=== PATIENT | male | born 1945 | race Caucasian/White ===

== ENCOUNTER 2018-11-29 18:50 | Observation (INO) | payer MEDICARE, MEDICAID ==
[2018-11-29 19:58] LABS: Bilirubin Negative (Negative); Blood, Urine Negative (Negative); Clarity Clear (Clear); Glucose, Urine (Dipstick) >=1000 mg/dL (Negative); Leukocyte Negative (Negative); Nitrite Negative (Negative); Protein, Urine (Dipstick) Negative (Neg-Trace); Urobilinogen 0.2 mg/dL (0.2-1.0)
[2018-11-29 20:02] LABS: #Eosinphils 0.3 thou/uL (0.0-0.7); #Lymphocytes 1.8 thou/uL (1.20-3.40); #Monocytes 0.9 thou/uL (0.11-0.59); #Neutrophils 6.1 thou/uL (1.40-6.50); %Basophils 0.3 % (0.0-1.0); %Eosinophils 2.9 % (0.0-10.0); %Lymphocytes 19.9 % (21.0-51.0); %Monocytes 9.6 % (0.0-10.0); %Neutrophils 67.2 % (42.0-75.0); Hemoglobin 11.3 g/dL (14.0-18.0); Mean Corpuscular HGB CONC 33.6 g/dL (32.0-36.0); Mean Corpuscular Hemoglobin 31.1 pg (27.0-31.0); Mean Corpuscular Volume 92.6 fL (78.0-98.0); Mean Platelet Volume 7.7 fL (7.4-10.4); Platelet Count 206 thou/uL (130-400); RBC Distribution Width 13.4 % (11.5-14.5); Red Blood Cell (RBC) Count 3.65 mill/uL (4.70-6.10)
--- NOTE | 2018-11-29 20:17 | RAD ---
Chest one view HISTORY: Altered mental status. COMPARISON: 06/12/2018. FINDINGS: Cardiac silhouette is magnified by projection. Pulmonary vasculature remains upper limits o f normal. Mediastinum is midline with aortic calcification and postoperative changes. No lobar consolidation or evidence of pneumothorax. IMPRESSION: Chronic-type findings are stable. No active cardiopulmonary abnormalities are demonstrate d.
--- NOTE | 2018-11-29 20:22 | CT ---
CT head noncontrast HISTORY: Altered mental status. COMPARISON: 04/04/2018. FINDINGS: There is no evidence of acute intracranial hemorrhage or infarct. Mild diffuse cortical atr ophy and chronic ischemic small vessel disease. There is no mass effect or shift of midline structures. Prominent calcification in the arterial structures of the brain base. Visualized paranasa l sinuses remain well-aerated. IMPRESSION: Atherosclerosis. Chronic-type findings are stable. No acute intracranial abnormalities are demonstrated.
[2018-11-29 20:27] LABS: ALT (SGPT) 15 U/L (8-55); AST (SGOT) 10 U/L (5-34); Albumin 4.4 g/dL (3.4-4.8); Alkaline Phosphatase 109 U/L (40-150); Anion Gap 17 mmol/L (10-20); BUN (Urea Nitrogen) 36 mg/dL (8.4-25.7); Bilirubin, Total 0.3 mg/dL (0.2-1.2); Calc. Creatinine Clearance 0 mL/min (70-130); Calcium 9.2 mg/dL (7.8-10.44); Carbon Dioxide 18 mmol/L (23-31); Chloride 102 mmol/L (98-107); Estimated GFR-MDRD 24; Globulin 2.2 g/dL (2.4-3.5); Glucose 466 mg/dL (83-110); Potassium 5.5 mmol/L (3.5-5.1); Protein, Total 6.6 g/dL (5.8-8.1); Sodium 131 mmol/L (136-145)
[2018-11-29 20:47] LABS: CKMB 6.5 ng/mL (0-6.6)
[2018-11-29] MEDS ORDERED: Aspirin Chewable 81 MG TAB ONE (21:07)
[2018-11-29 23:14] LABS: Troponin I 0.203 ng/mL (< 0.028)
[2018-11-30 00:09] VITALS: BMI 24.7
[2018-11-30 02:22] LABS: Troponin I 0.075 ng/mL (< 0.028)
[2018-11-30] MEDS ORDERED: Dextrose 50% Abboject 50 ML SYRINGE SLOW IVP PRN (03:05)
[2018-11-30] MEDS ORDERED: HumaLOG 300 UNITS/3 ML VIAL SC PRN (03:05)
[2018-11-30] MEDS ORDERED: Dextrose 5% in Water 1,000 ML IV PRN (03:05)
[2018-11-30 03:34] LABS: #Eosinphils 0.1 thou/uL (0.0-0.7); #Lymphocytes 1.9 thou/uL (1.20-3.40); #Monocytes 0.9 thou/uL (0.11-0.59); #Neutrophils 5.4 thou/uL (1.40-6.50); %Basophils 0.3 % (0.0-1.0); %Eosinophils 1.7 % (0.0-10.0); %Lymphocytes 22.8 % (21.0-51.0); %Monocytes 10.2 % (0.0-10.0); Hemoglobin 10.9 g/dL (14.0-18.0); Mean Corpuscular HGB CONC 33.6 g/dL (32.0-36.0); Mean Corpuscular Hemoglobin 31.4 pg (27.0-31.0); Mean Corpuscular Volume 93.3 fL (78.0-98.0); Mean Platelet Volume 7.6 fL (7.4-10.4); Platelet Count 187 thou/uL (130-400); RBC Distribution Width 13.5 % (11.5-14.5); Red Blood Cell (RBC) Count 3.49 mill/uL (4.70-6.10); White Blood Cell (WBC) Count 8.4 thou/uL (4.8-10.8)
[2018-11-30 03:57] LABS: ALT (SGPT) 15 U/L (8-55); AST (SGOT) 10 U/L (5-34); Albumin 3.7 g/dL (3.4-4.8); Alkaline Phosphatase 77 U/L (40-150); Anion Gap 12 mmol/L (10-20); BUN (Urea Nitrogen) 35 mg/dL (8.4-25.7); Bilirubin, Total 0.3 mg/dL (0.2-1.2); Calc. Creatinine Clearance 37 mL/min (70-130); Calcium 9.3 mg/dL (7.8-10.44); Carbon Dioxide 22 mmol/L (23-31); Chloride 108 mmol/L (98-107); Estimated GFR-MDRD 29; Globulin 2.2 g/dL (2.4-3.5); Glucose 314 mg/dL (83-110); Magnesium 1.7 mg/dL (1.6-2.6); Potassium 5.6 mmol/L (3.5-5.1); Protein, Total 5.9 g/dL (5.8-8.1); Sodium 136 mmol/L (136-145)
[2018-11-30] MEDS: HumaLOG 300 UNITS/3 ML VIAL SC PRN ×2 (06:16→17:11)
[2018-11-30] MEDS ORDERED: Nitroglycerin 0.4 MG TAB (25 Tab Bottle) SL PRN (09:06)
[2018-11-30] MEDS ORDERED: Isosorbide Dinitrate 20 MG TAB PO SCH (10:15)
[2018-11-30] MEDS ORDERED: Carvedilol 3.125 MG TAB PO SCH ×2 (10:15→21:00)
[2018-11-30] MEDS ORDERED: Citalopram 20 MG TAB PO SCH (10:15)
[2018-11-30] MEDS ORDERED: Aspirin 81 mg Enteric Coated Tablet PO SCH ×2 (10:15)
[2018-11-30] MEDS ORDERED: Polyethylene Glycol 3350 17 GM Packet PO PRN (10:33)
[2018-11-30] MEDS ORDERED: Ondansetron PF 4 MG/2 ML Vial IVP PRN (10:47)
[2018-11-30] MEDS ORDERED: Ondansetron ODT 4 MG TAB PO PRN (10:47)
--- NOTE | 2018-11-30 11:27 | ULT ---
EXAM: Bilateral lower extremity arterial ultrasound HISTORY: Discoloration of the bilateral lower legs COMPARISON: None TECHNIQUE: Multiplanar grayscale and color Doppler images were obtained and a bilateral lower extrem ity arterial ultrasound. Spectral analysis of the Doppler waveforms were performed. FINDINGS: No significant calcified plaque is seen in bilateral lower extremity. Right lower extremity: Common femoral artery: Triphasic Profundofemoral artery: Biphasic Superficial femoral artery: Triphasic Popliteal artery: Biphasic Anterior tibial artery: Biphasic Posterior tibial artery: Biphasic Dorsalis pedis artery: Biphasic No significant increase in velocity is seen from a more proximal to a distal segment to suggest an ar ea of focal atherosclerotic disease. Left lower extremity: Common femoral artery: Biphasic Profundofemoral artery: Biphasic Superficial femoral artery: Triphasic Popliteal artery: Biphasic Anterior tibial artery: Triphasic Posterior tibial artery: Monophasic Dorsalis pedis artery: Biphasic No significant increase in velocity is seen from a more proximal to a distal segment to suggest an ar ea of focal atherosclerotic disease. IMPRESSION: Minimal distal abnormal waveforms.
--- NOTE | 2018-11-30 14:00 | HP ---
PRIMARY CARE PHYSICIAN: Miguelito Cavanaugh MD CHIEF COMPLAINT: Generalized weakness and lower extremity pain. HISTORY OF PRESENT ILLNESS: Mr. Apple is a pleasant 73-year-old man with a past medical history of hypertension, hyperlipidemia, coronary artery disease, diabetes mellitus type 2, gastroesophageal reflux disease, and chronic kidney disease, stage 3, who had presented to [facility] late last night after he experienced worsening generalized weakness and pain down his lower extremities. He states that this is chronic for him and has been going on for the last several months. However, he states over the last 2 to 3 weeks, this is gradually worsening. He had denied any fever, chills, any headache, blurred vision, dizziness, any chest pain, palpitations, shortness of breath, abdominal pain, nausea, or vomiting. He had stated that when he had stood up, he had felt slight dizzy and that the room was spinning around him. However, this has since resolved since being in the emergency department. He underwent a CT of brain without contrast, which showed chronic type changes with no acute abnormalities demonstrated. He also underwent a portable chest x-ray, which was found to be stable and showed chronic type findings with no active cardiopulmonary abnormalities noted. Labs showed an elevated potassium of 5.6 and acute on chronic renal disease with a creatinine of 2.58 with his baseline creatinine of 2.2 and this has since improved to 2.25 with an estimated GFR of 29. Upon arriving, his glucose was elevated at 466. He was started on gentle IV hydration with normal saline and this has since improved to 258. Serial troponins were obtained and found to be indeterminate at 0.045, which had increased to 0.203, however, did improve back down to 0.075. The patient denied any chest pain, palpitations, or any other cardiac symptoms at this time. The patient was found to have chronic changes with his lower extremities including paresthesia, feeling of coldness and pain along with chronic skin changes and diffuse chronic discoloration. The patient had Dopplers ordered, which are currently pending at this time. Vascular Surgery will be consulted for further evaluation of his symptoms. REVIEW OF SYSTEMS: All other systems reviewed and found to be negative unless mentioned in the HPI. PAST MEDICAL HISTORY: Hypertension; hyperlipidemia; diabetes mellitus, type 2; coronary artery disease, status post CABG; and chronic kidney disease, stage 3. PAST SURGICAL HISTORY: CABG x4, right knee surgery, and aortic valve replacement. PSYCHIATRIC HISTORY: Includes depression, however, the patient denies any suicidal ideation. SOCIAL HISTORY: The patient denies any alcohol, tobacco, or illicit drug use. KNOWN ALLERGIES: Iodine, latex, and shellfish. CURRENT HOME MEDICATIONS: 1. Metformin 500 mg p.o. daily. 2. Protonix 40 mg p.o. daily. 3. MiraLAX 17 g p.o. daily. 4. Tramadol 50 mg p.o. q.i.d. p.r.n. pain. 5. Potassium chloride 20 mEq p.o. daily. 6. Aspirin 81 mg daily. 7. Carvedilol 3.125 mg p.o. b.i.d. 8. Citalopram 20 mg p.o. daily. 9. Insulin glargine 8 units subcu daily. 10. Isosorbide dinitrate 30 mg p.o. daily. 11. Lisinopril 20 mg p.o. at bedtime. 12. Nitroglycerin 0.4 mg sublingual every 5 minutes as needed for chest pain. 13. Lorazepam 1 mg p.o. daily p.r.n. anxiety. 14. Melatonin 3 mg p.o. at bedtime p.r.n. insomnia. 15. Vitamin B12 of 1000 mcg p.o. daily. PHYSICAL EXAMINATION: VITAL SIGNS: Blood pressure 189/88, pulse 79, respirations 12, temperature 98.1 degrees Fahrenheit, and O2 saturations 100% on room air. GENERAL: The patient is awake, alert, and oriented x3. He is currently lying comfortably in bed and in no acute distress. HEENT: Atraumatic, normocephalic. Pupils are round and reactive to light. Extraocular muscles intact. Moist mucous membranes noted. NECK: Soft, supple. Trachea midline. CARDIOVASCULAR: Positive S1 and S2. Regular rate and rhythm. No murmur auscultated. RESPIRATORY: Clear to auscultation bilaterally. No wheezes, rales, or rhonchi. ABDOMEN: Soft and nontender. Bowel sounds present. MUSCULOSKELETAL: Pedal pulses diminished on right lower extremity with chronic skin changes and decreased warm felt on the lower right extremity. NEUROLOGIC: Cranial nerves II through XII grossly intact. No focal deficits noted. Generalized weakness. Speech intact and normal. Gait not assessed. SKIN: Chronic skin changes noted in bilateral lower extremities. PSYCHIATRIC: Good mood and affect. LABORATORY DATA: WBC 8.4, RBC 3.49, hemoglobin 10.9, and platelet 187. Sodium 136, potassium 5.6, anion gap 12, BUN 35, creatinine 2.25, estimated GFR 29, glucose 258, and magnesium 1.7. Troponin indeterminate with the last one 0.075. Urinalysis shows greater than a 1000 glucose, otherwise unremarkable. DIAGNOSTIC IMAGING: CT brain without contrast showed chronic type findings are stable. No acute intracranial abnormalities are demonstrated. Portable chest x-ray showed chronic type findings are stable with no active cardiopulmonary abnormalities demonstrated. ASSESSMENT AND PLAN: 1. Generalized weakness. The patient was found to be hyperkalemic at 5.6. He was given a dose of oral Kayexalate, a BMP will be rechecked. PT and OT will be ordered during hospital course. Dopplers are also ordered for his chronic changes in his lower extremities along with the new findings of his decreased pulses and decreased warmth on the right side to rule out atherosclerotic disease. Vascular Surgery also consulted for further evaluation. 2. Hypertension. Continue the patient's home regimen at this time and add p.r.n. antihypertensives. Monitor blood pressure and other vital signs closely. 3. Hyperlipidemia. The patient is not on any statin at this time. Therefore, we will check a lipid panel in the morning and possibly start him on low-dose statin during hospital course. 4. Diabetes mellitus. The patient will be placed on insulin sliding scale at this time with frequent Accu-Cheks. He will also be restarted on his home Lantus 8 units daily. 5. History of coronary artery disease. Continue home regimen. 6. Deep venous thrombosis and gastrointestinal prophylaxis. 7. Code status, DNAR. 8. Surrogate decision maker is his son, Sarbjit. DISPOSITION: Pending further workup and clinical findings. Job ID: [id number]
[2018-11-30] MEDS: Insulin Glargine 8 UNITS in Pre-Filled Syringe 1 EACH SC SCH (14:41)
[2018-11-30] MEDS: Acetaminophen 325 MG TAB PO PRN ×2 (17:11→21:12)
[2018-11-30] MEDS ORDERED: Famotidine 20 MG TAB PO SCH (21:00)
[2018-11-30] MEDS ORDERED: Lisinopril 20 MG TAB PO SCH (21:00)
[2018-11-30] MEDS: Carvedilol 3.125 MG TAB PO SCH (21:12)
--- NOTE | 2018-12-01 01:54 | CON ---
DATE OF CONSULTATION: 11/30/2018 REQUESTING PHYSICIAN: Ana Medrano MD CHIEF COMPLAINT: Generalized weakness. HISTORY OF PRESENT ILLNESS: The patient is a 73-year-old man presented to the emergency room late last night. The caregiver having called EMS because the patient was weak, dizzy, and somewhat confused. Some examiners were able to elicit a history of pain in his legs, but in my interview a few minutes ago, he denied them. He says that both of his knees tend to buckle when he walks, but there is no pain associated with walking and there has not been any pain that he recalls affecting his legs. His legs are markedly discolored from the knee down on both sides, but that has been present for a long time. PAST MEDICAL HISTORY: Significant for coronary artery disease, having undergone previous coronary artery bypass grafting, diabetes, GE reflux disease, bilateral knee replacements. MEDICATIONS: Listed as, 1. Coreg 3.125 mg b.i.d. 2. Lisinopril 20 mg at bedtime. 3. Isordil 30 mg a day. 4. Lantus insulin 8 units in the early afternoon. 5. Metformin 500 mg a day. 6. Prednisone 10 mg a day. 7. Citalopram 20 mg a day. 8. Protonix 40 mg a day. 9. Baby aspirin a day. 10. Potassium chloride 20 mEq a day. ALLERGIES: HE REPORTS ALLERGIES TO SHELLFISH, IODINATED CONTRAST, AND LATEX. REVIEW OF SYSTEMS: Negative for any trauma. Negative for any leg pain. Negative for any ulceration on his legs. Negative for any swelling in his legs. PHYSICAL EXAMINATION: GENERAL: He is in no distress. VITAL SIGNS: His temperature is 97.5, T-max on the giron starting around midnight was 98.7, heart rates in the 80 to 90 range with blood pressure mostly in the 150 to 190 over 70 to 90 range. EXTREMITIES: He has easily palpable femoral and popliteal pulses bilaterally. I was able to palpate a dorsalis pedis pulse on the left and Doppler it on the right. I was not able to palpate either posterior tibial, but they were both dopplerable. He has extensive dark purplish discoloration of both lower legs with what almost appears to be some fresh bruising over the right knee, but the discoloration of his lower legs is severe venous stasis pigmentation changes with a little bit of thickening of the skin consistent with some chronic edema, but no acute edema. There is no ulceration or skin breakdown. LABORATORY DATA: White count last night was 9.0, hemoglobin 11.3, hematocrit 33.8, platelet count 206,000. His potassium is 5.6, bicarb 22, BUN 35, creatinine 2.25, glucose was 314. LFTs were normal. Albumin 3.7. Urinalysis showed glucosuria, but negative leukocyte esterase. His chest x-ray shows sternal wires and surgical clips. No infiltrates. His lower extremity arterial Doppler showed no step-up in velocities and reasonably normal flows for most of the system bilaterally. IMPRESSION AND RECOMMENDATIONS: This is venous stasis pigmentation changes, there is of no clinical consequence. Job ID: [id number]
[2018-12-01 05:27] LABS: #Eosinphils 0.2 thou/uL (0.0-0.7); #Lymphocytes 1.8 thou/uL (1.20-3.40); #Monocytes 0.8 thou/uL (0.11-0.59); #Neutrophils 5.1 thou/uL (1.40-6.50); %Basophils 0.3 % (0.0-1.0); %Eosinophils 2.8 % (0.0-10.0); %Lymphocytes 22.5 % (21.0-51.0); %Monocytes 10.5 % (0.0-10.0); Hemoglobin 11.5 g/dL (14.0-18.0); Mean Corpuscular HGB CONC 32.8 g/dL (32.0-36.0); Mean Corpuscular Hemoglobin 30.9 pg (27.0-31.0); Mean Corpuscular Volume 94.1 fL (78.0-98.0); Mean Platelet Volume 7.7 fL (7.4-10.4); Platelet Count 182 thou/uL (130-400); RBC Distribution Width 13.7 % (11.5-14.5); Red Blood Cell (RBC) Count 3.74 mill/uL (4.70-6.10); White Blood Cell (WBC) Count 7.9 thou/uL (4.8-10.8)
[2018-12-01 05:46] LABS: Anion Gap 14 mmol/L (10-20); BUN (Urea Nitrogen) 37 mg/dL (8.4-25.7); Calc. Creatinine Clearance 32 mL/min (70-130); Calcium 9.3 mg/dL (7.8-10.44); Carbon Dioxide 17 mmol/L (23-31); Chloride 110 mmol/L (98-107); Estimated GFR-MDRD 26; Glucose 157 mg/dL (83-110); Potassium 4.7 mmol/L (3.5-5.1); Sodium 136 mmol/L (136-145)
[2018-12-01] MEDS ORDERED: Enoxaparin Sodium 30 MG/0.3 ML SYRINGE SC SCH (09:00)
[2018-12-01] MEDS ORDERED: Citalopram 20 MG TAB PO SCH ×2 (09:00)
[2018-12-01] MEDS ORDERED: ISOSORBIDE DINITRATE 30 MG PO SCH (09:00)
[2018-12-01] MEDS ORDERED: Isosorbide Dinitrate 20 MG TAB PO SCH (09:00)
[2018-12-01] MEDS ORDERED: Aspirin 81 mg Enteric Coated Tablet PO SCH ×2 (09:00)
[2018-12-01] MEDS: Carvedilol 3.125 MG TAB PO SCH (09:24)
[2018-12-01] MEDS: Acetaminophen 325 MG TAB PO PRN ×2 (09:24→16:35)
[2018-12-01] MEDS: Insulin Glargine 8 UNITS in Pre-Filled Syringe 1 EACH SC SCH (12:22)
[2018-12-01] MEDS: HumaLOG 300 UNITS/3 ML VIAL SC PRN ×2 (12:23→16:40)
[2018-12-01] MEDS ORDERED: HYDROcodone/Acetaminophen 7.5/325 mg Tablet PO PRN ×2 (15:27)
[2018-12-01 18:18] VITALS: BP 100/59; TEMP 98.2
[2018-12-01] MEDS ORDERED: Famotidine 20 MG TAB PO SCH (21:00)
--- NOTE | 2018-12-01 22:07 | DIS ---
DATE OF ADMISSION: 11/29/2018 DATE OF DISCHARGE: 12/01/2018 DISCHARGE DIAGNOSES: 1. Generalized weakness, multifactorial. 2. Hyperkalemia, resolved. 3. Chronic kidney disease, stage 3 to 4. 4. Chronic venous insufficiency of the lower extremities. 5. Chronic anemia secondary to chronic kidney disease. 6. Diabetes mellitus type 2, insulin requiring. CONSULTATIONS: Reagan Lutz MD, with Vascular Surgery Service. PERTINENT LAB AND X-RAY FINDINGS: Potassium ranged between 4.7 to 5.6. Creatinine ranged between 2.25 to 2.58. Estimated GFR ranged between 24 to 29. Troponin I ranged between 0.045 to 0.203. CBC showed hemoglobin ranged between 10.[address] of the brain without contrast dated 11/29/2018, showed chronic changes without acute process. Portable chest x-ray dated 11/29/2018, showed chronic changes without acute cardiopulmonary process. Bilateral lower extremity arterial Doppler study dated 11/30/2018, showed minimal distal abnormal waveforms. HOSPITAL COURSE: The patient was initially admitted after presenting with generalized weakness with evidence of mild hyperkalemia in the context of chronic kidney disease stage 3 to 4. The patient received Kayexalate with overall resolution of the hyperkalemia. The patient also underwent evaluation with arterial Doppler studies of the lower extremities due to hyperpigmentary changes and concern for vascular insufficiency. Arterial Doppler studies did not reveal evidence of any significant arterial insufficiency and the patient was evaluated by the Vascular Surgery Service without any specific recommendations for intervention as changes were likely chronic in nature. The patient received general supportive management and remained clinically stable throughout the hospital course. I have examined the patient at the time of discharge and discussed followup instructions. The patient verbalized understanding and agreement ready for discharge on 12/01/2018. DISCHARGE MEDICATIONS: 1. Enteric-coated aspirin 81 mg p.o. daily. 2. Citalopram 20 mg p.o. daily. 3. Vitamin B12 of 1000 mcg p.o. daily. 4. Glargine insulin 8 units subcutaneously daily. 5. Isosorbide dinitrate 30 mg p.o. daily. 6. Lisinopril 20 mg p.o. at bedtime. 7. Lorazepam 1 mg p.o. daily. 8. Melatonin 3 mg p.o. at bedtime p.r.n. 9. Metformin 500 mg p.o. daily. 10. Potassium chloride 20 mEq p.o. daily. 11. Tramadol 50 mg p.o. q.i.d. p.r.n. 12. Coreg 3.125 mg p.o. b.i.d. 13. Protonix 40 mg p.o. daily. FOLLOWUP: The patient may follow up with his primary care provider, Dr. Miguelito Cavanaugh, within 7 days of discharge. The patient may follow up with Dr. Onur Pedro with Nephrology Service and to call his office for appointment time and date. CONDITION ON DISCHARGE: Stable. ACTIVITY: Ad-wiley. DIET: ADA. CODE STATUS: Do not attempt resuscitation. DISPOSITION: Home, 12/01/2018. Job ID: [id number]
--- NOTE | 2018-12-02 09:44 | EKG ---
Test Reason : Blood Pressure : / mmHG Vent. Rate : 081 BPM Atrial Rate : 081 BPM P-R Int : 154 ms QRS Dur : 142 ms QT Int : 378 ms P-R-T Axes : -14 -55 063 degrees QTc Int : 439 ms Normal sinus rhythm Left axis deviation Left bundle branch block Abnormal ECG [place] inversion aVL No change from 02/15/2017 Confirmed by ALONA CRUZ DO ([id number]), clinical editor ZAK MANUEL ([id number]) on 12/02/2018 9:44:40 AM Referred By: Confirmed By:ALONA CRUZ DO
== END 2018-12-01 19:00 | disposition home or self-care (01) ==
LOC: ERS 18:50 → 2SW 23:45 → 2NO 11-30 13:24
PROVIDERS: ADMIT Hospitalist; ATTEND Hospitalist
DX: E87.5 Hyperkalemia (principal); I12.9 Hypertensive chronic kidney disease with stage 1 through stage 4 chronic kidney disease, or unspecified chronic kidney disease; E11.22 Type 2 diabetes mellitus with diabetic chronic kidney disease; N18.4 Chronic kidney disease, stage 4 (severe); D63.1 Anemia in chronic kidney disease; I87.2 Venous insufficiency (chronic) (peripheral); E78.5 Hyperlipidemia, unspecified; I25.10 Atherosclerotic heart disease of native coronary artery without angina pectoris; F32.9 Major depressive disorder, single episode, unspecified; Z79.4 Long term (current) use of insulin; Z79.82 Long term (current) use of aspirin; Z79.899 Other long term (current) drug therapy; Z91.013 Allergy to seafood; Z91.040 Latex allergy status; Z91.041 Radiographic dye allergy status; Z95.1 Presence of aortocoronary bypass graft; Z95.4 Presence of other heart-valve replacement; Z66 Do not resuscitate
CPT/HCPCS: 70450; 71045; 80048; 80053 ×2; 81003; 82553; 82962 ×3; 83735; 84484 ×3; 85025 ×3; 93005; 93923; 96360; 96361; 96372; 97116; 97139; 97535; 99285; G0378 ×3; 36415; 36416; J1650; J1815

== ENCOUNTER 2019-01-11 09:43 | Observation (INO) | payer MEDICARE, MEDICAID ==
[2019-01-11 10:27] LABS: #Eosinphils 0.4 thou/uL (0.0-0.7); #Lymphocytes 0.9 thou/uL (1.20-3.40); #Monocytes 0.7 thou/uL (0.11-0.59); #Neutrophils 4.6 thou/uL (1.40-6.50); %Basophils 0.6 % (0.0-1.0); %Eosinophils 5.8 % (0.0-10.0); %Lymphocytes 14.1 % (21.0-51.0); %Monocytes 10.8 % (0.0-10.0); %Neutrophils 68.7 % (42.0-75.0); Hemoglobin 9.7 g/dL (14.0-18.0); Mean Corpuscular HGB CONC 32.8 g/dL (32.0-36.0); Mean Corpuscular Hemoglobin 31.1 pg (27.0-31.0); Mean Platelet Volume 6.6 fL (7.4-10.4); Platelet Count 258 thou/uL (130-400); RBC Distribution Width 12.1 % (11.5-14.5); White Blood Cell (WBC) Count 6.7 thou/uL (4.8-10.8)
[2019-01-11 10:51] LABS: ALT (SGPT) 9 U/L (8-55); AST (SGOT) 15 U/L (5-34); Albumin 3.6 g/dL (3.4-4.8); Alkaline Phosphatase 94 U/L (40-150); Anion Gap 17 mmol/L (10-20); BUN (Urea Nitrogen) 25 mg/dL (8.4-25.7); Bilirubin, Total 0.4 mg/dL (0.2-1.2); Calc. Creatinine Clearance 0 mL/min (70-130); Carbon Dioxide 20 mmol/L (23-31); Chloride 109 mmol/L (98-107); Estimated GFR-MDRD 21; Glucose 141 mg/dL (83-110); Potassium 4.8 mmol/L (3.5-5.1); Protein, Total 5.6 g/dL (5.8-8.1); Sodium 141 mmol/L (136-145)
--- NOTE | 2019-01-11 10:51 | RAD ---
SINGLE VIEW CHEST: DATE: 01/11/19 COMPARISON: 11/29/18. HISTORY: Generalized weakness and chest pain. FINDINGS: Single view of the chest shows a normal sized cardiomediastinal silhouette. The patient is status pos t CABG. There is no evidence of consolidation, mass, or pleural effusion. Degenerative changes are se en in the spine and shoulders. IMPRESSION: No evidence of acute cardiopulmonary disease. POS: [facility]
[2019-01-11 11:07] LABS: CKMB 2.4 ng/mL (0-6.6)
[2019-01-11 11:32] LABS: Bilirubin Negative (Negative); Blood, Urine Negative (Negative); Clarity Clear (Clear); Glucose, Urine (Dipstick) Normal (Negative); Leukocyte Negative Leu/uL (Negative); Nitrite Negative (Negative); Protein, Urine (Dipstick) Negative (Neg-Trace); Urobilinogen Normal mg/dL (Less than 2)
[2019-01-11 15:21] LABS: Troponin I 0.102 ng/mL (< 0.028)
[2019-01-11] MEDS ORDERED: Bisacodyl 5 MG TAB PO PRN (16:12)
[2019-01-11] MEDS ORDERED: Dextrose 50% Abboject 50 ML SYRINGE SLOW IVP PRN (16:12)
[2019-01-11] MEDS ORDERED: Dextrose 5% in Water 1,000 ML IV PRN (16:12)
[2019-01-11] MEDS ORDERED: HumaLOG 300 UNITS/3 ML VIAL SC PRN (16:12)
--- NOTE | 2019-01-11 16:34 | HP ---
PRIMARY CARE PROVIDER: Miguelito Cavanaugh MD. CHIEF COMPLAINT: Generalized weakness. HISTORY OF PRESENT ILLNESS: Mr. Apple is a pleasant 73-year-old gentleman, who was seen at [facility] on January 11, 2019. He was hospitalized at this facility from November 29 to of this year for generalized weakness, hyperkalemia, chronic kidney disease, and chronic anemia. The patient is able to provide some history. Collateral history was obtained from discussion with emergency room physician and review of medical records. I could not reach the patient's son over the telephone. The patient tells me he hurts all over. He has been feeling weak for several days. He reports fall about a month ago, but none since then. Today morning, he was unable to stand up or walk. He therefore called 911 and was brought to the emergency room. REVIEW OF SYSTEMS: All systems were reviewed and found to be negative except for the pertinent positives and negatives mentioned above. PAST MEDICAL HISTORY: Hypertension, dyslipidemia, diabetes mellitus type 2, coronary artery disease, and chronic kidney disease stage 3. PAST SURGICAL HISTORY: Coronary artery bypass graft x4, right knee surgery, and aortic valve replacement. PSYCHIATRIC HISTORY: Depression. SOCIAL HISTORY: The patient denies tobacco use, alcohol use, or recreational drug use. ALLERGIES: IODINE, LATEX, AND SHELLFISH. CURRENT MEDICATIONS: As dictated by Dr. Beckman in his discharge summary dated on December 01, 2018. CODE STATUS: I discussed his code status. He is DNAR. FAMILY HISTORY: No family history of premature coronary artery disease. PHYSICAL EXAMINATION: GENERAL: On examination, Mr. Apple is awake and alert, not in acute distress. VITAL SIGNS: Blood pressure is 127/66, pulse 68, respiratory rate 18, and oxygen saturation 100% on room air. Rectal temperature is 100 degrees Fahrenheit. EYES: No scleral icterus, no conjunctival pallor. ENT: Dry mucosal membranes. No oropharyngeal erythema or exudates. NECK: Supple, nontender, trachea is midline. RESPIRATORY: Accessory muscles of breathing are not active. Chest wall movements are symmetric bilaterally. Lungs are clear to auscultation without wheeze, rhonchi, or crepitations. CARDIOVASCULAR: S1 and S2 are heard, regular. Peripheral pulses palpable. No carotid bruit. No pericardial rub. ABDOMEN: Soft, nontender, bowel sounds heard, no hepatomegaly, no splenomegaly. NEUROLOGIC: Cranial nerves 2 through 12 intact, deep tendon reflexes 2+. MUSCULOSKELETAL: Power is 5/5 in all 4 extremities. SKIN: Stasis dermatitis of both lower extremities. LYMPHATIC: No cervical lymphadenopathy. PSYCHIATRIC: Normal mood, normal affect, the patient is oriented to person and place, not to time. LABORATORY DATA: Mr. Apple's labs and investigations were reviewed. I reviewed his chest x-ray, which does not show any pulmonary infiltrates. I also reviewed his electrocardiogram, which shows normal sinus rhythm, no ST changes to suggest an acute coronary syndrome. He has normal white count, normal platelet count, and normocytic anemia with hemoglobin 9.7, last known hemoglobin was 11.5 on December 01, 2018, but in August, his hemoglobin was in the 9 to 10 range. He has normal sodium, normal potassium, normal blood urea nitrogen, elevated creatinine of 2.92, last known creatinine 2.43 on December 01, 2018, normal calcium, unremarkable liver profile and indeterminate troponin I of 0.078. Urinalysis is negative. ASSESSMENT AND PLAN: Mr. Apple is a pleasant 73-year-old gentleman, who was seen at [facility] on January 11, 2019. His problem list includes: 1. Generalized weakness: Mr. Apple is presenting with significant generalized weakness. He has been screened by inpatient rehab. However, they do not have beds at this time. Mr. Apple will be admitted to the hospital on observation status. 2. Dehydration: Mr. Apple is slightly dehydrated. We will provide intravenous hydration and reassess. 3. Acute on chronic renal failure stage 4: We will provide gentle hydration, hold nephrotoxic medications including lisinopril and metformin, and reassess. 4. Diabetes mellitus type 2: We will start Accu-Cheks and insulin sliding scale. 5. Coronary artery disease: He has troponins in the indeterminate range, and they have been in the similar range in the past. There are no new electrocardiographic changes. We will trend troponins. 6. Hypertension: We will monitor vital signs and titrate antihypertensives as needed. Many thanks for allowing me to participate in your patient's care. Please feel free to contact me with any questions or concerns. LEVEL OF RISK: High. LEVEL OF COMPLEXITY: High. Job ID: [id number]
[2019-01-11 17:48] VITALS: BMI 22.8
[2019-01-11 18:06] LABS: Troponin I 0.104 ng/mL (< 0.028)
[2019-01-11] MEDS: Sodium Chloride 0.9% 1,000 ML IV SCH (18:21)
[2019-01-11] MEDS: Acetaminophen 325 MG TAB PO SCH (20:42)
[2019-01-11] MEDS: Carvedilol 3.125 MG TAB PO SCH (20:42)
[2019-01-11 22:04] LABS: Troponin I 0.105 ng/mL (< 0.028)
[2019-01-12 04:57] LABS: #Eosinphils 0.6 thou/uL (0.0-0.7); #Lymphocytes 1.1 thou/uL (1.20-3.40); #Monocytes 0.7 thou/uL (0.11-0.59); #Neutrophils 2.7 thou/uL (1.40-6.50); %Basophils 0.6 % (0.0-1.0); %Eosinophils 11.2 % (0.0-10.0); %Lymphocytes 22.4 % (21.0-51.0); %Monocytes 13.2 % (0.0-10.0); %Neutrophils 52.6 % (42.0-75.0); Hemoglobin 8.7 g/dL (14.0-18.0); Mean Corpuscular HGB CONC 33.2 g/dL (32.0-36.0); Mean Corpuscular Hemoglobin 31.6 pg (27.0-31.0); Mean Corpuscular Volume 95.2 fL (78.0-98.0); Mean Platelet Volume 6.8 fL (7.4-10.4); Platelet Count 260 thou/uL (130-400); RBC Distribution Width 12.1 % (11.5-14.5); Red Blood Cell (RBC) Count 2.75 mill/uL (4.70-6.10); White Blood Cell (WBC) Count 5.1 thou/uL (4.8-10.8)
[2019-01-12 05:18] LABS: Anion Gap 14 mmol/L (10-20); BUN (Urea Nitrogen) 26 mg/dL (8.4-25.7); Calc. Creatinine Clearance 28 mL/min (70-130); Calcium 9.5 mg/dL (7.8-10.44); Carbon Dioxide 19 mmol/L (23-31); Chloride 110 mmol/L (98-107); Estimated GFR-MDRD 23; Glucose 85 mg/dL (83-110); Potassium 4.6 mmol/L (3.5-5.1); Sodium 138 mmol/L (136-145)
[2019-01-12] MEDS: Carvedilol 3.125 MG TAB PO SCH (08:36)
[2019-01-12] MEDS: Acetaminophen 325 MG TAB PO SCH ×2 (08:37→11:44)
[2019-01-12] MEDS ORDERED: Cyanocobalamin (Vitamin B-12) 1,000 MCG TAB PO SCH (09:00)
[2019-01-12] MEDS ORDERED: Aspirin 81 mg Enteric Coated Tablet PO SCH (09:00)
[2019-01-12] MEDS ORDERED: Isosorbide Dinitrate 20 MG TAB PO SCH (09:00)
[2019-01-12] MEDS ORDERED: Citalopram 20 MG TAB PO SCH (09:00)
[2019-01-12] MEDS: Sodium Chloride 0.9% 1,000 ML IV SCH (11:45)
[2019-01-12] MEDS ORDERED: Insulin Glargine 4 UNITS in Pre-Filled Syringe 1 EACH SC SCH (13:00)
[2019-01-12] MEDS ORDERED: Insulin Glargine 8 UNITS in Pre-Filled Syringe 1 EACH SC SCH (13:00)
[2019-01-12] MEDS ORDERED: traMADol HCl 50 MG TAB PO PRN (13:39)
[2019-01-12 14:12] VITALS: BP 133/65; TEMP 97.8
[2019-01-12] MEDS ORDERED: hydrALAZINE 25 MG TAB PO SCH (15:00)
--- NOTE | 2019-01-12 19:29 | DIS ---
DATE OF ADMISSION: 01/11/2019 DATE OF DISCHARGE: 01/12/2019 PRIMARY CARE PROVIDER: Miguelito Cavanaugh MD DISCHARGE DIAGNOSES: 1. Generalized weakness. 2. Podnx-nv-trbotuv kidney disease, stage IV. 3. Hypoglycemia. CONDITION OF PATIENT ON THE DAY OF DISCHARGE: Stable. I assessed Mr. Apple on the day of discharge. He denies any chest pain or shortness of breath. Vital signs are stable. S1 and S2 are heard, regular. Lungs are clear to auscultation bilaterally. DISCHARGE MEDICATIONS: 1. Lisinopril and metformin were discontinued temporarily. 2. Lantus dose has been decreased to 4 units daily. 3. Hydralazine 25 mg 3 times a day has been started. Otherwise, the patient is being discharged to rehab on the remainder of his home medications, which include, 1. Acetaminophen 325 mg every 6 hours as needed. 2. Aspirin 81 mg daily. 3. Citalopram 20 mg daily. 4. Vitamin B12 1000 mcg daily. 5. Isosorbide dinitrate 30 mg daily. 6. Coreg 3.125 mg 2 times a day. 7. Protonix 40 mg daily. 8. Lorazepam 1 mg daily as needed. HOSPITAL COURSE: Mr. Apple is a pleasant 73-year-old gentleman, who was admitted to [facility] on January 11, 2019, for a generalized weakness and gfuey-on-dvqutgz stage IV renal failure. Please refer to my history and physical note dated January 11, 2019, for further details. A 2D echocardiogram showed left ventricular ejection fraction of 45% to 50%, mildly dilated left atrium, normal size left ventricle, mild aortic stenosis, mild mitral regurgitation, and mild tricuspid regurgitation. The patient was evaluated in the emergency room for inpatient rehab. He was admitted as observation patient overnight to the hospital because beds were not available. Rehab bed became available on January 12, and he is being discharged for inpatient rehab at [facility]. He had episodes of hypoglycemia during this admission, therefore, his Lantus insulin dose was decreased to 4 units from 8 units daily. He also had [id number] renal failure with a creatinine of 2.92 at the time of admission. It decreased to 2.76 by January 12. Lisinopril and metformin are on hold. He will need his Chem-7 checked in 3 days time. At which time, decision can be made regarding resuming metformin and lisinopril. His blood pressures were elevated during this hospitalization, and he has been started on hydralazine. LABORATORY DATA: On the day of discharge, sodium 138, potassium 4.6, blood urea nitrogen 26, creatinine 2.76, white count 5100, hemoglobin 8.7, and platelet count 260,000. Many thanks for allowing me to participate in your patient's care. Please feel free to contact me with any questions or concerns. DISCHARGE DESTINATION: [facility]. Job ID: [id number]
== END 2019-01-12 14:55 ==
LOC: ERS 09:43 → 2NO 17:21
PROVIDERS: ADMIT Internal Medicine; ATTEND Internal Medicine
DX: R53.1 Weakness (principal); I12.9 Hypertensive chronic kidney disease with stage 1 through stage 4 chronic kidney disease, or unspecified chronic kidney disease; E11.22 Type 2 diabetes mellitus with diabetic chronic kidney disease; N18.4 Chronic kidney disease, stage 4 (severe); N17.9 Acute kidney failure, unspecified; E11.649 Type 2 diabetes mellitus with hypoglycemia without coma; E86.0 Dehydration; I25.10 Atherosclerotic heart disease of native coronary artery without angina pectoris; F32.9 Major depressive disorder, single episode, unspecified; E78.5 Hyperlipidemia, unspecified; I25.2 Old myocardial infarction; K21.9 Gastro-esophageal reflux disease without esophagitis; Z95.1 Presence of aortocoronary bypass graft; Z66 Do not resuscitate; Z91.041 Radiographic dye allergy status; Z91.040 Latex allergy status; Z91.013 Allergy to seafood; Z79.82 Long term (current) use of aspirin; Z79.899 Other long term (current) drug therapy
CPT/HCPCS: 71045; 80048; 80053; 81003; 82553; 82962 ×2; 84484 ×2; 85025 ×2; 93005; 93306; 96360; 96361 ×2; 97116; 97139; 99285; G0378 ×3; 36415; 36416; J1815

== ENCOUNTER 2019-02-06 15:45 | Observation (INO) | payer MEDICARE, MEDICAID ==
[2019-02-06 16:21] LABS: #Eosinphils 0.5 thou/uL (0.0-0.7); #Lymphocytes 1.1 thou/uL (1.20-3.40); #Monocytes 0.6 thou/uL (0.11-0.59); #Neutrophils 2.9 thou/uL (1.40-6.50); %Basophils 0.1 % (0.0-1.0); %Eosinophils 9.5 % (0.0-10.0); %Lymphocytes 21.1 % (21.0-51.0); %Monocytes 11.3 % (0.0-10.0); Hemoglobin 10.1 g/dL (14.0-18.0); Mean Corpuscular HGB CONC 33.2 g/dL (32.0-36.0); Mean Corpuscular Hemoglobin 30.6 pg (27.0-31.0); Mean Corpuscular Volume 92.1 fL (78.0-98.0); Mean Platelet Volume 7.4 fL (7.4-10.4); Platelet Count 202 thou/uL (130-400); RBC Distribution Width 11.9 % (11.5-14.5); Red Blood Cell (RBC) Count 3.31 mill/uL (4.70-6.10); White Blood Cell (WBC) Count 5.1 thou/uL (4.8-10.8)
[2019-02-06 16:41] LABS: ALT (SGPT) 13 U/L (8-55); AST (SGOT) 15 U/L (5-34); Albumin 4.2 g/dL (3.4-4.8); Alkaline Phosphatase 85 U/L (40-150); Anion Gap 16 mmol/L (10-20); BUN (Urea Nitrogen) 25 mg/dL (8.4-25.7); Bilirubin, Total 0.4 mg/dL (0.2-1.2); CK (CPK) 137 U/L (30-200); Calc. Creatinine Clearance 0 mL/min (70-130); Carbon Dioxide 22 mmol/L (23-31); Chloride 105 mmol/L (98-107); Estimated GFR-MDRD 32; Globulin 1.9 g/dL (2.4-3.5); Glucose 79 mg/dL (83-110); Lipase 31 U/L (8-78); Potassium 4.6 mmol/L (3.5-5.1); Protein, Total 6.1 g/dL (5.8-8.1); Sodium 138 mmol/L (136-145)
--- NOTE | 2019-02-06 17:10 | RAD ---
PORTABLE CHEST ONE VIEW: Date: 02-06-19 Time: 4:05 p.m. History: Chest pain FINDINGS: Comparison is made with exam of 01-11-19. The heart size is normal. The aorta is tortuous. The lungs are well expanded without focal areas of c onsolidation or pneumothoraces or pleural effusions. IMPRESSION: No acute process. POS: [facility]
[2019-02-06] MEDS ORDERED: hydrALAZINE 20 MG/ML VIAL SLOW IVP PRN (20:23)
[2019-02-06 20:41] LABS: Troponin I Less than 0.010 ng/mL (< 0.028)
[2019-02-06 23:01] LABS: Troponin I 0.032 ng/mL (< 0.028)
[2019-02-07] MEDS ORDERED: Acetaminophen 325 MG TAB PO PRN (01:23)
[2019-02-07] MEDS ORDERED: Acetaminophen 650 MG Suppository PR PRN (01:23)
[2019-02-07] MEDS ORDERED: Lorazepam 1 MG TAB PO PRN (01:23)
[2019-02-07 01:47] LABS: #Eosinphils 0.6 thou/uL (0.0-0.7); #Lymphocytes 1.1 thou/uL (1.20-3.40); #Monocytes 0.7 thou/uL (0.11-0.59); %Basophils 0.3 % (0.0-1.0); %Eosinophils 10.3 % (0.0-10.0); %Lymphocytes 21.1 % (21.0-51.0); %Monocytes 12.7 % (0.0-10.0); %Neutrophils 55.6 % (42.0-75.0); Hemoglobin 9.9 g/dL (14.0-18.0); Mean Corpuscular HGB CONC 33.4 g/dL (32.0-36.0); Mean Corpuscular Hemoglobin 30.7 pg (27.0-31.0); Mean Corpuscular Volume 91.9 fL (78.0-98.0); Mean Platelet Volume 7.3 fL (7.4-10.4); Platelet Count 193 thou/uL (130-400); RBC Distribution Width 11.9 % (11.5-14.5); Red Blood Cell (RBC) Count 3.21 mill/uL (4.70-6.10); White Blood Cell (WBC) Count 5.4 thou/uL (4.8-10.8)
[2019-02-07 02:08] LABS: Anion Gap 13 mmol/L (10-20); BUN (Urea Nitrogen) 25 mg/dL (8.4-25.7); Calc. Creatinine Clearance 41 mL/min (70-130); Calcium 9.8 mg/dL (7.8-10.44); Carbon Dioxide 22 mmol/L (23-31); Chloride 108 mmol/L (98-107); Estimated GFR-MDRD 34; Glucose 111 mg/dL (83-110); Sodium 139 mmol/L (136-145)
[2019-02-07 02:25] LABS: CKMB 3.2 ng/mL (0-6.6)
[2019-02-07] MEDS: Sodium Chloride 0.9% 1,000 ML IV SCH ×3 (02:25→23:54)
[2019-02-07] MEDS: traMADol HCl 50 MG TAB PO PRN (02:29)
[2019-02-07] MEDS ORDERED: HumaLOG 300 UNITS/3 ML VIAL SC PRN ×2 (03:53)
[2019-02-07] MEDS ORDERED: Dextrose 50% Abboject 50 ML SYRINGE SLOW IVP PRN (03:53)
[2019-02-07] MEDS ORDERED: Dextrose 5% in Water 1,000 ML IV PRN (03:53)
--- NOTE | 2019-02-07 04:46 | HP ---
This is LINDA Murray dictating a report for Monica Maravilla MD. PRIMARY CARE PHYSICIAN: Dr. Cavanaugh. CHIEF COMPLAINT: Chest pain. HISTORY OF PRESENT ILLNESS: Mr. Apple is a 73-year-old gentleman, who presents with complaints of chest pain. He states he has had intermittent chest pain for the last couple of days. The pain today started at approximately 2:30 pm. The patient states it was in the center of his chest radiating down into his left arm and hand. The patient states the pain became severe, rating it a 10/10 in severity. He states it was initially a 7/10 in severity. He tried taking nitroglycerin at home and states he did not have any relief. He opted to seek medical attention. He was brought in by EMS and per the ED report, he received additional nitroglycerin spray, nitroglycerin paste, and morphine. The patient states on arrival, his pain had diminished. He reports having some mild shortness of breath at the time the pain started. Denies having any recent cough or hemoptysis. Denies having any headaches or dizziness. No recent fevers, chills, or sweats. No abdominal pain, nausea, or vomiting. The patient states he has discomfort in his back and in his neck, which is chronic and unchanged. Denies any hemoptysis. No lower leg swelling or edema. In the emergency department, he underwent an EKG which showed a normal sinus rhythm, heart rate of 64, complete left bundle-branch block with no ST changes or T-wave abnormalities compared to previous EKG done 01/12/2019. He underwent a chest x-ray that showed no evidence of intrathoracic acute changes. Laboratory studies were done which showed a normal white blood count. Renal function elevated with a creatinine of 2.05, however, he appears to be at baseline. LFTs unremarkable and initial troponin negative. Lipase 31. The patient did not receive any additional medications in the emergency department due to being pain free. PAST MEDICAL HISTORY: 1. Coronary artery disease. 2. Previous OR. 3. Type 2 diabetes mellitus. 4. GERD. 5. Hyperlipidemia. 6. Hypertension. 7. CKD. 8. Depression. PAST SURGICAL HISTORY: 1. CABG x4. 2. Right knee surgery. 3. Aortic valve replacement. SOCIAL HISTORY: The patient denies any tobacco use, alcohol consumption, or illicit drug use. He states he is retired. Due to chronic medical comorbidities, he is not as active as he wishes he could be. 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 ALLERGIES: 1. IODINE AND IODIDE CONTAINING PRODUCTS. 2. LATEX. 3. SHELLFISH CONTAINING PRODUCTS. CURRENT MEDICATIONS: 1. Carvedilol. 2. Lorazepam. 3. Prednisone. 4. Citalopram. 5. Lisinopril. 6. Metformin. 7. . 8. Isosorbide. 9. Pantoprazole. 10. Potassium chloride. 11. Aspirin. 12. Vitamin B12. 13. Lantus. PHYSICAL EXAMINATION: GENERAL: The patient appears thin, well developed, in no acute distress. VITAL SIGNS: Temperature 97.8, pulse 60, respirations 12, O2 saturation 100% on room air, blood pressure 122/59. HEENT: Normocephalic and atraumatic. Pupils are equal, round, reactive to light. Sclerae without icterus. Oropharynx is clear. NECK: Supple. LUNGS: Clear to auscultation bilaterally without any wheezes, rales, or rhonchi. CARDIAC: Regular rate and rhythm. ABDOMEN: Soft, nontender, nondistended. Normoactive bowel sounds present. EXTREMITIES: No lower leg swelling or edema. NEUROLOGIC: Alert and oriented x3. SKIN: Without rash or jaundice. LABORATORY DATA: White blood count 5.1, hemoglobin 10.1, hematocrit 30.4, platelets 202. Sodium 138, potassium 4.6, chloride 105, carbon dioxide 22, anion gap 16, BUN 25, creatinine 2.05, GFR 32, glucose 79, calcium 10. LFTs unremarkable. Lipase normal. Troponin negative. IMAGING DATA: As mentioned above in HPI. Recent echo done on 01/11/2019, showed an EF of 45% to 50% with mildly dilated left atrium, left ventricular size is normal and aortic valve leaflets not well visualized. Mild aortic stenosis present as well as mild tricuspid regurgitation and mild mitral regurgitation. IMPRESSION AND PLAN: Mr. Apple is a pleasant 73-year-old gentleman who has been referred for management of the followin. Acute coronary syndrome rule out. The patient is without any chest pain at present. He has responded well to treatment. States he has had persistent chest pain for the last couple of days and it became progressively worse today. His pain has fully settled by now, though he is unsure how long exactly lasted. At this present moment, he has no complaints. We will continue to trend troponins. Second troponin has come back indeterminate 0.032. We will repeat. The patient apparently has presented with multiple complaints of chest pain in the past. We will place consultations to Cardiology. We will also add on BNP to laboratory studies. Consultation placed to Cardiology. 2. Hypertension. We will resume home medications once verified. Monitor blood pressure. 3. Diabetes mellitus. We will resume home medications. Monitor glucose and initiate sliding scale. 4. Gastrointestinal prophylaxis. We will continue his home dose of Protonix. 5. Chronic kidney disease. Currently appears to be at baseline. We will continue to monitor renal function. We will initiate low dose IV hydration. 6. Code status. The patient states he wishes to be DNAR. Consultation has been placed to Palliative Care for advanced directives. His surrogate decision maker is his son, Sarbjit Apple. The patient's case was discussed with Dr. Maravilla, who agrees with plan of care as described above. Job ID: [id number]
[2019-02-07] MEDS: Aspirin 81 mg Enteric Coated Tablet PO SCH (08:12)
[2019-02-07] MEDS: Cyanocobalamin (Vitamin B-12) 1,000 MCG TAB PO SCH (08:13)
[2019-02-07] MEDS: Carvedilol 3.125 MG TAB PO SCH ×2 (08:13→19:41)
[2019-02-07] MEDS ORDERED: Famotidine/PF 20 mg/2ml Vial SLOW IVP SCH (09:00)
[2019-02-07 14:10] VITALS: BMI 22.3
[2019-02-07] MEDS ORDERED: Insulin Glargine 8 UNITS in Pre-Filled Syringe 1 EACH SC SCH (15:00)
[2019-02-07] MEDS ORDERED: Insulin Glargine 15 UNITS in Pre-Filled Syringe 1 EACH SC SCH (15:00)
[2019-02-07] MEDS ORDERED: Insulin Glargine 4 UNITS in Pre-Filled Syringe 1 EACH SC SCH (15:00)
--- NOTE | 2019-02-07 21:35 | CON ---
DATE OF CONSULTATION: HISTORY OF PRESENT ILLNESS: Mr. Bertrand Apple is a 73-year-old white male whom I initially saw in February 2017, but I have not seen him since. In 1994, he underwent cardiac catheterization at [facility] by Dr. Shen. He had an occluded circumflex artery with moderate LAD and right coronary disease. He was treated medically. He then underwent repeat catheterization in February [address] Shen. Mr. Apple had a 60% left main, 80% proximal LAD, 50% distal LAD, mild plaquing of the ramus, 60% proximal circumflex and total occlusion of circumflex after an arterial branch vessel filling retrograde from the left. Right coronary artery had a proximal 60% stenosis and 80% mid stenosis and 80% distal stenosis. There was mild anterolateral hypokinesis and mild mitral valve prolapse with ejection fraction of 49%. He then underwent CABG x4 according to the patient. Those records have been purged from the computer. Since that time, he apparently has undergone several stent placements by Dr. Shen at [facility]. Finally in November 2015, he was sent to [place] to have TAVR performed. In September 2016, he underwent right total knee replacement. He then developed MRSA cellulitis and was treated for that. 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 He underwent 6 weeks of IV antibiotics with vancomycin. He then presented here transferred from [place] in February 2017 with severe weakness. Due to renal insufficiency, furosemide and lisinopril were discontinued at that time. He now presents complaining of lower sternal-epigastric pain. Pain started yesterday at approximately 2:30 p.m. and the pain was quite severe at times. He states it lasted most of the night. Nitroglycerin did not seem to improve the discomfort. He had some shortness of breath as well as diaphoresis and nausea. He denies any symptoms at this time. PAST MEDICAL HISTORY: Methicillin-resistant Staph aureus, right total knee replacement and infection with removal of prosthesis, coronary artery disease, hypertension, history of aortic stenosis status post TAVR, chronic kidney disease, diabetes mellitus, hypercholesterolemia, and depression. PAST SURGICAL HISTORY: Appendectomy, CABG, right total knee replacement and removal of prosthesis. He had multiple left knee surgeries as well as multiple left shoulder surgeries and neck surgery. TAVR placed in November 2015. MEDICATIONS: 1. Aspirin 325 daily. 2. Carvedilol 3.125 b.i.d. 3. Lantus 8 units daily. 4. Lorazepam 1 mg p.o. daily p.r.n. 5. Tramadol p.r.n. ALLERGIES: LATEX. HE IS ALLERGIC TO SHELLFISH AND IV CONTRAST. APPARENTLY, WITH IV CONTRAST, HE HAD ANAPHYLACTIC REACTION IN THE PAST. SOCIAL HISTORY: He does not smoke or drink. FAMILY HISTORY: Negative for coronary artery disease. REVIEW OF SYSTEMS: A 12-point review of systems is unremarkable. PHYSICAL EXAMINATION: VITAL SIGNS: Blood pressure 149/69, pulse 69. HEENT: PERRL. NECK: Supple. CHEST: Clear. CARDIAC: S1 and S2 are normal without any S3 or S4. There is a 1/6 systolic ejection murmur along the left sternal border and in the aortic area. ABDOMEN: Normal bowel sounds without masses. He has had some epigastric tenderness that seems to reproduce some of his pain. EXTREMITIES: Reveal no clubbing, cyanosis, or edema. NEUROLOGICAL: Grossly intact. LABORATORY DATA: EKG revealed normal sinus rhythm with left axis deviation and left bundle-branch block. The left bundle-branch block is not a new finding. Hemoglobin 9.9, hematocrit 29.5, white count 5400, platelets 193,000. Sodium 138, potassium 4.6, chloride 105, carbon dioxide 22, BUN 25, creatinine 2.05. BNP 611.0. Troponin I 0.032. IMPRESSION: 1. Epigastric discomfort. 2. Chronically elevated troponin I, in fact he has had troponin I values 10 times greater than this in the past. 3. History of methicillin-resistant Staphylococcus aureus infection of knee replacement with ultimate removal. 4. Status post transcatheter aortic-valve replacement. 5. Hypertension. 6. Hypercholesterolemia. 7. Diabetes. 8. Chronic kidney disease. 9. Depression. 10. Iodine allergy. PLAN: Mr. Apple underwent echocardiography 4 weeks ago. Ejection fraction was 45% to 50% with mildly dilated left atrium, bioprosthetic aortic valve with mild aortic stenosis, mild mitral regurgitation, mild tricuspid regurgitation. His current troponin I is minimally out of the normal range and is probably due to his renal insufficiency. Without further evidence that he has myocardial ischemia, I would be very hesitant to take this patient to the molder labels with his creatinine hovering around 2 and the need to opacify 4 bypass grafts. With his epigastric discomfort, I feel it is probably more GI related. He will undergo Lexiscan Cardiolite testing to further evaluate for ischemia. Job ID: [id number] MTDD
[2019-02-08] MEDS: traMADol HCl 50 MG TAB PO PRN (04:03)
[2019-02-08 08:08] VITALS: BP 147/72; TEMP 97.9
--- NOTE | 2019-02-08 08:46 | ULT ---
ULTRASOUND ABDOMEN COMPLETE: INDICATIONS: Epigastric pain. TECHNIQUE: Johnston-scale ultrasound evaluation of the liver, gallbladder, spleen, pancreas, common bile duct, kidne ys, abdominal aorta, and inferior vena cava (IVC). FINDINGS: No focal hepatic lesion. There is vascular calcification of the imaged aorta. No acute gallbladder pathology. Lion sign is negative. Spleen is unremarkable. Pancreas is incompletely assessed by o bscuration due to bowel gas. The common duct measures 6 mm, within normal limits for the patient's a ge. Limited visualization of the left kidney precludes its assessment. Within the right kidney ther e is a 2.5 cm focus of decreased echogenicity, superiorly, with a lobular morphology and the potentia l for an internal septation. IMPRESSION: 1. No acute abnormalities are seen. 2. Complex appearing cyst of the superior pole right kidney. Recommend follow-up renal mass protoco l CT of abdomen for further characterization. POS: [facility]
[2019-02-08] MEDS: Cyanocobalamin (Vitamin B-12) 1,000 MCG TAB PO SCH (09:39)
[2019-02-08] MEDS: Carvedilol 3.125 MG TAB PO SCH (09:39)
[2019-02-08] MEDS: Aspirin 81 mg Enteric Coated Tablet PO SCH (09:39)
--- NOTE | 2019-02-09 05:01 | DIS ---
DATE OF ADMISSION: 02/06/2019 DATE OF DISCHARGE: 02/08/2019 DISCHARGE DIAGNOSES: 1. Chest pain, noncardiac. 2. Hypertension, stable. 3. Diabetes mellitus type 2, insulin requiring. 4. Chronic kidney disease stage 3. 5. Right renal cyst. CONSULTATIONS: Dr. Emeterio Benavidez with Cardiology Service. PERTINENT LABORATORY AND X-RAY FINDINGS: Creatinine ranged between 1.94 to 2.05. Estimated GFR ranged between 32 to 34. BNP 611. Troponin I ranged between 0.010 to 0.032. Lipase 31. CBC showed a hemoglobin of 10. Portable chest x-ray dated 02/06/2019, showed no acute cardiopulmonary process. Abdominal ultrasound dated 02/08/2019, showed a complex cyst of the superior pole of the right kidney. HOSPITAL COURSE: The patient was observed on the telemetry unit after initially presenting with chest pain and mild elevated troponin I. The patient was monitored with serial cardiac biomarkers with mild elevation, prompting Cardiology consultation. The patient was initially scheduled for cardiac stress testing, however, did not want to pursue any further testing and did not want to pursue any cardiac catheterization or angiogram. The patient clinically stabilized with supportive management and continuation of his outpatient medication regimen to include aspirin, beta blockers, and nitroglycerin. The patient underwent abdominal ultrasound showing questionable complex cyst of the right kidney with recommendations for outpatient CT evaluation on a nonurgent basis. The patient remained clinically stable throughout the hospital course, tolerating regular oral intake and voiding appropriately. I have examined the patient at the time of discharge and discussed followup instructions. The patient verbalized understanding and in agreement, ready for discharge on 02/08/2019. DISCHARGE MEDICATIONS: 1. Enteric-coated aspirin 325 mg p.o. daily. 2. Vitamin B12 1000 mcg p.o. daily. 3. Lantus 8 units subcutaneously daily. 4. Lorazepam 1 mg p.o. daily. 5. Coreg 3.125 mg p.o. b.i.d. 6. Tramadol 50 mg p.o. q.6 hours p.r.n. pain. FOLLOWUP: The patient may follow up with his primary care provider, Dr. Miguelito Cavanaugh within 7 days of discharge. CONDITION ON DISCHARGE: Fair. ACTIVITY: Ad-wiley. DIET: ADA. CODE STATUS: Do not attempt resuscitation. DISPOSITION: Home on 02/08/2019. Job ID: [id number]
--- NOTE | 2019-02-12 02:06 | EKG ---
Test Reason : Blood Pressure : / mmHG Vent. Rate : 064 BPM Atrial Rate : 064 BPM P-R Int : 162 ms QRS Dur : 148 ms QT Int : 424 ms P-R-T Axes : 000 -56 048 degrees QTc Int : 437 ms Normal sinus rhythm Left axis deviation Left bundle branch block Abnormal ECG No changes from 12-JAN-2019 Confirmed by ALONA CRUZ DO ([id number]), video editor AUSTIN GREENE ([id number]) on 02/12/2019 2:06:31 AM Referred By: Confirmed By:ALONA CRUZ DO
== END 2019-02-08 12:52 | disposition home or self-care (01) ==
LOC: ERS 15:45 → 2SW 17:43
PROVIDERS: ADMIT Family Medicine; ATTEND Family Medicine
DX: R07.89 Other chest pain (principal); I12.9 Hypertensive chronic kidney disease with stage 1 through stage 4 chronic kidney disease, or unspecified chronic kidney disease; E11.22 Type 2 diabetes mellitus with diabetic chronic kidney disease; N18.3 Chronic kidney disease, stage 3 (moderate); I25.10 Atherosclerotic heart disease of native coronary artery without angina pectoris; I25.82 Chronic total occlusion of coronary artery; Q61.01 Congenital single renal cyst; I25.2 Old myocardial infarction; K21.9 Gastro-esophageal reflux disease without esophagitis; E78.5 Hyperlipidemia, unspecified; F32.9 Major depressive disorder, single episode, unspecified; Z66 Do not resuscitate; Z86.14 Personal history of Methicillin resistant Staphylococcus aureus infection; Z79.4 Long term (current) use of insulin; Z79.82 Long term (current) use of aspirin; Z79.899 Other long term (current) drug therapy; Z91.013 Allergy to seafood; Z91.040 Latex allergy status; Z91.041 Radiographic dye allergy status; Z95.1 Presence of aortocoronary bypass graft; Z95.2 Presence of prosthetic heart valve
CPT/HCPCS: 71045; 76700; 80048; 80053; 82550; 82553; 82962 ×3; 83690; 83880; 84484 ×3; 85025 ×2; 93005; 96361 ×2; 96374; 96375; 97139 ×2; 99285; G0378 ×4; 36415; 36416; J0360; J1815

== ENCOUNTER 2019-04-09 11:08 | Inpatient (IN) | payer MEDICARE, MEDICAID ==
[2019-04-09] MEDS ORDERED: Piperacillin/Tazobactam 3.375 GM VIAL ONE (12:36)
[2019-04-09 12:55] LABS: Troponin I 0.045 ng/mL (< 0.028)
[2019-04-09] MEDS ORDERED: HumaLOG 300 UNITS/3 ML VIAL SC PRN (15:17)
[2019-04-09] MEDS ORDERED: Labetalol HCl 100 MG/20 ML VIAL SLOW IVP PRN (15:17)
[2019-04-09] MEDS ORDERED: Bisacodyl 5 MG TAB PO PRN (15:17)
[2019-04-09] MEDS ORDERED: hydrALAZINE 20 MG/ML VIAL SLOW IVP PRN (15:17)
[2019-04-09] MEDS ORDERED: Dextrose 50% Abboject 50 ML SYRINGE SLOW IVP PRN (15:17)
[2019-04-09] MEDS ORDERED: Dextrose 5% in Water 1,000 ML IV PRN (15:17)
[2019-04-09] MEDS ORDERED: Senokot S 8.6-50 MG TAB PO PRN (15:17)
[2019-04-09] MEDS ORDERED: Ondansetron PF 4 MG/2 ML Vial IVP PRN (15:17)
[2019-04-09] MEDS ORDERED: Vancomycin HCl 500 MG in Sodium Chloride 0.9% 100 ML IVPB SCH (15:30)
[2019-04-09] MEDS ORDERED: Vancomycin HCl 1.25 GM in Sodium Chloride 0.9% 250 ML 250 ML IVPB SCH (15:30)
[2019-04-09] MEDS ORDERED: Vancomycin HCl 750 MG in Sodium Chloride 0.9% 250 ML 250 ML IVPB SCH (15:30)
[2019-04-09] MEDS ORDERED: Vancomycin HCl 1 GM in Premix Bag 1 BAG IVPB SCH ×2 (15:30→21:00)
[2019-04-09 15:46] LABS: Troponin I 0.043 ng/mL (< 0.028)
--- NOTE | 2019-04-09 15:50 | HP ---
REASON FOR ADMISSION: Hallucination and altered mentation. HISTORY OF PRESENT ILLNESS: A 73-year-old male with history of coronary artery disease, CHF, type 2 diabetes, on no medications, GERD, hyperlipidemia, hypertension, CKD, came to the hospital with hallucination. The patient was having hallucinations at home as he was seeing snakes and also seeing people at his home. He thought there was a girl under his bed when EMS arrived to his home and remained confused. The patient does not have much recollection of these events. He is feeling better now. Denies any chest pain. He lives alone. Denies any nausea, vomiting, or diarrhea. No fever or chills. No skin rashes. No other changes in the medications reported. No sick contacts. PAST MEDICAL HISTORY: Positive for coronary artery disease type 2 diabetes, GERD, hyperlipidemia, hypertension, CKD, depression, and CHF. PAST SURGICAL HISTORY: CABG, bilateral knee replacement, and aortic valve replacement. CODE STATUS: DNAR, confirmed with the patient. ALLERGIES: TO IODINE, SHELLFISH, AND LATEX. SOCIAL HISTORY: Denies any smoking, alcohol, or illicit drugs. FAMILY HISTORY: No history of any heart disease or hypertension reported. REVIEW OF SYSTEMS: CONSTITUTIONAL: Negative for weight loss or gain, ability to conduct usual activities. SKIN: Negative for rash, itching. EYES: Negative for double vision, pain. ENT/MOUTH: Negative for nose bleeding, neck stiffness, pain, tenderness. CARDIOVASCULAR: Negative for palpitations, dyspnea on exertion, orthopnea. RESPIRATORY: Negative for shortness of breath, wheezing, cough, hemoptysis, fever or night sweats. GASTROINTESTINAL: Negative for poor appetite, abdominal pain, heartburn, nausea , vomiting, constipation, or diarrhea. GENITOURINARY: Negative for urgency, frequency, dysuria, nocturia. MUSCULOSKELETAL: Negative for pain, swelling. NEUROLOGIC/PSYCHIATRIC: Negative for anxiety, depression. ALLERGY/IMMUNOLOGIC: Negative for skin rash, bleeding tendency. PHYSICAL EXAMINATION: GENERAL: This is a well-built male, in no apparent distress. VITAL SIGNS: Temperature 98.2, pulse 73, respiratory rate 14, blood pressure 165/78. HEENT: Atraumatic, normocephalic. Oral mucosa is moist. NECK: Supple. CV: S1 and S2, regular rate and rhythm. RESPIRATORY: Clear. GI: Abdomen is soft. MUSCULOSKELETAL: 1+ edema. DERMATOLOGIC: Chronic skin lesions with redness and dry skin and poor circulation which is on bilateral lower extremities. NEUROLOGIC: Alert and oriented x2. No focal neuro deficits. No weakness. Sensation is normal. LABORATORY DATA: Hemoglobin is 9.6, platelets 199, WBC 5.0. Potassium 5.0, BUN is 34, creatinine is 2.6. Urinalysis unremarkable. Urine drug screen showed benzodiazepine. ASSESSMENT AND PLAN: 1. Altered mentation with hallucinations, etiology not clear, possible cellulitis for which we are starting on vancomycin and Zosyn. We will also give IV fluids given the elevation in creatinine, and need to look at his medications and also his social situation. We will have Case Management for assessing social situation and he is living alone. Urine drug screen positive for benzo and medlist need to be reviewed. 2. Mild anemia with normocytic anemia. We will check iron studies. 3. Acute kidney injury. We will start on IV fluids. We will check renal ultrasound. 4. Mild hyperkalemia. 5. Acidosis. 6. Cellulitis - with chronic skin changes - will start on Vanc and Zosyn as tolerated. will also check venous and arterial studies of bilateral lower extremities. 7. History of congestive heart failure. We will hold diuretics for now. 8. History of diabetes. We will hold metformin and put him on sliding scale insulin for now. 9. Hyperlipidemia. 10. Chronic kidney disease. 11. Code status is DNAR. 12. gastrointestinal/deep venous thrombosis prophylaxis. 13. Selected home medications. 14. P.r.n. medication set ordered. The patient will be admitted to Telemetry and observed. Start on IV fluids and antibiotics. Further decision will be made based on the clinical course. Job ID: [id number] [facility]ITAL[facility]athan
[2019-04-09] MEDS: Sodium Chloride 0.9% 1,000 ML IV SCH (16:38)
[2019-04-09] MEDS: Piperacillin/Tazobactam 2.25 GM in Sodium Chloride 0.9% 100 ML IVPB SCH ×2 (17:57→23:29)
[2019-04-09] MEDS ORDERED: Piperacillin/Tazobactam 2.25 GM in Sodium Chloride 0.9% 100 ML IVPB SCH (18:00)
[2019-04-09 18:52] LABS: Troponin I 0.036 ng/mL (< 0.028)
[2019-04-09] MEDS: Heparin 5,000 UNITS/ML VIAL SC SCH (20:22)
[2019-04-09] MEDS: Carvedilol 3.125 MG TAB PO SCH (20:22)
[2019-04-09] MEDS ORDERED: Vancomycin HCl 1 GM in Sodium Chloride 0.9% 250 ML 250 ML IVPB SCH (21:00)
[2019-04-09] MEDS: Nitroglycerin 0.4 MG TAB (25 Tab Bottle) ONE ×3 (21:05→21:32)
[2019-04-09 22:42] LABS: Troponin I 0.073 ng/mL (< 0.028)
[2019-04-09] MEDS ORDERED: Nitroglycerin 2% Ointment 1 INCH/1 GM Packet TOP SCH (23:15)
[2019-04-09] MEDS: Morphine 4 MG/ML VIAL SLOW IVP PRN (23:29)
[2019-04-10 01:56] LABS: Troponin I 0.022 ng/mL (< 0.028)
[2019-04-10 05:00] LABS: #Eosinphils 0.6 thou/uL (0.0-0.7); #Lymphocytes 1.2 thou/uL (1.20-3.40); #Monocytes 0.5 thou/uL (0.11-0.59); #Neutrophils 2.1 thou/uL (1.40-6.50); %Basophils 0.3 % (0.0-1.0); %Eosinophils 12.5 % (0.0-10.0); %Lymphocytes 26.9 % (21.0-51.0); %Monocytes 12.3 % (0.0-10.0); Hemoglobin 8.9 g/dL (14.0-18.0); Mean Corpuscular HGB CONC 32.3 g/dL (32.0-36.0); Mean Corpuscular Hemoglobin 28.8 pg (27.0-31.0); Mean Corpuscular Volume 89.2 fL (78.0-98.0); Mean Platelet Volume 7.4 fL (7.4-10.4); Platelet Count 214 thou/uL (130-400); RBC Distribution Width 12.6 % (11.5-14.5); Red Blood Cell (RBC) Count 3.08 mill/uL (4.70-6.10); White Blood Cell (WBC) Count 4.4 thou/uL (4.8-10.8)
[2019-04-10 05:09] LABS: Anion Gap 11 mmol/L (10-20); BUN (Urea Nitrogen) 29 mg/dL (8.4-25.7); Calc. Creatinine Clearance 31 mL/min (70-130); Calcium 9.1 mg/dL (7.8-10.44); Carbon Dioxide 25 mmol/L (23-31); Chloride 109 mmol/L (98-107); Estimated GFR-MDRD 28; Glucose 67 mg/dL (83-110); Iron 37 ug/dL (65-175); Iron Binding Capacity, Total 204 mcg/dL (261-462); Sodium 141 mmol/L (136-145)
[2019-04-10 05:12] LABS: Troponin I 0.041 ng/mL (< 0.028)
[2019-04-10] MEDS: Piperacillin/Tazobactam 2.25 GM in Sodium Chloride 0.9% 100 ML IVPB SCH ×3 (06:15→17:21)
--- NOTE | 2019-04-10 08:04 | ULT ---
Bilateral renal ultrasound CLINICAL INDICATION: Acute renal insufficiency. Possible obstruction. COMPARISON: Abdominal ultrasound 02/08/2019. FINDINGS: Right kidney: There is a lobulated anechoic cystic structure with a linear septation seen in the supe rior pole right kidney measuring 2.4 cm. This cystic structure demonstrated internal echogenic material on the prior exam. This is suggestive of a complicated right renal cystic lesion. This proba florentino represents a cyst with thin linear septation, but follow-up CT examination with IV contrast is recommended depending on patient's degree of renal insufficiency. No hydronephrosis or renal calculus is seen.The right kidney measures 10 cm x 4.8 cm. Left kidney: Superior pole left kidney is not well delineated and is mostly obscured due to shadowing from adjacent bowel gas. However, there is no evidence of hydronephrosis involving the left kidney. The remainder of the visualized left kidney demonstrates no evidence of a renal calculus or r enal mass.The left kidney measures 10 cm x 5.4 cm. Urinary bladder: Normal sonographic appearance with urinary bladder volume of 331.2 mL. IMPRESSION: 1. Complex cystic lesion superior pole right kidney. Depending on patient's renal insufficiency, foll ow-up CT exam with IV contrast versus follow-up ultrasound is recommended. 2. Limited visualization of the superior pole left kidney due to shadowing from bowel gas. However, t here is no hydronephrosis seen involving the left kidney, and no hydronephrosis is present on the right.
--- NOTE | 2019-04-10 08:14 | ULT ---
BILATERAL LOWER EXTREMITY VENOUS DOPPLER ULTRASOUND: Date: 04/10/19 HISTORY: Bilateral lower extremity edema. TECHNIQUE: Johnston scale ultrasound with color flow and spectral Doppler imaging of the deep venous systems of the lower extremities was performed bilaterally. FINDINGS: There is good flow, compression, and augmentation noted in the common femoral, femoral, deep femoral, popliteal, posterior tibial, and greater saphenous veins on either side. IMPRESSION: No evidence of deep venous thrombosis in either lower extremity. POS: [facility]
[2019-04-10] MEDS ORDERED: FLU VACC TS2019-20(65YR UP)/PF 180 MCG/0.5 ML SYRINGE IM ONE (09:00)
[2019-04-10] MEDS: Heparin 5,000 UNITS/ML VIAL SC SCH ×2 (10:09→20:43)
[2019-04-10] MEDS: Morphine 4 MG/ML VIAL SLOW IVP PRN ×2 (10:09→20:43)
[2019-04-10] MEDS: Isosorbide Dinitrate 20 MG TAB PO SCH (10:10)
[2019-04-10] MEDS: Carvedilol 3.125 MG TAB PO SCH ×2 (10:10→20:43)
[2019-04-10] MEDS: Sodium Chloride 0.9% 1,000 ML IV SCH ×2 (10:24→20:43)
--- NOTE | 2019-04-10 10:49 | ULT ---
BILATERAL LOWER EXTREMITY DOPPLER EXAM: Date: 04/10/19 HISTORY: Claudication. FINDINGS: VESSEL PSV (cm/sec) RIGHT: Common femoral artery 153 Profunda femoral artery 180 Proximal SFA 111 Mid SFA 103 Distal SFA 138 Popliteal 144 Anterior tibial 64 Posterior tibial 104 Dorsalis pedis 14 LEFT: Common femoral artery 129 Profunda femoral artery 74 Proximal SFA 122 Mid SFA 106 Distal SFA 136 Popliteal 136 Anterior tibial 156 Posterior tibial 15 Dorsalis pedis 78 IMPRESSION: 1. Moderately elevated velocities of the right common femoral artery suggesting proximal stenosis. A lso, findings suggesting some moderate stenosis of the profunda femoral artery and areas of mild to m oderate stenosis along the distal superficial femoral artery and popliteal artery with trifurcation d isease. 2. On the left side, somewhat elevated velocities along the left superficial femoral artery and popl iteal artery noted, suggesting mild to moderate narrowing. Also markedly elevated velocities of the a nterior tibial and reduced velocities within the posterior tibia. 3. CT angiography may be helpful in further assessment in this case. POS: [facility]
--- NOTE | 2019-04-10 14:59 | PQF ---
MELONIE MANDEL MALIK MD [id number] [facility]-261 [id number] CLINICAL DOCUMENTATION IMPROVEMENT CLARIFICATION FORM: ICD-10 Updated PLEASE DO AN ADDENDUM TO THE PROGRESS NOTE WITH ANY DOCUMENTATION UPDATES OR ADDITIONS AND CARRY THROUGH TO DC SUMMARY. THANK YOU. DATE: 04/10/19 ATTN: Dr. Huff, Please exercise your independent, professional judgment in responding to the clarification form. Clinical indicators are provided on the bottom of this form for your review Please check appropriate box(s): [ ] Encephalopathy: Type: [ ] Acute [ ] Subacute [ ] Chronic Etiology: [ ] Metabolic [ ] Drug induced: [ ] Unspecified [ ] in the setting of underlying dementia [ ] Other (please specify) [ ] Transient Alteration of Awareness [ ] Other diagnosis [ ] Unable to determine In addition, please specify: Present on Admission (POA): [ ] Yes [ ] No [ ] Unable to determine For continuity of documentation, please document condition throughout progress notes and discharge summary. Thank You. CLINICAL INDICATORS - SIGNS / SYMPTOMS / LABS / RESULTS AND LOCATION IN EMR 04/09 H&P(Vasudev): "Altered mental status with halluctions; alert and oriented x2 per exam note" "bun 34 and creat 2.6" per 04/09 H&P(Vasudev) --> 04/10 lab bun 29, creat 2.30, GFR 28 Urine drug screen positive for benzodiazepine 04/09 lab RISK FACTORS / RESULTS AND LOCATION IN EMR Infectious process-->" possible cellulitis" per 04/09 H&P(Vasudev) "Acute kidney injury, CKD" per 04/09 H&P(Vasudev) TREATMENTS / RESULTS AND LOCATION IN EMR Telemetry 04/09 orders IV antibiotics--> zosyn 2.24 gm Q6H and vancomycin 500 mg daily 04/09 to date per orders IV fluids--> NS at 70 04/09 to date per orders (This form is maintained as a part of the permanent medical record) 2014 [employer]. All Rights Reserved Maribeth Somers, RN, BSN, CCDS [email or web address] [phone] [facility]
--- NOTE | 2019-04-10 16:22 | EKG ---
Test Reason : STAT Blood Pressure : / mmHG Vent. Rate : 067 BPM Atrial Rate : 067 BPM P-R Int : 184 ms QRS Dur : 156 ms QT Int : 434 ms P-R-T Axes : 000 -52 060 degrees QTc Int : 458 ms Normal sinus rhythm Left axis deviation Left bundle branch block Abnormal ECG When compared with ECG of 06-FEB-2019 15:52, No significant change was found Confirmed by DR. Kishor BURGESS ([id number]) on 04/10/2019 4:22:46 PM Referred By: JASON Confirmed By:DR. Kishor BURGESS
[2019-04-10 20:55] LABS: Vancomycin, Random 13.9 ug/mL (See Comment)
--- NOTE | 2019-04-10 21:18 | PDOC.HOSPP ---
- Subjective Encounter Date: 04/10/19 Encounter Time: 15:30 Subjective: Patient seen and examined for Encephalopathy. Mentation improving. No CP/SOB. No new complaints. No overnight events - Objective Vital Signs & Weight: Vital Signs (12 hours) Temp Pulse Resp BP Pulse Ox 04/10/19 16:00 96.1 F L 73 17 118/60 95 04/10/19 12:14 65 18 115/58 L 100 Weight Admit Weight 173 lb 11.2 oz Weight 175 lb I&O: 04/09/19 04/10/19 04/11/19 06:59 06:59 06:59 Intake Total 2154 1143 Output Total 1460 300 Balance 694 843 Result Diagrams: 04/10/19 04:20 04/10/19 04:20 Additional Labs: Accuchecks 04/10/19 04/10/19 04/10/19 16:38 10:01 05:49 POC Glucose 103 92 73 Radiology Reviewed by me: Yes (CXR - neg) EKG Reviewed by me: Yes (Tele SR) Hospitalist ROS - Review of Systems Cardiovascular: denies: chest pain, palpitations, orthopnea, paroxysmal noc. dyspnea, edema, light headedness, other Gastrointestinal: denies: nausea, vomiting, abdominal pain, diarrhea, constipation, melena, hematochezia, other - Medication Medications: Active Medications Generic Name Dose Route Start Last Admin Trade Name Freq PRN Reason Stop Dose Admin Carvedilol 3.125 mg 04/09/19 21:00 04/10/19 20:43 Coreg PO 3.125 mg BID KARLI Administration Heparin Sodium (Porcine) 5,000 units 04/09/19 21:00 04/10/19 20:43 Heparin SC 5,000 units BID KARLI Administration Sodium Chloride 1,000 mls @ 70 mls/hr 04/09/19 15:17 04/10/19 10:24 Normal Saline 0.9% IV 1,000 mls .[id number] KARLI Administration Piperacillin Sod/Tazobactam 100 mls @ 200 mls/hr 04/09/19 18:00 04/10/19 17: 21 Sod 2.25 gm/ Sodium Chloride IVPB 100 mls Q6HR KARLI Administration Isosorbide Dinitrate 30 mg 04/10/19 09:00 04/10/19 10:10 Isordil PO 30 mg DAILY KARLI Administration Morphine Sulfate 4 mg 04/09/19 23:08 04/10/19 20:43 Morphine SLOW IVP 4 mg Q3H PRN Administration Chest Pain Pantoprazole Sodium 40 mg 04/10/19 09:00 04/10/19 10:10 Protonix PO 40 mg DAILY KARLI Administration Sodium Chloride 10 ml 04/10/19 09:00 04/10/19 10:16 Flush - Normal Saline IVF 10 ml Q12HR KARLI Administration - Exam General Appearance: NAD Neck: supple, no JVD Heart: RRR, no gallops, no rubs, normal peripheral pulses Respiratory: CTAB, no rales, no ronchi, normal chest expansion Gastrointestinal: soft, non-tender, non-distended, normal bowel sounds Extremities: 1+ LE edema Neurological: no new deficit Psychiatric: normal affect, A&O x 3 (intermittent confusion) Hosp A/P - Plan DVT proph w/heparin Toxic Metabolic Encephalopathy (POA) RLE Cellulitis EUGENE on CKD 3 HTN DM2 Type 2 NE R renal cyst - PCP to follow Other issues per previous notes PLAN: Cont IV Vancomycin and Zosyn Monitor Vancomycin level Cont IVF AM labs Mild sliding scale Avoid Nephrotoxic agents PT/OT HHC eval DNR on admission - no family at bedside to verify. DPOA - ?sons (Loyd and Sarbjit) - needs to be verified Consult Palliative care
[2019-04-11] MEDS: Piperacillin/Tazobactam 2.25 GM in Sodium Chloride 0.9% 100 ML IVPB SCH ×4 (00:57→18:08)
[2019-04-11 05:29] LABS: Anion Gap 14 mmol/L (10-20); BUN (Urea Nitrogen) 25 mg/dL (8.4-25.7); Calc. Creatinine Clearance 34 mL/min (70-130); Calcium 9.1 mg/dL (7.8-10.44); Carbon Dioxide 23 mmol/L (23-31); Chloride 109 mmol/L (98-107); Estimated GFR-MDRD 30; Glucose 66 mg/dL (83-110); Magnesium 1.6 mg/dL (1.6-2.6); Potassium 3.9 mmol/L (3.5-5.1); Sodium 142 mmol/L (136-145)
[2019-04-11] MEDS: Multivit, Therapeutic 1 TAB PO SCH (09:38)
[2019-04-11] MEDS: Carvedilol 3.125 MG TAB PO SCH ×2 (09:38→20:17)
[2019-04-11] MEDS: Isosorbide Dinitrate 20 MG TAB PO SCH (09:38)
[2019-04-11] MEDS: Thiamine 100 MG TAB PO SCH (09:38)
[2019-04-11] MEDS: Folic Acid 1 MG TAB PO SCH (09:38)
[2019-04-11] MEDS: Heparin 5,000 UNITS/ML VIAL SC SCH ×2 (09:38→20:19)
[2019-04-11] MEDS ORDERED: Acetaminophen 325 MG TAB PO PRN (10:30)
[2019-04-11] MEDS: Sodium Chloride 0.9% 1,000 ML IV SCH (11:27)
[2019-04-11] MEDS: traMADol HCl 50 MG TAB PO PRN (20:17)
--- NOTE | 2019-04-11 20:17 | PDOC.HOSPP ---
- Subjective Encounter Date: 04/11/19 Encounter Time: 12:30 Subjective: Patient seen and examined for AMS. Mentation improving. No CP/SOB or focal deficits. No new complaints. No overnight events - Objective Vital Signs & Weight: Vital Signs (12 hours) Temp Pulse Pulse Pulse Resp BP BP 04/11/19 15:52 98.1 F 71 16 04/11/19 14:02 69 73 154/68 H 145/66 H 04/11/19 11:25 98.1 F 68 16 04/11/19 09:35 97.9 F 68 16 BP Pulse Ox 04/11/19 15:52 158/72 H 100 04/11/19 14:02 04/11/19 11:25 133/61 100 04/11/19 09:35 164/69 H 100 Weight Admit Weight 173 lb 11.2 oz Weight 173 lb 9.6 oz I&O: 04/10/19 04/11/19 04/12/19 06:59 06:59 06:59 Intake Total 2154 2866 720 Output Total 1460 600 Balance 694 2266 720 Result Diagrams: 04/10/19 04:20 04/11/19 04:36 Additional Labs: Accuchecks 04/11/19 04/11/19 04/11/19 16:46 10:58 06:03 POC Glucose 112 H 84 77 EKG Reviewed by me: Yes (Tele SR) Hospitalist ROS - Review of Systems Respiratory: denies: cough, dry, shortness of breath, hemoptysis, SOB with excertion, pleuritic pain, sputum, wheezing, other Cardiovascular: denies: chest pain, palpitations, orthopnea, paroxysmal noc. dyspnea, edema, light headedness, other - Medication Medications: Active Medications Generic Name Dose Route Start Last Admin Trade Name Freq PRN Reason Stop Dose Admin Acetaminophen 650 mg 04/11/19 10:30 04/11/19 11:45 Tylenol PO 650 mg Q4H PRN Administration Headache/Fever or Mild Pain Carvedilol 3.125 mg 04/09/19 21:00 04/11/19 09:38 Coreg PO 3.125 mg BID KARLI Administration Folic Acid 1 mg 04/11/19 09:00 04/11/19 09:38 Folvite PO 1 mg DAILY KARLI Administration Heparin Sodium (Porcine) 5,000 units 04/09/19 21:00 04/11/19 09:38 Heparin SC 5,000 units BID KARLI Administration Sodium Chloride 1,000 mls @ 70 mls/hr 04/09/19 15:17 04/11/19 11:27 Normal Saline 0.9% IV 1,000 mls .[id number] KARLI Administration Piperacillin Sod/Tazobactam 100 mls @ 200 mls/hr 04/09/19 18:00 04/11/19 18: 08 Sod 2.25 gm/ Sodium Chloride IVPB 100 mls Q6HR KARLI Administration Isosorbide Dinitrate 30 mg 04/10/19 09:00 04/11/19 09:38 Isordil PO 30 mg DAILY KARLI Administration Multivitamins 1 tab 04/11/19 09:00 04/11/19 09:38 Theragran PO 1 tab DAILY KARLI Administration Pantoprazole Sodium 40 mg 04/10/19 09:00 04/11/19 09:38 Protonix PO 40 mg DAILY KARLI Administration Sodium Chloride 10 ml 04/10/19 09:00 04/11/19 09:39 Flush - Normal Saline IVF Not Given Q12HR KARLI Thiamine HCl 100 mg 04/11/19 09:00 04/11/19 09:38 Thiamine PO 100 mg DAILY KARLI Administration - Exam General Appearance: NAD Neck: supple, no JVD Heart: RRR, no gallops Respiratory: CTAB, no rales Gastrointestinal: soft, non-distended Extremities: 1+ LE edema Neurological: no new deficit Hosp A/P - Plan PT/OT, DVT proph w/heparin Toxic Metabolic Encephalopathy - improving RLE Cellulitis - suspected EUGENE on CKD 3 - improving HTN DM2 Type 2 GA R renal cyst - PCP to follow Other issues per previous notes PLAN: Cont IV Atbx Consult ID Cont IV NS Avoid Nephrotoxic agents HHC at dc AM labs
[2019-04-11] MEDS: Magnesium Chloride 64 MG TAB PO SCH (20:34)
[2019-04-11] MEDS ORDERED: Vancomycin HCl 1 GM in Premix Bag 1 BAG IVPB SCH (21:00)
[2019-04-12] MEDS: Piperacillin/Tazobactam 2.25 GM in Sodium Chloride 0.9% 100 ML IVPB SCH ×2 (00:23→05:25)
[2019-04-12] MEDS: traMADol HCl 50 MG TAB PO PRN (02:03)
[2019-04-12 04:36] LABS: #Eosinphils 0.7 thou/uL (0.0-0.7); #Lymphocytes 1.2 thou/uL (1.20-3.40); #Monocytes 0.6 thou/uL (0.11-0.59); #Neutrophils 2.3 thou/uL (1.40-6.50); %Basophils 0.2 % (0.0-1.0); %Eosinophils 14.6 % (0.0-10.0); %Lymphocytes 24.5 % (21.0-51.0); %Monocytes 11.8 % (0.0-10.0); %Neutrophils 48.9 % (42.0-75.0); Mean Corpuscular HGB CONC 33.1 g/dL (32.0-36.0); Mean Corpuscular Hemoglobin 29.2 pg (27.0-31.0); Mean Corpuscular Volume 88.2 fL (78.0-98.0); Mean Platelet Volume 7.1 fL (7.4-10.4); Platelet Count 216 thou/uL (130-400); RBC Distribution Width 12.5 % (11.5-14.5); Red Blood Cell (RBC) Count 3.09 mill/uL (4.70-6.10); White Blood Cell (WBC) Count 4.8 thou/uL (4.8-10.8)
[2019-04-12 04:57] LABS: Anion Gap 15 mmol/L (10-20); BUN (Urea Nitrogen) 21 mg/dL (8.4-25.7); Calc. Creatinine Clearance 36 mL/min (70-130); Calcium 9.2 mg/dL (7.8-10.44); Carbon Dioxide 19 mmol/L (23-31); Chloride 112 mmol/L (98-107); Estimated GFR-MDRD 33; Glucose 71 mg/dL (83-110); Potassium 3.6 mmol/L (3.5-5.1); Sodium 142 mmol/L (136-145)
[2019-04-12] MEDS: Sodium Chloride 0.9% 1,000 ML IV SCH (05:26)
--- NOTE | 2019-04-12 07:31 | CON ---
DATE OF CONSULTATION: 04/11/2019 REASON FOR CONSULTATION: Concern of possible infection in the setting of altered mental status. HISTORY OF PRESENT ILLNESS: A 73-year-old with history of coronary artery disease and type 2 diabetes, who lives by himself and has somewhat borderline conditions in his home, sometimes moves wire and electrical service due to problems with paying the bills. He also has CKD stage 3 to 4 and apparently, he was seeing snakes in the home and strange people including a girl under his bed. Somehow, it looks like he called the police and the police came and then, called EMS and transported him to the emergency room. Otherwise, he denied any headaches. He has chronic joint pains from osteoarthrosis with bilateral knee replacements. He denied any chest pain or dyspnea. No abdominal pain. He does have diarrhea, which has started after admission. He now states to me that he did see the snakes, although he did not acknowledge seeing people in his home or under his bed. He was started on broad-spectrum antimicrobial coverage. Currently, he is feeling well and seems to be oriented. He is not agitated. He establishes eye contact and answer the element questions. PAST MEDICAL HISTORY: Includes coronary artery disease, type 2 diabetes, GERD, hyperlipidemia, hypertension, CKD stage 3/4, and depression. PAST SURGICAL HISTORY: Bypass graft surgery, knee replacement, and aortic valve replacement. ALLERGIES: IODINE. 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 He quit smoking many years ago and does not drink anymore. FAMILY HISTORY: Noncontributory. He lives by himself in the area. PHYSICAL EXAMINATION: VITAL SIGNS: Since admission, he has been afebrile. He was afebrile in the emergency room. O2 saturation 100, pulse 68, and respiratory rate 16. SKIN: Shows dryness of the skin, lower extremities, some element of stasis dermatitis. Onychodystrophy is noted, which is [id number]. No lymphadenopathy. HEENT: Ocular movements conjugate. Oral cavity, no remarkable findings. NECK: Supple. No jugular venous distention. LUNGS: Symmetric clear breath sounds. HEART: S1 and S2 without murmurs. No S3 or S4. ABDOMEN: Soft, not distended or tender. No ascites. No bladder distention. No genital abnormalities. EXTREMITIES: Pulses are 1+ in the popliteals and faintly palpable in dorsalis pedis. Cap refill appears normal. He is able to move extremities on command. NEUROLOGIC: He is awake, oriented, and follows commands. He knew he was at [place] and the year as well and the month. LABORATORY DATA: The latest results with a white cell count 4.4, hemoglobin 8.9 , MCV 89, platelets 214, and 48% neutrophils. Sodium 142 and creatinine 2.14 and it does not look like he had a comprehensive metabolic profile evaluated. Previous profile showed decreased iron, decreased TIBC, and percent saturation was low at 18. Transaminases were normal. CK was normal. Albumin normal. Globulin normal. TSH was 2.09. PSA was normal. Amylase 84. Calcium is 9.1. Uric acid 9.6. Microbiology thus far negative blood culture. Urine culture was not done. Urinalysis was fairly unremarkable. IMAGING STUDY: We have an arterial ultrasound, which showed minimal changes. Renal ultrasound, which was not particularly remarkable. Venogram with no evidence of DVT. His last echo is from January this year and it showed EF 45% to 50% with mild aortic stenosis was present. He had a brain CT, which was normal. He has normal chest x-ray without any major findings of significance. ASSESSMENT: Coronary artery disease, chronic kidney disease stage 3/4, as well as type 2 diabetes, who was admitted with hallucinations. DISCUSSION: His history is not very clear, but he states that he did not see people in his place, but only snakes and they actually present there. The elements of his history are consistent with hallucinations. He does have a normocytic anemia, which has not yet been explained and he need a full workup including B12 and folic acid levels to make sure that he does not have cofactor deficiency and fecal occult blood as well. I am not sure he has ever had colonoscopy. The possibility of a primary BOXING PROMOTER in process including encephalitis is not completely ruled out, but appears to be less likely. The posterior fossa CVAs are notorious for being difficult to diagnose sometimes and may consider an MRI to complete the workup. Job ID: [id number] [facility]
[2019-04-12] MEDS: Folic Acid 1 MG TAB PO SCH (08:54)
[2019-04-12] MEDS: Carvedilol 3.125 MG TAB PO SCH (08:54)
[2019-04-12] MEDS: Thiamine 100 MG TAB PO SCH (08:54)
[2019-04-12] MEDS: Isosorbide Dinitrate 20 MG TAB PO SCH (08:54)
[2019-04-12] MEDS: Multivit, Therapeutic 1 TAB PO SCH (08:54)
[2019-04-12] MEDS: Magnesium Chloride 64 MG TAB PO SCH (08:54)
[2019-04-12] MEDS: Heparin 5,000 UNITS/ML VIAL SC SCH (08:54)
[2019-04-12] MEDS ORDERED: cloNIDine 0.1 MG TAB PO PRN (09:57)
[2019-04-12] MEDS ORDERED: Aspirin 81 mg Enteric Coated Tablet PO SCH (10:00)
[2019-04-12 13:27] VITALS: BMI 20.9
--- NOTE | 2019-04-12 13:58 | MRI ---
Exam: Brain MRI without contrast HISTORY: Hallucination. Altered mental status COMPARISON: None FINDINGS: Calvarial marrow signal intensity: Appropriate T1 signal Gradient echo sequence: No hemorrhage Brain parenchyma: No mass, mass effect or midline shift. Brain volume, age-appropriate. Cortical azul-white matter differentiation: Preserved Restricted diffusion: Central arterial flow voids are maintained. Absent restricted diffusion White matter signal intensities:Minimal T2, FLAIR white matter hyperintensities due to chronic small vessel ischemic changes Sinuses: Adequate aeration of the paranasal sinuses and mastoid air cells. IMPRESSION: Unremarkable noncontrast brain MRI
--- NOTE | 2019-04-12 15:12 | DIS ---
DATE OF ADMISSION: 04/09/2019 DATE OF DISCHARGE: 04/12/2019 DISPOSITION: Home with [facility]. FOLLOWUP: Follow up with Dr. Cavanaugh in 1 week. Basic metabolic profile after 1 week is recommended. Primary care physician advised to follow. CODE STATUS: Do not resuscitate. ALLERGIES: THE PATIENT IS ALLERGIC TO IODINE, SHELLFISH, AND LATEX. DISCHARGE MEDICATIONS: 1. Lantus 8 units daily. 2. Isosorbide dinitrate 30 mg daily. 3. Tylenol as needed. 4. Carvedilol 3.125 mg b.i.d. 5. Multivitamin one tablet daily. 6. Tramadol as needed. 7. Aspirin 81 mg daily. DIAGNOSTIC TESTS: 1. Bilateral renal ultrasound showed a complex cystic lesion in the superior pole of the right kidney. 2. Bilateral lower extremity Doppler showed moderately elevated velocities of the right common femoral artery suggesting proximal stenosis. Also findings suggesting some moderate stenosis of the profunda femoral artery and areas of [id number] stenosis along the distal superficial femoral artery and popliteal artery with trifurcation disease. On the left, there are some elevated velocities along the left superficial femoral artery and popliteal artery noted. CT angiogram may be helpful. BRIEF HOSPITAL COURSE: The patient is a 73-year-old male with diabetes mellitus type 2, hypertension, hyperlipidemia, and chronic kidney disease, presented to the hospital with altered mentation along with hallucination. According to the ER report from [place], the patient reported to the EMS that there was a girl in the bed hiding under the covers. He currently lives alone. He also reported seeing snakes in his house. Please refer to the history and physical by Dr. Huntley for further details. The patient was admitted to the hospital with diagnosis of encephalopathy of unclear etiology. He was found to have significant acute kidney injury with creatinine of 2.69 on admission that improved to 1.99 at discharge. His creatinine in February was around 1.9 range. Lisinopril and metformin were discontinued. His urine drug screen was positive for benzodiazepines. I did not see benzodiazepines on his home med list. His renal function gradually improved with IV fluids. His mentation has significantly improved. The patient has home health care, which will be resumed. He was initially started on IV vancomycin and Zosyn for possible bilateral lower extremity cellulitis. However, according to Infectious Disease, Dr. Leong, the patient does not have cellulitis. Antibiotics have been discontinued. He appears stable for discharge. FINAL DIAGNOSES: 1. Toxic metabolic encephalopathy, multifactorial. 2. Acute kidney injury on chronic kidney disease, stage 3. 3. Right lower extremity cellulitis, suspected on admission. Antibiotics discontinued per Infectious Disease recommendation. 4. Hypertension. 5. Diabetes mellitus, type 2. 6. Type 2 myocardial infarction. 7. Right renal cyst. Primary care physician advised to follow. 8. Suspected peripheral vascular disease. The patient would require further evaluation. 9. Anxiety. 10. Depression. The patient denies any suicidal ideation. 11. Coronary artery disease, status post coronary artery bypass grafting. Plan of care was discussed with the patient in detail. He stated understanding. He was extensively counseled on fall precautions. He will benefit from 24-hour supervision. [facility] facility was recommended, however, the patient declined. Job ID: [id number]
[2019-04-12 16:25] VITALS: BP 163/72; TEMP 97.8
[2019-04-13] MEDS ORDERED: Aspirin 81 mg Enteric Coated Tablet PO SCH (09:00)
--- NOTE | 2019-04-13 09:30 | PQF ---
MELONIE MANDEL MALIK MD [id number] CLINICAL DOCUMENTATION CLARIFICATION FORM: POST DISCHARGE Addendum to original discharge summary date: ____ Late entry note date: __ DATE:04/13/2019 ATTN:BAILEY HUFF MD Please exercise your independent, professional judgment in responding to the clarification form. Clinical indicators are provided on the bottom of this form for your review Please check appropriate box(s): [ x ] Toxic metabolic encephalopthy is due to Acute kidney injury [ ] Toxic metabolic encephalopthy is due to Benzodiazepines abuse [ ] Toxic metabolic encephalopthy NOS [ ] Other diagnosis [ ] Unable to determine For continuity of documentation, please document condition throughout progress notes and discharge summary. Thank You. CLINICAL INDICATORS - SIGNS / SYMPTOMS / LABS Altered mentation along with hallucination-Documented in Discharge summary report by Bailey Huff The patient was admitted to the hospital with diagnosis of encephalopthy of unclear etiology-Documented in Discharge summary report by Bailey Huff He was found to have significant acute kidney injury with creatinine of 2.69 on admission that improved to 1.99 at discharge-Documented in Discharge summary report by Bailey Huff His urine drug screen was positive for benzodiazepines, I did not see benzodiazepines on his home med list-Documented in Discharge summary report by Bailey Huff Acute kidney injury on chronic kidney disease stage 3- Documented in Discharge summary report by Bailey Huff RISK FACTORS Acute kidney injury on chronic kidney disease stage 3- Documented in Discharge summary report by Bailey Huff Type 2 mycardial infarction- Documented in Discharge summary report by Bailey Huff HTN,DM-Documented in Discharge summary report by Bailey Huff TREATMENTS: He was extensively counseled on fall precautions-Documented in Discharge summary report by Bailey Huff Brain MRI on 04/12 Cont IV NS- Documented in PN on 04/11 by Bailey Huff Financial Accounting Manager [employer] Win[employer] (This form is maintained as a part of the permanent medical record) 2014 [employer]. All Rights Reserved Reji [email or web address] [not provided] MTDD
--- NOTE | 2019-04-13 11:08 | PDOC.PALCO ---
Palliative Care Consult - Consult Details Requesting Physician: Dr Huff Reason for Consult: goals of care, assistance with communication prognosis/ disease Family Members Present: None - Pertinent HPI 73 year old male who was brought to the emergency room secondary to hallucinations in the home. Taco has previously been on hospice and has caregivers that assist in his home weekly secondary to his inability to leave his residence. Estranged relation with two sons. Lives alone with his dog "Dog" . Ambulated with a walker. - Pertinent PMH CAD, DM II, GERD, HDL, CKD, CHF - Social History Smoking Status: Former smoker Smoking: no tobacco exposure Alcohol Use: none Drug Use History: none Living Situation: independent - Medications MAR Reviewed: Yes - Allergies Allergies/Adverse Reactions: Allergies Allergy/AdvReac Type Severity Reaction Status Date / Time Iodinated Contrast Media Allergy Severe Anaphylaxis Verified 02/06/19 19:55 [Iodinated Contrast Media - Oral and] shellfish derived Allergy Severe Anaphylaxis Verified 02/06/19 19:55 latex Allergy Mild Verified 02/06/19 19:55 - Subjective Appears oreinted, however in conversation is adamant that there were snakes in his home and a girl under his bed. ROS: Difficulty with ambulation, otherwise negative - Objective Vital Signs: Vital Signs - Most Recent Temp Pulse Resp BP Pulse Ox 97.8 F 66 16 163/72 H 100 04/12/19 16:01 04/12/19 16:01 04/12/19 16:01 04/12/19 16:01 04/12/19 16:01 Palliative Performance Scale: 50 - Physical Exam Constitutional: confusion HEENT: moist MMs, sclera anicteric, EOMI Respiratory: no wheezing, clear to auscultation bilateral Cardiovascular: RRR Gastrointestinal: soft, non-tender, positive bowel sounds Musculoskeletal: edema present Deviation from normal: Unalbe to palpate lower ect pulses, stasis ulcers Neurological: moves all 4 limbs Deviation from normal: confused Skin: cap refill <2 seconds Deviation from normal: bilateral lower ext stasis ulcers - Problem List (1) Palliative care encounter Code(s): Z51.5 - ENCOUNTER FOR PALLIATIVE CARE Status: Acute (2) AMS (altered mental status) Code(s): R41.82 - ALTERED MENTAL STATUS, UNSPECIFIED Status: Acute (3) Physical deconditioning Code(s): R53.81 - OTHER MALAISE Status: Acute (4) Diabetes mellitus, type II, insulin dependent Code(s): E11.9 - TYPE 2 DIABETES MELLITUS WITHOUT COMPLICATIONS; Z79.4 - VEGETABLE LOADER (CURRENT) USE OF INSULIN Status: Chronic - Plan/Recommendations Plan:Patient goal is to return home, may consider home health.Theraputic listening, support. Palliative Care RN to continue to follow [60] minutes spent on this encounter with >50% of the time in counseling and coordination of care. Thank you for this very appropriate consult.
== END 2019-04-12 19:05 | disposition home health service (06) | DRG 682 ==
LOC: ERS 11:08 → 2NO 11:55
PROVIDERS: ADMIT Internal Medicine Nephrology; ATTEND Internal Medicine Nephrology
DX: N17.9 Acute kidney failure, unspecified (principal); G92 Toxic encephalopathy; I21.A1 Myocardial infarction type 2; E87.2 Acidosis; I13.0 Hypertensive heart and chronic kidney disease with heart failure and stage 1 through stage 4 chronic kidney disease, or unspecified chronic kidney disease; L03.116 Cellulitis of left lower limb; F32.9 Major depressive disorder, single episode, unspecified; I25.10 Atherosclerotic heart disease of native coronary artery without angina pectoris; E78.5 Hyperlipidemia, unspecified; K21.9 Gastro-esophageal reflux disease without esophagitis; D64.9 Anemia, unspecified; E87.5 Hyperkalemia; Z66 Do not resuscitate; N28.1 Cyst of kidney, acquired; E11.22 Type 2 diabetes mellitus with diabetic chronic kidney disease; N18.3 Chronic kidney disease, stage 3 (moderate); I50.9 Heart failure, unspecified
CPT/HCPCS: 36415; 36416; 70551; 76770; 80048; 80202; 82550; 82728; 83540; 83550; 83735; 84484; 85025; 87040; 93005; 93010; 93923; 93970; 96365; 96366; 96367; J0360; J1644; J2270; J2543; J3370; J3490; J7050

== ENCOUNTER 2019-07-28 16:47 | Observation (INO) | payer MEDICARE, MEDICAID ==
[2019-07-28] MEDS ORDERED: Acetaminophen 325 MG TAB PO PRN (19:37)
[2019-07-28] MEDS ORDERED: Acetaminophen 650 MG Suppository PR PRN (19:37)
[2019-07-28] MEDS ORDERED: Dextrose 50% Abboject 50 ML SYRINGE SLOW IVP PRN (19:58)
[2019-07-28] MEDS ORDERED: HumaLOG 300 UNITS/3 ML VIAL SC PRN ×2 (19:58)
[2019-07-28] MEDS ORDERED: Dextrose 5% in Water 1,000 ML IV PRN (19:58)
--- NOTE | 2019-07-28 21:33 | HP ---
TIME OF ASSESSMENT: 1899. CHIEF COMPLAINT: General weakness and unsteadiness. HISTORY OF PRESENT ILLNESS: Mr. Apple is a pleasant 73-year-old gentleman who presented to the emergency department on [place], brought by ambulance from [facility] due to reported confusion and weakness. The patient states that he was unsure why he was being told to come in, but does state that he has been generally weak for several days. He was just admitted to [facility] after being discharged from the hospital less than 1 week ago. He has required admission to [facility] in the past. He was last admitted here in April 2019. The patient reports feeling generally weak with difficulty walking due to the weakness. He also states at times he feels off balance and lightheaded, which make him stumble backward. Denies having any recent falls. Reports having difficulty raising his legs as he has been able to in the past due to the weakness. He does report reduced oral intake. Denies any nausea or vomiting. Reports a cough productive for yellow sputum, usually at night, and states that it has been going on for a few weeks. He has a known history of COPD. The patient denies any chest pain, palpitations, or shortness of breath. No abdominal pain. No nausea or vomiting. Denies any urinary symptoms or stool changes. He reports chronic redness in the lower extremities and states he has been treated for a staph infection of the right lower extremity in the past. From the last admission here in April 2019, it appears he was on IV antibiotics, which were discontinued after the patient was evaluated by Dr. Leong of Infectious Disease, who felt the patient did not have any cellulitis. He denies having any fevers, but does report chills. He states he has been feeling generally cold and unable to warm up, and this is chronic for him. EMERGENCY DEPARTMENT COURSE: In the emergency department at [place], the patient had laboratory studies done that showed he was hypoglycemic. He was given D50. He underwent a chest x-ray that was unremarkable. He also had CT imaging of the head, which showed no acute intracranial abnormality. He had laboratory studies done showing a sodium of 140, potassium 6.1, BUN 33, creatinine 2.2, hemoglobin 10.9. White blood count was normal. Troponin normal. UA negative. The patient was transferred here for admission for dehydration and generalized weakness. PAST MEDICAL HISTORY: 1. Arthritis. 2. CAD. 3. History of AL. 4. Type 2 diabetes mellitus, recently taken off insulin. 5. GERD. 6. Hyperlipidemia. 7. CKD, stage 3. 8. Right renal cyst. 9. PVD. 10. Anxiety. 11. Depression. PAST SURGICAL HISTORY: 1. CABG x4. 2. Right knee surgery. 3. Aortic valve replacement with tissue valve. SOCIAL HISTORY: The patient is a previous smoker. Also reports previously alcohol use, but quit more than 10 years ago. Denies any drug use. FAMILY HISTORY: Noncontributory. ALLERGIES: 1. IODINE. 2. SHELLFISH PRODUCTS. 3. LATEX. CURRENT MEDICATIONS: 1. Isosorbide dinitrate. 2. Coreg. 3. Aspirin. 4. Lantus. 5. Tramadol. 6. Nitroglycerin. 7. Multivitamin. PHYSICAL EXAMINATION: GENERAL: The patient appears well developed, well nourished, in no acute distress. He is resting comfortably in the stretcher. VITAL SIGNS: Temperature 97.7, pulse 64, blood pressure 158/74, respirations 17 , and O2 saturation 97% on room air. HEENT: Normocephalic and atraumatic. Pupils are equal, round, and reactive to light. Sclerae without icterus. Oropharynx is clear, but oral mucosa is dry. NECK: Supple. LUNGS: Clear bilaterally. No wheezes, rales, or rhonchi. CARDIAC: Regular rate and rhythm. ABDOMEN: Soft, nontender, nondistended. Normoactive bowel sounds present. No guarding or rigidity. No renal angle tenderness. EXTREMITIES: Slight erythema to the right lower extremity, which could be stasis dermatitis given history. Mildly warm to touch. No pitting edema. Peripheral pulses are equal bilaterally. NEUROLOGIC: Alert and oriented x3. Power 5/5 in all limbs. Able to straight leg raise to 15 degrees bilaterally. Facial movements normal. Speech normal. SKIN: Warm and dry. INVESTIGATIONS: As mentioned above in HPI. Of note, the patient had a urinalysis done with no evidence of UTI. It was unremarkable. IMPRESSION AND PLAN: Mr. Apple is a pleasant 73-year-old gentleman with generalized weakness and confusion, who is being admitted for management of the following. 1. Dehydration. The patient appears clinically dry and states his intake has reduced recently. We will continue to monitor renal function. We will give gentle hydration. We will obtain orthostatic blood pressures. We will place consultation to Nephrology given known chronic kidney disease. 2. Generalized weakness. The patient is currently on [facility]. We will consult PT/OT. 3. Hypoglycemia. The patient was given D50 prior to transfer. Glucose has improved. We will continue Accu-Cheks and monitor glucose closely. We will hold insulin for now. We will consult dietitian. 4. Coronary artery disease. Resume home medications once verified. 5. Gastrointestinal prophylaxis with famotidine. 6. Code status, full. Surrogate decision maker is his daughter, Estefanía Marr. Case was discussed with attending who agrees with plan of care as described above. Job ID: [id number] MTDD
[2019-07-28] MEDS: Sodium Chloride 0.45% 1,000 ML IV SCH (23:03)
[2019-07-29 00:13] VITALS: BMI 21.6
[2019-07-29 05:53] LABS: #Eosinphils 0.3 thou/uL (0.0-0.7); #Lymphocytes 0.9 thou/uL (1.20-3.40); #Monocytes 0.7 thou/uL (0.11-0.59); #Neutrophils 2.8 thou/uL (1.40-6.50); %Basophils 0.4 % (0.0-1.0); %Eosinophils 5.9 % (0.0-10.0); %Lymphocytes 19.3 % (21.0-51.0); %Neutrophils 60.5 % (42.0-75.0); Hemoglobin 10.2 g/dL (14.0-18.0); Mean Corpuscular HGB CONC 33.1 g/dL (32.0-36.0); Mean Corpuscular Volume 90.6 fL (78.0-98.0); Mean Platelet Volume 7.6 fL (7.4-10.4); Platelet Count 258 thou/uL (130-400); RBC Distribution Width 13.1 % (11.5-14.5); Red Blood Cell (RBC) Count 3.42 mill/uL (4.70-6.10); White Blood Cell (WBC) Count 4.6 thou/uL (4.8-10.8)
[2019-07-29 06:04] LABS: Anion Gap 13 mmol/L (10-20); BUN (Urea Nitrogen) 27 mg/dL (8.4-25.7); Calc. Creatinine Clearance 38 mL/min (70-130); Calcium 9.2 mg/dL (7.8-10.44); Carbon Dioxide 21 mmol/L (23-31); Chloride 111 mmol/L (98-107); Estimated GFR-MDRD 35; Glucose 101 mg/dL (83-110); Potassium 4.9 mmol/L (3.5-5.1); Sodium 140 mmol/L (136-145)
[2019-07-29] MEDS: Famotidine/PF 20 mg/2ml Vial SLOW IVP SCH (09:42)
--- NOTE | 2019-07-29 10:08 | CON ---
DATE OF CONSULTATION: SERVICE: Renal Medicine. HISTORY OF PRESENT ILLNESS: Mr. Apple is a 73-year-old white male, who was admitted for confusion. He was also noted to be in acute kidney injury with mild hyperkalemia. Empiric volume repletion was given with improvement of the renal function as well as the hyperkalemia. We are here to further evaluate this patient regarding his renal dysfunction. Please note that the patient was previously seen by the Renal Service back in 2017 and he also presented with the same signs and symptoms. REVIEW OF SYSTEMS: Positive for confusion. No chest pain. No shortness of breath. No leg edema. No nausea. No vomiting. Decreased p.o. intake. Decreased appetite. No headache. No diplopia. No fever or chills. No hematochezia. No melena. No hematemesis. No syncopal episode. MEDICATIONS: Home medications included the following; 1. Tramadol 50 mg q.6 p.r.n. 2. Protonix 40 mg tablet once a day. 3. Isosorbide dinitrate 30 mg daily. 4. Carvedilol 3.125 mg p.o. b.i.d. Current medications include; 1. Sliding-scale Humalog. 2. Famotidine 20 mg IV daily. 3. Currently, on one-half normal saline at 50 mL/h. 4. Acetaminophen p.r.n. PAST MEDICAL HISTORY: Includes the following; 1. Status post acute kidney injury. 2. Chronic renal failure ? from diabetic nephropathy. 3. Depression. 4. Type 2 diabetes mellitus. 5. Coronary artery disease. 6. Hypertension. 7. DJD. 8. Status post septic right knee. PAST SURGICAL HISTORY: Status post right knee replacement, status post cardiac cath, and status post CABG. SOCIAL HISTORY: The patient currently is not smoking. No alcohol intake. No IV drug abuse. 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 He lives in [place]. He has 3 children. He lives alone. Education, high school. No IV drug abuse. FAMILY HISTORY: No family history of ESRD. ALLERGIES: IODINE AND SHELLFISH. TRAUMA: None. IMMUNIZATIONS: Up-to-date. HOSPITALIZATIONS: Please see past medical history. PHYSICAL EXAMINATION: VITAL SIGNS: Blood pressure is noted at 144/68, heart rate 80, respiratory rate 16, temperature 98.2, and pulse ox 100% on room air. GENERAL: Awake, alert, comfortable, not in distress. SKIN: Adequate turgor. HEENT: He has pinkish conjunctivae. Anicteric sclerae. NECK: No neck mass. No carotid bruits. No JVD. CHEST: No deformities. LUNGS: Clear breath sounds. HEART: Normal sinus rhythm. No murmur. No gallops. No rubs. ABDOMEN: Globular, soft, and nontender. No masses. EXTREMITIES: No edema. No deformities. LABORATORY DATA: Laboratories of July 29, 2019; sodium 140, potassium 4.9, chloride 111, carbon dioxide 21, BUN 27, creatinine 1.88, glucose 101, and calcium 9.2. Urinalysis of July 28, 2019; specific gravity 1.020, no protein, no red cells, no white cells. White count 4.6, hemoglobin 10.2. IMAGING DATA: Chest x-ray, no CHF. CT scan of the brain on July 28, 2019, showed no acute intracranial abnormality. There is finding of mild cerebral volume loss. ASSESSMENT AND PLAN: 1. Acute kidney injury with a relatively benign urine sediment, consider hemodynamically-mediated renal dysfunction. Continue IV hydration. The absence of proteinuria makes the diabetic nephropathy less likely as a cause of his renal dysfunction. However, with a longstanding history of diabetes, that will be a possible differential. Continue current management. Please note, renal function is much improved. I have increased half-normal saline from 50 to 100 mL/h. We will continue to hold off any diuretics, LESIA inhibitors, or ARB. 2. Mild hyperkalemia, resolved with volume repletion. 3. Confusion. This patient may have underlying early dementia. He may need further workup in the near future. Overall, agree with current management. We will recheck CBC and basic metabolic panel in a.m. Job ID: [id number]
[2019-07-29 11:57] LABS: Hemoglobin A1c 5.1 % (4.0-6.0)
--- NOTE | 2019-07-29 15:43 | PDOC.HOSPP ---
- Subjective Encounter Date: 07/29/19 Encounter Time: 15:41 Subjective: Mr. Apple was seen today in follow-up of generalized weakness, and confusion. He is now alert and oriented, and does not have any new complaints. - Objective Vital Signs & Weight: Vital Signs (12 hours) Temp Pulse Resp BP BP BP BP 07/29/19 11:57 97.2 F L 77 16 137/63 07/29/19 10:21 119/60 147/68 H 07/29/19 07:42 98.2 F 80 16 144/68 H BP BP Pulse Ox 07/29/19 11:57 100 07/29/19 10:21 07/29/19 07:42 141/67 H 144/64 H 100 Weight Admit Weight 173 lb Weight 173 lb I&O: 07/28/19 07/29/19 07/30/19 06:59 06:59 06:59 Intake Total 730 Output Total 800 Balance -70 Result Diagrams: 07/29/19 05:13 07/29/19 05:13 Additional Labs: Accuchecks 07/29/19 07/29/19 07/28/19 12:05 04:53 23:25 POC Glucose 81 114 H 77 07/28/19 07/28/19 18:54 17:04 POC Glucose 78 74 Hospitalist ROS - Medication Medications: Active Medications Generic Name Dose Route Start Last Admin Trade Name Freq PRN Reason Stop Dose Admin Famotidine 20 mg 07/29/19 09:00 07/29/19 09:42 Pepcid SLOW IVP 20 mg DAILY KARLI Administration Sodium Chloride 1,000 mls @ 100 mls/hr 07/28/19 21:00 07/28/19 23:03 1/2 Normal Saline IV 1,000 mls .Q10H KARLI Administration - Exam Eye: PERRL Heart: RRR, no murmur, no gallops, no rubs Respiratory: CTAB, no wheezes, no rales, no ronchi, normal chest expansion Gastrointestinal: soft, non-tender, non-distended, normal bowel sounds, no palpable masses, no hepatomegaly Extremities: no cyanosis, no edema Hosp A/P (1) Generalized weakness Code(s): R53.1 - WEAKNESS Status: Acute (2) Hypomagnesemia Code(s): E83.42 - HYPOMAGNESEMIA Status: Acute (3) CAD (coronary artery disease) Code(s): I25.10 - ATHSCL HEART DISEASE OF [place] CORONARY ARTERY W/O ANG PCTRS Status: Chronic Qualifiers: (4) Diabetes mellitus, type II, insulin dependent Code(s): E11.9 - TYPE 2 DIABETES MELLITUS WITHOUT COMPLICATIONS; 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
[2019-07-29] MEDS: Sodium Chloride 0.45% 1,000 ML IV SCH (16:19)
[2019-07-29] MEDS ORDERED: Lorazepam 1 MG TAB PO SCH (22:30)
[2019-07-30 06:22] LABS: #Eosinphils 0.3 thou/uL (0.0-0.7); #Lymphocytes 1.1 thou/uL (1.20-3.40); #Monocytes 0.8 thou/uL (0.11-0.59); %Basophils 0.1 % (0.0-1.0); %Eosinophils 5.5 % (0.0-10.0); %Lymphocytes 17.8 % (21.0-51.0); %Monocytes 12.7 % (0.0-10.0); Hemoglobin 9.4 g/dL (14.0-18.0); Mean Corpuscular HGB CONC 33.3 g/dL (32.0-36.0); Mean Corpuscular Hemoglobin 30.4 pg (27.0-31.0); Mean Corpuscular Volume 91.1 fL (78.0-98.0); Mean Platelet Volume 7.6 fL (7.4-10.4); Platelet Count 234 thou/uL (130-400); RBC Distribution Width 13.1 % (11.5-14.5); Red Blood Cell (RBC) Count 3.09 mill/uL (4.70-6.10); White Blood Cell (WBC) Count 6.3 thou/uL (4.8-10.8)
[2019-07-30 06:42] LABS: Anion Gap 13 mmol/L (10-20); BUN (Urea Nitrogen) 28 mg/dL (8.4-25.7); Calc. Creatinine Clearance 38 mL/min (70-130); Calcium 9.1 mg/dL (7.8-10.44); Carbon Dioxide 19 mmol/L (23-31); Chloride 111 mmol/L (98-107); Estimated GFR-MDRD 35; Glucose 79 mg/dL (83-110); Potassium 4.3 mmol/L (3.5-5.1); Sodium 139 mmol/L (136-145)
[2019-07-30] MEDS: Sodium Chloride 0.45% 1,000 ML IV SCH ×2 (06:46→13:55)
[2019-07-30] MEDS: Famotidine/PF 20 mg/2ml Vial SLOW IVP SCH (09:05)
--- NOTE | 2019-07-30 10:53 | PRG ---
DATE OF SERVICE: 07/30/2019 SUBJECTIVE: Mr. Apple is a 73-year-old white male, who was initially admitted for generalized weakness and confusion. He is mentating better. He was also seen by the Renal Service for an acute kidney injury. He is empirically being IV hydrated and there is already a slight improvement with the renal function. No other complaints today. His confusion may reflect an underlying ? early dementia. The patient denies any chest pain or shortness of breath. OBJECTIVE: VITAL SIGNS: Blood pressure is noted at 157/74, heart rate 82, respiratory rate 20, temperature 98.2, pulse ox 100%. GENERAL: Noted to be awake, alert, comfortable, not in overt distress. SKIN: Adequate turgor. HEENT: He has pinkish conjunctivae. Anicteric sclerae. No neck mass. No carotid bruits. No JVD. CHEST: No deformities. LUNGS: Clear breath sounds. HEART: Normal sinus rhythm. No murmurs, no gallops, no rubs. ABDOMEN: Globular, soft, nontender. No masses. EXTREMITIES: No edema. No deformities. MEDICATIONS: Of July 30, 2019, were reviewed. LABORATORY DATA: Laboratories of July 30, 2019: Sodium 139, potassium 4.3, chloride 111, carbon dioxide 19, BUN 28, creatinine 1.87, calcium 9.1. White count 6.3, hemoglobin 9.4. ASSESSMENT AND PLAN: 1. Acute kidney injury - consider hemodynamically-mediated renal dysfunction. His urinalysis of July 28, 2019, was relatively benign. Please note the urine sediment did not show any proteinuria, making diabetic nephropathy less likely. For the moment, agree with current IV hydration. Please note the patient has undergone a renal ultrasound back on April 10, 2019, and it showed a complex cystic lesion in superior pole of right kidney. 2. Complex cystic renal lesion. We will repeat a renal ultrasound today. Overall agree with current management. Job ID: [id number]
[2019-07-30 12:24] VITALS: BP 187/84; TEMP 98
--- NOTE | 2019-07-30 13:52 | PDOC.HOSPP ---
- Subjective Encounter Date: 07/30/19 Encounter Time: 13:51 Subjective: Mr. Apple was seen today in follow-up of generalized weakness. He does not have any complaints. He would like to go home. - Objective Vital Signs & Weight: Vital Signs (12 hours) Temp Pulse Resp BP BP Pulse Ox 07/30/19 11:30 98 F 78 20 187/84 H 100 07/30/19 07:54 98.2 F 82 20 157/74 H 100 07/30/19 03:54 73 18 154/72 H 100 Weight Admit Weight 173 lb Weight 173 lb I&O: 07/29/19 07/30/19 07/31/19 06:59 06:59 06:59 Intake Total 730 980 480 Output Total 800 300 Balance -70 680 480 Result Diagrams: 07/30/19 05:54 07/30/19 05:54 Additional Labs: Accuchecks 07/30/19 07/30/19 07/29/19 12:38 06:51 21:05 POC Glucose 121 H 79 148 H 07/29/19 16:37 POC Glucose 136 H Hospitalist ROS - Medication Medications: Active Medications Generic Name Dose Route Start Last Admin Trade Name Freq PRN Reason Stop Dose Admin Acetaminophen 650 mg 07/28/19 19:37 07/29/19 21:40 Tylenol PO 650 mg Q4H PRN Administration Headache/Fever/Mild Pain (1-3) Famotidine 20 mg 07/29/19 09:00 07/30/19 09:05 Pepcid SLOW IVP 20 mg DAILY KARLI Administration Sodium Chloride 1,000 mls @ 100 mls/hr 07/28/19 21:00 07/30/19 06:46 1/2 Normal Saline IV 1,000 mls .Q10H KARLI Administration - Exam Eye: PERRL Heart: RRR, no murmur, no gallops, no rubs, normal peripheral pulses Respiratory: CTAB, no wheezes, no rales, no ronchi, normal chest expansion, no tachypnea, normal percussion Gastrointestinal: soft, non-tender, non-distended, normal bowel sounds, no palpable masses, no hepatomegaly Extremities: no cyanosis, no clubbing, no edema Hosp A/P (1) Generalized weakness Code(s): R53.1 - WEAKNESS Status: Acute (2) Hypomagnesemia Code(s): E83.42 - HYPOMAGNESEMIA Status: Acute (3) CAD (coronary artery disease) Code(s): I25.10 - ATHSCL HEART DISEASE OF [place] CORONARY ARTERY W/O ANG PCTRS Status: Chronic Qualifiers: (4) Diabetes mellitus, type II, insulin dependent Code(s): E11.9 - TYPE 2 DIABETES MELLITUS WITHOUT COMPLICATIONS; 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
[2019-07-30] MEDS ORDERED: Carvedilol 3.125 MG TAB PO SCH (21:00)
--- NOTE | 2019-07-31 04:08 | DIS ---
DATE OF ADMISSION: 07/28/2019 DATE OF DISCHARGE: 07/30/2019 DISCHARGE DISPOSITION: Home. DISCHARGE DIAGNOSES: 1. Metabolic encephalopathy. 2. Dehydration. 3. Possible hypoglycemia. 4. Diabetes mellitus. 5. Dehydration. 6. Coronary artery disease. 7. Hyperlipidemia. 8. Chronic kidney disease stage 3. DISCHARGE MEDICATIONS: 1. Please note that the patient's dose of Lantus was decreased from 8 units down to 4 units. 2. To continue multivitamin once a day. 3. Tramadol 50 mg q.6 hours as needed. 4. Aspirin 81 mg daily. 5. Tylenol 650 mg daily. 6. Protonix 40 mg daily. 7. Nitrostat 0.4 sublingual p.r.n. 8. Isosorbide dinitrate 30 mg twice a day. CODE STATUS: Full code. ALLERGIES: TO IODINATED CONTRAST, SHELLFISH, AND LATEX. HOSPITAL COURSE: Mr. Apple is a pleasant 73-year-old gentleman who was admitted to the hospital with generalized weakness and some confusion. He was found to be mildly dehydrated and was started on IV fluids. His blood sugar was also noted to be on the lower side of normal. His insulin was held and he was given IV fluids. The following day, he was back to his baseline level of functioning. The dose of his insulin will be decreased from 8 units to 4 units to prevent future hypoglycemic episodes. It appears as if he has adequate help at home. He has a provider that comes 7 days a week and stays for 3 hours a day and it appears as if this is adequate. He was able to ambulate with a walker prior to discharge. He was oriented x3 and therefore will be discharged home to have close outpatient followup. Job ID: [id number]
[2019-07-31] MEDS ORDERED: Isosorbide Dinitrate 20 MG TAB PO SCH (09:00)
== END 2019-07-30 17:45 | disposition home or self-care (01) ==
LOC: ERS 16:47 → 2SW 22:51 → INTOOBSV 22:51
PROVIDERS: ADMIT Internal Medicine; ATTEND Internal Medicine
DX: G93.41 Metabolic encephalopathy (principal); E86.0 Dehydration; E11.22 Type 2 diabetes mellitus with diabetic chronic kidney disease; N18.2 Chronic kidney disease, stage 2 (mild); I25.10 Atherosclerotic heart disease of native coronary artery without angina pectoris; E78.5 Hyperlipidemia, unspecified; N18.3 Chronic kidney disease, stage 3 (moderate); F41.9 Anxiety disorder, unspecified; F32.9 Major depressive disorder, single episode, unspecified; Z79.4 Long term (current) use of insulin; Z79.82 Long term (current) use of aspirin; Z79.899 Other long term (current) drug therapy; Z87.891 Personal history of nicotine dependence; Z91.013 Allergy to seafood; Z91.040 Latex allergy status; Z91.041 Radiographic dye allergy status; Z95.1 Presence of aortocoronary bypass graft; Z95.4 Presence of other heart-valve replacement
CPT/HCPCS: 36415; 36416; 80048; 82607; 82746; 83036; 83605; 83735; 85025; 96360; 96361; 96365; 96375; 96376; G0378; J3475; J3490; S0028

== ENCOUNTER 2019-08-21 17:45 | Inpatient (IN) | payer MEDICARE, MEDICAID ==
[2019-08-21] MEDS ORDERED: Morphine 4 MG/ML VIAL ONE (18:53)
--- NOTE | 2019-08-21 19:41 | ULT ---
DOPPLER ARTERIAL EVALUATION OF THE RIGHT LOWER EXTREMITY: Comparison: Prior exam, 04-10-19 FINDINGS: There is a biphasic waveform within the right common femoral artery. Biphasic waveform is seen within the proximal profunda femoral artery on the right. There is a biphasic femoral waveform within the p roximal right femoral artery. There is a more monophasic antegrade waveform seen within the mid right superficial femoral artery which is new from the prior exam. There is a monophasic antegrade wavefor m involving the distal right femoral artery which is also new from the prior exam. Monophasic antegra de waveform is seen in the right popliteal artery which is new from the prior exam. There is a parvus antegrade waveform involving the right posterior tibial artery and right anterior tibial artery. The re is tartis parvus type waveform involving the right dorsalis pedis artery. IMPRESSION: Findings suspicious for high grade stenosis, possibly in the region of the distal right popliteal art jennifer. There is moderate to severe atherosclerotic disease involving the mid superficial femoral artery through the right popliteal artery without a visible hemodynamically significant stenosis. Further work up with a CTA of the abdomen and pelvis with bilateral extremity runoff may be helpful t o evaluate the extent of the stenotic disease. POS: THERESE
[2019-08-21] MEDS ORDERED: Morphine 2 MG/ML SYRINGE SLOW IVP PRN (23:13)
[2019-08-21] MEDS ORDERED: Lactated Ringer's 1,000 ML IV SCH (23:30)
[2019-08-22 00:41] VITALS: BMI 21.7
[2019-08-22] MEDS ORDERED: Ondansetron PF 4 MG/2 ML Vial IVP PRN (01:18)
[2019-08-22] MEDS ORDERED: HumaLOG 300 UNITS/3 ML VIAL SC PRN (01:18)
[2019-08-22] MEDS ORDERED: Acetaminophen 325 MG TAB PO PRN (01:18)
[2019-08-22] MEDS ORDERED: Dextrose 5% in Water 1,000 ML IV PRN (01:18)
[2019-08-22] MEDS ORDERED: hydrALAZINE 20 MG/ML VIAL SLOW IVP PRN (01:18)
[2019-08-22] MEDS ORDERED: Dextrose 50% Abboject 50 ML SYRINGE SLOW IVP PRN (01:18)
[2019-08-22] MEDS: Lactated Ringer's 1,000 ML IV SCH ×2 (01:30→12:02)
--- NOTE | 2019-08-22 02:17 | HP ---
PRIMARY CARE PHYSICIAN: Miguelito Cavanaugh MD CHIEF COMPLAINT: "Pain in my right leg and my knee gives out on me." HISTORY OF PRESENT ILLNESS: Mr. Apple is a pleasant 73-year-old gentleman, who has a history of diabetes mellitus as well as chronic kidney disease, stage 3. He unfortunately is a poor historian and it is hard to get a detailed history from him. He is very vague about his symptomatology. However, Mr. Apple says that he has been having problems with his right foot ever since he had a knee replacement surgery back in 2017. He says he had a staph infection and that was cleared up and then ever since then, he has been having problems with his legs. It is hard to tell when the acute symptoms for this started, but he says he has been having problems with his legs for quite some time and he says that he will get shooting pains in his calf and as well as his heel off and on and says that it will just come and go and then sometimes the leg hurts so much he cannot barely walk on it. He was not really able to tell me when the discoloration in his toes was noted, but apparently he came to the ER for evaluation after he called EMS, it appears that he came primarily because his provider lady who comes out to visit him several times a week did not show up because it sounds like she was having "car trouble." He says that he had fallen on the floor and could not get up and this is why he came to the ER. In the ER, he was found to have purplish discoloration of the 4th and 5th toes on the right foot and he is being admitted for further evaluation. REVIEW OF SYSTEMS: All systems were reviewed and are negative except for that mentioned in the history of present illness. PAST MEDICAL HISTORY: Significant for coronary artery disease, diabetes mellitus, chronic venous stasis disease, chronic kidney disease stage 3, history of a right renal cyst, peripheral vascular disease, anxiety and depression. PAST SURGICAL HISTORY: He has a history of 4-vessel CABG, an aortic valve replacement with a Porcine bioprosthetic valve, right knee surgery. ALLERGIES: TO LATEX, IODINE, AND SHELLFISH. SOCIAL HISTORY: He is a former smoker. He is a former drinker, he quit about 10 years ago. He is single, has 3 sons. When asked who he would want to be his surrogate decision maker, he paused for a very long time and says he would probably want the lady that comes to his house to see about him to be the surrogate decision maker. Code status, he says he wants to be DNR. He says he is tired of all of this. He says his body has broke down from diabetes and he would not really want to live like this and that he is just living for his "dog." FAMILY HISTORY: No history of any heritable diseases. CURRENT MEDICATIONS: Include and these will need to be reconciled with the patient; 1. Isosorbide dinitrate 30 mg daily. 2. Nitrostat 0.4 daily. 3. Pantoprazole 40 mg daily. 4. Tylenol. 5. Aspirin 81 mg daily. 6. Carvedilol 3.125 mg twice daily. 7. Lantus insulin 4 units daily. 8. Multivitamins. 9. Tramadol 50 mg as needed. PHYSICAL EXAMINATION: GENERAL: He is alert and oriented. He appears chronically ill and chronically fatigued. He is well developed, but a bit thin in appearance. VITAL SIGNS: Blood pressure was 141/60, heart rate 70, respiratory rate of 18, temperature is 98.5. HEENT: Pupils are equal, round, and reactive. Extraocular muscles are intact. His sclerae anicteric. Throat, no erythema, no exudates. NECK: No adenopathy. No bruits. LUNGS: Clear. There is no wheezing. No rales. No rhonchi. CARDIOVASCULAR: He has a normal S1, S2. He had a grade 2/6 systolic murmur. ABDOMEN: Soft, scaphoid, nontender, nondistended. Positive for bowel sounds. No rebound. No guarding. No organomegaly. EXTREMITIES: There is no calf tenderness. No joint effusions. NEUROLOGIC: Muscle strength is 5/5 in his upper and lower extremities. SKIN AND INTEGUMENT: He has some dark discoloration of his skin, which appears chronic. However, in the mid part of his calf, there is some significant erythema on the right greater than the left, primarily over the dorsum of the calf and on the 4th and 5th digits, these are purplish in color. It is blanchable and his feet are cool. The dorsalis pedis pulse was palpable, but thready. I was not able to palpate a posterior tibial on the right. The left I am able to palpate dorsalis pedis and posterior tibial, although it is diminished and the capillary refill is also sluggish. LABORATORY DATA: White blood cell count is 13.3, hemoglobin 9.2, hematocrit is 30.2, and platelet count was 350. Sodium 139, potassium 4.9, chloride is 109, CO2 is 15, BUN of 42, creatinine 2.24, glucose is 94. His urine nitrite positive of moderate blood and 2+ bacteria. He had an ultrasound of the lower extremity showing findings suspicious for high-grade stenosis in the distal right popliteal artery with moderate to severe mid superficial femoral to the right popliteal artery stenosis. Chest x-ray showed no significant cardiomegaly or infiltrates or effusions. This is by my reading. ASSESSMENT: This is a pleasant 73-year-old gentleman, who is noted to have what appears to be an acute ischemic 4th and 5th toes on the right foot. The patient however feels most of the pain in his heel and up into his calf. He also has some cellulitis of that foot as well and leg. He also has findings suggestive of a urinary tract infection and unfortunately also has fairly advanced chronic kidney disease as well. 1. Peripheral vascular occlusive disease, we will get a Vascular Surgery consult in the a.m. leave him n.p.o. after midnight in the event that a procedure is needed. He did not have a CT angiogram done emergently due to his advanced kidney injury. 2. Cellulitis of the right leg. We will place him on IV antibiotics. He may require ID consult depending on the Vascular Surgery evaluation. 3. Hypertension. We will need to reconcile and restart his home medicines as well as p.r.n. medications. 4. Urinary tract infection. Again, IV antibiotics. Get a urine culture if it has not already been done in the ER. 5. Chronic kidney disease, stage 4. We will go ahead and consult his Manager Air to slitter creaser slotter helper in his management. 6. Diabetes mellitus. He has a history of hypoglycemia and recent admission for this. We will start his Lantus insulin once he is able to take in p.o. with careful watch for potential hypoglycemia. Job ID: [id number]
[2019-08-22 05:59] LABS: #Eosinphils 0.2 thou/uL (0.0-0.7); #Lymphocytes 0.5 thou/uL (1.20-3.40); #Monocytes 0.8 thou/uL (0.11-0.59); #Neutrophils 6.9 thou/uL (1.40-6.50); %Basophils 0.2 % (0.0-1.0); %Lymphocytes 6.2 % (21.0-51.0); %Monocytes 9.9 % (0.0-10.0); %Neutrophils 81.8 % (42.0-75.0); Mean Corpuscular HGB CONC 32.6 g/dL (32.0-36.0); Mean Corpuscular Hemoglobin 29.6 pg (27.0-31.0); Platelet Count 296 thou/uL (130-400); RBC Distribution Width 12.5 % (11.5-14.5); Red Blood Cell (RBC) Count 2.69 mill/uL (4.70-6.10); White Blood Cell (WBC) Count 8.5 thou/uL (4.8-10.8)
[2019-08-22] MEDS: Cefepime 1 GM in Sodium Chloride 0.9% 100 ML IVPB SCH ×2 (06:00→17:01)
[2019-08-22 06:22] LABS: Anion Gap 12 mmol/L (10-20); BUN (Urea Nitrogen) 36 mg/dL (8.4-25.7); Calc. Creatinine Clearance 38 mL/min (70-130); Calcium 8.6 mg/dL (7.8-10.44); Carbon Dioxide 18 mmol/L (23-31); Chloride 113 mmol/L (98-107); Estimated GFR-MDRD 36; Glucose 121 mg/dL (83-110); Potassium 4.1 mmol/L (3.5-5.1); Sodium 139 mmol/L (136-145)
[2019-08-22] MEDS ORDERED: Prevnar 13-Val Conj/PF 0.5 ML SYRINGE IM ONE (09:00)
[2019-08-22] MEDS: Famotidine/PF 20 mg/2ml Vial SLOW IVP SCH ×2 (09:57→21:27)
[2019-08-22] MEDS: Morphine 2 MG/ML SYRINGE SLOW IVP PRN ×2 (09:58→16:59)
[2019-08-22] MEDS: Heparin 5,000 UNITS/ML VIAL SC SCH ×3 (09:59→21:30)
[2019-08-22] MEDS ORDERED: Vancomycin 1 GM in Premix Bag 1 BAG IVPB SCH (12:00)
--- NOTE | 2019-08-22 14:28 | PDOC.HOSPP ---
- Subjective Encounter Date: 08/22/19 Encounter Time: 14:20 Subjective: f/u for RLE ischemic, cellulitis and gangrene of 4th/5th toes. Receiving Cefepime/Vancomycin currently. Mild pain in R foot. + falls at home using RW. - Objective Vital Signs & Weight: Vital Signs (12 hours) Temp Pulse Resp BP Pulse Ox 08/22/19 11:31 98.8 F 74 18 135/55 L 93 L 08/22/19 08:00 98.5 F 74 18 133/56 L 100 08/22/19 04:00 99.1 F 75 16 118/57 L 98 Weight Weight 169 lb 6.4 oz Result Diagrams: 08/22/19 05:33 08/22/19 05:33 Additional Labs: Laboratory Tests 09/15/16 09/15/16 08/17/19 12:43 12:43 14:34 Hgb 11.5 L Creatinine 1.66 H 2.23 H 08/18/19 08/18/19 08/21/19 12:31 12:31 12:56 Hgb 9.2 L 9.2 L Creatinine 1.98 H 08/21/19 12:56 Hgb Creatinine 2.24 H Radiology Reviewed by me: Yes (Arterial dopp - R popliteal artery with high- grade stenosis) Hospitalist ROS - Medication Medications: Active Medications Generic Name Dose Route Start Last Admin Trade Name Freq PRN Reason Stop Dose Admin Dextrose/Water 25 gm 08/22/19 01:18 08/22/19 04:46 Dextrose 50% SLOW IVP 25 gm PRN PRN Administration Hypoglycemia Famotidine 20 mg 08/22/19 09:00 08/22/19 09:57 Pepcid SLOW IVP 20 mg Q12HR KARLI Administration Heparin Sodium (Porcine) 5,000 units 08/22/19 09:00 08/22/19 09:59 Heparin SC Not Given TID KARLI Cefepime HCl 1 gm/ Sodium 100 mls @ 200 mls/hr 08/22/19 06:00 08/22/19 06:00 Chloride IVPB 100 mls 0600,1800 KARLI Administration Lactated Ringer's 1,000 mls @ 75 mls/hr 08/22/19 01:30 08/22/19 12:02 Lactated Ringer's IV 1,000 mls .[id number] KARLI Administration Vancomycin HCl 1 gm/ Device 200 mls @ 200 mls/hr 08/22/19 12:00 08/22/19 12: 00 IVPB 200 mls 1200 KARLI Administration Morphine Sulfate 2 mg 08/22/19 01:18 08/22/19 09:58 Morphine SLOW IVP 2 mg Q4H PRN Administration Moderate to Severe Pain (6-10) - Exam General Appearance: NAD, awake alert Eye: PERRL, anicteric sclera ENT: normocephalic atraumatic, no oropharyngeal lesions Neck: supple, symmetric, no JVD, no thyromegaly, no lymphadenopathy Heart: RRR, no gallops, no rubs, normal peripheral pulses, murmur present Respiratory: CTAB, no wheezes, no rales, no ronchi, normal chest expansion Gastrointestinal: soft, non-tender, non-distended, normal bowel sounds, no palpable masses Extremities - other findings: RLE with erythema on distal barragan, discolored 4/ 5th toes, +gangrene Neurological: no new deficit Musculoskeletal: normal tone, generalized weakness Psychiatric: oriented to person, oriented to place Hosp A/P (1) Gangrene of toe of right foot Code(s): I96 - GANGRENE, NOT ELSEWHERE CLASSIFIED Status: Acute Plan: Likely amputation given the progression, appreciate vascular surgery assistance (2) PAD (peripheral artery disease) Code(s): I73.9 - PERIPHERAL VASCULAR DISEASE, UNSPECIFIED Status: Acute Plan: Continue ASA, Vascular surgery consulted for any further recommendations or interventions (3) Fall Code(s): W19.XXXA - UNSPECIFIED FALL, INITIAL ENCOUNTER Status: Acute Plan: PT/OT evaluation for functional assessment, fall risk precautions (4) Generalized weakness Code(s): R53.1 - WEAKNESS Status: Chronic Plan: See above (5) Physical deconditioning Code(s): R53.81 - OTHER MALAISE Status: Acute (6) CKD (chronic kidney disease) stage 3, GFR 30-59 ml/min Code(s): N18.3 - CHRONIC KIDNEY DISEASE, STAGE 3 (MODERATE) Status: Chronic Plan: Continue low-volume IVF's, avoid nephrotoxic meds and limit contrast exposure - Plan continue antibiotics, mental health social worker Continue Cefepime/Vancomycin Vascular surgery consult appreciated PT/OT for functional assessment Resume home BP meds NPO after midnight AM lab: BMP, CBC
--- NOTE | 2019-08-22 14:30 | CON ---
DATE OF CONSULTATION: 08/22/2019 HISTORY OF PRESENT ILLNESS: Mr. Apple is a 73-year-old gentleman, who was admitted to the hospital with right foot pain. He also has erythema extending from the mid calf to his foot. He has a history of pain in his foot since approximately a year ago. He has not had any vascular evaluation during that time. The patient has known venous stasis disease with stasis dermatitis changes. He does ambulate at home. He is difficult to get detailed history from, but has confirmed the above factors. PAST MEDICAL HISTORY: 1. Coronary artery disease. 2. Diabetes mellitus. 3. Venous stasis disease. 4. Renal insufficiency. 5. Peripheral vascular disease. 6. Anxiety. 7. Depression. PAST SURGICAL HISTORY: 1. History of coronary artery bypass grafting and aortic valve replacement with a bioprosthetic valve. 2. Right knee replacement. ALLERGIES: LATEX, IODINE, AND SHELLFISH. SOCIAL HISTORY: He is a former smoker. CURRENT MEDICATIONS: Noted. PHYSICAL EXAMINATION: VITAL SIGNS: Height is 6 feet 2 inches, weight is 169 pounds. Temperature is 98.8, pulse is 74 and regular, and blood pressure is 135/55. HEENT: Sclerae nonicteric. Pupils are equal and round bilaterally. NECK: Supple. He does not have a carotid bruit. CHEST: Clear bilaterally. HEART: Rhythm is regular with a good valve snap. Sternum has healed nicely. ABDOMEN: Soft and nontender. EXTREMITIES: His right 4th and 5th toe are dusky and actually probably in the early stages of dry gangrene. He has an ulceration on the metatarsal heads on toes 4 and 5 that is draining. He has stasis dermatitis below the knee bilaterally. He has erythema below the knee on the right. VASCULAR: He has palpable femoral pulses bilaterally. I cannot palpate popliteal, dorsalis pedis, or posterior tibial pulses in either leg. He does have a monophasic Doppler signal in dorsalis pedis bilaterally. Arterial ultrasound was performed at the time of admission yesterday, which has shown high-grade stenosis with tardus parvus waveforms distally in the right popliteal artery. ASSESSMENT AND PLAN: Cellulitis, ulceration, dry gangrene in the right leg. His ultrasound findings and physical exam findings consistent with peripheral vascular disease with significant obstruction to flow into the foot. I think the most prudent method of further evaluation is going directly to angiograms with potential intervention. I have discussed this with the patient. He is agreeable. Dr. Lutz has seen the patient in the past, and I will set everything up for him for tomorrow. We will pre-treat him for his iodine allergy with steroids and Benadryl. Job ID: [id number]
[2019-08-22] MEDS: Morphine 4 MG/ML VIAL SLOW IVP PRN (19:30)
--- NOTE | 2019-08-22 19:46 | PDOC.EVN ---
Event Note - Event Note Event Note: Floor nurse reported AMS, currently A&O x2, hallucinating, speaking about seeing a dog. VSS, glucose WNL, afebrile, currently on broad spectrum antibiotics, urine culture pending. Had recent fall, will repeat CT brain. Add ativan prn. Discussed with Dr. Beckman.
[2019-08-22] MEDS ORDERED: Lorazepam 2 MG/ML VIAL SLOW IVP SCH (20:00)
--- NOTE | 2019-08-22 21:02 | CT ---
CT HEAD WITHOUT CONTRAST: 08/22/19 INDICATION: Mental status change. Comparison made to exam of 08/21/19. Mild cortical volume loss. Ventricles have normal size and position considering the mild atrophy. The re is no evidence of acute hemorrhage, mass or infarct. No interval change. IMPRESSION: No acute finding or interval change noted. POS: [facility]
[2019-08-23] MEDS: Lactated Ringer's 1,000 ML IV SCH ×2 (01:30→18:14)
[2019-08-23 06:39] LABS: Anion Gap 13 mmol/L (10-20); BUN (Urea Nitrogen) 27 mg/dL (8.4-25.7); Calc. Creatinine Clearance 45 mL/min (70-130); Calcium 9.1 mg/dL (7.8-10.44); Carbon Dioxide 18 mmol/L (23-31); Chloride 112 mmol/L (98-107); Estimated GFR-MDRD 43; Glucose 110 mg/dL (83-110); Potassium 4.3 mmol/L (3.5-5.1); Sodium 139 mmol/L (136-145)
[2019-08-23 06:42] LABS: Hemoglobin 8.1 g/dL (14.0-18.0); Mean Corpuscular HGB CONC 33.3 g/dL (32.0-36.0); Mean Corpuscular Hemoglobin 30.1 pg (27.0-31.0); Mean Corpuscular Volume 90.4 fL (78.0-98.0); Mean Platelet Volume 6.9 fL (7.4-10.4); Platelet Count 326 thou/uL (130-400); RBC Distribution Width 12.5 % (11.5-14.5); Red Blood Cell (RBC) Count 2.69 mill/uL (4.70-6.10); White Blood Cell (WBC) Count 9.5 thou/uL (4.8-10.8)
[2019-08-23 06:47] LABS: Band 3 % (5-11); Eosinophils 1 % (0-10); Lymphocytes 9 % (21-51); MDiff Complete? YES; Monocytes 11 % (0-10); Neutrophil 76 % (42-75)
[2019-08-23] MEDS ORDERED: Hydrocortisone Sod Succ/PF 100 mg/2 ml Vial IVP SCH ×2 (08:00→12:00)
[2019-08-23] MEDS ORDERED: Iopamidol 370 76% 50 ML VIAL FS ONE (08:44)
[2019-08-23] MEDS: Sodium Chloride 0.9% 1,000 ML IV SCH ×3 (09:18→18:14)
[2019-08-23] MEDS: Lidocaine 5% Patch TD SCH (09:19)
[2019-08-23] MEDS: Heparin 5,000 UNITS/ML VIAL SC SCH ×3 (09:19→21:31)
[2019-08-23] MEDS: Famotidine 40 MG/5 ML Oral Suspension PO SCH ×2 (09:33→12:30)
[2019-08-23] MEDS: Famotidine/PF 20 mg/2ml Vial SLOW IVP SCH ×2 (09:33→21:31)
[2019-08-23 11:17] LABS: Vancomycin, Trough 8.8 ug/mL
[2019-08-23] MEDS: Vancomycin HCl 1.25 GM in Sodium Chloride 0.9% 250 ML 250 ML IVPB SCH (12:30)
--- NOTE | 2019-08-23 12:32 | PDOC.HOSPP ---
- Subjective Encounter Date: 08/23/19 Encounter Time: 12:25 Subjective: f/u for R 4/5th toe gangrene with PVD awaiting angiogram and likely surgical intervention. Became agitated and confused overnight tx with Ativan. Remains calm and sleeping currently. - Objective Vital Signs & Weight: Vital Signs (12 hours) Temp Pulse Resp BP Pulse Ox 08/23/19 08:00 100.4 F H 79 22 H 142/62 H 100 08/23/19 04:00 98.0 F 102 H 18 150/97 H 96 Weight Weight 169 lb 6.4 oz Result Diagrams: 08/23/19 06:04 08/23/19 06:04 Additional Labs: Accuchecks 08/23/19 08/22/19 08/22/19 04:29 22:00 16:22 POC Glucose 121 H 143 H 118 H Microbiology 08/22/19 12:05 Urine voided Urine Culture - Preliminary NO GROWTH AT 24 HOURS Laboratory Tests 09/15/16 09/15/16 08/17/19 12:43 12:43 14:34 Hgb 11.5 L Neutrophils % Neutrophils % (Manual) Carbon Dioxide BUN Creatinine 1.66 H 2.23 H Ammonia Vancomycin Trough 08/18/19 08/18/19 08/21/19 12:31 12:31 12:56 Hgb 9.2 L 9.2 L Neutrophils % Neutrophils % (Manual) Carbon Dioxide BUN Creatinine 1.98 H Ammonia Vancomycin Trough 08/21/19 08/22/19 08/22/19 12:56 05:33 05:33 Hgb 8.0 L Neutrophils % 81.8 H Neutrophils % (Manual) Carbon Dioxide 18 L BUN 36 H Creatinine 2.24 H 1.83 H Ammonia Vancomycin Trough 08/22/19 08/23/19 08/23/19 19:58 06:04 10:42 Hgb Neutrophils % Neutrophils % (Manual) 76 H Carbon Dioxide BUN Creatinine Ammonia 20 Vancomycin Trough 8.8 Radiology Reviewed by me: Yes (CT brain - no acute process) Hospitalist ROS - Medication Medications: Active Medications Generic Name Dose Route Start Last Admin Trade Name Freq PRN Reason Stop Dose Admin Acetaminophen 650 mg 08/22/19 01:18 08/23/19 09:20 Tylenol PO 650 mg Q4H PRN Administration Headache/Fever/Mild Pain (1-3) Dextrose/Water 25 gm 08/22/19 01:18 08/22/19 04:46 Dextrose 50% SLOW IVP 25 gm PRN PRN Administration Hypoglycemia Diphenhydramine HCl 50 mg 08/23/19 13:00 08/23/19 12:13 Benadryl IVP 08/23/19 13:01 50 mg WILLCALL KARLI Administration Famotidine 20 mg 08/22/19 09:00 08/23/19 09:33 Pepcid SLOW IVP 20 mg Q12HR KARLI Administration Heparin Sodium (Porcine) 5,000 units 08/22/19 09:00 08/23/19 09:19 Heparin SC Not Given TID KARLI Cefepime HCl 1 gm/ Sodium 100 mls @ 200 mls/hr 08/22/19 06:00 08/22/19 17:01 Chloride IVPB 100 mls 0600,1800 KARLI Administration Lactated Ringer's 1,000 mls @ 75 mls/hr 08/22/19 01:30 08/23/19 01:30 Lactated Ringer's IV Not Given .[id number] KARLI Sodium Chloride 1,000 mls @ 125 mls/hr 08/23/19 02:00 08/23/19 09:18 Normal Saline 0.9% IV 1,000 mls .Q8H KARLI Administration Vancomycin HCl 1.25 gm/ Sodium 250 mls @ 166.667 mls/hr 08/23/19 12:00 12:30 Chloride IVPB 250 mls 1200 KARIL Administration Lidocaine 1 patch 08/23/19 09:00 08/23/19 09:19 Lidoderm 5% Patch TD 1 patch DAILY KARLI Administration Morphine Sulfate 4 mg 08/22/19 01:18 08/22/19 19:30 Morphine SLOW IVP 4 mg Q4H PRN Administration Moderate to Severe Pain (6-10) Morphine Sulfate 2 mg 08/22/19 01:18 08/22/19 16:59 Morphine SLOW IVP 2 mg Q4H PRN Administration Moderate to Severe Pain (6-10) - Exam General - other findings: somnolent, confused Eye: PERRL, anicteric sclera ENT: normocephalic atraumatic, no oropharyngeal lesions Neck: supple, symmetric, no JVD, no thyromegaly Heart: RRR, no gallops, no rubs, normal peripheral pulses, murmur present Respiratory: CTAB, no wheezes, no rales, no ronchi, normal chest expansion Gastrointestinal: soft, non-tender, non-distended, normal bowel sounds, no palpable masses Extremities - other findings: RLE with mild erythema on distal barragan, R 4/5th toes ecchymotic Skin: normal turgor Neurological - other findings: random movements of arms and legs Musculoskeletal: normal tone, generalized weakness Psychiatric: oriented to person Hosp A/P (1) Gangrene of toe of right foot Code(s): I96 - GANGRENE, NOT ELSEWHERE CLASSIFIED Status: Acute Plan: Continue Cefepime/Vancomycin, pending surgical intervention (2) Acute metabolic encephalopathy Code(s): G93.41 - METABOLIC ENCEPHALOPATHY Status: Acute Plan: Likely multifactorial, continue Ativan IV for agitation/aggression, sitter 1:1 (3) PAD (peripheral artery disease) Code(s): I73.9 - PERIPHERAL VASCULAR DISEASE, UNSPECIFIED Status: Acute Plan: Severe PAD, angiogram pending, halfway ASA/Plavix (4) Fall Code(s): W19.XXXA - UNSPECIFIED FALL, INITIAL ENCOUNTER Status: Acute (5) Generalized weakness Code(s): R53.1 - WEAKNESS Status: Chronic (6) Physical deconditioning Code(s): R53.81 - OTHER MALAISE Status: Acute (7) CKD (chronic kidney disease) stage 3, GFR 30-59 ml/min Code(s): N18.3 - CHRONIC KIDNEY DISEASE, STAGE 3 (MODERATE) Status: Chronic Plan: Avoid nephrotoxic meds and limit contrast exposure - Plan continue antibiotics, PT/OT, healthcare social worker Continue Cefepime/Vancomycin Vascular surgery consult appreciated PT/OT for functional assessment Resume home BP meds NPO currently Ativan 0.5mg IV q6h prn agitation/aggression AM lab: BMP, CBC
[2019-08-23] MEDS ORDERED: diphenhydrAMINE 50 MG/ML VIAL IVP SCH (13:00)
[2019-08-23] MEDS ORDERED: Heparin 10,000 UNITS/1 ML VIAL ONE (13:32)
[2019-08-23] MEDS ORDERED: Protamine Sulfate 50 MG/5 ML VIAL ONE (14:52)
--- NOTE | 2019-08-23 15:01 | OP ---
DATE OF PROCEDURE: 08/23/2019 PREOPERATIVE DIAGNOSIS: Peripheral vascular disease with nonhealing wound on the right foot. POSTOPERATIVE DIAGNOSIS: Peripheral vascular disease with nonhealing wound on the right foot. PROCEDURES PERFORMED: 1. Ultrasound-guided left femoral artery access. 2. Abdominal aortogram. 3. Right common femoral artery angiogram. 4. Right superficial femoral artery angiogram. 5. Right percutaneous transluminal angioplasty and stenting of the popliteal artery behind the knee initially a 5 x 40 [place] balloon and followed with a 6 x 40 Innova self-expanding stent. ANESTHESIA: 1% lidocaine for local. TOTAL CONTRAST: 44 mL. TOTAL FLUORO TIME: 8.4 minutes. DESCRIPTION OF PROCEDURE: After consent was obtained, the patient was brought to laborer electroplating, placed in supine position on laborer electroplating table. Appropriate central line and monitors were placed. The groins were prepped and draped in usual sterile fashion. Using ultrasound guidance, the left groin was anesthetized with 1% lidocaine. Using ultrasound guidance, percutaneous access to left common femoral artery was obtained and the micropuncture sheath passed. This was exchanged for a 5-Ukrainian short sheath. A Contra catheter was placed in the abdominal aorta. Aortogram was performed. The right renal stent was widely patent. His aorta showed no calcification or other encroachment from atherosclerotic disease. There was atherosclerosis present in the iliac arteries, but no flow-limiting lesions. Contra catheter was used to cross the aortic bifurcation to position the common femoral artery. Digital angiography was used to gely contrast through the leg. Common femoral, profunda femoris, and superficial femoral arteries were all widely patent, although calcified. Just behind the knee joint, the popliteal artery had a critical stenosis. The trifurcation was patent. All three trifurcation vessels were occluded with collateralization down into the foot. We elected to treat the popliteal artery in hopes of increasing pressure head into the collaterals. The patient was given 5000 units of heparin. The 5-Ukrainian sheath was exchanged for 6-Ukrainian destination sheath. The destination sheath tip was positioned in the superficial femoral artery. Magnified views were taken of the popliteal artery with severe angulation to lay out the area of stenosis. A 5 x 40 [place] balloon was selected, inflated to 10 mmHg. Followup angiogram showed an adequate result. The artery was then stented with the 6 x 40 Innova stent. This was posted with a 5 balloon taken up to 14 mmHg. Followup angiogram showed an excellent result. The catheters and guidewires were removed. The sheath was brought back into the abdominal aorta, and guidewire was replaced with a Luminate Health[employer] guidewire. Sheath was removed, and arterial puncture site was closed with a ProGlide. Good hemostasis was obtained. 25 mg of protamine was given. The patient tolerated the procedure well, was transferred to recovery area. Job ID: [id number]
[2019-08-23] MEDS: Cefepime 1 GM in Sodium Chloride 0.9% 100 ML IVPB SCH ×2 (16:25→18:15)
[2019-08-23] MEDS: Lidocaine Patch Removal 1 EACH TOP SCH (21:00)
[2019-08-23] MEDS: Lorazepam 0.5 MG TAB PO PRN (22:46)
[2019-08-24] MEDS: Sodium Chloride 0.9% 1,000 ML IV SCH ×3 (04:21→17:24)
[2019-08-24] MEDS: Cefepime 1 GM in Sodium Chloride 0.9% 100 ML IVPB SCH ×2 (06:11→17:26)
[2019-08-24 06:13] LABS: Anion Gap 19 mmol/L (10-20); BUN (Urea Nitrogen) 21 mg/dL (8.4-25.7); Calc. Creatinine Clearance 54 mL/min (70-130); Calcium 9.2 mg/dL (7.8-10.44); Carbon Dioxide 13 mmol/L (23-31); Chloride 113 mmol/L (98-107); Estimated GFR-MDRD 53; Glucose 105 mg/dL (83-110); Potassium 4.1 mmol/L (3.5-5.1); Sodium 141 mmol/L (136-145)
[2019-08-24 06:37] LABS: Hemoglobin 9.2 g/dL (14.0-18.0); Mean Corpuscular HGB CONC 30.2 g/dL (32.0-36.0); Mean Corpuscular Hemoglobin 28.4 pg (27.0-31.0); Mean Corpuscular Volume 94.1 fL (78.0-98.0); Platelet Count 404 thou/uL (130-400); RBC Distribution Width 12.7 % (11.5-14.5); Red Blood Cell (RBC) Count 3.25 mill/uL (4.70-6.10); White Blood Cell (WBC) Count 12.1 thou/uL (4.8-10.8)
[2019-08-24] MEDS: Lactated Ringer's 1,000 ML IV SCH ×2 (07:41→20:29)
[2019-08-24 08:00] LABS: Band 6 % (5-11); Lymphocytes 12 % (21-51); MDiff Complete? YES; Monocytes 9 % (0-10); Neutrophil 72 % (42-75); Platelet Morphology Comment Appears Increased; Polychromasia SLIGHT = 2-3 cells (100X) (0-2/hpf)
[2019-08-24] MEDS: Famotidine/PF 20 mg/2ml Vial SLOW IVP SCH ×2 (08:11→20:06)
[2019-08-24] MEDS: Aspirin 325 MG TAB PO SCH (08:11)
[2019-08-24] MEDS: Heparin 5,000 UNITS/ML VIAL SC SCH ×3 (08:11→20:06)
[2019-08-24] MEDS: Lidocaine 5% Patch TD SCH (08:12)
[2019-08-24] MEDS: Morphine 2 MG/ML SYRINGE SLOW IVP PRN ×2 (10:28→23:14)
--- NOTE | 2019-08-24 10:31 | PDOC.HOSPP ---
- Subjective Encounter Date: 08/24/19 Encounter Time: 10:25 Subjective: f/u for R foot wound/gangrenous changes and PVD s/p R popliteal GOVERNMENT RELATIONS MANAGER with stent placement POD #1. States some pain in R foot and receiving wound care currently. - Objective Vital Signs & Weight: Vital Signs (12 hours) Temp Pulse Resp BP Pulse Ox 08/24/19 08:00 100 08/24/19 07:58 99.9 F H 89 16 158/69 H 100 08/24/19 04:00 98.8 F 82 18 145/60 H 98 08/24/19 00:00 98.4 F 78 18 170/70 H 100 Weight Admit Weight 169 lb 6.4 oz Weight 169 lb 6.4 oz I&O: 08/23/19 08/24/19 08/25/19 06:59 06:59 06:59 Intake Total 240 Balance 240 Result Diagrams: 08/24/19 05:41 08/24/19 05:41 Additional Labs: Accuchecks 08/24/19 08/23/19 08/23/19 05:59 19:58 17:08 POC Glucose 128 H 138 H 144 H 08/23/19 08/23/19 08/22/19 11:22 04:29 22:00 POC Glucose 141 H 121 H 143 H 08/22/19 16:22 POC Glucose 118 H Microbiology 08/22/19 12:05 Urine voided Urine Culture - Preliminary NO GROWTH AT 24 HOURS Laboratory Tests 09/15/16 09/15/16 08/17/19 12:43 12:43 14:34 WBC Hgb 11.5 L Neutrophils % Neutrophils % (Manual) Carbon Dioxide BUN Creatinine 1.66 H 2.23 H Ammonia Vancomycin Trough 08/18/19 08/18/19 08/21/19 12:31 12:31 12:56 WBC Hgb 9.2 L 9.2 L Neutrophils % Neutrophils % (Manual) Carbon Dioxide BUN Creatinine 1.98 H Ammonia Vancomycin Trough 08/21/19 08/22/19 08/22/19 12:56 05:33 05:33 WBC Hgb 8.0 L Neutrophils % 81.8 H Neutrophils % (Manual) Carbon Dioxide 18 L BUN 36 H Creatinine 2.24 H 1.83 H Ammonia Vancomycin Trough 08/22/19 08/23/19 08/23/19 19:58 06:04 10:42 WBC 9.5 Hgb 8.1 L Neutrophils % Neutrophils % (Manual) 76 H Carbon Dioxide BUN Creatinine Ammonia 20 Vancomycin Trough 8.8 Hospitalist ROS - Medication Medications: Active Medications Generic Name Dose Route Start Last Admin Trade Name Freq PRN Reason Stop Dose Admin Acetaminophen 650 mg 08/22/19 01:18 08/23/19 09:20 Tylenol PO 650 mg Q4H PRN Administration Headache/Fever/Mild Pain (1-3) Aspirin 325 mg 08/24/19 09:00 08/24/19 08:11 Aspirin PO 325 mg DAILY KARLI Administration Dextrose/Water 25 gm 08/22/19 01:18 08/22/19 04:46 Dextrose 50% SLOW IVP 25 gm PRN PRN Administration Hypoglycemia Famotidine 20 mg 08/22/19 09:00 08/24/19 08:11 Pepcid SLOW IVP 20 mg Q12HR KARLI Administration Heparin Sodium (Porcine) 5,000 units 08/22/19 09:00 08/24/19 08:11 Heparin SC 5,000 units TID KARLI Administration Cefepime HCl 1 gm/ Sodium 100 mls @ 200 mls/hr 08/22/19 06:00 08/24/19 06:11 Chloride IVPB 100 mls 0600,1800 KARLI Administration Lactated Ringer's 1,000 mls @ 75 mls/hr 08/22/19 01:30 08/24/19 07:41 Lactated Ringer's IV Not Given .[id number] KARLI Sodium Chloride 1,000 mls @ 125 mls/hr 08/23/19 02:00 08/24/19 09:59 Normal Saline 0.9% IV Not Given .Q8H KARLI Vancomycin HCl 1.25 gm/ Sodium 250 mls @ 166.667 mls/hr 08/23/19 12:00 12:30 Chloride IVPB 250 mls 1200 KARLI Administration Lidocaine 1 patch 08/23/19 09:00 08/24/19 08:12 Lidoderm 5% Patch TD 1 patch DAILY KARLI Administration Lorazepam 0.5 mg 08/22/19 19:43 08/23/19 22:46 Ativan PO 0.5 mg Q6H PRN Administration Anxiety/Agitation Miscellaneous Medication 1 each 08/23/19 21:00 08/23/19 21:00 Lidocaine Patch Removal TOP 1 each 2100 KARLI Administration Morphine Sulfate 4 mg 08/22/19 01:18 08/22/19 19:30 Morphine SLOW IVP 4 mg Q4H PRN Administration Moderate to Severe Pain (6-10) Morphine Sulfate 2 mg 08/22/19 01:18 08/22/19 16:59 Morphine SLOW IVP 2 mg Q4H PRN Administration Moderate to Severe Pain (6-10) - Exam General Appearance: NAD, awake alert Eye: PERRL, anicteric sclera ENT: normocephalic atraumatic, no oropharyngeal lesions Neck: supple, symmetric, no JVD, no thyromegaly, no lymphadenopathy Heart: RRR, no gallops, no rubs, diminshed peripheral pulses Respiratory: CTAB, no wheezes, no rales, no ronchi, normal chest expansion Gastrointestinal: soft, non-tender, non-distended, normal bowel sounds, no palpable masses Extremities - other findings: R foot with gangrene 4/5th toes/ulcer on plantar aspect, decreased erythema Neurological: cranial nerve grossly intact, no new deficit Musculoskeletal: normal tone, generalized weakness Psychiatric: oriented to person Hosp A/P (1) Gangrene of toe of right foot Code(s): I96 - GANGRENE, NOT ELSEWHERE CLASSIFIED Status: Acute Plan: s/p GOVERNMENT RELATIONS MANAGER with stent placement to R popliteal artery POD #1, continue Cefepime/ Vancomycin, will need amputation of toes (2) Acute metabolic encephalopathy Code(s): G93.41 - METABOLIC ENCEPHALOPATHY Status: Acute Plan: Intermittent but improved today, continue supportive mgmt as outlined above (3) PAD (peripheral artery disease) Code(s): I73.9 - PERIPHERAL VASCULAR DISEASE, UNSPECIFIED Status: Acute Plan: See #1 above, continue ASA daily (4) Fall Code(s): W19.XXXA - UNSPECIFIED FALL, INITIAL ENCOUNTER Status: Acute Plan: PT/OT for functional assessment (5) Generalized weakness Code(s): R53.1 - WEAKNESS Status: Chronic (6) Physical deconditioning Code(s): R53.81 - OTHER MALAISE Status: Acute (7) CKD (chronic kidney disease) stage 3, GFR 30-59 ml/min Code(s): N18.3 - CHRONIC KIDNEY DISEASE, STAGE 3 (MODERATE) Status: Chronic Plan: Avoid nephrotoxic meds and limit contrast exposure - Plan continue antibiotics, PT/OT, social work nurse Continue Cefepime/Vancomycin Vascular surgery consult appreciated PT/OT for functional assessment Resume Nitro/Coreg Will need surgical intervention and amputation of toes Ativan 0.5mg IV q6h prn agitation/aggression Continue ASA daily AM lab: BMP, CBC, Vanc trough
[2019-08-24] MEDS: Vancomycin HCl 1.25 GM in Sodium Chloride 0.9% 250 ML 250 ML IVPB SCH (12:26)
[2019-08-24] MEDS: Morphine 4 MG/ML VIAL SLOW IVP PRN (17:23)
[2019-08-24] MEDS: Carvedilol 3.125 MG TAB PO SCH (20:06)
[2019-08-24] MEDS: Lorazepam 0.5 MG TAB PO PRN (20:24)
[2019-08-24] MEDS: Lidocaine Patch Removal 1 EACH TOP SCH (20:29)
[2019-08-25] MEDS: Sodium Chloride 0.9% 1,000 ML IV SCH ×3 (00:52→17:54)
[2019-08-25] MEDS: Morphine 4 MG/ML VIAL SLOW IVP PRN (03:23)
[2019-08-25] MEDS: Cefepime 1 GM in Sodium Chloride 0.9% 100 ML IVPB SCH ×2 (05:07→17:38)
[2019-08-25 05:36] LABS: #Eosinphils 0.2 thou/uL (0.0-0.7); #Lymphocytes 1.1 thou/uL (1.20-3.40); #Monocytes 1.3 thou/uL (0.11-0.59); #Neutrophils 8.1 thou/uL (1.40-6.50); %Basophils 0.1 % (0.0-1.0); %Eosinophils 2.1 % (0.0-10.0); %Lymphocytes 10.1 % (21.0-51.0); %Monocytes 12.2 % (0.0-10.0); %Neutrophils 75.4 % (42.0-75.0); Hemoglobin 8.7 g/dL (14.0-18.0); Mean Corpuscular HGB CONC 31.5 g/dL (32.0-36.0); Mean Corpuscular Hemoglobin 29.3 pg (27.0-31.0); Mean Corpuscular Volume 93.2 fL (78.0-98.0); Mean Platelet Volume 6.7 fL (7.4-10.4); Platelet Count 400 thou/uL (130-400); RBC Distribution Width 12.6 % (11.5-14.5); Red Blood Cell (RBC) Count 2.96 mill/uL (4.70-6.10); White Blood Cell (WBC) Count 10.7 thou/uL (4.8-10.8)
[2019-08-25 05:58] LABS: Anion Gap 13 mmol/L (10-20); BUN (Urea Nitrogen) 20 mg/dL (8.4-25.7); Calc. Creatinine Clearance 53 mL/min (70-130); Calcium 8.9 mg/dL (7.8-10.44); Carbon Dioxide 20 mmol/L (23-31); Chloride 112 mmol/L (98-107); Estimated GFR-MDRD 52; Glucose 127 mg/dL (83-110); Potassium 4.1 mmol/L (3.5-5.1); Sodium 141 mmol/L (136-145)
[2019-08-25] MEDS: Aspirin 325 MG TAB PO SCH (07:43)
[2019-08-25] MEDS: Heparin 5,000 UNITS/ML VIAL SC SCH ×3 (07:43→20:43)
[2019-08-25] MEDS: Carvedilol 3.125 MG TAB PO SCH ×2 (07:44→20:43)
[2019-08-25] MEDS: Famotidine/PF 20 mg/2ml Vial SLOW IVP SCH ×2 (07:44→20:43)
[2019-08-25] MEDS: Isosorbide Dinitrate 20 MG TAB PO SCH (07:44)
[2019-08-25] MEDS: Lidocaine 5% Patch TD SCH (07:52)
[2019-08-25] MEDS: Lactated Ringer's 1,000 ML IV SCH (07:55)
[2019-08-25] MEDS: Vancomycin HCl 1.25 GM in Sodium Chloride 0.9% 250 ML 250 ML IVPB SCH (11:36)
--- NOTE | 2019-08-25 17:18 | PDOC.HOSPP ---
- Subjective Encounter Date: 08/25/19 Encounter Time: 17:15 Subjective: f/u for R 4th/5th toe and plantar gangrene in context of PAD s/p popliteal FIRE CAPTAIN MARINE with stent placement. Receiving Cefepime/Vancomycin currently. - Objective Vital Signs & Weight: Vital Signs (12 hours) Temp Pulse Resp BP Pulse Ox 08/25/19 11:17 98.6 F 68 16 151/68 H 99 08/25/19 08:00 99 08/25/19 07:31 99.2 F 68 16 148/62 H 100 Weight Admit Weight 169 lb 6.4 oz Weight 169 lb 6.4 oz I&O: 08/24/19 08/25/19 08/26/19 06:59 06:59 06:59 Intake Total 2245 480 Balance 2245 480 Result Diagrams: 08/25/19 05:17 08/25/19 05:17 Additional Labs: Accuchecks 08/25/19 08/25/19 08/24/19 16:29 11:14 20:31 POC Glucose 143 H 167 H 163 H Microbiology 08/22/19 12:05 Urine voided Urine Culture - Final NO GROWTH AT 36 HOURS 08/21/19 13:35 Venous blood - Right Hand Blood Culture - Preliminary NO GROWTH AT 48 HOURS 08/21/19 13:30 Venous blood - Right Arm Blood Culture - Preliminary NO GROWTH AT 48 HOURS Laboratory Tests 08/22/19 08/22/19 08/23/19 05:33 05:33 06:04 WBC 8.5 Carbon Dioxide 18 L 18 L Creatinine 1.83 H 1.57 H 08/23/19 08/24/19 08/24/19 06:04 05:41 05:41 WBC 9.5 12.1 H Carbon Dioxide 13 L Creatinine 1.31 H Hospitalist ROS - Medication Medications: Active Medications Generic Name Dose Route Start Last Admin Trade Name Freq PRN Reason Stop Dose Admin Acetaminophen 650 mg 08/22/19 01:18 08/23/19 09:20 Tylenol PO 650 mg Q4H PRN Administration Headache/Fever/Mild Pain (1-3) Aspirin 325 mg 08/24/19 09:00 08/25/19 07:43 Aspirin PO 325 mg DAILY KARLI Administration Carvedilol 3.125 mg 08/24/19 21:00 08/25/19 07:44 Coreg PO 3.125 mg BID KARLI Administration Dextrose/Water 25 gm 08/22/19 01:18 08/22/19 04:46 Dextrose 50% SLOW IVP 25 gm PRN PRN Administration Hypoglycemia Famotidine 20 mg 08/22/19 09:00 08/25/19 07:44 Pepcid SLOW IVP 20 mg Q12HR KARLI Administration Heparin Sodium (Porcine) 5,000 units 08/22/19 09:00 08/25/19 14:47 Heparin SC 5,000 units TID KARLI Administration Cefepime HCl 1 gm/ Sodium 100 mls @ 200 mls/hr 08/22/19 06:00 08/25/19 05:07 Chloride IVPB 100 mls 0600,1800 KARLI Administration Sodium Chloride 1,000 mls @ 125 mls/hr 08/23/19 02:00 08/25/19 09:49 Normal Saline 0.9% IV 1,000 mls .Q8H KARLI Administration Vancomycin HCl 1.25 gm/ Sodium 250 mls @ 166.667 mls/hr 08/23/19 12:00 11:36 Chloride IVPB 250 mls 1200 KARLI Administration Isosorbide Dinitrate 30 mg 08/25/19 09:00 08/25/19 07:44 Isordil PO 30 mg DAILY KARLI Administration Lidocaine 1 patch 08/23/19 09:00 08/25/19 07:52 Lidoderm 5% Patch TD 1 patch DAILY KARLI Administration Lorazepam 0.5 mg 08/22/19 19:43 08/24/19 20:24 Ativan PO 0.5 mg Q6H PRN Administration Anxiety/Agitation Miscellaneous Medication 1 each 08/23/19 21:00 08/24/19 20:29 Lidocaine Patch Removal TOP Not Given 2100 [facility] Morphine Sulfate 4 mg 08/22/19 01:18 08/25/19 03:23 Morphine SLOW IVP 4 mg Q4H PRN Administration Moderate to Severe Pain (6-10) Morphine Sulfate 2 mg 08/22/19 01:18 08/24/19 23:14 Morphine SLOW IVP 2 mg Q4H PRN Administration Moderate to Severe Pain (6-10) - Exam General Appearance: NAD, awake alert Eye: PERRL, anicteric sclera ENT: normocephalic atraumatic, no oropharyngeal lesions Neck: supple, symmetric, no JVD, no thyromegaly Heart: RRR, no gallops, no rubs, normal peripheral pulses Heart - other findings: S1, S2 Respiratory: CTAB, no wheezes, no rales, no ronchi, normal chest expansion Gastrointestinal: soft, non-tender, non-distended, normal bowel sounds, no palpable masses Extremities - other findings: R 4th/5th toes with gangrene Skin: normal turgor Neurological: cranial nerve grossly intact, no new deficit Musculoskeletal: normal tone, generalized weakness Psychiatric: oriented to person Hosp A/P (1) Gangrene of toe of right foot Code(s): I96 - GANGRENE, NOT ELSEWHERE CLASSIFIED Status: Acute Plan: Continue Cefepime/Vancomycin, consult Gen Surgery for evaluation, pain control (2) Acute metabolic encephalopathy Code(s): G93.41 - METABOLIC ENCEPHALOPATHY Status: Acute Plan: Intermittent given #1 and likely component of dementia (3) PAD (peripheral artery disease) Code(s): I73.9 - PERIPHERAL VASCULAR DISEASE, UNSPECIFIED Status: Acute Plan: s/p R popliteal FIRE CAPTAIN MARINE with stent placement, continue ASA (4) Fall Code(s): W19.XXXA - UNSPECIFIED FALL, INITIAL ENCOUNTER Status: Acute Plan: PT for ambulation (5) Generalized weakness Code(s): R53.1 - WEAKNESS Status: Chronic (6) Physical deconditioning Code(s): R53.81 - OTHER MALAISE Status: Acute (7) CKD (chronic kidney disease) stage 3, GFR 30-59 ml/min Code(s): N18.3 - CHRONIC KIDNEY DISEASE, STAGE 3 (MODERATE) Status: Chronic - Plan continue antibiotics, PT/OT, oncology social worker, out of bed/ambulate Continue Cefepime/Vancomycin Vascular surgery consult appreciated PT/OT for functional assessment Resume Nitro/Coreg Gen Surgery consult for amputation of toes Ativan 0.5mg IV q6h prn agitation/aggression Continue ASA daily AM lab: BMP, CBC, Vanc trough
[2019-08-25] MEDS: Lidocaine Patch Removal 1 EACH TOP SCH (20:44)
--- NOTE | 2019-08-25 22:18 | RAD ---
EXAM: 2 views of the right tibia/fibula HISTORY: Leg pain. Possible infection. COMPARISON: None FINDINGS: There is no evidence of acute fracture or dislocation. The patient is status post right kne e arthroplasty without perihardware lucency or fracture. Multiple surgical clips are seen along the medial aspect of the lower leg. Vascular calcifications are seen. There is questionable thickening of the bony cortex of the anterior tibia without osseous erosions. Periosteal thickening is seen along the distal third of the fibula. Mild diffuse soft tissue swelling is seen. IMPRESSION: The periosteal thickening along the distal fibula may be chronic. No obvious erosions are seen to suggest acute osteomyelitis.
--- NOTE | 2019-08-25 22:25 | CON ---
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 He is admitted by the hospitalist service and Dr. Wilmer Escobar saw him in consultation. Patient has wet gangrene over his right fourth and fifth toes and involving the lateral aspect of his third toe. He has had a right knee replacement. He had pain in his foot since about a year ago. Dr. Escobar saw him and noted palpable femoral pulses, absence of palpable distal pulses. Monophasic dorsalis pedis pulse appreciated. Arterial ultrasound suggests high-grade stenosis in the right popliteal. Patient underwent intervention by Dr. Escobar on 08/23/2019 with OIL PROGRAM COMPLIANCE SPECIALIST and stenting of his right popliteal, his cellulitis has improved. Patient had only collateral runoff to his foot. I have talked to the patient regarding amputations right fourth and fifth toes, possible third. He understands these may not heal. He understands he may need a [id number] amputation. He is agreeable. We will plan this tomorrow. ALLERGIES: IODINATED CONTRAST, SHELLFISH, AND LATEX. MEDICATION: Tramadol, lidocaine, lorazepam, metformin, lisinopril, nitroglycerin, multivitamins, insulin, carvedilol, aspirin, and Tylenol. In the hospital, he is getting vancomycin and cefepime. SOCIAL HISTORY: Tobacco, none. Alcohol, none. PAST MEDICAL HISTORY: Coronary artery disease; diabetes mellitus; chronic venous stasis disease; chronic kidney disease, stage 3; and PAD, status post OIL PROGRAM COMPLIANCE SPECIALIST, right popliteal, poor runoff. PAST SURGICAL HISTORY: Coronary artery bypass grafting, appendectomy, prosthetic porcine aortic valve, and right knee surgery. REVIEW OF SYSTEMS: Noncontributory otherwise. Patient is single. PHYSICAL EXAMINATION: VITAL SIGNS: 6 feet and 2 inches, 169 pounds, 21 BMI, 98.1, 68, and 122/58. HEAD, EARS, EYES, NOSE, AND THROAT: Unremarkable. LUNGS: Clear to auscultation. CARDIAC: Regular rate and rhythm. ABDOMEN: Soft and nontender. EXTREMITIES: Palpable femoral pulses, palpable right popliteal pulse, nonpalpable distal pulses, gangrene foul-smelling right fourth and fifth toes with the lateral aspect of the third toe involved. Cellulitis distal foot markings noting cellulitis to the lower leg previously. LABORATORY: White count 10 and hemoglobin 8.7. BUN 20, creatinine 1.34, and GFR 52. ASSESSMENT/PLAN: 1. Severe peripheral arterial disease, status post OIL PROGRAM COMPLIANCE SPECIALIST stenting of a popliteal artery with poor runoff. He does have dopplerable dorsalis pedis pulse. He has wet gangrene right fourth and fifth toes involving the third toe. We would recommend amputation of third, fourth, and fifth toes, but he is at high risk for amputation below the knee and he indicated he understands risks and benefits, consents. 2. Diabetes mellitus. 3. Coronary artery disease, stable. 4. Hypertension. Job ID: [id number]
[2019-08-26] MEDS: Lorazepam 0.5 MG TAB PO PRN ×2 (00:09→23:49)
[2019-08-26] MEDS: Sodium Chloride 0.9% 1,000 ML IV SCH ×2 (01:46→11:34)
[2019-08-26] MEDS: Morphine 4 MG/ML VIAL SLOW IVP PRN ×2 (01:47→12:21)
[2019-08-26 04:36] LABS: #Eosinphils 0.2 thou/uL (0.0-0.7); #Lymphocytes 1.1 thou/uL (1.20-3.40); #Neutrophils 5.9 thou/uL (1.40-6.50); %Eosinophils 2.9 % (0.0-10.0); %Lymphocytes 13.5 % (21.0-51.0); %Monocytes 11.6 % (0.0-10.0); %Neutrophils 72.1 % (42.0-75.0); Hemoglobin 7.3 g/dL (14.0-18.0); Mean Corpuscular HGB CONC 32.3 g/dL (32.0-36.0); Mean Corpuscular Hemoglobin 29.5 pg (27.0-31.0); Mean Corpuscular Volume 91.1 fL (78.0-98.0); Mean Platelet Volume 6.5 fL (7.4-10.4); Platelet Count 357 thou/uL (130-400); RBC Distribution Width 12.7 % (11.5-14.5); Red Blood Cell (RBC) Count 2.49 mill/uL (4.70-6.10); White Blood Cell (WBC) Count 8.2 thou/uL (4.8-10.8)
[2019-08-26 04:56] LABS: Anion Gap 14 mmol/L (10-20); BUN (Urea Nitrogen) 22 mg/dL (8.4-25.7); Calc. Creatinine Clearance 51 mL/min (70-130); Carbon Dioxide 18 mmol/L (23-31); Chloride 112 mmol/L (98-107); Estimated GFR-MDRD 51; Glucose 167 mg/dL (83-110); Potassium 3.7 mmol/L (3.5-5.1); Sodium 140 mmol/L (136-145)
[2019-08-26 05:18] LABS: CKMB 2.3 ng/mL (0-6.6)
[2019-08-26] MEDS: Cefepime 1 GM in Sodium Chloride 0.9% 100 ML IVPB SCH ×2 (05:32→20:29)
[2019-08-26] MEDS: Isosorbide Dinitrate 20 MG TAB PO SCH (09:04)
[2019-08-26] MEDS: Lactated Ringer's 1,000 ML IV SCH ×2 (09:04→20:27)
[2019-08-26] MEDS: Famotidine/PF 20 mg/2ml Vial SLOW IVP SCH ×2 (09:05→20:27)
[2019-08-26] MEDS: Carvedilol 3.125 MG TAB PO SCH ×2 (09:05→20:26)
[2019-08-26] MEDS: Aspirin 325 MG TAB PO SCH (09:05)
[2019-08-26] MEDS: Heparin 5,000 UNITS/ML VIAL SC SCH ×3 (09:08→20:27)
[2019-08-26 09:29] LABS: CKMB 2.1 ng/mL (0-6.6)
[2019-08-26] MEDS: Lidocaine 5% Patch TD SCH (10:16)
--- NOTE | 2019-08-26 11:38 | PDOC.HOSPP ---
- Subjective Encounter Date: 08/26/19 Encounter Time: 11:36 Subjective: Mr. Apple was seen today in follow-up severe PVD with gangrene of the 4th and 5th toes on the right foot. He does not have any complaints. - Objective Vital Signs & Weight: Vital Signs (12 hours) Temp Pulse Resp BP Pulse Ox 08/26/19 08:00 94 L 08/26/19 07:45 98.1 F 72 18 154/56 H 94 L 08/26/19 04:16 98.4 F 74 18 120/56 L 100 08/26/19 01:53 76 16 126/51 L 100 Weight Admit Weight 169 lb 6.4 oz Weight 169 lb 6.4 oz I&O: 08/25/19 08/26/19 08/27/19 06:59 06:59 06:59 Intake Total 2245 2170 Balance 2245 2170 Result Diagrams: 08/26/19 04:25 08/26/19 04:25 Additional Labs: Accuchecks 08/26/19 08/25/19 08/25/19 04:22 19:48 16:29 POC Glucose 186 H 158 H 143 H Hospitalist ROS - Medication Medications: Active Medications Generic Name Dose Route Start Last Admin Trade Name Freq PRN Reason Stop Dose Admin Acetaminophen 650 mg 08/22/19 01:18 08/23/19 09:20 Tylenol PO 650 mg Q4H PRN Administration Headache/Fever/Mild Pain (1-3) Aspirin 325 mg 08/24/19 09:00 08/26/19 09:05 Aspirin PO Not Given DAILY [facility] Carvedilol 3.125 mg 08/24/19 21:00 08/26/19 09:05 Coreg PO Not Given BID KARLI Dextrose/Water 25 gm 08/22/19 01:18 08/22/19 04:46 Dextrose 50% SLOW IVP 25 gm PRN PRN Administration Hypoglycemia Famotidine 20 mg 08/22/19 09:00 08/26/19 09:05 Pepcid SLOW IVP 20 mg Q12HR KARLI Administration Heparin Sodium (Porcine) 5,000 units 08/22/19 09:00 08/26/19 09:08 Heparin SC Not Given TID KARLI Cefepime HCl 1 gm/ Sodium 100 mls @ 200 mls/hr 08/22/19 06:00 08/26/19 05:32 Chloride IVPB 100 mls 0600,1800 KARLI Administration Vancomycin HCl 1.25 gm/ Sodium 250 mls @ 166.667 mls/hr 08/23/19 12:00 11:36 Chloride IVPB 250 mls 1200 KARLI Administration Lactated Ringer's 1,000 mls @ 100 mls/hr 08/26/19 08:00 08/26/19 09:04 Lactated Ringer's IV 1,000 mls .Q10H KARLI Administration Isosorbide Dinitrate 30 mg 08/25/19 09:00 08/26/19 09:04 Isordil PO Not Given DAILY KARLI Lidocaine 1 patch 08/23/19 09:00 08/26/19 10:16 Lidoderm 5% Patch TD Not Given DAILY KARLI Lorazepam 0.5 mg 08/22/19 19:43 08/26/19 00:09 Ativan PO 0.5 mg Q6H PRN Administration Anxiety/Agitation Miscellaneous Medication 1 each 08/23/19 21:00 08/25/19 20:44 Lidocaine Patch Removal TOP 1 each 2100 KARLI Administration Morphine Sulfate 4 mg 08/22/19 01:18 08/26/19 01:47 Morphine SLOW IVP 4 mg Q4H PRN Administration Moderate to Severe Pain (6-10) Morphine Sulfate 2 mg 08/22/19 01:18 08/24/19 23:14 Morphine SLOW IVP 2 mg Q4H PRN Administration Moderate to Severe Pain (6-10) - Exam Eye: PERRL Heart: RRR, no murmur, no gallops, no rubs, normal peripheral pulses Respiratory: CTAB, no wheezes, no rales, no ronchi, normal chest expansion, no tachypnea, normal percussion Gastrointestinal: soft, non-tender, non-distended, normal bowel sounds, no palpable masses, no hepatomegaly Extremities: 1+ LE edema (+ edema in the right foot, and eythema, with black discoloration of the 4th and 5th toes on the right foot) Hosp A/P (1) Gangrene of toe of right foot Code(s): I96 - GANGRENE, NOT ELSEWHERE CLASSIFIED Status: Acute (2) PAD (peripheral artery disease) Code(s): I73.9 - PERIPHERAL VASCULAR DISEASE, UNSPECIFIED Status: Acute (3) Anxiety and depression Code(s): F41.9 - ANXIETY DISORDER, UNSPECIFIED; F32.9 - MAJOR DEPRESSIVE DISORDER, SINGLE EPISODE, UNSPECIFIED Status: Chronic (4) CKD (chronic kidney disease) stage 3, GFR 30-59 ml/min Code(s): N18.3 - CHRONIC KIDNEY DISEASE, STAGE 3 (MODERATE) Status: Chronic (5) Diabetes mellitus, type II, insulin dependent Code(s): E11.9 - TYPE 2 DIABETES MELLITUS WITHOUT COMPLICATIONS; Z79.4 - SENIOR CARE (CURRENT) USE OF INSULIN Status: Chronic (6) HTN (hypertension) Code(s): I10 - ESSENTIAL (PRIMARY) HYPERTENSION Status: Chronic Qualifiers: - Plan * Severe Peripheral Vascular disease with Gangrene of the 4th and 5th toes on the right foot- plan is for amputation of the 3rd through the 5th toes * Continue IV antibiotics ( Vancomycin and Cefepime) * HTN- blood pressure is stable * DM- blood glucose is stable * CKD- stable
[2019-08-26 12:27] LABS: Vancomycin, Trough 16.9 ug/mL
[2019-08-26] MEDS: Vancomycin HCl 1.25 GM in Sodium Chloride 0.9% 250 ML 250 ML IVPB SCH (12:55)
[2019-08-26] MEDS ORDERED: Midazolam HCl 2 mg/2 ml Vial ONE (18:04)
[2019-08-26] MEDS ORDERED: Fentanyl 100 MCG/2 ML VIAL ONE (18:04)
[2019-08-26] MEDS ORDERED: traMADol HCl 50 MG TAB PO PRN (18:15)
[2019-08-26] MEDS ORDERED: NS 0.9% w/ 20 MEQ KCL 1,000 ML ONE (19:25)
[2019-08-26] MEDS: HYDROcodone/Acetaminophen 5/325 mg Tablet PO PRN (20:26)
--- NOTE | 2019-08-26 20:44 | OP ---
DATE OF PROCEDURE: 08/26/2019 PREOPERATIVE DIAGNOSES: Peripheral artery disease, DNR status post popliteal [employer]PERVISOR [employer] and stenting by Dr. Wilmer Escobar with collateral runoff only to the foot, wet gangrene right third, fourth, and fifth toes. POSTOPERATIVE DIAGNOSES: Peripheral artery disease, DNR status post popliteal [employer] and stenting by Dr. Wilmer Escobar with collateral runoff only to the foot, wet gangrene right third, fourth, and fifth toes. PROCEDURE PERFORMED: Amputation of right third, fourth and fifth toes and metatarsals wound left open for healing by second intention. Wound care not available. Wound left open with wet-to-dry dressings applied for wound VAC application and MR. Note, the patient has high risk for BKA, but collaterals are good. He did have good bleeding at the amputation site. ANESTHESIA: TIVA. ESTIMATED BLOOD LOSS: 25 mL. DESCRIPTION OF PROCEDURE: The patient was taken to the operating room, where under intravenous sedation, right lower extremity was prepared with ChloraPrep. Incision was made for amputation of the right third, fourth, and fifth toes as the gangrenous process encroachment on the third toe. As much tissue site is possible, although there was plantar gangrene and dorsal skin changes, requiring excision. This was foul smelling. Incision was carried down to skin and subcutaneous tissue to the metatarsals transected with a bone cutter, resecting approximately with [place]. Connective tissue debrided. Good bleeding noted in the subcutaneous tissue was acceptable to suggest that this may heal. Wound irrigated. Gauze dressings applied. The patient tolerated the procedure well. Job ID: [id number]
[2019-08-26] MEDS ORDERED: Enoxaparin Sodium 40 MG/0.4 ML SYRINGE SC SCH (21:00)
[2019-08-26] MEDS: Lidocaine Patch Removal 1 EACH TOP SCH (22:04)
[2019-08-26] MEDS: Morphine 2 MG/ML SYRINGE SLOW IVP PRN (22:09)
[2019-08-26] MEDS: Acetaminophen 500 MG TAB PO PRN (22:09)
[2019-08-27] MEDS: Acetaminophen 500 MG TAB PO PRN (04:48)
[2019-08-27] MEDS: Cefepime 1 GM in Sodium Chloride 0.9% 100 ML IVPB SCH ×2 (05:00→17:49)
[2019-08-27] MEDS: Lactated Ringer's 1,000 ML IV SCH ×3 (05:03→23:01)
[2019-08-27 05:40] LABS: #Eosinphils 0.4 thou/uL (0.0-0.7); #Lymphocytes 0.9 thou/uL (1.20-3.40); #Monocytes 0.7 thou/uL (0.11-0.59); #Neutrophils 5.2 thou/uL (1.40-6.50); %Basophils 0.6 % (0.0-1.0); %Eosinophils 5.1 % (0.0-10.0); %Lymphocytes 12.8 % (21.0-51.0); %Monocytes 9.6 % (0.0-10.0); Mean Corpuscular Hemoglobin 29.3 pg (27.0-31.0); Mean Corpuscular Volume 91.6 fL (78.0-98.0); Mean Platelet Volume 6.7 fL (7.4-10.4); Platelet Count 349 thou/uL (130-400); RBC Distribution Width 12.7 % (11.5-14.5); Red Blood Cell (RBC) Count 2.38 mill/uL (4.70-6.10); White Blood Cell (WBC) Count 7.2 thou/uL (4.8-10.8)
[2019-08-27] MEDS: Morphine 2 MG/ML SYRINGE SLOW IVP PRN ×2 (05:49→17:49)
[2019-08-27 06:01] LABS: Anion Gap 11 mmol/L (10-20); BUN (Urea Nitrogen) 21 mg/dL (8.4-25.7); Calc. Creatinine Clearance 48 mL/min (70-130); Calcium 8.1 mg/dL (7.8-10.44); Carbon Dioxide 22 mmol/L (23-31); Chloride 111 mmol/L (98-107); Estimated GFR-MDRD 47; Glucose 165 mg/dL (83-110); Potassium 3.6 mmol/L (3.5-5.1); Sodium 140 mmol/L (136-145)
[2019-08-27] MEDS: Aspirin 325 MG TAB PO SCH (08:19)
[2019-08-27] MEDS: Isosorbide Dinitrate 20 MG TAB PO SCH (08:19)
[2019-08-27] MEDS: Famotidine/PF 20 mg/2ml Vial SLOW IVP SCH ×2 (08:19→20:22)
[2019-08-27] MEDS: Carvedilol 3.125 MG TAB PO SCH ×2 (08:19→20:22)
[2019-08-27] MEDS: Heparin 5,000 UNITS/ML VIAL SC SCH ×3 (08:47→19:16)
[2019-08-27] MEDS: Lidocaine 5% Patch TD SCH (08:47)
[2019-08-27] MEDS: Morphine 4 MG/ML VIAL SLOW IVP PRN (11:11)
[2019-08-27] MEDS: Vancomycin HCl 1.25 GM in Sodium Chloride 0.9% 250 ML 250 ML IVPB SCH (12:29)
[2019-08-27] MEDS: HumaLOG 300 UNITS/3 ML VIAL SC PRN (12:30)
[2019-08-27] MEDS: HYDROcodone/Acetaminophen 5/325 mg Tablet PO PRN (15:42)
[2019-08-27] MEDS: Lorazepam 0.5 MG TAB PO PRN (17:48)
[2019-08-27] MEDS: Lidocaine Patch Removal 1 EACH TOP SCH (20:23)
[2019-08-28] MEDS: Cefepime 1 GM in Sodium Chloride 0.9% 100 ML IVPB SCH ×2 (05:06→17:07)
--- NOTE | 2019-08-28 07:45 | PDOC.HOSPP ---
- Subjective Encounter Date: 08/27/19 Encounter Time: 13:00 Subjective: Mr. Apple was seen today in follow-up of peripheral vascular disease and toe amputation. He is sitting up at the side of the bed eating. He does not have any complaints. - Objective Vital Signs & Weight: Weight Admit Weight 169 lb 6.4 oz Weight 169 lb 6.4 oz I&O: 08/27/19 08/28/19 08/29/19 06:59 06:59 06:59 Intake Total 1650 Output Total 650 Balance 1000 Result Diagrams: 08/27/19 05:26 08/27/19 05:26 Additional Labs: Accuchecks 08/28/19 08/27/19 08/27/19 05:01 19:25 15:56 POC Glucose 136 H 180 H 143 H 08/27/19 08/27/19 11:13 11:02 POC Glucose 223 H 223 H Hospitalist ROS - Medication Medications: Active Medications Generic Name Dose Route Start Last Admin Trade Name Freq PRN Reason Stop Dose Admin Acetaminophen 1,000 mg 08/26/19 18:15 08/27/19 04:48 Tylenol PO 1,000 mg Q6H PRN Administration Moderate to Severe Pain (6-10) Hydrocodone Bitart/Acetaminophen 1 tab 08/22/19 01:18 08/27/19 15:42 [place] 5/325 PO 1 tab Q4H PRN Administration Moderate Pain (4-6) Aspirin 325 mg 08/24/19 09:00 08/27/19 08:19 Aspirin PO 325 mg DAILY KARLI Administration Carvedilol 3.125 mg 08/24/19 21:00 08/27/19 20:22 Coreg PO 3.125 mg BID KARLI Administration Dextrose/Water 25 gm 08/22/19 01:18 08/22/19 04:46 Dextrose 50% SLOW IVP 25 gm PRN PRN Administration Hypoglycemia Famotidine 20 mg 08/22/19 09:00 08/27/19 20:22 Pepcid SLOW IVP 20 mg Q12HR KARLI Administration Heparin Sodium (Porcine) 5,000 units 08/22/19 09:00 08/27/19 19:16 Heparin SC Not Given TID KARLI Cefepime HCl 1 gm/ Sodium 100 mls @ 200 mls/hr 08/22/19 06:00 08/28/19 05:06 Chloride IVPB 100 mls 0600,1800 KARLI Administration Vancomycin HCl 1.25 gm/ Sodium 250 mls @ 166.667 mls/hr 08/23/19 12:00 12:29 Chloride IVPB 250 mls 1200 KARLI Administration Lactated Ringer's 1,000 mls @ 100 mls/hr 08/26/19 08:00 08/27/19 23:01 Lactated Ringer's IV Not Given .Q10H [facility] Insulin Human Lispro 0 units 08/22/19 01:18 08/27/19 12:30 Humalog SC 223 unit .MILD SLIDING SCALE PRN Administration Mild Correctional Scale Isosorbide Dinitrate 30 mg 08/25/19 09:00 08/27/19 08:19 Isordil PO 30 mg DAILY KARLI Administration Lidocaine 1 patch 08/23/19 09:00 08/27/19 08:47 Lidoderm 5% Patch TD Not Given DAILY [facility] Lorazepam 0.5 mg 08/22/19 19:43 08/27/19 17:48 Ativan PO 0.5 mg Q6H PRN Administration Anxiety/Agitation Miscellaneous Medication 1 each 08/23/19 21:00 08/27/19 20:23 Lidocaine Patch Removal TOP Not Given 2100 [facility] Morphine Sulfate 4 mg 08/22/19 01:18 08/27/19 11:11 Morphine SLOW IVP 4 mg Q4H PRN Administration Moderate to Severe Pain (6-10) Morphine Sulfate 2 mg 08/22/19 01:18 08/27/19 17:49 Morphine SLOW IVP 2 mg Q4H PRN Administration Moderate to Severe Pain (6-10) - Exam Eye: PERRL Heart: RRR, no murmur, no gallops, no rubs, normal peripheral pulses Respiratory: CTAB, no wheezes, no rales, no ronchi, normal chest expansion, no tachypnea Gastrointestinal: soft, non-tender, non-distended, normal bowel sounds, no palpable masses, no hepatomegaly Extremities: no cyanosis, 1+ LE edema (Wound vac is in place) Hosp A/P (1) Gangrene of toe of right foot Code(s): I96 - GANGRENE, NOT ELSEWHERE CLASSIFIED Status: Acute (2) PAD (peripheral artery disease) Code(s): I73.9 - PERIPHERAL VASCULAR DISEASE, UNSPECIFIED Status: Acute (3) Anxiety and depression Code(s): F41.9 - ANXIETY DISORDER, UNSPECIFIED; F32.9 - MAJOR DEPRESSIVE DISORDER, SINGLE EPISODE, UNSPECIFIED Status: Chronic (4) CKD (chronic kidney disease) stage 3, GFR 30-59 ml/min Code(s): N18.3 - CHRONIC KIDNEY DISEASE, STAGE 3 (MODERATE) Status: Chronic (5) Diabetes mellitus, type II, insulin dependent Code(s): E11.9 - TYPE 2 DIABETES MELLITUS WITHOUT COMPLICATIONS; Z79.4 - 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 Fregoso, dressing change is planned for Wednesday- will re- assess the progress of the wound then * HTN- blood pressure is stable * DM- blood glucose is stable * CKD- stable
[2019-08-28] MEDS: Isosorbide Dinitrate 20 MG TAB PO SCH (09:01)
[2019-08-28] MEDS: Aspirin 325 MG TAB PO SCH (09:01)
[2019-08-28] MEDS: Famotidine/PF 20 mg/2ml Vial SLOW IVP SCH ×2 (09:01→20:01)
[2019-08-28] MEDS: Carvedilol 3.125 MG TAB PO SCH ×2 (09:02→20:01)
[2019-08-28] MEDS: Heparin 5,000 UNITS/ML VIAL SC SCH ×3 (09:02→19:48)
[2019-08-28] MEDS: Lidocaine 5% Patch TD SCH (09:03)
[2019-08-28] MEDS: HYDROcodone/Acetaminophen 5/325 mg Tablet PO PRN (10:07)
[2019-08-28] MEDS: Lactated Ringer's 1,000 ML IV SCH ×3 (11:03→20:02)
[2019-08-28] MEDS: Vancomycin HCl 1.25 GM in Sodium Chloride 0.9% 250 ML 250 ML IVPB SCH (11:39)
[2019-08-28] MEDS: HumaLOG 300 UNITS/3 ML VIAL SC PRN (13:28)
--- NOTE | 2019-08-28 15:21 | PDOC.HOSPP ---
- Subjective Encounter Date: 08/28/19 Encounter Time: 15:19 Subjective: Mr. Apple was seen today in follow-up of gangrene of the 4th adn 5th toes on the right foot. He notes some pain in his foot from time to time, but says it was manageable when he was up walking on it. - Objective Vital Signs & Weight: Vital Signs (12 hours) Temp Pulse Resp BP Pulse Ox 08/28/19 09:01 99 08/28/19 07:53 98.1 F 68 18 146/64 H 99 Weight Admit Weight 169 lb 6.4 oz Weight 169 lb 6.4 oz I&O: 08/27/19 08/28/19 08/29/19 06:59 06:59 06:59 Intake Total 1650 Output Total 650 Balance 1000 Result Diagrams: 08/27/19 05:26 08/27/19 05:26 Additional Labs: Accuchecks 08/28/19 08/28/19 08/27/19 11:32 05:01 19:25 POC Glucose 176 H 136 H 180 H 08/27/19 15:56 POC Glucose 143 H Hospitalist ROS - Medication Medications: Active Medications Generic Name Dose Route Start Last Admin Trade Name Freq PRN Reason Stop Dose Admin Acetaminophen 1,000 mg 08/26/19 18:15 08/27/19 04:48 Tylenol PO 1,000 mg Q6H PRN Administration Moderate to Severe Pain (6-10) Hydrocodone Bitart/Acetaminophen 1 tab 08/22/19 01:18 08/28/19 10:07 [place] 5/325 PO 1 tab Q4H PRN Administration Moderate Pain (4-6) Aspirin 325 mg 08/24/19 09:00 08/28/19 09:01 Aspirin PO 325 mg DAILY KARLI Administration Carvedilol 3.125 mg 08/24/19 21:00 08/28/19 09:02 Coreg PO 3.125 mg BID KARLI Administration Dextrose/Water 25 gm 08/22/19 01:18 08/22/19 04:46 Dextrose 50% SLOW IVP 25 gm PRN PRN Administration Hypoglycemia Famotidine 20 mg 08/22/19 09:00 08/28/19 09:01 Pepcid SLOW IVP 20 mg Q12HR [facility]ARLI Administration Heparin Sodium (Porcine) 5,000 units 08/22/19 09:00 08/28/19 14:09 Heparin SC Not Given TID KARLI Cefepime HCl 1 gm/ Sodium 100 mls @ 200 mls/hr 08/22/19 06:00 08/28/19 05:06 Chloride IVPB 100 mls 0600,1800 [facility] Administration Vancomycin HCl 1.25 gm/ Sodium 250 mls @ 166.667 mls/hr 08/23/19 12:00 11:39 Chloride IVPB 250 mls 1200 [facility] Administration Lactated Ringer's 1,000 mls @ 100 mls/hr 08/26/19 08:00 08/28/19 11:03 Lactated Ringer's IV Not Given .Q10H [facility] Insulin Human Lispro 0 units 08/22/19 01:18 08/28/19 13:28 Humalog SC 2 unit .MILD SLIDING SCALE PRN Administration Mild Correctional Scale Isosorbide Dinitrate 30 mg 08/25/19 09:00 08/28/19 09:01 Isordil PO 30 mg DAILY [facility] Administration Lidocaine 1 patch 08/23/19 09:00 08/28/19 09:03 Lidoderm 5% Patch TD 1 patch DAILY [facility] Administration Lorazepam 0.5 mg 08/22/19 19:43 08/27/19 17:48 Ativan PO 0.5 mg Q6H PRN Administration Anxiety/Agitation Miscellaneous Medication 1 each 08/23/19 21:00 08/27/19 20:23 Lidocaine Patch Removal TOP Not Given 2100 [facility] Morphine Sulfate 4 mg 08/22/19 01:18 08/27/19 11:11 Morphine SLOW IVP 4 mg Q4H PRN Administration Moderate to Severe Pain (6-10) Morphine Sulfate 2 mg 08/22/19 01:18 08/27/19 17:49 Morphine SLOW IVP 2 mg Q4H PRN Administration Moderate to Severe Pain (6-10) - Exam Eye: PERRL, anicteric sclera Heart: RRR, no murmur, no gallops, no rubs, normal peripheral pulses Respiratory: CTAB, no wheezes, no rales, no ronchi, normal chest expansion, rales Gastrointestinal: soft, non-tender, non-distended, normal bowel sounds, no palpable masses Extremities: 1+ LE edema (trace pedal edema, chronic venous stasis changes) Hosp A/P (1) Gangrene of toe of right foot Code(s): I96 - GANGRENE, NOT ELSEWHERE CLASSIFIED Status: Acute (2) PAD (peripheral artery disease) Code(s): I73.9 - PERIPHERAL VASCULAR DISEASE, UNSPECIFIED Status: Acute (3) Anxiety and depression Code(s): F41.9 - ANXIETY DISORDER, UNSPECIFIED; F32.9 - MAJOR DEPRESSIVE DISORDER, SINGLE EPISODE, UNSPECIFIED Status: Chronic (4) CKD (chronic kidney disease) stage 3, GFR 30-59 ml/min Code(s): N18.3 - CHRONIC KIDNEY DISEASE, STAGE 3 (MODERATE) Status: Chronic (5) Diabetes mellitus, type II, insulin dependent Code(s): E11.9 - TYPE 2 DIABETES MELLITUS WITHOUT COMPLICATIONS; Z79.4 - CARE HOME (CURRENT) USE OF INSULIN Status: Chronic (6) HTN (hypertension) Code(s): I10 - ESSENTIAL (PRIMARY) HYPERTENSION Status: Chronic Qualifiers: - Plan * Severe Peripheral Vascular disease with Gangrene of the 4th and 5th toes on the right foot-he is post amputation of the 3rd through the 5th toes * Wound vac has been placed * Continue IV antibiotics ( Vancomycin and Cefepime)- consider transition to oral antibiotics tomorrow * Plan for dressing change tomorrow * HTN- blood pressure is stable * DM- blood glucose is stable * CKD- stable
--- NOTE | 2019-08-28 16:03 | PRG ---
DATE OF SERVICE: 08/28/2019 Bertrand Apple is doing well after toe amputation. He is doing well. He has no complaints. Pain is under good control. Plan is for me to review his wound tomorrow. He can be discharged home with wound VAC and oral antibiotics any time to the [place] [facility]. Job ID: [id number]
[2019-08-28] MEDS: Lidocaine Patch Removal 1 EACH TOP SCH (19:48)
[2019-08-28] MEDS: Lorazepam 0.5 MG TAB PO PRN (20:01)
--- NOTE | 2019-08-28 21:35 | EKG ---
Test Reason : Blood Pressure : / mmHG Vent. Rate : 077 BPM Atrial Rate : 077 BPM P-R Int : 158 ms QRS Dur : 144 ms QT Int : 418 ms P-R-T Axes : -25 -47 037 degrees QTc Int : 473 ms Normal sinus rhythm Left axis deviation Left bundle branch block Abnormal ECG When compared with ECG of 09-APR-2019 22:02, No significant change was found Confirmed by JAYDEN LOVE, SDora ([id number]) on 08/28/2019 9:35:21 PM Referred By: LETICIA Confirmed By:DR. Mehnaz CARPENTER MD
[2019-08-29] MEDS: Lactated Ringer's 1,000 ML IV SCH (04:57)
[2019-08-29] MEDS: Cefepime 1 GM in Sodium Chloride 0.9% 100 ML IVPB SCH (05:14)
[2019-08-29] MEDS: Isosorbide Dinitrate 20 MG TAB PO SCH (07:53)
[2019-08-29] MEDS: Aspirin 325 MG TAB PO SCH (07:53)
[2019-08-29] MEDS: Famotidine/PF 20 mg/2ml Vial SLOW IVP SCH (07:54)
[2019-08-29] MEDS: Heparin 5,000 UNITS/ML VIAL SC SCH (07:54)
[2019-08-29] MEDS: Carvedilol 3.125 MG TAB PO SCH (07:54)
[2019-08-29] MEDS: Lidocaine 5% Patch TD SCH (08:00)
[2019-08-29] MEDS: Morphine 4 MG/ML VIAL SLOW IVP PRN (09:55)
--- NOTE | 2019-08-29 10:09 | PRG ---
DATE OF SERVICE: 08/29/2019 Bertrand Apple is doing well today. His foot wound looks good. His tissues are healthy. There are no signs of infection. The patient is lying in bed with his heels on the bed. As the patient's age is 73 and has deteriorated cognitive ability, I think he should have pillows or blankets beneath his legs to prevent heel decubitus. We will order that. The [facility] 7 [facility]. I will see him in my office in 2 weeks. He will continue wound VAC care. He should keep his heels off the bed to prevent decubitus. Job ID: [id number]
[2019-08-29] MEDS: HYDROcodone/Acetaminophen 5/325 mg Tablet PO PRN (13:12)
--- NOTE | 2019-08-29 13:21 | PDOC.HOSPP ---
- Subjective Encounter Date: 08/29/19 Encounter Time: 13:18 Subjective: Mr. Apple was seen today in follow-up of gangrene of the toes. He does not have any complaints today. - Objective Vital Signs & Weight: Vital Signs (12 hours) Temp Pulse Resp BP Pulse Ox 08/29/19 08:00 98 08/29/19 07:55 99.3 F 74 16 138/57 L 98 Weight Admit Weight 169 lb 6.4 oz Weight 169 lb 6.4 oz I&O: 08/28/19 08/29/19 08/30/19 06:59 06:59 06:59 Intake Total 1540 240 Balance 1540 240 Result Diagrams: 08/27/19 05:26 08/27/19 05:26 Additional Labs: Accuchecks 08/29/19 08/29/19 08/28/19 11:27 04:30 19:20 POC Glucose 144 H 126 H 158 H 08/28/19 16:34 POC Glucose 151 H Hospitalist ROS - Medication Medications: Active Medications Generic Name Dose Route Start Last Admin Trade Name Freq PRN Reason Stop Dose Admin Acetaminophen 1,000 mg 08/26/19 18:15 08/27/19 04:48 Tylenol PO 1,000 mg Q6H PRN Administration Moderate to Severe Pain (6-10) Hydrocodone Bitart/Acetaminophen 1 tab 08/22/19 01:18 08/29/19 13:12 [place] 5/325 PO 1 tab Q4H PRN Administration Moderate Pain (4-6) Aspirin 325 mg 08/24/19 09:00 08/29/19 07:53 Aspirin PO 325 mg DAILY KARLI Administration Carvedilol 3.125 mg 08/24/19 21:00 08/29/19 07:54 Coreg PO 3.125 mg BID KARLI Administration Dextrose/Water 25 gm 08/22/19 01:18 08/22/19 04:46 Dextrose 50% SLOW IVP 25 gm PRN PRN Administration Hypoglycemia Famotidine 20 mg 08/22/19 09:00 08/29/19 07:54 Pepcid SLOW IVP 20 mg Q12HR KARLI Administration Heparin Sodium (Porcine) 5,000 units 08/22/19 09:00 08/29/19 07:54 Heparin SC 5,000 units TID KARLI Administration Lactated Ringer's 1,000 mls @ 100 mls/hr 08/26/19 08:00 08/29/19 04:57 Lactated Ringer's IV Not Given .Q10H [facility] Insulin Human Lispro 0 units 08/22/19 01:18 08/28/19 13:28 Humalog SC 2 unit .MILD SLIDING SCALE PRN Administration Mild Correctional Scale Isosorbide Dinitrate 30 mg 08/25/19 09:00 08/29/19 07:53 Isordil PO 30 mg DAILY KARLI Administration Lidocaine 1 patch 08/23/19 09:00 08/29/19 08:00 Lidoderm 5% Patch TD 1 patch DAILY KARLI Administration Lorazepam 0.5 mg 08/22/19 19:43 08/28/19 20:01 Ativan PO 0.5 mg Q6H PRN Administration Anxiety/Agitation Miscellaneous Medication 1 each 08/23/19 21:00 08/28/19 19:48 Lidocaine Patch Removal TOP Not Given 2100 [facility] Morphine Sulfate 4 mg 08/22/19 01:18 08/29/19 09:55 Morphine SLOW IVP 4 mg Q4H PRN Administration Moderate to Severe Pain (6-10) Morphine Sulfate 2 mg 08/22/19 01:18 08/27/19 17:49 Morphine SLOW IVP 2 mg Q4H PRN Administration Moderate to Severe Pain (6-10) - Exam Eye: PERRL Heart: RRR, no murmur, no gallops, no rubs, normal peripheral pulses Respiratory: CTAB, no wheezes, no rales, no ronchi, normal chest expansion Gastrointestinal: soft, non-tender, non-distended, normal bowel sounds, no palpable masses, no hepatomegaly Extremities: 1+ LE edema Hosp A/P (1) Gangrene of toe of right foot Code(s): I96 - GANGRENE, NOT ELSEWHERE CLASSIFIED Status: Acute (2) PAD (peripheral artery disease) Code(s): I73.9 - PERIPHERAL VASCULAR DISEASE, UNSPECIFIED Status: Acute (3) Anxiety and depression Code(s): F41.9 - ANXIETY DISORDER, UNSPECIFIED; F32.9 - MAJOR DEPRESSIVE DISORDER, SINGLE EPISODE, UNSPECIFIED Status: Chronic (4) CKD (chronic kidney disease) stage 3, GFR 30-59 ml/min Code(s): N18.3 - CHRONIC KIDNEY DISEASE, STAGE 3 (MODERATE) Status: Chronic (5) Diabetes mellitus, type II, insulin dependent Code(s): E11.9 - TYPE 2 DIABETES MELLITUS WITHOUT COMPLICATIONS; 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
[2019-08-29 15:54] VITALS: BP 128/64; TEMP 98
--- NOTE | 2019-08-29 18:16 | DIS ---
DATE OF ADMISSION: 08/21/2019 DATE OF DISCHARGE: 08/29/2019 DISCHARGE DISPOSITION: To inpatient rehab. DISCHARGE DIAGNOSES: 1. Gangrene of the 4th and 5th toes on the right foot. 2. Severe peripheral arterial disease. 3. Diabetes mellitus. 4. Chronic kidney disease, stage 3. 5. Depression. DISCHARGE MEDICATIONS: Include; 1. Amoxicillin 500 mg p.o. twice daily. 2. Aspirin 81 mg daily. 3. Carvedilol 3.125 mg twice daily. 4. Lantus insulin 4 units subcu daily. 5. Multivitamin once a day. 6. Tramadol 50 mg q.6 as needed. 7. Pantoprazole 40 mg daily. 8. Nitrostat 0.4 sublingual daily. 9. Metformin 500 mg once daily. 10. Lorazepam 1 mg at bedtime. 11. Pyridoxine, melatonin one tablet daily. 12. Lisinopril 20 mg daily. 13. Lidoderm patch as needed. 14. Isosorbide dinitrate 30 mg p.o. daily. IMAGING DONE DURING HOSPITAL STAY: The patient had a lower extremity arterial Doppler showing findings suspicious of high-grade stenosis in the region of the right popliteal artery. There was [id number] atherosclerotic disease involving the mid superficial femoral artery through to the right popliteal artery. The patient had an angiogram by Vascular Surgery and there was significant arthrosclerotic disease in the iliac arteries, but no flow-limiting disease. The common femoral, profunda femoris, and superficial arteries were all widely patent, but calcified and just below the knee joint in the popliteal artery, there was a critical stenosis. The popliteal artery was stented. The patient subsequently underwent amputation of the 3rd through 5th toes on the right foot. The patient had a CT scan of the brain showing no acute interval change. CODE STATUS: DNAR. ALLERGIES: TO CONTRAST, SHELLFISH, AND LATEX. HOSPITAL COURSE: Mr. Apple is a pleasant 73-year-old gentleman, who was admitted to the hospital with worsening pain and discoloration of the 4th and 5th toes. It was immediately concerning for peripheral vascular disease and an arterial ultrasound was done. These findings suggested peripheral artery occlusive disease. Vascular Surgery was consulted and the patient underwent arteriogram with runoff showing significant disease in the popliteal artery. This was angioplastied and stent placed. The patient tolerated the procedure well and underwent amputation of the 3rd through the 5th toes. This is in hopes of possibly salvaging the leg. However, there is still a high risk that the patient will ultimately require [id number] amputation. The patient tolerated the procedure well. A wound VAC was placed and he was subsequently able to be transitioned to the inpatient rehab. He was treated with IV antibiotics during his hospital stay until his final hospital day and then transitioned over to oral Augmentin. Job ID: [id number]
[2019-08-29] MEDS ORDERED: Amoxicillin/Potassium Clav 500 MG TAB PO SCH (21:00)
== END 2019-08-29 15:43 | DRG 239 ==
LOC: ERS 17:45 → T4-B 20:19 → T4-A 08-27 07:35
PROVIDERS: ADMIT Internal Medicine; ATTEND Internal Medicine
PROC: B410YZZ Fluoroscopy of Abdominal Aorta using Other Contrast (ICD-10-PCS; principal; 2019-08-23)
PROC: 047M34Z Dilation of Right Popliteal Artery with Drug-eluting Intraluminal Device, Percutaneous Approach (ICD-10-PCS; 2019-08-23)
PROC: B41F1ZZ Fluoroscopy of Right Lower Extremity Arteries using Low Osmolar Contrast (ICD-10-PCS; 2019-08-23)
PROC: 0Y6M0ZC Detachment at Right Foot, Partial 3rd Ray, Open Approach (ICD-10-PCS; 2019-08-26)
PROC: 0Y6M0ZD Detachment at Right Foot, Partial 4th Ray, Open Approach (ICD-10-PCS; 2019-08-26)
PROC: 0Y6M0ZF Detachment at Right Foot, Partial 5th Ray, Open Approach (ICD-10-PCS; 2019-08-26)
DX: E11.52 Type 2 diabetes mellitus with diabetic peripheral angiopathy with gangrene (principal); G93.41 Metabolic encephalopathy; I96 Gangrene, not elsewhere classified; L03.115 Cellulitis of right lower limb; N39.0 Urinary tract infection, site not specified; E11.22 Type 2 diabetes mellitus with diabetic chronic kidney disease; N18.3 Chronic kidney disease, stage 3 (moderate); F32.9 Major depressive disorder, single episode, unspecified; Z66 Do not resuscitate; Z88.8 Allergy status to other drugs, medicaments and biological substances; Z91.041 Radiographic dye allergy status; Z91.013 Allergy to seafood; I25.10 Atherosclerotic heart disease of native coronary artery without angina pectoris; F41.9 Anxiety disorder, unspecified; Z95.1 Presence of aortocoronary bypass graft; Z87.891 Personal history of nicotine dependence; Z96.651 Presence of right artificial knee joint; F03.90 Unspecified dementia, unspecified severity, without behavioral disturbance, psychotic disturbance, mood disturbance, and anxiety
CPT/HCPCS: 36415; 36416; 37226; 70450; 76942; 80048; 80202; 82140; 82553; 84484; 85007; 85025; 85027; 85347; 86850; 86900; 86901; 87086; 88305; 93005; 93010; 93923; 96361; 96374; C1725; C1760; C1769; C1887; J0692; J1200; J1644; J1720; J2060; J2250; J2270; J2720; J3010; J3370; J3480; J3490; J7050; Q9967; S0028

== ENCOUNTER 2019-10-08 12:08 | Inpatient (IN) | payer MEDICARE, MEDICAID ==
[2019-10-08 13:16] LABS: White Blood Cell (WBC) Count 20.1 thou/uL (4.8-10.8)
[2019-10-08 13:17] LABS: Hemoglobin 10.4 g/dL (14.0-18.0); Mean Corpuscular Volume 93.7 fL (78.0-98.0); Mean Platelet Volume 7.5 fL (7.4-10.4); Platelet Count 306 thou/uL (130-400); RBC Distribution Width 15.1 % (11.5-14.5); Red Blood Cell (RBC) Count 3.46 mill/uL (4.70-6.10)
[2019-10-08 13:38] LABS: Bacteria/HPF None Seen HPF (None Seen); Bilirubin Negative (Negative); Blood, Urine Negative (Negative); Clarity Clear (Clear); Glucose, Urine (Dipstick) Normal (Negative); Leukocyte Negative Leu/uL (Negative); Nitrite Negative (Negative); Protein, Urine (Dipstick) 30 mg/dL (Neg-Trace); RBC/HPF 0-3 HPF (0-3); Squamous Epithelial None Seen HPF (0-3); Urobilinogen Normal mg/dL (Less than 2); WBC/HPF 0-3 HPF (0-3)
[2019-10-08 13:41] LABS: #Basophils 0.1 thou/uL (0.0-0.2); #Eosinphils 0.3 thou/uL (0.0-0.7); #Lymphocytes 1.2 thou/uL (1.20-3.40); #Monocytes 1.1 thou/uL (0.11-0.59); #Neutrophils 16.4 thou/uL (1.40-6.50); %Basophils 0.3 % (0.0-1.0); %Eosinophils 1.6 % (0.0-10.0); %Lymphocytes 6.1 % (21.0-51.0); %Monocytes 5.6 % (0.0-10.0); %Neutrophils 86.4 % (42.0-75.0); Anisocytosis SLIGHT = 6-15 cells (100X) (0-5/hpf); Band 16 % (5-11); Lymphocytes 5 % (21-51); MDiff Complete? YES; Monocytes 6 % (0-10); Neutrophil 73 % (42-75); Platelet Morphology Comment Appears Adequate
[2019-10-08 13:42] LABS: ALT (SGPT) 9 U/L (8-55); AST (SGOT) 11 U/L (5-34); Alkaline Phosphatase 89 U/L (40-110); Anion Gap 15 mmol/L (10-20); BUN (Urea Nitrogen) 38 mg/dL (8.4-25.7); Bilirubin, Total 0.9 mg/dL (0.2-1.2); Calc. Creatinine Clearance 0 mL/min (70-130); Calcium 8.5 mg/dL (7.8-10.44); Carbon Dioxide 19 mmol/L (23-31); Chloride 105 mmol/L (98-107); Estimated GFR-MDRD 30; Globulin 2.8 g/dL (2.4-3.5); Glucose 77 mg/dL (83-110); Lipase Less than 4 U/L (8-78); Potassium 4.7 mmol/L (3.5-5.1); Protein, Total 5.8 g/dL (5.8-8.1); Sodium 134 mmol/L (136-145)
[2019-10-08] MEDS ORDERED: Acetaminophen 325 MG TAB ONE (14:07)
--- NOTE | 2019-10-08 14:18 | CT ---
CT ABDOMEN NONCONTRAST CT PELVIS NONCONTRAST: (Urolithiasis protocol) DATE: 10/08/2019 HISTORY: 73-year-old male with generalized abdominal pain COMPARISON: None TECHNIQUE: IV injection of iodinated contrast media: None Oral contrast media: None FINDINGS: Other than for urolithiasis, the lack of IV and oral contrast limits the evaluation. Diffuse, somewhat severe mural thickening and mural edema involving the entire colon, from cecum thro ugh rectum. Cecum and ascending colon are most severely involved. Diffuse, somewhat severe pericolonic edema around the entire colon. Right renal arteries stent. Atherosclerotic calcification heavily involving nonaneurysmal abdominal aorta, iliac arteries, and or igin of superior mesenteric artery. No evidence of renal, ureteral, or bladder calculus. No hydronephrosis. No small bowel dilation or pneumoperitoneum. 2 cm right renal upper pole cyst. Within the limitations of a noncontrast scan, no obvious major pathology identified involving liver, pancreas, adrenals, or spleen. IMPRESSION: Severe pancolitis. This could either be infectious colitis or ischemic colitis.
--- NOTE | 2019-10-08 14:25 | RAD ---
RADIOGRAPH CHEST 1 VIEW: DATE: 10/08/2019 HISTORY: 73-year-old male with generalized weakness FINDINGS: There are no airspace densities, pulmonary edema, pneumothorax, or cardiomegaly. The lateral costophr enic angles are sharp. Sternotomy wires. Surgical clips overlying heart and mediastinum. IMPRESSION: 1. No acute cardiopulmonary findings. 2. Status post coronary artery bypass graft surgery is evidence for coronary atherosclerotic disease.
[2019-10-08] MEDS ORDERED: Ondansetron PF 4 MG/2 ML Vial IVP PRN (14:40)
[2019-10-08] MEDS ORDERED: Piperacillin/Tazobactam 3.375 GM VIAL ONE (14:57)
[2019-10-08 17:02] VITALS: BMI 19.2
[2019-10-08] MEDS: Heparin 5,000 UNITS/ML VIAL SC SCH ×3 (17:39→21:21)
[2019-10-08] MEDS: Sodium Chloride 0.9% 1,000 ML IV SCH ×2 (17:39→21:13)
[2019-10-08] MEDS: metroNIDAZOLE 500 MG in Premix Bag 1 BAG IVPB SCH (21:15)
[2019-10-08] MEDS ORDERED: Dextrose 5% in Water 1,000 ML IV PRN (21:57)
[2019-10-08] MEDS ORDERED: HumaLOG 300 UNITS/3 ML VIAL SC PRN ×2 (21:57)
[2019-10-08] MEDS ORDERED: Dextrose 50% Abboject 50 ML SYRINGE SLOW IVP PRN (21:57)
[2019-10-08] MEDS ORDERED: Gabapentin 300 MG CAP PO SCH (22:45)
[2019-10-08] MEDS: Cyclobenzaprine 10 MG TAB PO PRN (22:55)
--- NOTE | 2019-10-09 00:30 | HP ---
HISTORY OF PRESENT ILLNESS: The patient is a 73-year-old male, senior care resident, with past medical history of coronary artery disease, peripheral arterial disease, diabetes type 2, and chronic renal disease stage 3, who was sent to the hospital today due to worsening abdominal pain for the past few weeks associated with watery diarrhea and increasing nausea. The patient also complains of generalized weakness and fatigue. He denied fever, chills, shortness of breath, palpitations, and/or dizziness. REVIEW OF SYSTEMS: Negative except as noted in HPI. 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 PAST SURGICAL HISTORY: As noted above. SOCIAL HISTORY: The patient denies alcohol use, smoking, or illicit drug use. PHYSICAL EXAMINATION: GENERAL: The patient is alert and oriented x3. HEENT: Head is normocephalic and atraumatic. Extraocular muscles are intact. NECK: Supple. CHEST: Clear to auscultation bilaterally. CARDIAC: Revealed regular rate and rhythm with no murmurs, rubs, or gallops. ABDOMEN: Tender diffusely. NEUROLOGIC: Intact. IMAGING DATA: CT scan of the abdomen and pelvis revealed pancolitis. ASSESSMENT: Acute sepsis due to colitis. We will admit the patient to the hospital and start IV fluids, IV ciprofloxacin and IV Flagyl. We will also check stool for Clostridium difficile. We will repeat his labs in the morning. Job ID: [id number]
[2019-10-09] MEDS: metroNIDAZOLE 500 MG in Premix Bag 1 BAG IVPB SCH ×3 (05:07→21:07)
[2019-10-09 06:02] LABS: #Eosinphils 0.1 thou/uL (0.0-0.7); #Monocytes 1.7 thou/uL (0.11-0.59); #Neutrophils 22.2 thou/uL (1.40-6.50); %Basophils 0.1 % (0.0-1.0); %Eosinophils 0.5 % (0.0-10.0); %Lymphocytes 4.2 % (21.0-51.0); %Monocytes 6.6 % (0.0-10.0); %Neutrophils 88.7 % (42.0-75.0); Hemoglobin 9.6 g/dL (14.0-18.0); Mean Corpuscular HGB CONC 32.1 g/dL (32.0-36.0); Mean Corpuscular Hemoglobin 29.2 pg (27.0-31.0); Mean Corpuscular Volume 90.9 fL (78.0-98.0); Mean Platelet Volume 7.5 fL (7.4-10.4); Platelet Count 307 thou/uL (130-400); RBC Distribution Width 14.8 % (11.5-14.5); Red Blood Cell (RBC) Count 3.29 mill/uL (4.70-6.10)
[2019-10-09 06:30] LABS: Anion Gap 15 mmol/L (10-20); BUN (Urea Nitrogen) 40 mg/dL (8.4-25.7); Calc. Creatinine Clearance 29 mL/min (70-130); Calcium 8.1 mg/dL (7.8-10.44); Carbon Dioxide 19 mmol/L (23-31); Chloride 106 mmol/L (98-107); Estimated GFR-MDRD 28; Glucose 79 mg/dL (83-110); Potassium 4.1 mmol/L (3.5-5.1); Sodium 136 mmol/L (136-145)
[2019-10-09] MEDS ORDERED: Acetaminophen 325 MG TAB PO SCH (07:00)
[2019-10-09] MEDS: Gabapentin 300 MG CAP PO SCH ×3 (07:52→21:08)
[2019-10-09] MEDS: Heparin 5,000 UNITS/ML VIAL SC SCH ×3 (07:52→21:08)
--- NOTE | 2019-10-09 10:04 | PDOC.HOSPP ---
- Subjective Encounter Date: 10/09/19 Subjective: Reported improvement in his abdominal pain and diarrhea. - Objective Vital Signs & Weight: Vital Signs (12 hours) Temp Pulse Resp BP BP Pulse Ox 10/09/19 07:25 100.4 F H 91 22 H 114/63 100 10/09/19 04:21 100.5 F H 75 18 138/59 L 99 10/09/19 00:13 99 F 75 18 108/61 99 Weight Weight 157 lb 12.8 oz I&O: 10/08/19 10/09/19 10/10/19 06:59 06:59 06:59 Intake Total 1650 Balance 1650 Result Diagrams: 10/09/19 05:42 10/09/19 05:42 Additional Labs: Accuchecks 10/09/19 10/08/19 06:01 20:04 POC Glucose 74 70 Hospitalist ROS - Medication Medications: Active Medications Generic Name Dose Route Start Last Admin Trade Name Freq PRN Reason Stop Dose Admin Cyclobenzaprine HCl 10 mg 10/08/19 21:55 10/08/19 22:55 Flexeril PO 10 mg TIDPRN PRN Administration Muscle Spasm Gabapentin 300 mg 10/09/19 09:00 10/09/19 07:52 Neurontin PO 300 mg TID KARLI Administration Heparin Sodium (Porcine) 5,000 units 10/08/19 15:00 10/09/19 07:52 Heparin SC 5,000 units TID KARLI Administration Metronidazole 500 mg/ Device 100 mls @ 100 mls/hr 10/08/19 22:00 10/09/19 05: 07 IVPB 100 mls Q8HR KARLI Administration Ciprofloxacin/Dextrose 400 mg/ 200 mls @ 200 mls/hr 10/08/19 21:00 10/09/19 07:52 Device IVPB 200 mls Q12HR KARLI Administration Sodium Chloride 1,000 mls @ 100 mls/hr 10/08/19 15:00 10/08/19 21:13 Normal Saline 0.9% IV 1,000 mls .Q10H KARLI Administration Sodium Chloride 10 ml 10/09/19 09:00 10/09/19 07:53 Flush - Normal Saline IVF Not Given Q12HR KARLI - Exam General Appearance: awake alert ENT: normocephalic atraumatic Neck: supple Respiratory: normal chest expansion, no tachypnea Gastrointestinal: non-tender, non-distended Neurological: cranial nerve grossly intact, no focal deficits Hosp A/P (1) Acute colitis Code(s): K52.9 - NONINFECTIVE GASTROENTERITIS AND COLITIS, UNSPECIFIED Status : Acute (2) C. difficile diarrhea Code(s): A04.72 - ENTEROCOLITIS D/T CLOSTRIDIUM DIFFICILE, NOT SPCF RECUR Status: Acute (3) Sepsis Code(s): A41.9 - SEPSIS, UNSPECIFIED ORGANISM Status: Acute - Plan Colitis with c. diff. Continue IV hydration , Flagyl, and ciprofloxacin. Add oral vancomycin.
[2019-10-09] MEDS: Vancomycin HCl 25 MG/ML Oral PO SCH ×3 (10:05→21:08)
[2019-10-09] MEDS ORDERED: Nystatin Cream 15 GM TUBE TOP PRN (11:11)
[2019-10-09] MEDS: traMADol HCl 50 MG TAB PO PRN (11:23)
[2019-10-09] MEDS: Sodium Chloride 0.9% 1,000 ML IV SCH ×3 (11:25→21:07)
[2019-10-09] MEDS: Acetaminophen 325 MG TAB PO PRN (18:18)
[2019-10-10] MEDS: Vancomycin HCl 25 MG/ML Oral PO SCH ×4 (03:33→17:07)
[2019-10-10] MEDS: Sodium Chloride 0.9% 1,000 ML IV SCH (05:16)
[2019-10-10] MEDS: metroNIDAZOLE 500 MG in Premix Bag 1 BAG IVPB SCH ×3 (05:16→21:17)
[2019-10-10 06:34] LABS: #Eosinphils 0.4 thou/uL (0.0-0.7); #Lymphocytes 1.2 thou/uL (1.20-3.40); #Monocytes 1.4 thou/uL (0.11-0.59); #Neutrophils 17.4 thou/uL (1.40-6.50); %Basophils 0.1 % (0.0-1.0); %Eosinophils 2.1 % (0.0-10.0); %Lymphocytes 5.8 % (21.0-51.0); %Monocytes 6.6 % (0.0-10.0); %Neutrophils 85.4 % (42.0-75.0); Hemoglobin 9.1 g/dL (14.0-18.0); Mean Corpuscular HGB CONC 31.1 g/dL (32.0-36.0); Mean Corpuscular Hemoglobin 28.8 pg (27.0-31.0); Mean Corpuscular Volume 92.6 fL (78.0-98.0); Mean Platelet Volume 7.6 fL (7.4-10.4); Platelet Count 294 thou/uL (130-400); RBC Distribution Width 14.7 % (11.5-14.5); Red Blood Cell (RBC) Count 3.16 mill/uL (4.70-6.10); White Blood Cell (WBC) Count 20.4 thou/uL (4.8-10.8)
[2019-10-10 06:56] LABS: Anion Gap 14 mmol/L (10-20); BUN (Urea Nitrogen) 40 mg/dL (8.4-25.7); Calc. Creatinine Clearance 28 mL/min (70-130); Calcium 7.6 mg/dL (7.8-10.44); Carbon Dioxide 16 mmol/L (23-31); Chloride 109 mmol/L (98-107); Estimated GFR-MDRD 28; Glucose 86 mg/dL (83-110); Potassium 3.7 mmol/L (3.5-5.1); Sodium 135 mmol/L (136-145)
[2019-10-10] MEDS: traMADol HCl 50 MG TAB PO PRN ×2 (09:20→19:19)
[2019-10-10] MEDS: Gabapentin 300 MG CAP PO SCH ×3 (09:22→21:17)
[2019-10-10] MEDS: Heparin 5,000 UNITS/ML VIAL SC SCH ×3 (09:22→21:17)
[2019-10-10] MEDS ORDERED: Sodium Chloride 0.45% 1,000 ML IV SCH (10:45)
--- NOTE | 2019-10-10 10:56 | PDOC.HOSPP ---
- Subjective Encounter Date: 10/10/19 Subjective: No new events overnight. - Objective Vital Signs & Weight: Vital Signs (12 hours) Temp Pulse Resp BP BP Pulse Ox 10/10/19 07:41 99.1 F 93 19 92/51 L 98 10/10/19 03:43 98.5 F 111 H 18 99/60 96 10/10/19 00:00 99.3 F 118 H 18 99/61 98 Weight Admit Weight 157 lb 12.8 oz Weight 157 lb 12.8 oz I&O: 10/09/19 10/10/19 10/11/19 06:59 06:59 06:59 Intake Total 1650 4380 Output Total 250 Balance 1650 4130 Result Diagrams: 10/10/19 06:24 10/10/19 06:24 Additional Labs: Accuchecks 10/10/19 10/09/19 10/09/19 06:05 20:57 16:18 POC Glucose 97 116 H 117 H 10/09/19 12:40 POC Glucose 104 Hospitalist ROS - Medication Medications: Active Medications Generic Name Dose Route Start Last Admin Trade Name Freq PRN Reason Stop Dose Admin Acetaminophen 650 mg 10/09/19 11:11 10/09/19 18:18 Tylenol PO 650 mg Q4H PRN Administration Headache/Fever or Pain Cyclobenzaprine HCl 10 mg 10/08/19 21:55 10/08/19 22:55 Flexeril PO 10 mg TIDPRN PRN Administration Muscle Spasm Gabapentin 300 mg 10/09/19 09:00 10/10/19 09:22 Neurontin PO 300 mg TID KARLI Administration Heparin Sodium (Porcine) 5,000 units 10/08/19 15:00 10/10/19 09:22 Heparin SC 5,000 units TID KARLI Administration Metronidazole 500 mg/ Device 100 mls @ 100 mls/hr 10/08/19 22:00 10/10/19 05: 16 IVPB 100 mls Q8HR KARLI Administration Nystatin 0 gm 10/09/19 11:11 10/09/19 18:40 Mycostatin Cream TOP 1 applic TID PRN Administration PRN Sodium Chloride 10 ml 10/09/19 09:00 10/10/19 09:22 Flush - Normal Saline IVF Not Given Q12HR [facility] Tramadol HCl 50 mg 10/09/19 11:11 10/10/19 09:20 Ultram PO 50 mg Q6H PRN Administration Moderate Pain (4-6) - Exam General Appearance: NAD, awake alert ENT: normocephalic atraumatic Neck: supple Respiratory: normal chest expansion, no tachypnea Extremities: no cyanosis, no clubbing, no edema Neurological: cranial nerve grossly intact, no focal deficits Hosp A/P (1) Acute colitis Code(s): K52.9 - NONINFECTIVE GASTROENTERITIS AND COLITIS, UNSPECIFIED Status : Acute (2) C. difficile diarrhea Code(s): A04.72 - ENTEROCOLITIS D/T CLOSTRIDIUM DIFFICILE, NOT SPCF RECUR Status: Acute (3) Sepsis Code(s): A41.9 - SEPSIS, UNSPECIFIED ORGANISM Status: Acute - Plan Colitis with c. diff. Continue IV hydration Increase oral Vancomycin to 250mg q6h. Continue IV flagyl and dc ciprofloxacin. Bolus 1L NS due to dehydration and hypotension.
[2019-10-10] MEDS ORDERED: Sodium Chloride 0.9% 1,000 ML IV SCH (11:00)
[2019-10-10] MEDS: Sodium Chloride 0.45% 1,000 ML IV SCH ×2 (12:40→17:07)
[2019-10-10] MEDS: Cyclobenzaprine 10 MG TAB PO PRN (21:23)
[2019-10-10] MEDS ORDERED: HYDROcodone/Acetaminophen 5/325 mg Tablet PO SCH (23:30)
[2019-10-11] MEDS: Vancomycin HCl 25 MG/ML Oral PO SCH ×4 (00:08→18:33)
[2019-10-11] MEDS: Sodium Chloride 0.45% 1,000 ML IV SCH ×2 (00:10→05:31)
[2019-10-11] MEDS: metroNIDAZOLE 500 MG in Premix Bag 1 BAG IVPB SCH ×3 (05:26→21:45)
[2019-10-11 05:49] LABS: #Lymphocytes 1.2 thou/uL (1.20-3.40); #Monocytes 1.1 thou/uL (0.11-0.59); #Neutrophils 10.3 thou/uL (1.40-6.50); %Basophils 0.1 % (0.0-1.0); %Eosinophils 7.3 % (0.0-10.0); %Lymphocytes 9.1 % (21.0-51.0); %Monocytes 7.8 % (0.0-10.0); %Neutrophils 75.8 % (42.0-75.0); Hemoglobin 8.7 g/dL (14.0-18.0); Mean Corpuscular HGB CONC 30.6 g/dL (32.0-36.0); Mean Corpuscular Hemoglobin 28.6 pg (27.0-31.0); Mean Corpuscular Volume 93.5 fL (78.0-98.0); Mean Platelet Volume 7.8 fL (7.4-10.4); Platelet Count 304 thou/uL (130-400); RBC Distribution Width 14.7 % (11.5-14.5); Red Blood Cell (RBC) Count 3.02 mill/uL (4.70-6.10); White Blood Cell (WBC) Count 13.6 thou/uL (4.8-10.8)
[2019-10-11 06:12] LABS: Anion Gap 15 mmol/L (10-20); BUN (Urea Nitrogen) 36 mg/dL (8.4-25.7); Calc. Creatinine Clearance 36 mL/min (70-130); Calcium 7.1 mg/dL (7.8-10.44); Carbon Dioxide 12 mmol/L (23-31); Chloride 110 mmol/L (98-107); Estimated GFR-MDRD 36; Glucose 80 mg/dL (83-110); Potassium 3.6 mmol/L (3.5-5.1); Sodium 133 mmol/L (136-145)
[2019-10-11] MEDS: Gabapentin 300 MG CAP PO SCH ×3 (09:21→21:47)
[2019-10-11] MEDS: Heparin 5,000 UNITS/ML VIAL SC SCH ×3 (09:30→21:47)
[2019-10-11] MEDS: traMADol HCl 50 MG TAB PO PRN ×2 (09:30→21:47)
--- NOTE | 2019-10-11 10:52 | PDOC.HOSPP ---
- Subjective Encounter Date: 10/11/19 Subjective: Abdominal pain improving. Still having diarrhea. - Objective Vital Signs & Weight: Vital Signs (12 hours) Temp Pulse Resp BP BP Pulse Ox 10/11/19 09:20 100 10/11/19 07:48 97.9 F 79 20 109/61 100 10/11/19 05:48 98.1 F 75 18 107/58 L 100 10/11/19 00:20 98.0 F 85 20 99/58 L 100 Weight Admit Weight 157 lb 12.8 oz Weight 157 lb 12.8 oz I&O: 10/10/19 10/11/19 10/12/19 06:59 06:59 06:59 Intake Total 4380 2450 Output Total 250 Balance 4130 2450 Result Diagrams: 10/11/19 05:15 10/11/19 05:15 Additional Labs: Accuchecks 10/11/19 10/10/19 10/10/19 05:51 20:01 16:57 POC Glucose 92 83 93 10/10/19 11:20 POC Glucose 110 Hospitalist ROS - Medication Medications: Active Medications Generic Name Dose Route Start Last Admin Trade Name Freq PRN Reason Stop Dose Admin Acetaminophen 650 mg 10/09/19 11:11 10/09/19 18:18 Tylenol PO 650 mg Q4H PRN Administration Headache/Fever or Pain Cyclobenzaprine HCl 10 mg 10/08/19 21:55 10/10/19 21:23 Flexeril PO 10 mg TIDPRN PRN Administration Muscle Spasm Gabapentin 300 mg 10/09/19 09:00 10/11/19 09:21 Neurontin PO 300 mg TID KARLI Administration Heparin Sodium (Porcine) 5,000 units 10/08/19 15:00 10/11/19 09:30 Heparin SC 5,000 units TID KARLI Administration Metronidazole 500 mg/ Device 100 mls @ 100 mls/hr 10/08/19 22:00 10/11/19 05: 26 IVPB 100 mls Q8HR KARLI Administration Nystatin 0 gm 10/09/19 11:11 10/09/19 18:40 Mycostatin Cream TOP 1 applic TID PRN Administration PRN Sodium Chloride 10 ml 10/09/19 09:00 10/11/19 09:21 Flush - Normal Saline IVF Not Given Q12HR KARLI Tramadol HCl 50 mg 10/09/19 11:11 10/11/19 09:30 Ultram PO 50 mg Q6H PRN Administration Moderate Pain (4-6) Vancomycin HCl 250 mg 10/10/19 12:00 10/11/19 05:27 First Vancomycin PO 250 mg Q6HR KARLI Administration - Exam General Appearance: awake alert Neck: supple Respiratory: normal chest expansion, no tachypnea Gastrointestinal: soft, non-tender, non-distended Neurological: cranial nerve grossly intact, no focal deficits Hosp A/P (1) Acute colitis Code(s): K52.9 - NONINFECTIVE GASTROENTERITIS AND COLITIS, UNSPECIFIED Status : Acute (2) C. difficile diarrhea Code(s): A04.72 - ENTEROCOLITIS D/T CLOSTRIDIUM DIFFICILE, NOT SPCF RECUR Status: Acute (3) Sepsis Code(s): A41.9 - SEPSIS, UNSPECIFIED ORGANISM Status: Acute - Plan Colitis with c. diff. hyponatremia with hyperchloremia likely due to diarrhea. Change IVF to LR at 125cc/hr. Continue IV flagyl and Oral Vancomycin to 250mg q6h. Add chlestiramine and advance diet to full liquid. Sepsis improving.
[2019-10-11] MEDS ORDERED: Cholestyramine/Aspartame 4 gm Packet PO SCH ×2 (11:00→22:00)
[2019-10-11] MEDS: Lactated Ringer's 1,000 ML IV SCH ×3 (11:18→21:44)
[2019-10-11] MEDS: Cholestyramine/Aspartame 4 gm Packet PO SCH (21:50)
[2019-10-12] MEDS: Vancomycin HCl 25 MG/ML Oral PO SCH ×5 (00:04→23:25)
[2019-10-12 05:59] LABS: #Eosinphils 0.6 thou/uL (0.0-0.7); #Lymphocytes 0.9 thou/uL (1.20-3.40); #Neutrophils 10.3 thou/uL (1.40-6.50); %Basophils 0.3 % (0.0-1.0); %Eosinophils 4.8 % (0.0-10.0); %Lymphocytes 6.8 % (21.0-51.0); %Monocytes 7.6 % (0.0-10.0); %Neutrophils 80.5 % (42.0-75.0); Hemoglobin 8.8 g/dL (14.0-18.0); Mean Corpuscular HGB CONC 30.6 g/dL (32.0-36.0); Mean Corpuscular Hemoglobin 28.2 pg (27.0-31.0); Mean Corpuscular Volume 92.4 fL (78.0-98.0); Mean Platelet Volume 7.6 fL (7.4-10.4); Platelet Count 345 thou/uL (130-400); RBC Distribution Width 14.7 % (11.5-14.5); Red Blood Cell (RBC) Count 3.12 mill/uL (4.70-6.10); White Blood Cell (WBC) Count 12.9 thou/uL (4.8-10.8)
[2019-10-12] MEDS: metroNIDAZOLE 500 MG in Premix Bag 1 BAG IVPB SCH ×3 (05:59→22:07)
[2019-10-12 06:17] LABS: Anion Gap 15 mmol/L (10-20); BUN (Urea Nitrogen) 27 mg/dL (8.4-25.7); Calc. Creatinine Clearance 49 mL/min (70-130); Calcium 7.7 mg/dL (7.8-10.44); Carbon Dioxide 17 mmol/L (23-31); Chloride 110 mmol/L (98-107); Estimated GFR-MDRD 53; Glucose 84 mg/dL (83-110); Potassium 3.5 mmol/L (3.5-5.1); Sodium 138 mmol/L (136-145)
[2019-10-12] MEDS: Heparin 5,000 UNITS/ML VIAL SC SCH ×3 (09:08→22:06)
[2019-10-12] MEDS: Gabapentin 300 MG CAP PO SCH ×3 (09:08→22:06)
[2019-10-12] MEDS: Cholestyramine/Aspartame 4 gm Packet PO SCH ×2 (09:09→22:06)
[2019-10-12] MEDS: traMADol HCl 50 MG TAB PO PRN ×3 (09:12→22:16)
[2019-10-12] MEDS: Lactated Ringer's 1,000 ML IV SCH ×2 (11:49→18:34)
--- NOTE | 2019-10-12 17:03 | PDOC.HOSPP ---
- Subjective Encounter Date: 10/12/19 Subjective: No new events. - Objective Vital Signs & Weight: Vital Signs (12 hours) Temp Pulse Resp BP Pulse Ox 10/12/19 15:14 98.1 F 76 16 116/65 99 10/12/19 11:32 98.0 F 77 18 128/62 95 10/12/19 09:00 97 10/12/19 07:34 98.6 F 96 16 122/73 97 Weight Admit Weight 157 lb 12.8 oz Weight 157 lb 12.8 oz I&O: 10/11/19 10/12/19 10/13/19 06:59 06:59 06:59 Intake Total 2450 3700 Output Total 850 Balance 2450 2850 Result Diagrams: 10/12/19 05:25 10/12/19 05:25 Additional Labs: Accuchecks 10/12/19 10/12/19 10/12/19 15:18 11:36 04:04 POC Glucose 94 106 93 10/12/19 10/11/19 10/11/19 00:06 19:20 16:46 POC Glucose 107 96 97 Hospitalist ROS - Medication Medications: Active Medications Generic Name Dose Route Start Last Admin Trade Name Freq PRN Reason Stop Dose Admin Acetaminophen 650 mg 10/09/19 11:11 10/09/19 18:18 Tylenol PO 650 mg Q4H PRN Administration Headache/Fever or Pain Cholestyramine Resin 4 gm 10/11/19 22:00 10/12/19 09:09 Questran Light PO 4 gm 1000,2200 KARLI Administration Cyclobenzaprine HCl 10 mg 10/08/19 21:55 10/10/19 21:23 Flexeril PO 10 mg TIDPRN PRN Administration Muscle Spasm Gabapentin 300 mg 10/09/19 09:00 10/12/19 14:56 Neurontin PO 300 mg TID KARLI Administration Heparin Sodium (Porcine) 5,000 units 10/08/19 15:00 10/12/19 14:56 Heparin SC 5,000 units TID KARLI Administration Metronidazole 500 mg/ Device 100 mls @ 100 mls/hr 10/08/19 22:00 10/12/19 14: 56 IVPB 100 mls Q8HR KARLI Administration Lactated Ringer's 1,000 mls @ 125 mls/hr 10/11/19 11:00 10/12/19 11:49 Lactated Ringer's IV 1,000 mls .Q8H KARLI Administration Nystatin 0 gm 10/09/19 11:11 10/09/19 18:40 Mycostatin Cream TOP 1 applic TID PRN Administration PRN Ondansetron HCl 4 mg 10/08/19 14:40 10/12/19 00:50 Zofran IVP 4 mg Q6H PRN Administration Nausea/Vomiting Sodium Chloride 10 ml 10/09/19 09:00 10/12/19 09:09 Flush - Normal Saline IVF Not Given Q12HR KARLI Tramadol HCl 50 mg 10/09/19 11:11 10/12/19 15:13 Ultram PO 50 mg Q6H PRN Administration Moderate Pain (4-6) Vancomycin HCl 250 mg 10/10/19 12:00 10/12/19 11:49 First Vancomycin PO 250 mg Q6HR KARLI Administration - Exam ENT: normocephalic atraumatic Neck: supple Respiratory: normal chest expansion, no tachypnea Gastrointestinal: soft, non-distended Hosp A/P (1) Acute colitis Code(s): K52.9 - NONINFECTIVE GASTROENTERITIS AND COLITIS, UNSPECIFIED Status : Acute (2) C. difficile diarrhea Code(s): A04.72 - ENTEROCOLITIS D/T CLOSTRIDIUM DIFFICILE, NOT SPCF RECUR Status: Acute (3) Sepsis Code(s): A41.9 - SEPSIS, UNSPECIFIED ORGANISM Status: Acute - Plan Colitis with c. diff. hyponatremia resolved. Continue IV flagyl and Oral Vancomycin to 250mg q6h. Continue Chloestiramine and advance diet to full liquid. Sepsis improving.
[2019-10-12] MEDS: Melatonin 3 MG TAB PO PRN (22:17)
[2019-10-12] MEDS ORDERED: Lidocaine 2% Viscous Solution 10 ML, Aluminum & Magnesium Hydroxide 30 ML SSW SCH (23:45)
[2019-10-13] MEDS: Lactated Ringer's 1,000 ML IV SCH ×3 (03:03→14:22)
[2019-10-13] MEDS: metroNIDAZOLE 500 MG in Premix Bag 1 BAG IVPB SCH ×3 (05:51→22:03)
[2019-10-13] MEDS: Vancomycin HCl 25 MG/ML Oral PO SCH ×4 (05:51→23:20)
[2019-10-13 06:18] LABS: Anion Gap 12 mmol/L (10-20); BUN (Urea Nitrogen) 18 mg/dL (8.4-25.7); Calc. Creatinine Clearance 57 mL/min (70-130); Calcium 7.9 mg/dL (7.8-10.44); Carbon Dioxide 19 mmol/L (23-31); Chloride 111 mmol/L (98-107); Estimated GFR-MDRD 62; Glucose 81 mg/dL (83-110); Potassium 3.8 mmol/L (3.5-5.1); Sodium 138 mmol/L (136-145)
[2019-10-13 07:40] LABS: #Eosinphils 0.6 thou/uL (0.0-0.7); #Lymphocytes 0.9 thou/uL (1.20-3.40); #Neutrophils 8.6 thou/uL (1.40-6.50); %Basophils 0.1 % (0.0-1.0); %Lymphocytes 8.5 % (21.0-51.0); %Monocytes 8.9 % (0.0-10.0); %Neutrophils 77.6 % (42.0-75.0); Hemoglobin 8.7 g/dL (14.0-18.0); Mean Corpuscular HGB CONC 32.1 g/dL (32.0-36.0); Mean Corpuscular Hemoglobin 29.6 pg (27.0-31.0); Mean Corpuscular Volume 92.3 fL (78.0-98.0); Platelet Count 345 thou/uL (130-400); RBC Distribution Width 14.7 % (11.5-14.5); Red Blood Cell (RBC) Count 2.93 mill/uL (4.70-6.10); White Blood Cell (WBC) Count 11.1 thou/uL (4.8-10.8)
[2019-10-13] MEDS: Cholestyramine/Aspartame 4 gm Packet PO SCH ×2 (09:48→22:03)
[2019-10-13] MEDS: Gabapentin 300 MG CAP PO SCH ×3 (09:48→22:03)
[2019-10-13] MEDS: Heparin 5,000 UNITS/ML VIAL SC SCH ×3 (09:49→22:04)
--- NOTE | 2019-10-13 15:41 | PDOC.HOSPP ---
- Subjective Encounter Date: 10/13/19 Subjective: The patient was seen and examined. His abdominal pain has improved. He is still having watery diarrhea. 4 episodes were reported this morning. - Objective Vital Signs & Weight: Vital Signs (12 hours) Temp Pulse Resp BP Pulse Ox 10/13/19 11:24 98.3 F 69 16 149/71 H 100 10/13/19 08:00 98.0 F 78 16 143/64 H 99 10/13/19 03:49 98.3 F 81 20 128/72 99 Weight Admit Weight 157 lb 12.8 oz Weight 157 lb 12.8 oz I&O: 10/12/19 10/13/19 10/14/19 06:59 06:59 06:59 Intake Total 3700 Output Total 850 Balance 2850 Result Diagrams: 10/13/19 07:20 10/13/19 05:32 Additional Labs: Accuchecks 10/13/19 10/13/19 10/12/19 11:31 03:51 19:53 POC Glucose 93 93 87 10/12/19 15:18 POC Glucose 94 Hospitalist ROS - Medication Medications: Active Medications Generic Name Dose Route Start Last Admin Trade Name Freq PRN Reason Stop Dose Admin Acetaminophen 650 mg 10/09/19 11:11 10/09/19 18:18 Tylenol PO 650 mg Q4H PRN Administration Headache/Fever or Pain Cholestyramine Resin 4 gm 10/11/19 22:00 10/13/19 09:48 Questran Light PO 4 gm 1000,2200 KARLI Administration Cyclobenzaprine HCl 10 mg 10/08/19 21:55 10/10/19 21:23 Flexeril PO 10 mg TIDPRN PRN Administration Muscle Spasm Gabapentin 300 mg 10/09/19 09:00 10/13/19 09:48 Neurontin PO 300 mg TID KARLI Administration Heparin Sodium (Porcine) 5,000 units 10/08/19 15:00 10/13/19 09:49 Heparin SC 5,000 units TID KARLI Administration Metronidazole 500 mg/ Device 100 mls @ 100 mls/hr 10/08/19 22:00 10/13/19 14: 16 IVPB 100 mls Q8HR KARLI Administration Lactated Ringer's 1,000 mls @ 125 mls/hr 10/11/19 11:00 10/13/19 14:22 Lactated Ringer's IV 1,000 mls .Q8H KARLI Administration Melatonin 3 mg 10/12/19 22:04 10/12/19 22:17 Melatonin PO 3 mg HS PRN Administration Insomnia Nystatin 0 gm 10/09/19 11:11 10/09/19 18:40 Mycostatin Cream TOP 1 applic TID PRN Administration PRN Ondansetron HCl 4 mg 10/08/19 14:40 10/12/19 00:50 Zofran IVP 4 mg Q6H PRN Administration Nausea/Vomiting Pantoprazole Sodium 40 mg 10/13/19 09:00 10/13/19 09:49 Protonix PO 40 mg DAILY KARLI Administration Sodium Chloride 10 ml 10/09/19 09:00 10/13/19 09:49 Flush - Normal Saline IVF Not Given Q12HR KARLI Tramadol HCl 50 mg 10/09/19 11:11 10/12/19 22:16 Ultram PO 50 mg Q6H PRN Administration Moderate Pain (4-6) Vancomycin HCl 250 mg 10/10/19 12:00 10/13/19 14:16 First Vancomycin PO 250 mg Q6HR KARLI Administration - Exam General Appearance: awake alert ENT: normocephalic atraumatic Heart: RRR Respiratory: CTAB Gastrointestinal: soft, non-tender, non-distended Neurological: cranial nerve grossly intact, no focal deficits Hosp A/P (1) Acute colitis Code(s): K52.9 - NONINFECTIVE GASTROENTERITIS AND COLITIS, UNSPECIFIED Status : Acute (2) C. difficile diarrhea Code(s): A04.72 - ENTEROCOLITIS D/T CLOSTRIDIUM DIFFICILE, NOT SPCF RECUR Status: Acute (3) Sepsis Code(s): A41.9 - SEPSIS, UNSPECIFIED ORGANISM Status: Acute - Plan Colitis with c. diff. hyponatremia resolved. Continue IV flagyl and Oral Vancomycin to 250mg q6h. Continue Chloestiramine and advance diet to full liquid. Leukocytosis improving. Encourage ambulation. If his diarrhea does not improve over the next 2 days, we will consider consulting GI.
[2019-10-13] MEDS: Melatonin 3 MG TAB PO PRN (23:20)
[2019-10-13] MEDS: traMADol HCl 50 MG TAB PO PRN (23:20)
[2019-10-14 05:40] LABS: Anion Gap 14 mmol/L (10-20); BUN (Urea Nitrogen) 12 mg/dL (8.4-25.7); Calc. Creatinine Clearance 71 mL/min (70-130); Calcium 7.7 mg/dL (7.8-10.44); Carbon Dioxide 17 mmol/L (23-31); Chloride 111 mmol/L (98-107); Estimated GFR-MDRD 79; Glucose 82 mg/dL (83-110); Hemoglobin 8.8 g/dL (14.0-18.0); Mean Corpuscular HGB CONC 31.2 g/dL (32.0-36.0); Mean Corpuscular Hemoglobin 28.8 pg (27.0-31.0); Mean Corpuscular Volume 92.2 fL (78.0-98.0); Mean Platelet Volume 6.8 fL (7.4-10.4); Platelet Count 375 thou/uL (130-400); Potassium 3.6 mmol/L (3.5-5.1); Red Blood Cell (RBC) Count 3.05 mill/uL (4.70-6.10); Sodium 138 mmol/L (136-145); White Blood Cell (WBC) Count 11.2 thou/uL (4.8-10.8)
[2019-10-14 05:42] LABS: Band 10 % (5-11); Eosinophils 1 % (0-10); Lymphocytes 9 % (21-51); MDiff Complete? YES; Monocytes 6 % (0-10); Neutrophil 74 % (42-75); Toxic Granulation SLIGHT
[2019-10-14] MEDS: Vancomycin HCl 25 MG/ML Oral PO SCH ×4 (05:59→23:38)
[2019-10-14] MEDS: metroNIDAZOLE 500 MG in Premix Bag 1 BAG IVPB SCH ×3 (05:59→21:38)
[2019-10-14] MEDS: Lactated Ringer's 1,000 ML IV SCH ×3 (06:00→17:47)
[2019-10-14] MEDS: Gabapentin 300 MG CAP PO SCH ×3 (08:34→20:16)
[2019-10-14] MEDS: Heparin 5,000 UNITS/ML VIAL SC SCH ×3 (08:35→20:18)
[2019-10-14] MEDS: Cholestyramine/Aspartame 4 gm Packet PO SCH ×2 (11:08→21:40)
[2019-10-14] MEDS: traMADol HCl 50 MG TAB PO PRN ×2 (14:41→20:17)
--- NOTE | 2019-10-14 19:21 | PDOC.HOSPP ---
- Subjective Encounter Date: 10/14/19 Encounter Time: 10:00 Subjective: no overnight events. 1, mostly formed bowel movement overnight. Has no complaints - Objective Vital Signs & Weight: Vital Signs (12 hours) Temp Pulse Resp BP BP Pulse Ox 10/14/19 08:00 97.9 F 97 20 127/89 127/89 100 Weight Admit Weight 157 lb 12.8 oz Weight 157 lb 12.8 oz I&O: 10/13/19 10/14/19 10/15/19 06:59 06:59 06:59 Intake Total 1970 Output Total 340 1150 Balance -340 820 Result Diagrams: 10/14/19 05:12 10/14/19 05:12 Additional Labs: Accuchecks 10/14/19 10/14/19 10/14/19 16:48 11:18 04:04 POC Glucose 97 89 80 10/13/19 19:39 POC Glucose 98 Hospitalist ROS - Review of Systems Constitutional: denies: fever, chills, sweats, weakness, malaise, other Respiratory: denies: cough, dry, shortness of breath, hemoptysis, SOB with excertion, pleuritic pain, sputum, wheezing, other Cardiovascular: denies: chest pain, palpitations, orthopnea, paroxysmal noc. dyspnea, edema, light headedness, other Gastrointestinal: denies: nausea, vomiting, abdominal pain, diarrhea, constipation, melena, hematochezia, other - Medication Medications: Active Medications Generic Name Dose Route Start Last Admin Trade Name Freq PRN Reason Stop Dose Admin Acetaminophen 650 mg 10/09/19 11:11 10/09/19 18:18 Tylenol PO 650 mg Q4H PRN Administration Headache/Fever or Pain Cholestyramine Resin 4 gm 10/11/19 22:00 10/14/19 11:08 Questran Light PO 4 gm 1000,2200 KARLI Administration Cyclobenzaprine HCl 10 mg 10/08/19 21:55 10/10/19 21:23 Flexeril PO 10 mg TIDPRN PRN Administration Muscle Spasm Gabapentin 300 mg 10/09/19 09:00 10/14/19 14:25 Neurontin PO 300 mg TID KARLI Administration Heparin Sodium (Porcine) 5,000 units 10/08/19 15:00 10/14/19 14:25 Heparin SC 5,000 units TID KARLI Administration Metronidazole 500 mg/ Device 100 mls @ 100 mls/hr 10/08/19 22:00 10/14/19 14: 23 IVPB 100 mls Q8HR KARLI Administration Lactated Ringer's 1,000 mls @ 125 mls/hr 10/11/19 11:00 10/14/19 17:47 Lactated Ringer's IV 1,000 mls .Q8H KARLI Administration Melatonin 3 mg 10/12/19 22:04 10/13/19 23:20 Melatonin PO 3 mg HS PRN Administration Insomnia Nystatin 0 gm 10/09/19 11:11 10/09/19 18:40 Mycostatin Cream TOP 1 applic TID PRN Administration PRN Ondansetron HCl 4 mg 10/08/19 14:40 10/12/19 00:50 Zofran IVP 4 mg Q6H PRN Administration Nausea/Vomiting Pantoprazole Sodium 40 mg 10/13/19 09:00 10/14/19 08:34 Protonix PO 40 mg DAILY KARLI Administration Sodium Chloride 10 ml 10/09/19 09:00 10/14/19 08:35 Flush - Normal Saline IVF Not Given Q12HR KARLI Tramadol HCl 50 mg 10/09/19 11:11 10/14/19 14:41 Ultram PO 50 mg Q6H PRN Administration Moderate Pain (4-6) Vancomycin HCl 250 mg 10/10/19 12:00 10/14/19 17:46 First Vancomycin PO 250 mg Q6HR KARLI Administration - Exam General Appearance: NAD, awake alert Neck: no JVD Heart: RRR, no murmur, no gallops, no rubs Respiratory: CTAB, no wheezes, no rales, no ronchi Gastrointestinal: soft, non-tender, non-distended, normal bowel sounds Extremities: no edema Psychiatric: A&O x 3 Hosp A/P - Plan #c. diff #normal AG acidosis -improving -continue vanc for total of 10 days -discontinue contact precautions 48 hours after resolution of diarrhea
[2019-10-14] MEDS: Sodium Chloride 0.9% 1,000 ML IV SCH (20:15)
[2019-10-14] MEDS: Cyclobenzaprine 10 MG TAB PO PRN (20:16)
[2019-10-14] MEDS: Acetaminophen 325 MG TAB PO PRN (20:17)
[2019-10-14] MEDS: Melatonin 3 MG TAB PO PRN (20:17)
[2019-10-15] MEDS: metroNIDAZOLE 500 MG in Premix Bag 1 BAG IVPB SCH ×3 (05:02→21:09)
[2019-10-15] MEDS: Vancomycin HCl 25 MG/ML Oral PO SCH ×4 (05:02→23:10)
[2019-10-15] MEDS: Sodium Chloride 0.9% 1,000 ML IV SCH ×2 (05:02→14:28)
[2019-10-15 05:51] LABS: Anion Gap 11 mmol/L (10-20); BUN (Urea Nitrogen) 10 mg/dL (8.4-25.7); Calc. Creatinine Clearance 73 mL/min (70-130); Calcium 7.7 mg/dL (7.8-10.44); Carbon Dioxide 18 mmol/L (23-31); Chloride 111 mmol/L (98-107); Estimated GFR-MDRD 82; Glucose 94 mg/dL (83-110); Potassium 3.4 mmol/L (3.5-5.1); Sodium 137 mmol/L (136-145)
[2019-10-15] MEDS: Gabapentin 300 MG CAP PO SCH ×3 (08:18→21:05)
[2019-10-15] MEDS: Heparin 5,000 UNITS/ML VIAL SC SCH ×3 (08:18→21:05)
[2019-10-15 08:56] LABS: Band 11 % (5-11); Eosinophils 6 % (0-10); Hemoglobin 9.2 g/dL (14.0-18.0); Lymphocytes 7 % (21-51); MDiff Complete? YES; Mean Corpuscular HGB CONC 31.3 g/dL (32.0-36.0); Mean Corpuscular Hemoglobin 28.9 pg (27.0-31.0); Mean Corpuscular Volume 92.5 fL (78.0-98.0); Mean Platelet Volume 7.7 fL (7.4-10.4); Monocytes 3 % (0-10); Neutrophil 72 % (42-75); Platelet Count 386 thou/uL (130-400); Red Blood Cell (RBC) Count 3.18 mill/uL (4.70-6.10); White Blood Cell (WBC) Count 9.9 thou/uL (4.8-10.8)
[2019-10-15] MEDS: Cholestyramine/Aspartame 4 gm Packet PO SCH ×3 (10:30→21:05)
[2019-10-15] MEDS ORDERED: Potassium Chloride 40 MEQ in Sodium Chloride 0.9% 250 ML 250 ML IVPB SCH (10:45)
[2019-10-15] MEDS: traMADol HCl 50 MG TAB PO PRN (12:12)
--- NOTE | 2019-10-15 22:11 | PDOC.HOSPP ---
- Subjective Encounter Date: 10/15/19 Encounter Time: 10:00 Subjective: overnight, three partially formed bowel movements, which is an improvement compared to presentation. Encouraged patient to eat more solid foods but endorses having no appetite. Feels well and has no complaints. - Objective Vital Signs & Weight: Vital Signs (12 hours) Temp Pulse Resp BP Pulse Ox 10/15/19 20:00 98.3 F 87 18 136/73 100 Weight Admit Weight 157 lb 12.8 oz Weight 157 lb 12.8 oz I&O: 10/14/19 10/15/19 10/16/19 06:59 06:59 06:59 Intake Total 3860 320 Output Total 340 2350 800 Balance -340 1510 -480 Result Diagrams: 10/15/19 05:11 10/15/19 05:11 Additional Labs: Accuchecks 10/15/19 10/15/19 10/15/19 20:04 16:32 11:45 POC Glucose 112 H 78 90 10/15/19 04:14 POC Glucose 103 Hospitalist ROS - Review of Systems Constitutional: denies: fever, chills, sweats, weakness, malaise, other Respiratory: denies: cough, dry, shortness of breath, hemoptysis, SOB with excertion, pleuritic pain, sputum, wheezing, other Cardiovascular: denies: chest pain, palpitations, orthopnea, paroxysmal noc. dyspnea, edema, light headedness, other Gastrointestinal: denies: nausea, vomiting, abdominal pain, diarrhea, constipation, melena, hematochezia, other Genitourinary: denies: dysuria, frequency, incontinence, hematuria, retention, other - Medication Medications: Active Medications Generic Name Dose Route Start Last Admin Trade Name Freq PRN Reason Stop Dose Admin Acetaminophen 650 mg 10/09/19 11:11 10/14/19 20:17 Tylenol PO 650 mg Q4H PRN Administration Headache/Fever or Pain Cholestyramine Resin 4 gm 10/11/19 22:00 10/15/19 21:05 Questran Light PO 4 gm 1000,2200 KARLI Administration Cyclobenzaprine HCl 10 mg 10/08/19 21:55 10/14/19 20:16 Flexeril PO 10 mg TIDPRN PRN Administration Muscle Spasm Gabapentin 300 mg 10/09/19 09:00 10/15/19 21:05 Neurontin PO 300 mg TID KARLI Administration Heparin Sodium (Porcine) 5,000 units 10/08/19 15:00 10/15/19 21:05 Heparin SC 5,000 units TID KARLI Administration Metronidazole 500 mg/ Device 100 mls @ 100 mls/hr 10/08/19 22:00 10/15/19 21: 09 IVPB 100 mls Q8HR KARLI Administration Sodium Chloride 1,000 mls @ 125 mls/hr 10/14/19 19:45 10/15/19 14:28 Normal Saline 0.9% IV 1,000 mls .Q8H KARLI Administration Melatonin 3 mg 10/12/19 22:04 10/14/19 20:17 Melatonin PO 3 mg HS PRN Administration Insomnia Nystatin 0 gm 10/09/19 11:11 10/09/19 18:40 Mycostatin Cream TOP 1 applic TID PRN Administration PRN Ondansetron HCl 4 mg 10/08/19 14:40 10/12/19 00:50 Zofran IVP 4 mg Q6H PRN Administration Nausea/Vomiting Pantoprazole Sodium 40 mg 10/13/19 09:00 10/15/19 08:18 Protonix PO 40 mg DAILY KARLI Administration Sodium Chloride 10 ml 10/09/19 09:00 10/15/19 21:06 Flush - Normal Saline IVF Not Given Q12HR KARLI Tramadol HCl 50 mg 10/09/19 11:11 10/15/19 12:12 Ultram PO 50 mg Q6H PRN Administration Moderate Pain (4-6) Vancomycin HCl 250 mg 10/10/19 12:00 10/15/19 17:29 First Vancomycin PO 250 mg Q6HR KARLI Administration - Exam General Appearance: NAD, awake alert Heart: RRR, no murmur, no gallops, no rubs, normal peripheral pulses Respiratory: CTAB, no wheezes, no rales, no ronchi, normal chest expansion, no tachypnea, normal percussion Gastrointestinal: soft, non-tender, non-distended, normal bowel sounds, no palpable masses, no hepatomegaly, no splenomegaly, no bruit Extremities: no edema Psychiatric: normal affect, normal behavior, A&O x 3 Hosp A/P - Plan #c. diff #normal AG acidosis -improving -continue vanc for total of 10 days -discontinue contact precautions 48 hours after resolution of diarrhea ELOS: 1-2 midnights
[2019-10-16] MEDS: Melatonin 3 MG TAB PO PRN
[2019-10-16] MEDS: Sodium Chloride 0.9% 1,000 ML IV SCH ×4 (02:01→18:28)
[2019-10-16] MEDS: traMADol HCl 50 MG TAB PO PRN (04:00)
[2019-10-16] MEDS: Vancomycin HCl 25 MG/ML Oral PO SCH ×4 (05:46→23:54)
[2019-10-16] MEDS: metroNIDAZOLE 500 MG in Premix Bag 1 BAG IVPB SCH ×2 (05:46→17:32)
[2019-10-16 07:13] LABS: Anion Gap 14 mmol/L (10-20); BUN (Urea Nitrogen) 6 mg/dL (8.4-25.7); Calc. Creatinine Clearance 75 mL/min (70-130); Calcium 7.7 mg/dL (7.8-10.44); Carbon Dioxide 18 mmol/L (23-31); Chloride 112 mmol/L (98-107); Estimated GFR-MDRD 85; Glucose 72 mg/dL (83-110); Potassium 3.7 mmol/L (3.5-5.1); Sodium 140 mmol/L (136-145)
[2019-10-16 07:19] LABS: Hemoglobin 9.2 g/dL (14.0-18.0); Mean Corpuscular HGB CONC 31.7 g/dL (32.0-36.0); Mean Corpuscular Hemoglobin 29.2 pg (27.0-31.0); Mean Corpuscular Volume 92.2 fL (78.0-98.0); Mean Platelet Volume 7.1 fL (7.4-10.4); Platelet Count 433 thou/uL (130-400); RBC Distribution Width 15.3 % (11.5-14.5); Red Blood Cell (RBC) Count 3.15 mill/uL (4.70-6.10); White Blood Cell (WBC) Count 11.9 thou/uL (4.8-10.8)
[2019-10-16 08:03] LABS: Band 12 % (5-11); Eosinophils 2 % (0-10); Lymphocytes 10 % (21-51); MDiff Complete? YES; Monocytes 6 % (0-10); Neutrophil 70 % (42-75); Platelet Morphology Comment Appears Increased; Polychromasia SLIGHT = 2-3 cells (100X) (0-2/hpf)
[2019-10-16] MEDS: Heparin 5,000 UNITS/ML VIAL SC SCH ×3 (08:36→20:22)
[2019-10-16] MEDS: Gabapentin 300 MG CAP PO SCH ×3 (08:36→20:21)
[2019-10-16] MEDS: Cholestyramine/Aspartame 4 gm Packet PO SCH ×2 (11:01→20:25)
[2019-10-16] MEDS ORDERED: Morphine 2 MG/ML SYRINGE SLOW IVP PRN ×2 (11:16→18:11)
[2019-10-16 11:42] LABS: Troponin I 0.132 ng/mL (< 0.028)
[2019-10-16 14:21] LABS: Troponin I 0.147 ng/mL (< 0.028)
[2019-10-16] MEDS ORDERED: Nitroglycerin 0.4 MG TAB (25 Tab Bottle) SL PRN (14:27)
[2019-10-16] MEDS ORDERED: Calcium Carbonate 500 MG ChewTAB PO PRN (14:27)
[2019-10-16] MEDS ORDERED: Sodium Chloride 0.9% 500 ML IV SCH (14:30)
[2019-10-16] MEDS ORDERED: Isosorbide Mononitrate (ER) 30 MG TAB PO SCH (14:30)
[2019-10-16] MEDS ORDERED: Aspirin 81 mg Enteric Coated Tablet PO SCH (14:30)
--- NOTE | 2019-10-16 16:11 | EKG ---
Test Reason : C/O CHEST PAIN Blood Pressure : / mmHG Vent. Rate : 086 BPM Atrial Rate : 086 BPM P-R Int : 186 ms QRS Dur : 148 ms QT Int : 390 ms P-R-T Axes : -14 -53 050 degrees QTc Int : 466 ms Normal sinus rhythm Left axis deviation Left bundle branch block Abnormal ECG When compared with ECG of 08-OCT-2019 12:21, (Unconfirmed) Premature atrial complexes are no longer Present Confirmed by JAYDEN LOVE, DR. Darby ([id number]) on 10/16/2019 4:11:37 PM Referred By: LILY Confirmed By:DR. Mehnaz CARPENTER MD
[2019-10-16] MEDS: Carvedilol 6.25 MG TAB PO SCH (17:31)
--- NOTE | 2019-10-16 18:24 | PDOC.HOSPP ---
- Subjective Encounter Date: 10/16/19 Encounter Time: 13:00 Subjective: no overnight events. This morning, developed substernal pressure after had sinus tachycardia 130s, trop elevated but second stable, EKG unchanged compared to on day of admission and showing no acute ischemic changes. resolved with morphine. - Objective Vital Signs & Weight: Vital Signs (12 hours) Temp Pulse Resp BP BP BP Pulse Ox 10/16/19 17:31 130/65 10/16/19 16:00 98.0 F 89 20 130/65 100 10/16/19 14:56 88 20 145/73 H 100 10/16/19 11:00 97.6 F 93 20 146/96 H 98 10/16/19 08:35 99 10/16/19 08:00 98.1 F 134 H 20 102/71 99 Weight Admit Weight 157 lb 12.8 oz Weight 157 lb 12.8 oz I&O: 10/15/19 10/16/19 10/17/19 06:59 06:59 06:59 Intake Total 3860 2300 2350 Output Total 2350 1550 1200 Balance 4497 813 4853 Result Diagrams: 10/16/19 06:07 10/16/19 06:07 Additional Labs: Accuchecks 10/16/19 10/16/19 10/16/19 16:38 11:39 04:40 POC Glucose 94 76 87 10/15/19 20:04 POC Glucose 112 H Hospitalist ROS - Review of Systems Constitutional: denies: fever, chills, sweats, weakness, malaise, other Respiratory: denies: cough, dry, shortness of breath, hemoptysis, SOB with excertion, pleuritic pain, sputum, wheezing, other Cardiovascular: denies: chest pain, palpitations, orthopnea, paroxysmal noc. dyspnea, edema, light headedness, other Gastrointestinal: reports: diarrhea (2 formed bowel movements overnight). denies: nausea, vomiting, abdominal pain, constipation, melena, hematochezia, other - Medication Medications: Active Medications Generic Name Dose Route Start Last Admin Trade Name Freq PRN Reason Stop Dose Admin Acetaminophen 650 mg 10/09/19 11:11 10/14/19 20:17 Tylenol PO 650 mg Q4H PRN Administration Headache/Fever or Pain Carvedilol 6.25 mg 10/16/19 17:00 10/16/19 17:31 Coreg PO 6.25 mg BID-WM KARLI Administration Cholestyramine Resin 4 gm 10/11/19 22:00 10/16/19 11:01 Questran Light PO Not Given 1000,2200 KARLI Cyclobenzaprine HCl 10 mg 10/08/19 21:55 10/14/19 20:16 Flexeril PO 10 mg TIDPRN PRN Administration Muscle Spasm Gabapentin 300 mg 10/09/19 09:00 10/16/19 14:48 Neurontin PO 300 mg TID KARLI Administration Heparin Sodium (Porcine) 5,000 units 10/08/19 15:00 10/16/19 14:48 Heparin SC 5,000 units TID KARLI Administration Sodium Chloride 1,000 mls @ 125 mls/hr 10/14/19 19:45 10/16/19 10:59 Normal Saline 0.9% IV 1,000 mls .Q8H KARLI Administration Melatonin 3 mg 10/12/19 22:04 10/16/19 00:00 Melatonin PO 3 mg HS PRN Administration Insomnia Nitroglycerin 0.4 mg 10/16/19 14:27 10/16/19 17:44 Nitrostat SL 0.4 mg Q5MIN PRN Administration Chest Pain Nystatin 0 gm 10/09/19 11:11 10/09/19 18:40 Mycostatin Cream TOP 1 applic TID PRN Administration PRN Ondansetron HCl 4 mg 10/08/19 14:40 10/12/19 00:50 Zofran IVP 4 mg Q6H PRN Administration Nausea/Vomiting Pantoprazole Sodium 40 mg 10/13/19 09:00 10/16/19 08:36 Protonix PO 40 mg DAILY KARLI Administration Sodium Chloride 10 ml 10/09/19 09:00 10/16/19 08:37 Flush - Normal Saline IVF Not Given Q12HR KARLI Tramadol HCl 50 mg 10/09/19 11:11 10/16/19 04:00 Ultram PO 50 mg Q6H PRN Administration Moderate Pain (4-6) Vancomycin HCl 250 mg 10/10/19 12:00 10/16/19 17:32 First Vancomycin PO 250 mg Q6HR KARLI Administration - Exam General Appearance: NAD, awake alert Neck: no JVD Heart: RRR, no murmur, no gallops, no rubs Respiratory: CTAB, no wheezes, no rales, no ronchi Gastrointestinal: soft, non-tender, non-distended, normal bowel sounds Extremities: no edema Psychiatric: normal affect, normal behavior, A&O x 3 Hosp A/P - Plan #Chest pain -associated with episode of tachycardia -trop elevated, EKG shows no new signs of ischemia -restarted home imdur and aspirin -nitroglycerin PRN -if develops chest pain again, take EKG, nitroglycerin #c. diff #normal AG acidosis -improving -continue vanc for total of 10 days -discontinue contact precautions 48 hours after resolution of diarrhea ELOS: 1-2 midnights
[2019-10-16] MEDS: traZODone HCl 50 MG TAB PO SCH (20:23)
[2019-10-16] MEDS: Cyclobenzaprine 10 MG TAB PO PRN (20:30)
[2019-10-16] MEDS: Acetaminophen 325 MG TAB PO PRN (20:30)
[2019-10-17] MEDS: Vancomycin HCl 25 MG/ML Oral PO SCH ×3 (05:56→17:53)
[2019-10-17] MEDS: Sodium Chloride 0.9% 1,000 ML IV SCH ×2 (05:56→09:06)
[2019-10-17 06:46] LABS: Anion Gap 11 mmol/L (10-20); BUN (Urea Nitrogen) 5 mg/dL (8.4-25.7); Calc. Creatinine Clearance 75 mL/min (70-130); Calcium 7.3 mg/dL (7.8-10.44); Carbon Dioxide 19 mmol/L (23-31); Chloride 113 mmol/L (98-107); Estimated GFR-MDRD 85; Glucose 68 mg/dL (83-110); Potassium 3.5 mmol/L (3.5-5.1); Sodium 139 mmol/L (136-145)
[2019-10-17 07:04] LABS: Hemoglobin 8.3 g/dL (14.0-18.0); Mean Corpuscular HGB CONC 31.2 g/dL (32.0-36.0); Mean Corpuscular Hemoglobin 28.7 pg (27.0-31.0); Mean Corpuscular Volume 92.1 fL (78.0-98.0); Mean Platelet Volume 7.2 fL (7.4-10.4); Platelet Count 427 thou/uL (130-400); RBC Distribution Width 15.2 % (11.5-14.5); Red Blood Cell (RBC) Count 2.88 mill/uL (4.70-6.10); White Blood Cell (WBC) Count 10.9 thou/uL (4.8-10.8)
[2019-10-17] MEDS ORDERED: Potassium Chloride 20 MEQ TAB PO SCH (07:54)
[2019-10-17] MEDS ORDERED: Magnesium Sulfate 3 GM, Admixture Fee 1 EACH in Sodium Chloride 0.9% 100 ML IVPB SCH (08:00)
[2019-10-17 08:25] LABS: Band 5 % (5-11); Eosinophils 2 % (0-10); Lymphocytes 13 % (21-51); MDiff Complete? YES; Monocytes 5 % (0-10); Neutrophil 75 % (42-75); Platelet Morphology Comment Appears Increased; Polychromasia SLIGHT = 2-3 cells (100X) (0-2/hpf)
[2019-10-17] MEDS: Aspirin 81 mg Enteric Coated Tablet PO SCH (09:03)
[2019-10-17] MEDS: Isosorbide Mononitrate (ER) 30 MG TAB PO SCH (09:04)
[2019-10-17] MEDS: Multivit, Therapeutic 1 TAB PO SCH (09:04)
[2019-10-17] MEDS: Carvedilol 6.25 MG TAB PO SCH ×2 (09:04→15:30)
[2019-10-17] MEDS: Gabapentin 300 MG CAP PO SCH ×3 (09:04→20:56)
[2019-10-17] MEDS: Heparin 5,000 UNITS/ML VIAL SC SCH ×3 (09:05→20:58)
[2019-10-17] MEDS: Cholestyramine/Aspartame 4 gm Packet PO SCH (09:32)
[2019-10-17] MEDS: traMADol HCl 50 MG TAB PO PRN (15:32)
--- NOTE | 2019-10-17 20:16 | EKG ---
Test Reason : STAT Blood Pressure : / mmHG Vent. Rate : 133 BPM Atrial Rate : 133 BPM P-R Int : 000 ms QRS Dur : 134 ms QT Int : 362 ms P-R-T Axes : 074 -53 085 degrees QTc Int : 538 ms Sinus tachycardia with 1st degree A-V block Left axis deviation Non-specific intra-ventricular conduction block Abnormal ECG When compared with ECG of 16-OCT-2019 09:37, DC interval has decreased Vent. rate has increased BY 47 BPM Confirmed by JAYDEN LOVE, DR. Darby ([id number]) on 10/17/2019 8:15:57 PM Referred By: LILY Confirmed By:DR. Mehnaz CARPENTER MD
[2019-10-17] MEDS: traZODone HCl 50 MG TAB PO SCH (20:56)
[2019-10-18] MEDS: Vancomycin HCl 25 MG/ML Oral PO SCH ×5 (00:05→23:46)
--- NOTE | 2019-10-18 00:36 | PDOC.HOSPP ---
- Subjective Encounter Date: 10/17/19 Encounter Time: 11:00 Subjective: overnight, tacycardia reported by nurse 130-140s while at rest. Transfered to telemetry. This morning, has no complaints. Chest pain resolved - Objective Vital Signs & Weight: Vital Signs (12 hours) Temp Pulse Resp BP BP Pulse Ox 10/17/19 20:45 98.6 F 75 18 126/61 99 10/17/19 15:45 87 137/70 10/17/19 15:30 137/70 Weight Admit Weight 157 lb 12.8 oz Weight 157 lb 12.8 oz I&O: 10/16/19 10/17/19 10/18/19 06:59 06:59 06:59 Intake Total 2300 4330 1245 Output Total 1550 1800 875 Balance 750 2530 370 Result Diagrams: 10/17/19 06:02 10/17/19 06:02 Additional Labs: Accuchecks 10/17/19 10/17/19 10/17/19 20:56 18:11 13:12 POC Glucose 101 74 83 10/17/19 04:35 POC Glucose 78 Hospitalist ROS - Review of Systems Constitutional: denies: fever, chills, sweats, weakness, malaise, other Respiratory: denies: cough, dry, shortness of breath, hemoptysis, SOB with excertion, pleuritic pain, sputum, wheezing, other Cardiovascular: denies: chest pain, palpitations, orthopnea, paroxysmal noc. dyspnea, edema, light headedness, other Gastrointestinal: denies: nausea, vomiting, abdominal pain, diarrhea, constipation, melena, hematochezia, other - Medication Medications: Active Medications Generic Name Dose Route Start Last Admin Trade Name Freq PRN Reason Stop Dose Admin Acetaminophen 650 mg 10/09/19 11:11 10/16/19 20:30 Tylenol PO 650 mg Q4H PRN Administration Headache/Fever or Pain Aspirin 81 mg 10/17/19 09:00 10/17/19 09:03 Ecotrin PO 81 mg DAILY KARLI Administration Carvedilol 6.25 mg 10/16/19 17:00 10/17/19 15:30 Coreg PO 6.25 mg BID-WM KARLI Administration Cholestyramine Resin 4 gm 10/11/19 22:00 10/17/19 09:32 Questran Light PO Not Given 1000,2200 KARLI Cyclobenzaprine HCl 10 mg 10/08/19 21:55 10/16/19 20:30 Flexeril PO 10 mg TIDPRN PRN Administration Muscle Spasm Gabapentin 300 mg 10/09/19 09:00 10/17/19 20:56 Neurontin PO 300 mg TID KARLI Administration Heparin Sodium (Porcine) 5,000 units 10/08/19 15:00 10/17/19 20:58 Heparin SC 5,000 units TID KARLI Administration Sodium Chloride 1,000 mls @ 125 mls/hr 10/14/19 19:45 10/17/19 09:06 Normal Saline 0.9% IV 1,000 mls .Q8H KARLI Administration Isosorbide Mononitrate 30 mg 10/17/19 09:00 10/17/19 09:04 Imdur Er PO 30 mg DAILY KARLI Administration Melatonin 3 mg 10/12/19 22:04 10/16/19 00:00 Melatonin PO 3 mg HS PRN Administration Insomnia Multivitamins 1 tab 10/17/19 09:00 10/17/19 09:04 Theragran PO 1 tab DAILY KARLI Administration Nitroglycerin 0.4 mg 10/16/19 14:27 10/16/19 17:44 Nitrostat SL 0.4 mg Q5MIN PRN Administration Chest Pain Nystatin 0 gm 10/09/19 11:11 10/09/19 18:40 Mycostatin Cream TOP 1 applic TID PRN Administration PRN Ondansetron HCl 4 mg 10/08/19 14:40 10/12/19 00:50 Zofran IVP 4 mg Q6H PRN Administration Nausea/Vomiting Pantoprazole Sodium 40 mg 10/13/19 09:00 10/17/19 09:04 Protonix PO 40 mg DAILY KARLI Administration Sacubitril/Valsartan 1 tab 10/16/19 21:00 10/17/19 20:56 Entresto 24 Mg-26 Mg Tablet PO 1 tab BID KARLI Administration Sodium Chloride 10 ml 10/09/19 09:00 10/17/19 09:05 Flush - Normal Saline IVF Not Given Q12HR KARLI Tramadol HCl 50 mg 10/09/19 11:11 10/17/19 15:32 Ultram PO 50 mg Q6H PRN Administration Moderate Pain (4-6) Trazodone HCl 50 mg 10/16/19 21:00 10/17/19 20:56 Desyrel PO 50 mg QPM KARLI Administration Vancomycin HCl 250 mg 10/10/19 12:00 10/18/19 00:05 First Vancomycin PO 250 mg Q6HR KARLI Administration - Exam Heart: RRR, no murmur, no gallops, no rubs, normal peripheral pulses Heart - other findings: on telemetry, random spikes of sinus tachy Respiratory: CTAB, no wheezes, no rales, no ronchi, normal chest expansion, no tachypnea, normal percussion Gastrointestinal: soft, non-tender, non-distended, normal bowel sounds, no palpable masses, no hepatomegaly, no splenomegaly, no bruit Hosp A/P - Plan #paroxysmal sinus tachycardia -chest pain resolved ; random spike of sinnus tachycrdia -reduced po intake, borderline low glucose - will start on D5w and continue to follow -trop was elevated, EKG shows no new signs of ischemia -restarted home imdur and aspirin -nitroglycerin PRN -if develops chest pain again, take EKG, nitroglycerin -D5W #c. diff #normal AG acidosis -likely DC contact precautions 10/18 -continue vanc for total of 10 days ELOS: 1-2 midnights
[2019-10-18] MEDS: Cholestyramine/Aspartame 4 gm Packet PO SCH ×2 (00:57→09:15)
[2019-10-18] MEDS ORDERED: Dextrose 5 % And 0.9 % NaCl 1,000 ML IV SCH (01:00)
[2019-10-18 04:44] LABS: Anion Gap 12 mmol/L (10-20); BUN (Urea Nitrogen) 6 mg/dL (8.4-25.7); Calc. Creatinine Clearance 61 mL/min (70-130); Calcium 7.6 mg/dL (7.8-10.44); Carbon Dioxide 19 mmol/L (23-31); Chloride 113 mmol/L (98-107); Estimated GFR-MDRD 68; Glucose 75 mg/dL (83-110); Magnesium 1.4 mg/dL (1.6-2.6); Potassium 3.9 mmol/L (3.5-5.1); Sodium 140 mmol/L (136-145)
[2019-10-18 04:59] LABS: Band 8 % (5-11); Eosinophils 6 % (0-10); Hemoglobin 8.5 g/dL (14.0-18.0); Lymphocytes 5 % (21-51); MDiff Complete? YES; Mean Corpuscular HGB CONC 31.1 g/dL (32.0-36.0); Mean Corpuscular Hemoglobin 28.6 pg (27.0-31.0); Mean Corpuscular Volume 91.9 fL (78.0-98.0); Mean Platelet Volume 6.7 fL (7.4-10.4); Monocytes 3 % (0-10); Neutrophil 78 % (42-75); Platelet Count 453 thou/uL (130-400); RBC Distribution Width 15.4 % (11.5-14.5); Red Blood Cell (RBC) Count 2.99 mill/uL (4.70-6.10); White Blood Cell (WBC) Count 10.8 thou/uL (4.8-10.8)
[2019-10-18] MEDS: Carvedilol 6.25 MG TAB PO SCH ×2 (09:14→17:55)
[2019-10-18] MEDS: Aspirin 81 mg Enteric Coated Tablet PO SCH (09:15)
[2019-10-18] MEDS: Isosorbide Mononitrate (ER) 30 MG TAB PO SCH (09:15)
[2019-10-18] MEDS: Gabapentin 300 MG CAP PO SCH ×3 (09:15→21:24)
[2019-10-18] MEDS: Multivit, Therapeutic 1 TAB PO SCH (09:15)
[2019-10-18] MEDS: Heparin 5,000 UNITS/ML VIAL SC SCH ×3 (09:16→21:24)
[2019-10-18] MEDS ORDERED: Magnesium 2 GM/50 ML 2 GM in Premix Bag 1 BAG IVPB SCH (14:00)
--- NOTE | 2019-10-18 14:26 | PDOC.HOSPP ---
- Subjective Encounter Date: 10/18/19 Encounter Time: 09:00 Subjective: no overnight events. This morning, another sinus tachy episode. blood glucose level at time of episode normal. Per patient, was reaching for food but episode lasted for long minutes. feeling well and has no complaints, - Objective Vital Signs & Weight: Vital Signs (12 hours) Temp Pulse Resp BP BP BP Pulse Ox 10/18/19 12:45 97.7 F 88 18 118/56 L 97 10/18/19 09:14 141/68 H 10/18/19 09:11 98.4 F 88 18 141/68 H 98 10/18/19 03:58 98.2 F 135 H 16 111/71 100 Weight Admit Weight 157 lb 12.8 oz Weight 157 lb 12.8 oz I&O: 10/17/19 10/18/19 10/19/19 06:59 06:59 06:59 Intake Total 4330 1245 Output Total 1800 875 Balance 2530 370 Result Diagrams: 10/18/19 03:56 10/18/19 03:56 Additional Labs: Accuchecks 10/18/19 10/18/19 10/18/19 11:02 10:44 06:06 POC Glucose 122 H 127 H 101 10/17/19 10/17/19 20:56 18:11 POC Glucose 101 74 Hospitalist ROS - Review of Systems Constitutional: denies: fever, chills, sweats, weakness, malaise, other Respiratory: denies: cough, dry, shortness of breath, hemoptysis, SOB with excertion, pleuritic pain, sputum, wheezing, other Cardiovascular: denies: chest pain, palpitations, orthopnea, paroxysmal noc. dyspnea, edema, light headedness, other Gastrointestinal: denies: nausea, vomiting, abdominal pain, diarrhea, constipation, melena, hematochezia, other - Medication Medications: Active Medications Generic Name Dose Route Start Last Admin Trade Name Freq PRN Reason Stop Dose Admin Acetaminophen 650 mg 10/09/19 11:11 10/16/19 20:30 Tylenol PO 650 mg Q4H PRN Administration Headache/Fever or Pain Aspirin 81 mg 10/17/19 09:00 10/18/19 09:15 Ecotrin PO 81 mg DAILY KARLI Administration Carvedilol 6.25 mg 10/16/19 17:00 10/18/19 09:14 Coreg PO 6.25 mg BID-WM KARLI Administration Cyclobenzaprine HCl 10 mg 10/08/19 21:55 10/16/19 20:30 Flexeril PO 10 mg TIDPRN PRN Administration Muscle Spasm Gabapentin 300 mg 10/09/19 09:00 10/18/19 09:15 Neurontin PO 300 mg TID KARLI Administration Heparin Sodium (Porcine) 5,000 units 10/08/19 15:00 10/18/19 09:16 Heparin SC 5,000 units TID KARLI Administration Isosorbide Mononitrate 30 mg 10/17/19 09:00 10/18/19 09:15 Imdur Er PO 30 mg DAILY KARLI Administration Melatonin 3 mg 10/12/19 22:04 10/16/19 00:00 Melatonin PO 3 mg HS PRN Administration Insomnia Multivitamins 1 tab 10/17/19 09:00 10/18/19 09:15 Theragran PO 1 tab DAILY KARLI Administration Nitroglycerin 0.4 mg 10/16/19 14:27 10/16/19 17:44 Nitrostat SL 0.4 mg Q5MIN PRN Administration Chest Pain Nystatin 0 gm 10/09/19 11:11 10/09/19 18:40 Mycostatin Cream TOP 1 applic TID PRN Administration PRN Ondansetron HCl 4 mg 10/08/19 14:40 10/12/19 00:50 Zofran IVP 4 mg Q6H PRN Administration Nausea/Vomiting Pantoprazole Sodium 40 mg 10/13/19 09:00 10/18/19 09:15 Protonix PO 40 mg DAILY KARLI Administration Sacubitril/Valsartan 1 tab 10/16/19 21:00 10/18/19 09:15 Entresto 24 Mg-26 Mg Tablet PO 1 tab BID KARLI Administration Sodium Chloride 10 ml 10/09/19 09:00 10/18/19 09:16 Flush - Normal Saline IVF Not Given Q12HR KARLI Tramadol HCl 50 mg 10/09/19 11:11 10/17/19 15:32 Ultram PO 50 mg Q6H PRN Administration Moderate Pain (4-6) Trazodone HCl 50 mg 10/16/19 21:00 10/17/19 20:56 Desyrel PO 50 mg QPM KARLI Administration Vancomycin HCl 250 mg 10/10/19 12:00 10/18/19 12:57 First Vancomycin PO 250 mg Q6HR KARLI Administration - Exam General Appearance: NAD, awake alert Heart: no murmur, no gallops, no rubs, normal peripheral pulses Heart - other findings: HR 130s. Sinus on Tele. abrupt increase compared to few minutes ago Respiratory: CTAB, no wheezes, no rales, no ronchi, normal chest expansion, no tachypnea, normal percussion Gastrointestinal: soft, non-tender, non-distended, normal bowel sounds, no palpable masses, no hepatomegaly, no splenomegaly, no bruit Psychiatric: normal affect, normal behavior, A&O x 3 Hosp A/P - Plan #paroxysmal atrial tachycardia -not related to exertion or blood glucose levels -occasianlly associated with chest pain -different P morphology and MT duration during tachycardic episodes. possibly Ectopic atrial tachycardia -EP consulted #c. diff #normal AG acidosis -patient has dysmotility problems at baselines. Home meds include loperamide -DC vancomycin and contact precautions 10/18 ELOS: 1-2 midnights
[2019-10-18] MEDS: Dronedarone HCl 400 MG TAB PO SCH (17:55)
[2019-10-18] MEDS: Sodium Chloride 0.9% 1,000 ML IV SCH (17:57)
[2019-10-18] MEDS ORDERED: Magnesium Oxide 400 MG TAB PO SCH (21:00)
[2019-10-18] MEDS: traZODone HCl 50 MG TAB PO SCH (21:24)
[2019-10-18] MEDS: traMADol HCl 50 MG TAB PO PRN (21:34)
[2019-10-19 05:00] LABS: Magnesium 1.5 mg/dL (1.6-2.6); Potassium 3.8 mmol/L (3.5-5.1)
[2019-10-19] MEDS: Vancomycin HCl 25 MG/ML Oral PO SCH (06:29)
[2019-10-19] MEDS ORDERED: Loperamide HCl 2 MG CAP PO PRN (07:40)
[2019-10-19] MEDS: Sodium Chloride 0.9% 1,000 ML IV SCH ×2 (07:42→09:33)
[2019-10-19] MEDS ORDERED: Magnesium 2 GM/50 ML 2 GM in Premix Bag 1 BAG IVPB SCH (07:45)
[2019-10-19] MEDS: Carvedilol 6.25 MG TAB PO SCH ×2 (08:57→17:30)
[2019-10-19] MEDS: Dronedarone HCl 400 MG TAB PO SCH ×2 (08:58→17:30)
[2019-10-19] MEDS: Heparin 5,000 UNITS/ML VIAL SC SCH ×3 (08:59→19:30)
[2019-10-19] MEDS: Gabapentin 300 MG CAP PO SCH ×3 (08:59→19:30)
[2019-10-19] MEDS: Aspirin 81 mg Enteric Coated Tablet PO SCH (08:59)
[2019-10-19] MEDS: Isosorbide Mononitrate (ER) 30 MG TAB PO SCH (09:00)
[2019-10-19] MEDS: Multivit, Therapeutic 1 TAB PO SCH (09:00)
[2019-10-19] MEDS ORDERED: traMADol HCl 50 MG TAB PO PRN (13:21)
[2019-10-19 16:10] VITALS: TEMP 98.5
--- NOTE | 2019-10-19 16:25 | EKG ---
Test Reason : Blood Pressure : / mmHG Vent. Rate : 086 BPM Atrial Rate : 086 BPM P-R Int : 186 ms QRS Dur : 138 ms QT Int : 384 ms P-R-T Axes : 021 -54 078 degrees QTc Int : 459 ms Sinus rhythm with Premature atrial complexes in a pattern of bigeminy Left axis deviation Non-specific intra-ventricular conduction block Abnormal ECG Confirmed by MARTHA LOVE, CODY ([id number]), pictures editor AUSTIN GREENE ([id number]) on 10/19/2019 4:25:13 PM Referred By: Confirmed By:CODY THOMAS MD
--- NOTE | 2019-10-19 16:45 | PDOC.EP ---
- Subjective Date: 10/19/19 Time: 08:00 Interval History: this follow-up evaluation is for ectopic atrial tachycardia. Episodes continue but are not as long as were previously seen before initiating Multaq for arrhythmia suppression. QT and QTC are stable on EKG today. patient voices no concerns or complaints and seems to be tolerating his medications fairly well - Review of Systems Constitutional: denies: chills, fever, malaise, sweats, weakness, other Respiratory: denies: cough, dry, hemoptysis, pleuritic pain, shortness of breath , SOB with excertion, sputum, wheezing, other Cardiology: denies: chest pain, edema, heart racing, light headedness, paroxysmal noc. dyspnea, orthopnea, palpitations, passing out, pleuritic pain, pressure, swelling, other Gastrointestinal: denies: abdominal pain, constipation, diarrhea, hematochezia, melena, nausea, vomitting, other - Objective Allergies/Adverse Reactions: Allergies Allergy/AdvReac Type Severity Reaction Status Date / Time Iodinated Contrast Media Allergy Severe Anaphylaxis Verified 09/18/19 20:31 [Iodinated Contrast Media - Oral and] shellfish derived Allergy Severe Anaphylaxis Verified 09/18/19 20:31 latex Allergy Mild Verified 09/18/19 20:31 Current Medications Acetaminophen (Tylenol) 650 mg PO Q4H PRN PRN Reason: Headache/Fever or Pain Last Admin: 10/16/19 20:30 Dose: 650 mg Aspirin (Ecotrin) 81 mg PO DAILY [facility] Last Admin: 10/19/19 08:59 Dose: 81 mg Calcium Carbonate (Tums) 500 mg PO Q6H PRN PRN Reason: Indigestion Carvedilol (Coreg) 6.25 mg PO BID-[facility] Last Admin: 10/19/19 08:57 Dose: 6.25 mg Cyclobenzaprine HCl (Flexeril) 10 mg PO TIDPRN PRN PRN Reason: Muscle Spasm Last Admin: 10/16/19 20:30 Dose: 10 mg Dextrose/Water (Dextrose 50%) 25 gm SLOW IVP PRN PRN PRN Reason: Hypoglycemia Dronedarone (Multaq) 400 mg PO BID-[facility] Last Admin: 10/19/19 08:58 Dose: 400 mg Gabapentin (Neurontin) 300 mg PO TID [facility] Last Admin: 10/19/19 15:03 Dose: 300 mg Glucagon (Glucagon) 1 mg IM PRN PRN PRN Reason: Hypoglycemia Heparin Sodium (Porcine) (Heparin) 5,000 units SC TID [facility] Last Admin: 10/19/19 15:04 Dose: 5,000 units Dextrose/Water (D5w) 1,000 mls @ 0 mls/hr IV .Q0M PRN PRN Reason: Hypoglycemia Sodium Chloride (Normal Saline 0.9%) 1,000 mls @ 70 mls/hr IV .[id number] [facility] Last Admin: 10/19/19 09:33 Dose: 1,000 mls Insulin Human Lispro (Humalog) 0 units SC .MILD SLIDING SCALE PRN PRN Reason: Mild Correctional Scale Insulin Human Lispro (Humalog) 0 units SC .BEDTIME SLIDING SC PRN PRN Reason: Bedtime Correctional Scale Isosorbide Mononitrate (Imdur Er) 30 mg PO DAILY [facility] Last Admin: 10/19/19 09:00 Dose: 30 mg Loperamide HCl (Imodium) 2 mg PO Q4H PRN PRN Reason: Diarrhea/Loose Stools Melatonin (Melatonin) 3 mg PO HS PRN PRN Reason: Insomnia Last Admin: 10/16/19 00:00 Dose: 3 mg Multivitamins (Theragran) 1 tab PO DAILY [facility] Last Admin: 10/19/19 09:00 Dose: 1 tab Nitroglycerin (Nitrostat) 0.4 mg SL Q5MIN PRN PRN Reason: Chest Pain Last Admin: 10/16/19 17:44 Dose: 0.4 mg Nystatin (Mycostatin Cream) 0 gm TOP TID PRN PRN Reason: PRN Last Admin: 10/09/19 18:40 Dose: 1 applic Ondansetron HCl (Zofran) 4 mg IVP Q6H PRN PRN Reason: Nausea/Vomiting Last Admin: 10/12/19 00:50 Dose: 4 mg Pantoprazole Sodium (Protonix) 40 mg PO DAILY [facility] Last Admin: 10/19/19 09:00 Dose: 40 mg Sacubitril/Valsartan (Entresto 24 Mg-26 Mg Tablet) 1 tab PO BID [facility] Last Admin: 10/19/19 09:00 Dose: 1 tab Sodium Chloride (Flush - Normal Saline) 10 ml IVF Q12HR [facility] Last Admin: 10/19/19 09:36 Dose: Not Given Sodium Chloride (Flush - Normal Saline) 10 ml IVF PRN PRN PRN Reason: Saline Flush Tramadol HCl (Ultram) 50 mg PO Q6H PRN PRN Reason: Moderate Pain (4-6) Stop: 10/20/19 13:22 Last Admin: 10/19/19 15:30 Dose: 50 mg Trazodone HCl (Desyrel) 50 mg PO QPM [facility] Last Admin: 10/18/19 21:24 Dose: 50 mg Vital Signs & Weight: Vital Signs Temp Pulse Pulse Pulse Resp BP BP 10/19/19 15:35 98.5 F 99 18 10/19/19 12:17 98.4 F 129 H 20 10/19/19 11:23 79 83 114/59 L 10/19/19 08:57 110/65 10/19/19 08:48 98.3 F 127 H 18 BP BP BP Pulse Ox 10/19/19 15:35 118/60 99 10/19/19 12:17 118/64 98 10/19/19 11:23 115/59 L 10/19/19 08:57 10/19/19 08:48 110/65 99 Admit Weight 157 lb 12.8 oz Weight 198 lb 8 oz I/O: I/O 10/18/19 10/19/19 10/20/19 06:59 06:59 06:59 Intake Total 1245 1080 640 Output Total 875 400 350 Balance 370 680 290 - Physical Exam General: appears well, no apparent distress, speech clear, affect appropriate HEENT: mucus membranes moist Neck: supple neck, midline trachea, no lymphadenopathy Cardiology: regular rate and rhythm, no murmur, PMI nondisplaced Lungs: clear to auscultation, normal breath sounds, no wheeze, rales, rhonchi Neurology: cranial nerve 2-12 intact, grossly intact, no lateralizing findings - Labs Result Diagrams: 10/18/19 03:56 10/19/19 03:44 - EKG Interpretation EKG Method: Telemetry EKG shows: Sinus rhythm (PAT) - Assessment/Plan Assessment/Plan: 1. ectopic atrial tachycardia, paroxysmal PAT episodes are shorter since initiation of Multaq. QT/QTc stable on 12 lead EKG. Patient is okay to discharge home from EP perspective continuing on Multaq 400 mg p.o. b.i.d. consider EP study and possible ablation if patient becomes symptomatic with episodes in the future.
--- NOTE | 2019-10-19 17:35 | EKG ---
Test Reason : Blood Pressure : / mmHG Vent. Rate : 086 BPM Atrial Rate : 086 BPM P-R Int : 188 ms QRS Dur : 148 ms QT Int : 392 ms P-R-T Axes : -07 -49 068 degrees QTc Int : 469 ms Normal sinus rhythm Left axis deviation Left bundle branch block Abnormal ECG When compared with ECG of 18-OCT-2019 05:18, Sinus rhythm has replaced Wide QRS tachycardia Vent. rate has decreased BY 45 BPM Confirmed by JAYDEN LOVE, SDora ([id number]) on 10/19/2019 5:35:13 PM Referred By: [facility] Confirmed By:DR. Mehnaz CARPENTER MD
[2019-10-19] MEDS: traZODone HCl 50 MG TAB PO SCH (19:29)
[2019-10-19 19:37] VITALS: BP 124/66
--- NOTE | 2019-10-19 23:15 | CON ---
DATE OF CONSULTATION: 10/18/2019 REASON FOR CONSULTATION: Tachycardia. Consultation was performed by Dr. Kenyon Jay. HISTORY OF PRESENT ILLNESS: Mr. Apple is a 73-year-old male patient, who is a resident of a residential. He has a past medical history significant for coronary artery disease, peripheral arterial disease, type 2 diabetes, chronic renal disease stage 3. He had been having worsening abdominal pain and was sent to the hospital for further evaluation regarding watery diarrhea and increased nausea. He was found to have sepsis and colitis and was positive for C. diff. During his hospital stay, he was found to have tachycardic episodes from time to time with abrupt onset and termination. Mr. Apple is fairly demented and did not appear overly symptomatic with these episodes. EP consultation has been requested for evaluation and management of these SVT/tachycardia episodes. REVIEW OF SYSTEMS: A 12-point review of systems was attempted, was very limited due to his mental status. PAST MEDICAL HISTORY: 1. Coronary artery disease. 2. PAD. 3. Type 2 diabetes. 4. Chronic renal disease, stage 3. 5. Right BKA. 6. GERD. 7. Arthritis. 8. Dementia. PAST SURGICAL HISTORY: As above. SOCIAL HISTORY: Denies alcohol, illicit drug use, or smoking. OBJECTIVE: VITAL SIGNS: Temperature 97.7, pulse 88, blood pressure 141/68, respirations 14, and oxygen is 97% on room air. GENERAL: The patient is alert and oriented to time, person, place, aware of the situation, in no apparent distress at the time of the exam. NECK: Supple without jugular venous distention. There is no lymphadenopathy. Trachea is midline. LUNGS: Clear to auscultation bilaterally without wheezes, crackles, or rhonchi. HEART: Rate is irregularly irregular with crisp S1 and S2. ABDOMEN: Soft and nontender. Hepatojugular reflux is negative. EXTREMITIES: Warm and dry to touch. Previous right BKA is noted. NEUROLOGIC: Gait was not assessed. DATABASE: Hematology was reviewed. Hemoglobin 8.5, potassium 3.9, magnesium 1.4. Telemetry and EKG show sinus rhythm with frequent paroxysmal atrial tachycardia runs. Echocardiogram from January 2019 shows an ejection fraction of 45% to 50%. IMPRESSION: 1. Ectopic atrial tachycardia, asymptomatic. 2. Mildly reduced LVEF 45% to 50% by echo within the past year. 3. Peripheral vascular disease, status post prior right below-knee amputation. PLAN AND RECOMMENDATIONS: Mr. Apple is having ectopic atrial tachycardia runs. He does not appear symptomatic with these episodes, though they are tachycardic at approximately 130 beats per minute. I would recommend antiarrhythmic therapy with an agent such as Multaq, which can be safely initiated as an outpatient. Some monitoring for decompensated heart failure is prudent and possibly liver enzyme checks in 6 to 12 weeks. Recommend monitoring him overnight and checking a 12-lead EKG in the morning. If there is no QT prolongation, and he is tolerating his medication well, he can be discharged. If antiarrhythmic therapy is not adequate at suppressing this, we could consider an electrophysiology study and radiofrequency ablation if he becomes symptomatic. Thank you for allowing me to participate in the care of this patient. Job ID: [id number]
== END 2019-10-19 20:32 | DRG 872 ==
LOC: ERS 12:08 → T4-A 14:46 → 2NO 10-17 11:03
PROVIDERS: ADMIT Internal Medicine; ATTEND Internal Medicine
DX: A41.4 Sepsis due to anaerobes (principal); A04.72 Enterocolitis due to Clostridium difficile, not specified as recurrent; E87.1 Hypo-osmolality and hyponatremia; I47.1 Supraventricular tachycardia; N18.3 Chronic kidney disease, stage 3 (moderate); K21.9 Gastro-esophageal reflux disease without esophagitis; E78.5 Hyperlipidemia, unspecified; E11.22 Type 2 diabetes mellitus with diabetic chronic kidney disease; I12.9 Hypertensive chronic kidney disease with stage 1 through stage 4 chronic kidney disease, or unspecified chronic kidney disease; I25.10 Atherosclerotic heart disease of native coronary artery without angina pectoris; E11.51 Type 2 diabetes mellitus with diabetic peripheral angiopathy without gangrene; F41.9 Anxiety disorder, unspecified; E78.00 Pure hypercholesterolemia, unspecified; M19.90 Unspecified osteoarthritis, unspecified site; F32.9 Major depressive disorder, single episode, unspecified; Z91.041 Radiographic dye allergy status; I25.2 Old myocardial infarction; Z91.040 Latex allergy status; Z91.013 Allergy to seafood; Z95.2 Presence of prosthetic heart valve; Z89.511 Acquired absence of right leg below knee; Z79.82 Long term (current) use of aspirin; Z79.4 Long term (current) use of insulin; Z79.899 Other long term (current) drug therapy
CPT/HCPCS: 36415; 36416; 51701; 71045; 74176; 80048; 81003; 81015; 82274; 83605; 83690; 83735; 84132; 84484; 85007; 85025; 85027; 87040; 87086; 93005; 93010; 96361; 96374; J0744; J1644; J2405; J2543; J3475; J3480; J3490; J7050

== ENCOUNTER 2019-11-11 01:09 | Inpatient (IN) | payer MEDICARE, MEDICAID, OTHER ==
--- NOTE | 2019-11-11 02:32 | PDOC.HHP ---
Hospitalist HPI - History of Present Illness Fever, pain, weakness History of Present Illness: Patient is a 73 year old male with PMH CAD, PAD, T2DM, CKD 3 who presents at transfer from [facility] for fever, pain, weakness. Symptoms started several days ago, pain is all over and diffuse muscle aches. In [place], CXR w/ RLL infiltrate, lactic acid 1, WBC 10, hgb 7.3, K 5.4, Cr 1.5, transferred here. At outside ED, T100.9, pulse 105, RR 22, satting 100% on RA. He recieved cefepime, vancomycin, levofloxacin and 3L IVF. Patient has a history of recent BKA LLE in September and C diff in October, both treated and patient reports improved/resolved. C diff rx w vanc and flagyl. Hospitalist ROS - Review of Systems Constitutional: reports: chills, weakness, malaise, other (body aches) Eyes: denies: pain, vision change, conjunctivae inflammation, eyelid inflammation, redness, other ENT: denies: ear pain, ear discharge, nose pain, nose discharge, nose congestion , mouth pain, mouth swelling, throat pain, throat swelling, other Respiratory: denies: cough, dry, shortness of breath, hemoptysis, SOB with excertion, pleuritic pain, sputum, wheezing, other Cardiovascular: denies: chest pain, palpitations, orthopnea, paroxysmal noc. dyspnea, edema, light headedness, other Gastrointestinal: denies: nausea, vomiting, abdominal pain, diarrhea, constipation, melena, hematochezia, other Genitourinary: denies: dysuria, frequency, incontinence, hematuria, retention, other Musculoskeletal: denies: neck pain, shoulder pain, arm pain, back pain, hand pain, leg pain, foot pain, other Skin: denies: rash, lesions, jillian, bruising, other Neurological: denies: weakness, numbness, incoordination, change in speech, confusion, seizures, other All other systems reviewed; all pertinent +/- noted in HPI/Subj - Medication Medications: isosorbide dinitrate oral Sat Nov 11, 2019 01:17 OLGA Schroeder, Mona TABLET : Strength - 30 mg : ORAL Patient Dose: 30 mg Oral once a day. carvedilol Sat Nov 11, 2019 01:17 OLGA Schroeder Alicia TABLET : Strength - 3.125 mg : ORAL Patient Dose: 1 tab(s) Oral 2 times a day. aspirin oral Sat Nov 11, 2019 01:17 OLGA Schroeder Alicia TABLET : Strength - 81 mg : ORAL Patient Dose: 81 mg Oral once a day. Lantus U-100 Insulin Sat Nov 11, 2019 01:17 OLGA Schroeder Alicia CARTRIDGE (ML) : Strength - 100 unit/mL : SUBCUTANEOUS Patient Dose: 8 units Subcutaneous once a day. traMADol Sat Nov 11, 2019 01:17 OLGA Schroeder Alicia tablet : Strength - 50 mg : ORAL Patient Dose: As Needed. nitroglycerin sublingual Sat Nov 11, 2019 01:17 OLGA Schroeder Alicia tablet, sublingual : Strength - 0.4 mg : SUBLINGUAL Patient Dose: As Needed. Multi Vitamin Sat Nov 11, 2019 01:17 OLGA Schroeder Alicia liquid : Strength - 9 mg iron/15 mL : ORAL Patient Dose: UNK. lisinopril Sat Nov 11, 2019 01:17 OLGA Schroeder Alicia tablet : Strength - 2.5 mg : ORAL Patient Dose: Unknown. metFORMIN Sat Nov 11, 2019 01:17 OLGA Schroeder Alicia tablet : Strength - 500 mg : ORAL Patient Dose: Unknown. Protonix oral Sat Nov 11, 2019 01:17 OLGA Schroeder Alicia tablet,delayed release (DR/EC) : Strength - 40 mg : ORAL Patient Dose: once a day (in the morning). Ativan oral Sat Nov 11, 2019 01:17 OLGA Schroeder Alicia tablet : Strength - 1 mg : ORAL Patient Dose: once a day (at bedtime). Lidoderm Sat Nov 11, 2019 01:18 OLGA Schroeder Alicia adhesive patch,medicated : Strength - 5 % : TOPICAL Patient Dose: Unknown. melatonin oral Sat Nov 11, 2019 01:18 OLGA Schroeder Alicia tablet : Strength - 3 mg : ORAL Patient Dose: once a day (at bedtime). Sinemet WedNov 11, 2019 01:18 OLGA Schroeder Alicia tablet : Strength - 25 mg-100 mg : ORAL Patient Dose: 2 times a day (before meals). Kenalog topical Sat Nov 11, 2019 01:19 OLGA Schroeder Alicia lotion : Strength - 0.1 % : TOPICAL Patient Dose: 2 times a day. Hospitalist History - Past Medical History Other Medical History: PVD, CAD, CA, T2DM, GERD, CKD III, renal cyst, HLD, arthritis - Past Surgical History Other Surgical History: AVR tissue valve, CABG 4v, R BKA - Family History Family History: reports: no pertinent history - Social History Smoking Status: Never smoker Alcohol: reports: None Drugs: reports: none - Exam General Appearance: NAD, awake alert Eye: PERRL, anicteric sclera ENT: normocephalic atraumatic, no oropharyngeal lesions, moist mucosa Neck: supple, symmetric, no JVD, no thyromegaly, no lymphadenopathy, no carotid bruit Heart: RRR, no murmur, no gallops, no rubs, normal peripheral pulses Respiratory: CTAB, no wheezes, no rales, no ronchi, normal chest expansion, no tachypnea, normal percussion Gastrointestinal: soft, non-tender, non-distended, normal bowel sounds, no palpable masses, no hepatomegaly, no splenomegaly, no bruit Extremities: no cyanosis, no clubbing, no edema Extremities - other findings: L BKA, stump healed Skin: normal turgor, no lesions, no rashes Neurological: cranial nerve grossly intact, normal sensation to touch, no weakness, no focal deficits, no new deficit Musculoskeletal: normal tone, normal strength, no muscle wasting Psychiatric: normal affect, normal behavior, A&O x 3 Hospitalist Results - Labs Lab results: outside facility records reviewed, see HPI for relevant positives Additional comment: VITAL SIGNS Sat Nov 11, 2019 01:14 OLGA Schroeder, Mona BP: 113/73 Pulse: 121 Resp: 21 Temp: 98.8 (Oral) Pain: 8 O2 sat: 100 on (Room Air) Time: 11/11/2019 01:14. Hospitalist H&P A/P - Plan Plan: Patient is a 73 year old male with PMH CAD, PAD, T2DM, CKD 3 who presents at transfer from [facility] for fever, pain, weakness. # fever, body aches, weakness, RLL pneumonia - admit to floor - continue vanc/cefepime, stop levaquin - COVID swab and precautions # sepsis secondary to pneumonia - recieved 3L IVF and broad spectrum abx, cultures drawn there, lactic acid normal - continue IVF and follow cultures # CAD/PAD - continue home medications # T2DM - resume home meds and add SSI # CKD 3 - noted, trend BMP # hyperkalemia - 5.4, hold annie inhibitor and trend, recheck now to see if improved with IVF # recent c diff colitis, BKA - appears improved, monitor for recurrance of symptoms # anemia - trend, transfuse for hgb < 7, monitor for bleeding, consider colonoscopy as inpatient or outpatient
[2019-11-11] MEDS ORDERED: Labetalol HCl 100 MG/20 ML VIAL SLOW IVP PRN (02:49)
[2019-11-11] MEDS ORDERED: cloNIDine 0.1 MG TAB PO PRN (02:49)
[2019-11-11] MEDS ORDERED: Albuterol 200 PUFF (6.7GM INHALER) INH PRN (02:49)
[2019-11-11] MEDS ORDERED: Promethazine HCl 12.5 MG in Sodium Chloride 0.9% 50 ML IVPB PRN (02:49)
[2019-11-11] MEDS ORDERED: Ondansetron PF 4 MG/2 ML Vial IVP PRN (02:49)
[2019-11-11] MEDS ORDERED: Acetaminophen 325 MG TAB PO PRN (02:49)
[2019-11-11] MEDS ORDERED: hydrALAZINE 20 MG/ML VIAL SLOW IVP PRN (02:49)
[2019-11-11] MEDS ORDERED: Dextrose 50% Abboject 50 ML SYRINGE SLOW IVP PRN (02:52)
[2019-11-11] MEDS ORDERED: Dextrose 5% in Water 1,000 ML IV PRN (02:52)
[2019-11-11] MEDS: HYDROcodone/Acetaminophen 5/325 mg Tablet PO PRN ×4 (04:11→23:12)
[2019-11-11] MEDS: Sodium Chloride 0.9% 1,000 ML IV SCH ×2 (04:19→21:06)
[2019-11-11 04:41] VITALS: BMI 21.5
[2019-11-11 05:42] LABS: #Eosinphils 0.5 thou/uL (0.0-0.7); #Lymphocytes 0.9 thou/uL (1.20-3.40); #Monocytes 0.8 thou/uL (0.11-0.59); #Neutrophils 5.4 thou/uL (1.40-6.50); %Basophils 0.1 % (0.0-1.0); %Lymphocytes 11.6 % (21.0-51.0); %Monocytes 10.9 % (0.0-10.0); %Neutrophils 70.4 % (42.0-75.0); Hemoglobin 6.7 g/dL (14.0-18.0); Mean Corpuscular HGB CONC 33.4 g/dL (32.0-36.0); Mean Corpuscular Hemoglobin 31.5 pg (27.0-31.0); Mean Corpuscular Volume 94.2 fL (78.0-98.0); Platelet Count 247 thou/uL (130-400); Red Blood Cell (RBC) Count 2.11 mill/uL (4.70-6.10); White Blood Cell (WBC) Count 7.7 thou/uL (4.8-10.8)
[2019-11-11] MEDS ORDERED: Vancomycin HCl 750 MG in Sodium Chloride 0.9% 250 ML 250 ML IVPB SCH (06:00)
[2019-11-11] MEDS ORDERED: Cefepime 1 GM in Sodium Chloride 0.9% 100 ML IVPB SCH (06:00)
[2019-11-11] MEDS: Dronedarone HCl 400 MG TAB PO SCH ×2 (06:13→17:44)
[2019-11-11 06:14] LABS: Anion Gap 13 mmol/L (10-20); BUN (Urea Nitrogen) 25 mg/dL (8.4-25.7); Calc. Creatinine Clearance 56 mL/min (70-130); Calcium 7.6 mg/dL (7.8-10.44); Carbon Dioxide 15 mmol/L (23-31); Chloride 116 mmol/L (98-107); Estimated GFR-MDRD 53; Glucose 81 mg/dL (83-110); Magnesium 1.3 mg/dL (1.6-2.6); Potassium 4.8 mmol/L (3.5-5.1); Sodium 139 mmol/L (136-145)
[2019-11-11] MEDS: Aspirin 81 mg Enteric Coated Tablet PO SCH (08:53)
[2019-11-11] MEDS: Gabapentin 300 MG CAP PO SCH ×3 (08:53→21:02)
[2019-11-11] MEDS: Enoxaparin Sodium 30 MG/0.3 ML SYRINGE SC SCH (08:53)
[2019-11-11] MEDS: Carvedilol 6.25 MG TAB PO SCH ×2 (08:53→17:44)
[2019-11-11] MEDS: Polyethylene Glycol 3350 17 GM Packet PO SCH (08:54)
[2019-11-11] MEDS: Cefepime 1 GM in Sodium Chloride 0.9% 100 ML IVPB SCH ×3 (08:54→21:06)
[2019-11-11] MEDS: Famotidine 20 MG TAB PO SCH ×2 (08:54→21:02)
[2019-11-11] MEDS: Vancomycin HCl 750 MG in Sodium Chloride 0.9% 250 ML 250 ML IVPB SCH ×2 (11:00→22:06)
[2019-11-11 16:57] LABS: SARS-CoV-2 MS2 Positive; SARS-CoV-2 N Gene Negative; SARS-CoV-2 S Gene Negative; SARS-CoV-2 orf1ab Negative
--- NOTE | 2019-11-11 19:03 | PDOC.HOSPP ---
- Subjective Encounter Date: 11/11/19 Encounter Time: 18:45 Subjective: f/u for sepsis suspected due to RLL PNA on current Cefepime/Vancomycin. States feeling better today and minimal myalgias. No fever noted and COVID-19 negative. - Objective Vital Signs & Weight: Vital Signs (12 hours) Temp Pulse Resp BP Pulse Ox 11/11/19 12:00 98.5 F 86 17 117/64 99 11/11/19 09:00 97.5 F L 93 16 137/73 100 Weight Admit Weight 177 lb Weight 177 lb 3.2 oz Result Diagrams: 11/11/19 05:14 11/11/19 05:14 Additional Labs: Accuchecks 11/11/19 11/11/19 11/11/19 15:32 12:02 04:49 POC Glucose 99 109 92 Microbiology 08/22/19 12:05 Urine voided Urine Culture - Final NO GROWTH AT 36 HOURS 08/21/19 13:35 Venous blood - Right Hand Blood Culture - Preliminary NO GROWTH AT 48 HOURS 08/21/19 13:30 Venous blood - Right Arm Blood Culture - Preliminary NO GROWTH AT 48 HOURS Laboratory Tests 08/22/19 08/22/19 08/23/19 05:33 05:33 06:04 WBC 8.5 Hgb Carbon Dioxide 18 L 18 L Creatinine 1.83 H 1.57 H Magnesium COVID-19 PCR 08/23/19 08/24/19 08/24/19 06:04 05:41 05:41 WBC 9.5 12.1 H Hgb Carbon Dioxide 13 L Creatinine 1.31 H Magnesium COVID-19 PCR 10/26/19 11/02/19 11/10/19 03:10 04:00 19:00 WBC Hgb 8.1 L 8.6 L 7.3 L Carbon Dioxide Creatinine Magnesium COVID-19 PCR 11/10/19 11/11/19 11/11/19 19:00 04:30 05:14 WBC Hgb Carbon Dioxide Creatinine 1.48 H Magnesium 1.3 L COVID-19 PCR Not Detected Radiology Reviewed by me: Yes (PCXR - RLL consolidation) EKG Reviewed by me: Yes (Tele - SR) Hospitalist ROS - Medication Medications: Active Medications Generic Name Dose Route Start Last Admin Trade Name Freq PRN Reason Stop Dose Admin Hydrocodone Bitart/Acetaminophen 1 tab 11/11/19 02:49 11/11/19 15:19 [place] 5/325 PO 1 tab Q4H PRN Administration Moderate Pain (4-6) Aspirin 81 mg 11/11/19 09:00 11/11/19 08:53 Ecotrin PO 81 mg DAILY KARLI Administration Carvedilol 6.25 mg 11/11/19 08:00 11/11/19 17:44 Coreg PO 6.25 mg BID-WM KARLI Administration Dronedarone 400 mg 11/11/19 08:00 11/11/19 17:44 Multaq PO 400 mg BID-WM KARLI Administration Enoxaparin Sodium 30 mg 11/11/19 09:00 11/11/19 08:53 Lovenox SC 30 mg 0900 KARLI Administration Famotidine 20 mg 11/11/19 09:00 11/11/19 08:54 Pepcid PO 20 mg BID KARLI Administration Gabapentin 300 mg 11/11/19 09:00 11/11/19 15:18 Neurontin PO 300 mg TID KARLI Administration Sodium Chloride 1,000 mls @ 75 mls/hr 11/11/19 03:00 11/11/19 04:19 Normal Saline 0.9% IV 1,000 mls .[id number] KARLI Administration Vancomycin HCl 750 mg/ Sodium 250 mls @ 250 mls/hr 11/11/19 10:00 11/11/19 11 :00 Chloride IVPB 11/18/19 10:01 250 mls 1000,2200 KARLI Administration Cefepime HCl 1 gm/ Sodium 100 mls @ 200 mls/hr 11/11/19 08:00 11/11/19 15:18 Chloride IVPB 100 mls 0200,0800,1400,2000 KARLI Administration Isosorbide Mononitrate 30 mg 11/11/19 09:00 11/11/19 08:53 Imdur Er PO 30 mg DAILY KARLI Administration Polyethylene Glycol 17 gm 11/11/19 09:00 11/11/19 08:54 Miralax PO 17 gm DAILY KARLI Administration - Exam General Appearance: NAD, awake alert General - other findings: smiling, responsive Eye: PERRL, anicteric sclera ENT: normocephalic atraumatic, no oropharyngeal lesions Neck: supple, symmetric, no JVD, no thyromegaly Heart: RRR, no gallops, no rubs, normal peripheral pulses Heart - other findings: S1, S2 Respiratory - other findings: diminished in bases, mild tachypnea Gastrointestinal: soft, non-tender, non-distended, normal bowel sounds, no palpable masses Extremities: no cyanosis Extremities - other findings: R BKA with intact stump Skin: normal turgor Neurological: cranial nerve grossly intact, no new deficit Musculoskeletal: normal tone, generalized weakness Psychiatric: normal affect, A&O x 3 Hosp A/P (1) RLL pneumonia Code(s): J18.9 - PNEUMONIA, UNSPECIFIED ORGANISM Status: Acute Plan: Continue Cefepime/Vancomycin, general pulmonary supportive mgmt (2) Acute kidney injury superimposed on CKD Code(s): N17.9 - ACUTE KIDNEY FAILURE, UNSPECIFIED; N18.9 - CHRONIC KIDNEY DISEASE, UNSPECIFIED Status: Acute Plan: Improved, continue low-volume IVF's, avoid nephrotoxic meds and limit contrast exposure (3) Sepsis Code(s): A41.9 - SEPSIS, UNSPECIFIED ORGANISM Status: Acute Plan: Resolving, continue supportive mgmt as outlined above (4) Anemia, normocytic normochromic Code(s): D64.9 - ANEMIA, UNSPECIFIED Status: Chronic Plan: Repeat CBC in am, ? dilutional effect, consider PRBC's transfusion - Plan continue antibiotics, PT/OT, social worker health services, respiratory therapy Stable currently Continue Cefepime/Vancomycin Continue IVF's COVID-19 ruled out D/C precautions AM lab: BMP, CBC, Vanc trough, Mg++
[2019-11-11] MEDS: traZODone HCl 50 MG TAB PO SCH (21:02)
[2019-11-12] MEDS: Cefepime 1 GM in Sodium Chloride 0.9% 100 ML IVPB SCH ×4 (03:00→21:15)
[2019-11-12] MEDS: HYDROcodone/Acetaminophen 5/325 mg Tablet PO PRN ×3 (03:00→17:21)
[2019-11-12 05:00] LABS: #Eosinphils 0.1 thou/uL (0.0-0.7); #Lymphocytes 1.1 thou/uL (1.20-3.40); #Monocytes 0.6 thou/uL (0.11-0.59); #Neutrophils 5.3 thou/uL (1.40-6.50); %Basophils 0.1 % (0.0-1.0); %Eosinophils 1.8 % (0.0-10.0); %Lymphocytes 15.5 % (21.0-51.0); %Monocytes 7.8 % (0.0-10.0); %Neutrophils 74.8 % (42.0-75.0); Mean Corpuscular HGB CONC 32.6 g/dL (32.0-36.0); Mean Corpuscular Hemoglobin 30.9 pg (27.0-31.0); Mean Platelet Volume 8.3 fL (7.4-10.4); Platelet Count 231 thou/uL (130-400); RBC Distribution Width 17.6 % (11.5-14.5); Red Blood Cell (RBC) Count 2.26 mill/uL (4.70-6.10); White Blood Cell (WBC) Count 7.1 thou/uL (4.8-10.8)
[2019-11-12 05:01] LABS: Reticulocyte Count 2.7 % (0.5-1.5)
[2019-11-12 05:15] LABS: Anion Gap 17 mmol/L (10-20); BUN (Urea Nitrogen) 32 mg/dL (8.4-25.7); Calc. Creatinine Clearance 45 mL/min (70-130); Calcium 7.7 mg/dL (7.8-10.44); Carbon Dioxide 11 mmol/L (23-31); Chloride 115 mmol/L (98-107); Estimated GFR-MDRD 42; Glucose 100 mg/dL (83-110); Iron 26 ug/dL (65-175); Magnesium 1.4 mg/dL (1.6-2.6); Potassium 5.7 mmol/L (3.5-5.1); Sodium 137 mmol/L (136-145)
[2019-11-12] MEDS: Dronedarone HCl 400 MG TAB PO SCH ×2 (08:38→16:24)
[2019-11-12] MEDS: Aspirin 81 mg Enteric Coated Tablet PO SCH (08:38)
[2019-11-12] MEDS: Famotidine 20 MG TAB PO SCH ×2 (08:38→21:16)
[2019-11-12] MEDS: Polyethylene Glycol 3350 17 GM Packet PO SCH (08:38)
[2019-11-12] MEDS: Enoxaparin Sodium 30 MG/0.3 ML SYRINGE SC SCH (08:38)
[2019-11-12] MEDS: Gabapentin 300 MG CAP PO SCH ×3 (08:39→21:16)
[2019-11-12] MEDS: Carvedilol 6.25 MG TAB PO SCH ×2 (08:39→16:24)
[2019-11-12] MEDS: Sodium Chloride 0.9% 1,000 ML IV SCH (10:38)
[2019-11-12] MEDS: Vancomycin HCl 750 MG in Sodium Chloride 0.9% 250 ML 250 ML IVPB SCH (10:38)
--- NOTE | 2019-11-12 14:21 | PDOC.HOSPP ---
- Subjective Encounter Date: 11/12/19 Encounter Time: 14:15 Subjective: f/u for suspected sepsis due to PNA on Cefepime/Vancomycin. No fever noted. - Objective Vital Signs & Weight: Vital Signs (12 hours) Temp Pulse Resp BP Pulse Ox 11/12/19 12:00 98.5 F 84 18 131/73 100 11/12/19 08:00 100 11/12/19 07:33 98 F 90 16 138/83 100 11/12/19 03:22 98.2 F 88 20 141/84 H 100 Weight Admit Weight 177 lb Weight 177 lb 3.2 oz I&O: 11/11/19 11/12/19 11/13/19 06:59 06:59 06:59 Intake Total 1400 Output Total 300 Balance 1100 Result Diagrams: 11/12/19 04:44 11/12/19 04:44 Additional Labs: Accuchecks 11/12/19 11/12/19 11/11/19 10:44 05:18 21:31 POC Glucose 146 H 114 H 130 H 11/11/19 11/11/19 15:32 12:02 POC Glucose 99 109 Microbiology 08/22/19 12:05 Urine voided Urine Culture - Final NO GROWTH AT 36 HOURS 11/11/19 00:24 Urine voided Urine Culture - Preliminary 11/10/19 19:00 Venous blood - Left Arm Blood Culture - Preliminary Specimen has been received and culture in progress. No Growth to date. 11/10/19 18:55 Venous blood - Left Hand Blood Culture - Preliminary Specimen has been received and culture in progress. No Growth to date. 08/21/19 13:35 Venous blood - Right Hand Blood Culture - Preliminary NO GROWTH AT 48 HOURS 08/21/19 13:30 Venous blood - Right Arm Blood Culture - Preliminary NO GROWTH AT 48 HOURS Laboratory Tests 08/22/19 08/22/19 08/23/19 05:33 05:33 06:04 WBC 8.5 Hgb Neutrophils % Retic Count Potassium Carbon Dioxide 18 L 18 L Creatinine 1.83 H 1.57 H Magnesium Iron Ferritin COVID-19 PCR 08/23/19 08/24/19 08/24/19 06:04 05:41 05:41 WBC 9.5 12.1 H Hgb Neutrophils % Retic Count Potassium Carbon Dioxide 13 L Creatinine 1.31 H Magnesium Iron Ferritin COVID-19 PCR 10/26/19 11/02/19 11/10/19 03:10 04:00 19:00 WBC Hgb 8.1 L 8.6 L 7.3 L Neutrophils % Retic Count Potassium Carbon Dioxide Creatinine Magnesium Iron Ferritin COVID-19 PCR 11/10/19 11/11/19 11/11/19 19:00 04:30 05:14 WBC Hgb Neutrophils % Retic Count Potassium 4.8 Carbon Dioxide 15 L Creatinine 1.48 H 1.31 H Magnesium 1.3 L Iron Ferritin COVID-19 PCR Not Detected 11/11/19 11/12/19 11/12/19 05:14 04:44 04:44 WBC Hgb 6.7 L Neutrophils % 70.4 74.8 Retic Count Potassium Carbon Dioxide Creatinine Magnesium 1.4 L Iron 26 L Ferritin COVID-19 PCR 11/12/19 11/12/19 04:44 04:44 WBC Hgb Neutrophils % Retic Count 2.7 H Potassium Carbon Dioxide Creatinine Magnesium Iron Ferritin 7872.36 H COVID-19 PCR EKG Reviewed by me: Yes (Tele - SR) Hospitalist ROS - Medication Medications: Active Medications Generic Name Dose Route Start Last Admin Trade Name Freq PRN Reason Stop Dose Admin Hydrocodone Bitart/Acetaminophen 1 tab 11/11/19 02:49 11/12/19 08:39 [place] 5/325 PO 1 tab Q4H PRN Administration Moderate Pain (4-6) Aspirin 81 mg 11/11/19 09:00 11/12/19 08:38 Ecotrin PO 81 mg DAILY KARLI Administration Carvedilol 6.25 mg 11/11/19 08:00 11/12/19 08:39 Coreg PO 6.25 mg BID-WM KARLI Administration Dronedarone 400 mg 11/11/19 08:00 11/12/19 08:38 Multaq PO 400 mg BID-WM KARLI Administration Enoxaparin Sodium 30 mg 11/11/19 09:00 11/12/19 08:38 Lovenox SC 30 mg 0900 KARLI Administration Famotidine 20 mg 11/11/19 09:00 11/12/19 08:38 Pepcid PO 20 mg BID KARLI Administration Gabapentin 300 mg 11/11/19 09:00 11/12/19 08:39 Neurontin PO 300 mg TID KARLI Administration Sodium Chloride 1,000 mls @ 75 mls/hr 11/11/19 03:00 11/12/19 10:38 Normal Saline 0.9% IV 1,000 mls .[id number] KARLI Administration Vancomycin HCl 750 mg/ Sodium 250 mls @ 250 mls/hr 11/11/19 10:00 11/12/19 10 :38 Chloride IVPB 11/18/19 10:01 250 mls 1000,2200 KARLI Administration Cefepime HCl 1 gm/ Sodium 100 mls @ 200 mls/hr 11/11/19 08:00 11/12/19 08:38 Chloride IVPB 100 mls 0200,0800,1400,2000 KARLI Administration Isosorbide Mononitrate 30 mg 11/11/19 09:00 11/12/19 08:39 Imdur Er PO 30 mg DAILY KARLI Administration Polyethylene Glycol 17 gm 11/11/19 09:00 11/12/19 08:38 Miralax PO 17 gm DAILY KARLI Administration Trazodone HCl 50 mg 11/11/19 21:00 11/11/19 21:02 Desyrel PO 50 mg QPM KARLI Administration - Exam General Appearance: awake alert General - other findings: responsive to questions, pale Eye: PERRL, anicteric sclera ENT: normocephalic atraumatic, no oropharyngeal lesions Neck: supple, symmetric, no JVD, no thyromegaly, no lymphadenopathy Heart: no murmur, no gallops, no rubs Heart - other findings: S1, S2 Respiratory: no wheezes, rhonchi Respiratory - other findings: diminished in bases Gastrointestinal: soft, non-tender, non-distended, normal bowel sounds, no palpable masses Extremities: no cyanosis, no clubbing Extremities - other findings: RLE BKA stump intact Neurological: cranial nerve grossly intact, no new deficit Musculoskeletal: generalized weakness Psychiatric: normal affect, A&O x 3 Hosp A/P (1) RLL pneumonia Code(s): J18.9 - PNEUMONIA, UNSPECIFIED ORGANISM Status: Acute Plan: Continue Cefepime/Vancomycin, Albuterol MDI (2) Acute kidney injury superimposed on CKD Code(s): N17.9 - ACUTE KIDNEY FAILURE, UNSPECIFIED; N18.9 - CHRONIC KIDNEY DISEASE, UNSPECIFIED Status: Acute Plan: Persistent, continue low-volume IVF's, avoid nephrotoxic meds and limit contrast (3) Sepsis Code(s): A41.9 - SEPSIS, UNSPECIFIED ORGANISM Status: Acute Plan: Suspected, continue Cefepime/Vancomycin (4) Anemia, normocytic normochromic Code(s): D64.9 - ANEMIA, UNSPECIFIED Status: Chronic Plan: Iron-deficiency, start IV Iron infusion today, FeSO4 for outpt rx, consider PRBC 's transfusion - Plan continue antibiotics, PT/OT, social work msw, respiratory therapy Stable currently Continue Cefepime/Vancomycin Continue IVF's IV Iron infusion today COVID-19 ruled out D/C precautions Mag Sulfate 2gm IV x 1 now AM lab: BMP, CBC, Vanc trough, Mg++
[2019-11-12] MEDS ORDERED: Iron, Sodium Ferric Gluconate 250 MG in Sodium Chloride 0.9% 100 ML IVPB SCH (14:30)
[2019-11-12] MEDS ORDERED: Calcium Chloride 13.6 MEQ in Sodium Chloride 0.9% 100 ML IVPB SCH (14:45)
[2019-11-12] MEDS ORDERED: Magnesium 2 GM/50 ML 50 GM in Premix Bag 1 BAG IVPB SCH (15:30)
[2019-11-12 21:12] LABS: Vancomycin, Trough 29.5 ug/mL
[2019-11-12] MEDS: traZODone HCl 50 MG TAB PO SCH (21:16)
[2019-11-13] MEDS: Cefepime 1 GM in Sodium Chloride 0.9% 100 ML IVPB SCH ×2 (02:04→10:16)
[2019-11-13] MEDS: Sodium Chloride 0.9% 1,000 ML IV SCH (04:28)
--- NOTE | 2019-11-13 09:14 | PDOC.HOSPP ---
- Subjective Encounter Date: 11/13/19 Encounter Time: 09:05 Subjective: f/u for sepsis suspected due to PNA on Cefepime/Vancomycin. Lethargic this am after receiving Trazodone overnight. Received IV Iron infusion yesterday. - Objective Vital Signs & Weight: Vital Signs (12 hours) Temp Pulse Resp BP Pulse Ox 11/13/19 07:59 98.6 F 76 20 128/85 100 11/13/19 04:33 98.2 F 75 16 124/73 100 11/13/19 00:00 97.5 F L 74 16 121/79 100 Weight Admit Weight 177 lb Weight 177 lb 3.2 oz I&O: 11/12/19 11/13/19 11/14/19 06:59 06:59 06:59 Intake Total 1400 2837 Output Total 300 650 Balance 1100 2187 Result Diagrams: 11/13/19 09:51 11/13/19 09:51 Additional Labs: Accuchecks 11/13/19 11/12/19 11/12/19 05:16 18:44 10:44 POC Glucose 127 H 117 H 146 H Microbiology 08/22/19 12:05 Urine voided Urine Culture - Final NO GROWTH AT 36 HOURS 11/11/19 00:24 Urine voided Urine Culture - Preliminary 11/10/19 19:00 Venous blood - Left Arm Blood Culture - Preliminary Specimen has been received and culture in progress. No Growth to date. 11/10/19 18:55 Venous blood - Left Hand Blood Culture - Preliminary Specimen has been received and culture in progress. No Growth to date. 08/21/19 13:35 Venous blood - Right Hand Blood Culture - Preliminary NO GROWTH AT 48 HOURS 08/21/19 13:30 Venous blood - Right Arm Blood Culture - Preliminary NO GROWTH AT 48 HOURS Laboratory Tests 08/22/19 08/22/19 08/23/19 05:33 05:33 06:04 WBC 8.5 Hgb Neutrophils % Retic Count Potassium Carbon Dioxide 18 L 18 L Creatinine 1.83 H 1.57 H Magnesium Iron Ferritin COVID-19 PCR 08/23/19 08/24/19 08/24/19 06:04 05:41 05:41 WBC 9.5 12.1 H Hgb Neutrophils % Retic Count Potassium Carbon Dioxide 13 L Creatinine 1.31 H Magnesium Iron Ferritin COVID-19 PCR 10/26/19 11/02/19 11/10/19 03:10 04:00 19:00 WBC Hgb 8.1 L 8.6 L 7.3 L Neutrophils % Retic Count Potassium Carbon Dioxide Creatinine Magnesium Iron Ferritin COVID-19 PCR 11/10/19 11/11/19 11/11/19 19:00 04:30 05:14 WBC Hgb Neutrophils % Retic Count Potassium 4.8 Carbon Dioxide 15 L Creatinine 1.48 H 1.31 H Magnesium 1.3 L Iron Ferritin COVID-19 PCR Not Detected 11/11/19 11/12/19 11/12/19 05:14 04:44 04:44 WBC Hgb 6.7 L Neutrophils % 70.4 74.8 Retic Count Potassium Carbon Dioxide Creatinine Magnesium 1.4 L Iron 26 L Ferritin COVID-19 PCR 11/12/19 11/12/19 04:44 04:44 WBC Hgb Neutrophils % Retic Count 2.7 H Potassium Carbon Dioxide Creatinine Magnesium Iron Ferritin 7872.36 H COVID-19 PCR EKG Reviewed by me: Yes (Tele - SR) Hospitalist ROS - Medication Medications: Active Medications Generic Name Dose Route Start Last Admin Trade Name Freq PRN Reason Stop Dose Admin Hydrocodone Bitart/Acetaminophen 1 tab 11/11/19 02:49 11/12/19 17:21 [place] 5/325 PO 1 tab Q4H PRN Administration Moderate Pain (4-6) Aspirin 81 mg 11/11/19 09:00 11/12/19 08:38 Ecotrin PO 81 mg DAILY KARLI Administration Carvedilol 6.25 mg 11/11/19 08:00 11/12/19 16:24 Coreg PO 6.25 mg BID-WM KARLI Administration Dronedarone 400 mg 11/11/19 08:00 11/12/19 16:24 Multaq PO 400 mg BID-WM KARLI Administration Enoxaparin Sodium 30 mg 11/11/19 09:00 11/12/19 08:38 Lovenox SC 30 mg 0900 KARLI Administration Famotidine 20 mg 11/11/19 09:00 11/12/19 21:16 Pepcid PO 20 mg BID KARLI Administration Gabapentin 300 mg 11/11/19 09:00 11/12/19 21:16 Neurontin PO Not Given TID KARLI Sodium Chloride 1,000 mls @ 75 mls/hr 11/11/19 03:00 11/13/19 04:28 Normal Saline 0.9% IV Not Given .[id number] KARLI Cefepime HCl 1 gm/ Sodium 100 mls @ 200 mls/hr 11/11/19 08:00 11/13/19 02:04 Chloride IVPB 100 mls 0200,0800,1400,2000 KARLI Administration Isosorbide Mononitrate 30 mg 11/11/19 09:00 11/12/19 08:39 Imdur Er PO 30 mg DAILY KARLI Administration Polyethylene Glycol 17 gm 11/11/19 09:00 11/12/19 08:38 Miralax PO 17 gm DAILY KARLI Administration Trazodone HCl 50 mg 11/11/19 21:00 11/12/19 21:16 Desyrel PO 50 mg QPM KARLI Administration - Exam General Appearance: ill appearing General - other findings: somnolent, responds slowly to name, mumbles Eye: PERRL, anicteric sclera ENT: normocephalic atraumatic, no oropharyngeal lesions, dry oral mucosa Neck: supple, symmetric, no JVD, no thyromegaly, no lymphadenopathy Heart: RRR, no gallops, no rubs, normal peripheral pulses Heart - other findings: S1, S2 Respiratory: CTAB, no wheezes, no rales Respiratory - other findings: diminished in bases Gastrointestinal: soft, non-tender, non-distended, normal bowel sounds, no palpable masses Extremities: no cyanosis, no clubbing Extremities - other findings: RLE BKA stump intact Skin: normal turgor Neurological: cranial nerve grossly intact, no new deficit Musculoskeletal: generalized weakness Psychiatric: flat affect, somnolent, lethargic Hosp A/P (1) Acute kidney injury superimposed on CKD Code(s): N17.9 - ACUTE KIDNEY FAILURE, UNSPECIFIED; N18.9 - CHRONIC KIDNEY DISEASE, UNSPECIFIED Status: Acute Plan: Awaiting new labs today, avoid nephrotoxic meds and limit contrast (2) Metabolic acidosis Code(s): E87.2 - ACIDOSIS Status: Acute Plan: Secondary to EUGENE, give 1amp sodium bicarbonate now, start D5W with 150meq sodium bicarbonate @ 100ml/h, consult Nephrology today (3) Hyperkalemia Code(s): E87.5 - HYPERKALEMIA Status: Acute Plan: Give Lasix 20mg IV x 1 now, Calcium Gluconate 1 amp now, sodium bicarbonate 1 amp now (4) RLL pneumonia Code(s): J18.9 - PNEUMONIA, UNSPECIFIED ORGANISM Status: Acute Plan: Continue Cefepime/Vancomycin, pulmonary supportive mgmt (5) Sepsis Code(s): A41.9 - SEPSIS, UNSPECIFIED ORGANISM Status: Acute (6) Anemia, normocytic normochromic Code(s): D64.9 - ANEMIA, UNSPECIFIED Status: Chronic Plan: H/H pending this am, s/p IV Iron infusion - Plan continue antibiotics, PT/OT, social studies teacher, speech therapy Stable currently Continue Cefepime, d/c Vancomycin Start D5W with sodium bicarbonate IVF's 1 amp Sodium bicarbonate now Calcium gluconate 1 amp now Check ABG now Consult Nephrology today COVID-19 ruled out D/C precautions Hold all psychotropics/sedating meds AM lab: BMP, CBC, Vanc trough, Mg++, PO3
[2019-11-13] MEDS ORDERED: HYDROcodone/Acetaminophen 5/325 mg Tablet PO PRN (09:18)
[2019-11-13] MEDS ORDERED: Vancomycin HCl 750 MG in Sodium Chloride 0.9% 250 ML 250 ML IVPB SCH (10:00)
[2019-11-13 10:02] LABS: #Eosinphils 0.1 thou/uL (0.0-0.7); #Lymphocytes 0.8 thou/uL (1.20-3.40); #Monocytes 0.5 thou/uL (0.11-0.59); #Neutrophils 9.5 thou/uL (1.40-6.50); %Basophils 0.1 % (0.0-1.0); %Eosinophils 0.7 % (0.0-10.0); %Lymphocytes 7.2 % (21.0-51.0); %Monocytes 4.7 % (0.0-10.0); %Neutrophils 87.4 % (42.0-75.0); Hemoglobin 8.2 g/dL (14.0-18.0); Mean Corpuscular HGB CONC 31.8 g/dL (32.0-36.0); Mean Corpuscular Hemoglobin 30.2 pg (27.0-31.0); Mean Corpuscular Volume 94.9 fL (78.0-98.0); Platelet Count 205 thou/uL (130-400); RBC Distribution Width 17.1 % (11.5-14.5); Red Blood Cell (RBC) Count 2.72 mill/uL (4.70-6.10); White Blood Cell (WBC) Count 10.9 thou/uL (4.8-10.8)
[2019-11-13 10:24] LABS: Anion Gap 19 mmol/L (10-20); BUN (Urea Nitrogen) 47 mg/dL (8.4-25.7); Calc. Creatinine Clearance 34 mL/min (70-130); Calcium 8.2 mg/dL (7.8-10.44); Chloride 117 mmol/L (98-107); Estimated GFR-MDRD 30; Glucose 111 mg/dL (83-110); Potassium 5.9 mmol/L (3.5-5.1); Sodium 139 mmol/L (136-145)
[2019-11-13] MEDS: Carvedilol 6.25 MG TAB PO SCH ×2 (10:29→16:44)
[2019-11-13] MEDS: Dronedarone HCl 400 MG TAB PO SCH ×2 (10:29→16:44)
[2019-11-13] MEDS: Gabapentin 300 MG CAP PO SCH ×3 (10:30→21:27)
[2019-11-13] MEDS: Famotidine 20 MG TAB PO SCH (10:30)
[2019-11-13] MEDS: Polyethylene Glycol 3350 17 GM Packet PO SCH (10:30)
[2019-11-13] MEDS: Aspirin 81 mg Enteric Coated Tablet PO SCH (10:30)
[2019-11-13] MEDS: Enoxaparin Sodium 30 MG/0.3 ML SYRINGE SC SCH (10:31)
[2019-11-13 10:33] LABS: Carbon Dioxide 9 mmol/L (23-31)
[2019-11-13] MEDS ORDERED: Calcium Gluc 4.6 MEQ/10 ML (100 MG/ML) SLOW IVP SCH (10:42)
[2019-11-13] MEDS ORDERED: Furosemide 20 MG/2 ML VIAL SLOW IVP SCH (10:45)
[2019-11-13] MEDS ORDERED: Sodium Chloride 0.9% 1,000 ML IV SCH (10:45)
[2019-11-13] MEDS ORDERED: Sodium Bicarb 50 MEQ/50 ML Abboject 8.4% SYRINGE IVP SCH (11:00)
[2019-11-13 11:40] LABS: Actual Bicarbonate (HCO3a) 8.9 mEq/L (22-28); Analyzer IN Cardio OR; Base Excess (BEa) -15.2 mEq/L (-2.0 to +3.0); Calcium, Ionized (arterial) 1.15 mmol/L (1.12-1.30); Carboxyhemoglobin (COHb) 0.5 gm% (0.0-3.0); Potassium - ABG Lab 5.56 mmol/L (3.70-5.30); pH, Arterial 7.34 (7.35-7.45)
[2019-11-13 11:50] LABS: CO2 Tension 16.8 mmHg (35.0-45.0); Puncture Site LRA
--- NOTE | 2019-11-13 12:27 | ULT ---
ULTRASOUND RETROPERITONEUM COMPLETE: (RENAL) DATE: 11/13/2019 HISTORY: 73-year-old male with acute kidney injury. Rule out obstruction. FINDINGS: Right pleural effusion appears larger than on CT of 11/10/2019. Small amount of free fluid around the right lobe of liver, greater than on the previous CT. 2.5 x 2.5 x 2.5 cm slightly complex cyst at upper pole of right kidney with septations. Urinary bladder has diffuse mild mural thickening up to 7 mm thick. Bladder volume 250 mL. Right kidney measures 11 x 5 x 6.5 cm. Left kidney measures 10 x 6 x 5 cm. No hydronephrosis bilaterally. IMPRESSION: 1) no hydronephrosis. 2) small volume of ascites 3) right pleural effusion 4) diffuse mural thickening of urinary bladder. 5) small cyst at upper pole right kidney
--- NOTE | 2019-11-13 12:40 | CON ---
DATE OF CONSULTATION: 11/13/2019 CONSULTATION PHYSICIAN: Dr. Beckman. REASON FOR CONSULTATION: Acute kidney injury, hyperkalemia . REASON FOR ADMISSION: Fever, pain. HISTORY OF PRESENT ILLNESS: This is a 73-year-old male with history of coronary artery disease, chronic kidney disease, came to the hospital with fever, pain, weakness. He is being treated for pneumonia. He was found to have severe acidosis. His bicarb was around 18 to 15 on admission and dropped to 9. He was on IV fluids also being on antibiotics. The patient is not very responsive this morning, only to painful stimuli. PAST MEDICAL HISTORY: Positive for coronary artery disease, peripheral vascular disease, type 2 diabetes, chronic kidney disease stage 3, GERD, arthritis. PAST SURGICAL HISTORY: AVR, CABG, right BKA. HOME MEDICATIONS: Reviewed. ALLERGIES: TO CONTRAST, SHELLFISH, LATEX. SOCIAL HISTORY: No smoking, alcohol, or illicit drugs. FAMILY HISTORY: No history of kidney disease. REVIEW OF SYSTEMS: Cannot be obtained due to altered mentation. PHYSICAL EXAMINATION: GENERAL: This is an elderly male, very lethargic. VITAL SIGNS: Temperature 97.8, pulse 72 to 76, respiratory rate 20, blood pressure 137/79. HEENT: Atraumatic and normocephalic. NECK: Supple. CV: S1 and S2. RESPIRATORY: Clear. GI. Abdomen is soft. MUSCULOSKELETAL: 1+ edema. DERMATOLOGIC: No skin rash. NEUROLOGIC: Confused. LABORATORY DATA: Potassium is 5.9, bicarb is 9, BUN is 47, and creatinine is 2.1. ASSESSMENT AND PLAN: 1. Acute kidney injury. We will continue hydration. 2. Severe metabolic acidosis with respiratory alkalosis. Start on bicarbonate. 3. Hyperkalemia. Monitor. 4. Chronic anemia. 5. Altered mentation. Plan is to start on bicarb drip. Monitor renal function and electrolytes. We will follow. Thank you for the consult. Job ID: [id number] MTDD
[2019-11-13] MEDS: Sodium Bicarbonate 150 MEQ, Admixture Fee 1 EACH in Dextrose 5% in Water 1,000 ML IV SCH (14:56)
[2019-11-13 18:53] LABS: Anion Gap 20 mmol/L (10-20); BUN (Urea Nitrogen) 44 mg/dL (8.4-25.7); Calc. Creatinine Clearance 33 mL/min (70-130); Calcium 8.1 mg/dL (7.8-10.44); Carbon Dioxide 10 mmol/L (23-31); Chloride 116 mmol/L (98-107); Estimated GFR-MDRD 29; Glucose 122 mg/dL (83-110); Potassium 5.5 mmol/L (3.5-5.1); Sodium 140 mmol/L (136-145)
[2019-11-13] MEDS: traZODone HCl 50 MG TAB PO SCH (21:27)
[2019-11-14] MEDS: Sodium Bicarbonate 150 MEQ, Admixture Fee 1 EACH in Dextrose 5% in Water 1,000 ML IV SCH ×2 (02:23→16:51)
[2019-11-14 05:56] LABS: Band 16 % (5-11); Eosinophils 4 % (0-10); Hemoglobin 8.8 g/dL (14.0-18.0); Lymphocytes 7 % (21-51); MDiff Complete? YES; Mean Corpuscular HGB CONC 33.2 g/dL (32.0-36.0); Mean Corpuscular Hemoglobin 31.6 pg (27.0-31.0); Mean Corpuscular Volume 95.2 fL (78.0-98.0); Mean Platelet Volume 8.8 fL (7.4-10.4); Monocytes 2 % (0-10); Myelocyte 2 % (0-0); Neutrophil 69 % (42-75); Platelet Count 156 thou/uL (130-400); RBC Distribution Width 17.4 % (11.5-14.5); Red Blood Cell (RBC) Count 2.78 mill/uL (4.70-6.10); White Blood Cell (WBC) Count 7.6 thou/uL (4.8-10.8)
[2019-11-14 07:12] LABS: Anion Gap 15 mmol/L (10-20); BUN (Urea Nitrogen) 49 mg/dL (8.4-25.7); Calc. Creatinine Clearance 31 mL/min (70-130); Calcium 7.9 mg/dL (7.8-10.44); Carbon Dioxide 16 mmol/L (23-31); Chloride 114 mmol/L (98-107); Estimated GFR-MDRD 27; Glucose 166 mg/dL (83-110); Magnesium 1.8 mg/dL (1.6-2.6); Potassium 4.4 mmol/L (3.5-5.1); Sodium 141 mmol/L (136-145)
[2019-11-14] MEDS: Enoxaparin Sodium 30 MG/0.3 ML SYRINGE SC SCH (10:10)
[2019-11-14] MEDS: Cefepime 1 GM in Sodium Chloride 0.9% 100 ML IVPB SCH (10:10)
[2019-11-14] MEDS: Aspirin 81 mg Enteric Coated Tablet PO SCH (10:12)
[2019-11-14] MEDS: Dronedarone HCl 400 MG TAB PO SCH ×2 (10:12→17:15)
[2019-11-14] MEDS: Carvedilol 6.25 MG TAB PO SCH ×2 (10:12→17:15)
[2019-11-14] MEDS: Gabapentin 300 MG CAP PO SCH ×3 (10:13→20:17)
[2019-11-14] MEDS: Famotidine 20 MG TAB PO SCH (10:13)
[2019-11-14] MEDS: Polyethylene Glycol 3350 17 GM Packet PO SCH (10:15)
--- NOTE | 2019-11-14 14:28 | PDOC.HOSPP ---
- Subjective Encounter Date: 11/14/19 Encounter Time: 14:30 Subjective: f/u for AMS, EUGENE and metabolic acidosis. - Objective Vital Signs & Weight: Vital Signs (12 hours) Temp Pulse Resp BP Pulse Ox 11/14/19 11:23 97.6 F 70 20 151/81 H 100 11/14/19 08:00 100 11/14/19 07:23 98.2 F 70 20 147/79 H 100 11/14/19 03:02 98.5 F 108 H 20 139/84 100 Weight Admit Weight 177 lb Weight 177 lb 3.2 oz I&O: 11/13/19 11/14/19 11/15/19 06:59 06:59 06:59 Intake Total 2837 1180 Output Total 650 Balance 2187 1180 Result Diagrams: 11/14/19 05:01 11/14/19 06:36 Additional Labs: Accuchecks 11/14/19 11/14/19 11/13/19 10:43 05:15 16:47 POC Glucose 190 H 174 H 148 H Microbiology 08/22/19 12:05 Urine voided Urine Culture - Final NO GROWTH AT 36 HOURS 11/11/19 00:24 Urine voided Urine Culture - Preliminary 11/10/19 19:00 Venous blood - Left Arm Blood Culture - Preliminary Specimen has been received and culture in progress. No Growth to date. 11/10/19 18:55 Venous blood - Left Hand Blood Culture - Preliminary Specimen has been received and culture in progress. No Growth to date. 08/21/19 13:35 Venous blood - Right Hand Blood Culture - Preliminary NO GROWTH AT 48 HOURS 08/21/19 13:30 Venous blood - Right Arm Blood Culture - Preliminary NO GROWTH AT 48 HOURS Laboratory Tests 08/22/19 08/22/19 08/23/19 05:33 05:33 06:04 WBC 8.5 Hgb Neutrophils % Retic Count Potassium Carbon Dioxide 18 L 18 L BUN Creatinine 1.83 H 1.57 H Phosphorus Magnesium Iron Ferritin COVID-19 PCR 08/23/19 08/24/19 08/24/19 06:04 05:41 05:41 WBC 9.5 12.1 H Hgb Neutrophils % Retic Count Potassium Carbon Dioxide 13 L BUN Creatinine 1.31 H Phosphorus Magnesium Iron Ferritin COVID-19 PCR 10/26/19 11/02/19 11/10/19 03:10 04:00 19:00 WBC Hgb 8.1 L 8.6 L 7.3 L Neutrophils % Retic Count Potassium Carbon Dioxide BUN Creatinine Phosphorus Magnesium Iron Ferritin COVID-19 PCR 11/10/19 11/11/19 11/11/19 19:00 04:30 05:14 WBC Hgb Neutrophils % Retic Count Potassium 4.8 Carbon Dioxide 15 L BUN Creatinine 1.48 H 1.31 H Phosphorus Magnesium 1.3 L Iron Ferritin COVID-19 PCR Not Detected 11/11/19 11/12/19 11/12/19 05:14 04:44 04:44 WBC Hgb 6.7 L Neutrophils % 70.4 74.8 Retic Count Potassium Carbon Dioxide BUN Creatinine Phosphorus Magnesium 1.4 L Iron 26 L Ferritin COVID-19 PCR 11/12/19 11/12/19 11/13/19 04:44 04:44 09:51 WBC Hgb 8.2 L Neutrophils % Retic Count 2.7 H Potassium Carbon Dioxide BUN Creatinine Phosphorus Magnesium Iron Ferritin 7872.36 H COVID-19 PCR 11/13/19 11/14/19 11/14/19 18:24 06:36 06:36 WBC Hgb Neutrophils % Retic Count Potassium 5.5 H Carbon Dioxide 10 L BUN 44 H Creatinine 2.23 H Phosphorus 4.0 Magnesium 1.8 Iron Ferritin COVID-19 PCR Radiology Reviewed by me: Yes (Renal sono - no hydronephrosis) EKG Reviewed by me: Yes (Tele - ) Hospitalist ROS - Medication Medications: Active Medications Generic Name Dose Route Start Last Admin Trade Name Freq PRN Reason Stop Dose Admin Aspirin 81 mg 11/11/19 09:00 11/14/19 10:12 Ecotrin PO Not Given DAILY [facility] Carvedilol 6.25 mg 11/11/19 08:00 11/14/19 10:12 Coreg PO Not Given BID-WM [facility] Dronedarone 400 mg 11/11/19 08:00 11/14/19 10:12 Multaq PO Not Given BID-WM [facility] Enoxaparin Sodium 30 mg 11/11/19 09:00 11/14/19 10:10 Lovenox SC 30 mg 0900 [facility] Administration Famotidine 20 mg 11/14/19 09:00 11/14/19 10:13 Pepcid PO Not Given DAILY [facility] Gabapentin 300 mg 11/11/19 09:00 11/14/19 10:13 Neurontin PO Not Given TID [facility] Sodium Bicarbonate 150 meq/ 1,150 mls @ 100 mls/hr 11/13/19 11:00 11/14/19 02 :23 Miscellaneous Medication 1 IV 1,150 mls each/ Dextrose/Water .[id number] [facility] Administration Cefepime HCl 1 gm/ Sodium 100 mls @ 200 mls/hr 11/14/19 10:00 11/14/19 10:10 Chloride IVPB 100 mls 1000 [facility] Administration Isosorbide Mononitrate 30 mg 11/11/19 09:00 11/14/19 10:13 Imdur Er PO Not Given DAILY [facility] Polyethylene Glycol 17 gm 11/11/19 09:00 11/14/19 10:15 Miralax PO Not Given DAILY [facility] Sodium Chloride 10 ml 11/13/19 21:00 11/14/19 10:11 Flush - Normal Saline IVF 10 ml Q12HR [facility] Administration Trazodone HCl 50 mg 11/11/19 21:00 11/13/19 21:27 Desyrel PO Not Given QPM [facility] - Exam General Appearance: ill appearing General - other findings: somnolent Eye: PERRL, anicteric sclera ENT: normocephalic atraumatic, no oropharyngeal lesions Neck: supple, symmetric, no JVD, no thyromegaly, no lymphadenopathy Heart: RRR, no gallops, no rubs, normal peripheral pulses Heart - other findings: S1, S2 Respiratory: no wheezes Respiratory - other findings: diminished in R base Gastrointestinal: soft, non-tender, non-distended, normal bowel sounds, no palpable masses Extremities: no cyanosis, no clubbing Extremities - other findings: R BKA intact Skin: normal turgor Musculoskeletal: generalized weakness Psychiatric: oriented to person, flat affect, somnolent, lethargic Hosp A/P (1) Acute metabolic encephalopathy Code(s): G93.41 - METABOLIC ENCEPHALOPATHY Status: Acute Plan: Likely multifactorial process, continue mgmt as outlined below, check CT brain today (2) Acute kidney injury superimposed on CKD Code(s): N17.9 - ACUTE KIDNEY FAILURE, UNSPECIFIED; N18.9 - CHRONIC KIDNEY DISEASE, UNSPECIFIED Status: Acute Plan: Continue IVF's, avoid nephrotoxic meds and limit contrast exposure (3) Metabolic acidosis Code(s): E87.2 - ACIDOSIS Status: Acute Plan: Improved, continue IVF's with sodium bicarbonate gtt (4) Hyperkalemia Code(s): E87.5 - HYPERKALEMIA Status: Acute Plan: Improved, continue current mgmt (5) RLL pneumonia Code(s): J18.9 - PNEUMONIA, UNSPECIFIED ORGANISM Status: Acute Plan: Likely due to chronic R pleural effusion (6) Sepsis Code(s): A41.9 - SEPSIS, UNSPECIFIED ORGANISM Status: Acute (7) Anemia, normocytic normochromic Code(s): D64.9 - ANEMIA, UNSPECIFIED Status: Chronic Plan: s/p IV Iron infusion - Plan continue antibiotics, PT/OT, social contact worker, speech therapy, DVT proph w/SCDs Stable currently Continue Cefepime, d/c Vancomycin Continue D5W with sodium bicarbonate IVF's Nephrology consult appreciated COVID-19 ruled out D/C precautions Hold all psychotropics/sedating meds Check CT brain today AM lab: BMP, CBC, Vanc trough, Mg++, PO3
--- NOTE | 2019-11-14 16:38 | CT ---
CT HEAD WITHOUT CONTRAST: 11/14/19 INDICATIONS: Change in mental status. COMPARISON: Comparison made to head CT of 08/22/19. Mild cortical atrophy. Mild chronic ischemic changes are stable. No mass, infarct, hemorrhage, or oth er acute process. No interval change. Sinuses remain clear. IMPRESSION: No acute process. POS: AGW
--- NOTE | 2019-11-14 17:03 | PRG ---
DATE OF SERVICE: 11/14/2019 SUBJECTIVE: Patient was seen and examined at bedside. He is confused. OBJECTIVE: GENERAL: This is a well-built male who is confused. VITAL SIGNS: Temperature 98.4. Heart rate 63. Respiratory rate 20. Blood pressure 143/68. HEENT: Atraumatic, normocephalic. Oral mucosa is moist. NECK: Supple. CARDIOVASCULAR: S1, S2 heard. Rate and rhythm regular. RESPIRATORY: Clear to auscultation. GASTROINTESTINAL: Abdomen is soft. MUSCULOSKELETAL: No tenderness. No edema. DERMATOLOGIC: No skin rash. NEUROLOGIC: confused. LABORATORY DATA: Potassium is 4.4, BUN is 49, creatinine is 2.3. ASSESSMENT AND PLAN: 1. Acute kidney injury, stable. 2. Hyperkalemia, better. 3. Acidosis. 4. Altered mentation, not much better. 5. Chronic anemia. Acidosis labs are better, but renal function continues to get worse. Mentation not better. We will continue to monitor. Continue supportive care. Job ID: [id number] [facility]
[2019-11-14] MEDS: traZODone HCl 50 MG TAB PO SCH (20:17)
[2019-11-15] MEDS: Sodium Bicarbonate 150 MEQ, Admixture Fee 1 EACH in Dextrose 5% in Water 1,000 ML IV SCH (04:12)
[2019-11-15] MEDS: Carvedilol 6.25 MG TAB PO SCH ×2 (08:01→16:14)
[2019-11-15] MEDS: Aspirin 81 mg Enteric Coated Tablet PO SCH (08:01)
[2019-11-15] MEDS: Famotidine 20 MG TAB PO SCH (08:01)
[2019-11-15] MEDS: Dronedarone HCl 400 MG TAB PO SCH ×2 (08:01→16:14)
[2019-11-15] MEDS: Gabapentin 300 MG CAP PO SCH ×3 (08:02→20:57)
[2019-11-15] MEDS: Polyethylene Glycol 3350 17 GM Packet PO SCH (08:03)
[2019-11-15 08:06] LABS: Albumin 2.7 g/dL (3.4-4.8)
[2019-11-15 08:07] LABS: Chloride 112 mmol/L (98-107); Potassium 3.5 mmol/L (3.5-5.1); Sodium 143 mmol/L (136-145)
[2019-11-15 08:08] LABS: Calcium 7.7 mg/dL (7.8-10.44)
[2019-11-15 08:09] LABS: Globulin 2.4 g/dL (2.4-3.5); Glucose 150 mg/dL (83-110); Protein, Total 5.1 g/dL (5.8-8.1)
[2019-11-15 08:10] LABS: Anion Gap 16 mmol/L (10-20); Bilirubin, Total 1.1 mg/dL (0.2-1.2); Carbon Dioxide 19 mmol/L (23-31)
[2019-11-15 08:11] LABS: Alkaline Phosphatase 118 U/L (40-110)
[2019-11-15 08:12] LABS: Calc. Creatinine Clearance 43 mL/min (70-130); Estimated GFR-MDRD 39
[2019-11-15 08:13] LABS: BUN (Urea Nitrogen) 37 mg/dL (8.4-25.7)
[2019-11-15 08:14] LABS: ALT (SGPT) 2101 U/L (8-55); AST (SGOT) 640 U/L (5-34); Magnesium 1.6 mg/dL (1.6-2.6)
[2019-11-15] MEDS: Enoxaparin Sodium 30 MG/0.3 ML SYRINGE SC SCH (08:45)
--- NOTE | 2019-11-15 10:57 | ULT ---
EXAM: US Abdominal CLINICAL HISTORY: Acute hepatitis. COMPARISON: 02/08/2019 FINDINGS: Pancreas: The head and body the pancreas have a normal echotexture. The remainder the pancreas is ob scured by bowel gas IVC: Visualized IVC has a normal caliber. Aorta: Visualized aorta has a normal caliber. Liver:Normal hepatic parenchymal echotexture. No hepatic masses or intrahepatic biliary dilatation. T he contour of the hepatic margin is maintained. Right hepatic lobe measures 19.8 cm. There does appear to be a small amount of perihepatic free fluid. Gallbladder: No sonographic evidence of cholelithiasis, gallbladder wall thickening or pericholecysti c fluid. Evaluation is limited due to patient's inability to be placed in left lateral decubitus position. Lion's sign:Not commented upon CBD: 0.9 cm common bile duct diameter Portal vein: Patent. Appropriate directional flow. Right kidney: Hypoechoic focus in the upper pole the right kidney measuring 1.6 x 1.8 x 2.3 cm is sim ilar to the previous examination. Previously, the hypoechoic focus measures 1.7 x 2.0 x 2.5 cm.. Right kidney measuring 12.0 x 4.5 x 5.1 cm in length. Left kidney: Cannot be appreciated due to patient's inability to the rolled in position. Left kidney is obscured by shadowing. Free fluid: There is a small amount of free fluid in the right upper quadrant, left upper quadrant an d left lower quadrant. Spleen: Obscured by bowel gas IMPRESSION: 1. Hepatomegaly 2. Small amount of free fluid in the abdomen 3. Stable complex right renal cyst. 4. Limited evaluation of the left kidney and spleen as well as the gallbladder due to patient's inabi lity to follow commands.
[2019-11-15] MEDS ORDERED: Potassium Chloride 20 MEQ TAB PO SCH (11:00)
[2019-11-15] MEDS ORDERED: Sodium Bicarbonate Tab 325 MG TAB PO SCH (11:00)
--- NOTE | 2019-11-15 11:09 | PRG ---
DATE OF SERVICE: 11/15/2019 SUBJECTIVE: Patient was seen and examined at bedside. He is confused. OBJECTIVE: GENERAL: This is well-built male who is confused. VITAL SIGNS: reviewed, Blood pressure 136/69. HEENT: Atraumatic, normocephalic. Oral mucosa is moist. NECK: Supple. CARDIOVASCULAR: S1, S2 heard. Rate and rhythm regular. RESPIRATORY: Clear to auscultation. GASTROINTESTINAL: Abdomen is soft. MUSCULOSKELETAL: No tenderness. No edema. DERMATOLOGIC: No skin rash. NEUROLOGIC: confused. LABORATORY DATA: Potassium 3.5, BUN is 37, and creatinine is 1.7. ASSESSMENT AND PLAN: 1. Acute kidney injury on chronic kidney disease, stage 3, stable. Creatinine is much better. 2. Hyperkalemia, better. 3. Acidosis, stable on bicarb drip. We will monitor. 4. Altered mentation, better. 5. Anemia of chronic disease. 6. Monitor potassium closely. We will give a dose of potassium today. Monitor. Job ID: [id number] [facility]
[2019-11-15 11:15] LABS: Hemoglobin 8.1 g/dL (14.0-18.0); Mean Corpuscular HGB CONC 32.4 g/dL (32.0-36.0); Mean Corpuscular Hemoglobin 30.3 pg (27.0-31.0); Mean Corpuscular Volume 93.6 fL (78.0-98.0); Red Blood Cell (RBC) Count 2.69 mill/uL (4.70-6.10); White Blood Cell (WBC) Count 5.7 thou/uL (4.8-10.8)
[2019-11-15] MEDS: Cefepime 1 GM in Sodium Chloride 0.9% 100 ML IVPB SCH (11:39)
[2019-11-15 11:50] LABS: HBCM Index 0.06 S/CO (0-0.79); HBSAg Index 0.23 S/CO (0-0.99); Hep A IgM AB Non-Reactive (NonReactive); Hep B Surf Ag Non-Reactive S/CO (NonReactive); Hep C IgG Ab Non-Reactive (NonReactive); Hep C Index 0.09 S/CO (0-0.79); Hepatitis B Core IgM Abs Non-Reactive (NonReactive)
[2019-11-15 12:33] LABS: Band 3 % (5-11); Eosinophils 11 % (0-10); Lymphocytes 10 % (21-51); MDiff Complete? YES; Mean Platelet Volume 9.5 fL (7.4-10.4); Monocytes 10 % (0-10); Neutrophil 65 % (42-75); Platelet Count 90 thou/uL (130-400); Platelet Morphology Comment Appears Decreased; Polychromasia SLIGHT = 2-3 cells (100X) (0-2/hpf); RBC Distribution Width 17.2 % (11.5-14.5); Reactive Lymphocytes 1 % (0-10); Schistocytes SLIGHT = 2-5 cells (100X) (0-1/hpf)
--- NOTE | 2019-11-15 13:34 | PDOC.HOSPP ---
- Subjective Encounter Date: 11/15/19 Encounter Time: 13:30 Subjective: f/u for AMS/EUGENE/metabolic acidosis receiving IVF's with sodium bicarbonate. Nursing reports pt still lethargic, states a few words but remains confused. - Objective Vital Signs & Weight: Vital Signs (12 hours) Temp Pulse Pulse Pulse Resp BP BP 11/15/19 11:25 97.6 F 61 16 11/15/19 10:19 58 L 58 L 146/70 H 136/69 11/15/19 07:17 98.5 F 65 18 11/15/19 04:00 99.4 F 64 18 BP Pulse Ox 11/15/19 11:25 152/74 H 100 11/15/19 10:19 11/15/19 07:17 136/69 100 11/15/19 04:00 148/75 H 100 Weight Admit Weight 177 lb Weight 177 lb 3.2 oz I&O: 11/14/19 11/15/19 11/16/19 06:59 06:59 06:59 Intake Total 1180 2110 Balance 1180 2110 Result Diagrams: 11/15/19 10:46 11/15/19 07:29 Additional Labs: Accuchecks 11/15/19 11/15/19 11/14/19 10:19 05:45 23:39 POC Glucose 160 H 151 H 164 H 11/14/19 16:35 POC Glucose 164 H Microbiology 08/22/19 12:05 Urine voided Urine Culture - Final NO GROWTH AT 36 HOURS 11/11/19 00:24 Urine voided Urine Culture - Preliminary 11/10/19 19:00 Venous blood - Left Arm Blood Culture - Preliminary Specimen has been received and culture in progress. No Growth to date. 11/10/19 18:55 Venous blood - Left Hand Blood Culture - Preliminary Specimen has been received and culture in progress. No Growth to date. 08/21/19 13:35 Venous blood - Right Hand Blood Culture - Preliminary NO GROWTH AT 48 HOURS 08/21/19 13:30 Venous blood - Right Arm Blood Culture - Preliminary NO GROWTH AT 48 HOURS Laboratory Tests 08/22/19 08/22/19 08/23/19 05:33 05:33 06:04 WBC 8.5 Hgb Neutrophils % Retic Count Potassium Carbon Dioxide 18 L 18 L BUN Creatinine 1.83 H 1.57 H Phosphorus Magnesium Iron Ferritin AST ALT Alkaline Phosphatase Lipase COVID-19 PCR Hepatitis A IgM Ab Hep Bs Antigen Hep B Core IgM Ab Hepatitis C Antibody 08/23/19 08/24/19 08/24/19 06:04 05:41 05:41 WBC 9.5 12.1 H Hgb Neutrophils % Retic Count Potassium Carbon Dioxide 13 L BUN Creatinine 1.31 H Phosphorus Magnesium Iron Ferritin AST ALT Alkaline Phosphatase Lipase COVID-19 PCR Hepatitis A IgM Ab Hep Bs Antigen Hep B Core IgM Ab Hepatitis C Antibody 10/26/19 11/02/19 11/10/19 03:10 04:00 19:00 WBC Hgb 8.1 L 8.6 L 7.3 L Neutrophils % Retic Count Potassium Carbon Dioxide BUN Creatinine Phosphorus Magnesium Iron Ferritin AST ALT Alkaline Phosphatase Lipase COVID- PCR Hepatitis A IgM Ab Hep Bs Antigen Hep B Core IgM Ab Hepatitis C Antibody 11/10/19 11/11/19 11/11/19 19:00 04:30 05:14 WBC Hgb Neutrophils % Retic Count Potassium 4.8 Carbon Dioxide 15 L BUN Creatinine 1.48 H 1.31 H Phosphorus Magnesium 1.3 L Iron Ferritin AST 11 ALT 16 Alkaline Phosphatase 76 Lipase COVID-19 PCR Not Detected Hepatitis A IgM Ab Hep Bs Antigen Hep B Core IgM Ab Hepatitis C Antibody 11/11/19 11/12/19 11/12/19 05:14 04:44 04:44 WBC Hgb 6.7 L Neutrophils % 70.4 74.8 Retic Count Potassium Carbon Dioxide BUN Creatinine Phosphorus Magnesium 1.4 L Iron 26 L Ferritin AST ALT Alkaline Phosphatase Lipase COVID- PCR Hepatitis A IgM Ab Hep Bs Antigen Hep B Core IgM Ab Hepatitis C Antibody 11/12/19 11/12/19 11/13/19 04:44 04:44 09:51 WBC Hgb 8.2 L Neutrophils % Retic Count 2.7 H Potassium Carbon Dioxide BUN Creatinine Phosphorus Magnesium Iron Ferritin 7872.36 H AST ALT Alkaline Phosphatase Lipase COVID-19 PCR Hepatitis A IgM Ab Hep Bs Antigen Hep B Core IgM Ab Hepatitis C Antibody 11/13/19 11/14/19 11/14/19 18:24 06:36 06:36 WBC Hgb Neutrophils % Retic Count Potassium 5.5 H Carbon Dioxide 10 L BUN 44 H Creatinine 2.23 H Phosphorus 4.0 Magnesium 1.8 Iron Ferritin AST ALT Alkaline Phosphatase Lipase COVID-19 PCR Hepatitis A IgM Ab Hep Bs Antigen Hep B Core IgM Ab Hepatitis C Antibody 11/15/19 11/15/19 11/15/19 07:29 10:46 10:46 WBC Hgb Neutrophils % Retic Count Potassium Carbon Dioxide BUN Creatinine Phosphorus Magnesium Iron Ferritin AST 640 H ALT 2101 H Alkaline Phosphatase 118 H Lipase 46 COVID-19 PCR Hepatitis A IgM Ab Non-Reactive Hep Bs Antigen Non-Reactive Hep B Core IgM Ab Non-Reactive Hepatitis C Antibody Non-Reactive Radiology Reviewed by me: Yes (ABD sono - no acute process, CT brain - no acute process) EKG Reviewed by me: Yes (Tele - SR) Hospitalist ROS - Medication Medications: Active Medications Generic Name Dose Route Start Last Admin Trade Name Freq PRN Reason Stop Dose Admin Aspirin 81 mg 11/11/19 09:00 11/15/19 08:01 Ecotrin PO Not Given DAILY [facility] Carvedilol 6.25 mg 11/11/19 08:00 11/15/19 08:01 Coreg PO Not Given BID-WM [facility] Dronedarone 400 mg 11/11/19 08:00 11/15/19 08:01 Multaq PO Not Given BID-WM [facility] Enoxaparin Sodium 30 mg 11/11/19 09:00 11/15/19 08:45 Lovenox SC 30 mg 0900 [facility] Administration Famotidine 20 mg 11/14/19 09:00 11/15/19 08:01 Pepcid PO Not Given DAILY [facility] Gabapentin 300 mg 11/11/19 09:00 11/15/19 08:02 Neurontin PO Not Given TID [facility] Cefepime HCl 1 gm/ Sodium 100 mls @ 200 mls/hr 11/14/19 10:00 11/15/19 11:39 Chloride IVPB 100 mls 1000 [facility] Administration Isosorbide Mononitrate 30 mg 11/11/19 09:00 11/15/19 08:03 Imdur Er PO Not Given DAILY [facility] Polyethylene Glycol 17 gm 11/11/19 09:00 11/15/19 08:03 Miralax PO Not Given DAILY [facility] Sodium Chloride 10 ml 11/13/19 21:00 11/15/19 08:45 Flush - Normal Saline IVF Not Given Q12HR [facility] Trazodone HCl 50 mg 11/11/19 21:00 11/14/19 20:17 Desyrel PO Not Given QPM [facility] - Exam General Appearance: NAD General - other findings: somnolent, opens eyes briefly to name/contact Eye: PERRL, anicteric sclera ENT: normocephalic atraumatic, no oropharyngeal lesions Neck: supple, symmetric, no JVD, no thyromegaly, no lymphadenopathy Heart: RRR, no gallops, no rubs, diminshed peripheral pulses Heart - other findings: S1, S2 Respiratory: no wheezes, no rales, no ronchi Respiratory - other findings: diminished in R base Gastrointestinal: soft, non-distended, normal bowel sounds, no guarding, no rigidity Gastrointestinal - other findings: mild TTP in RUQ Extremities: no cyanosis, no clubbing Extremities - other findings: R BKA intact Skin: normal turgor Musculoskeletal: generalized weakness Psychiatric: oriented to person, somnolent, lethargic Hosp A/P (1) Acute metabolic encephalopathy Code(s): G93.41 - METABOLIC ENCEPHALOPATHY Status: Acute Plan: Unclear etiology, continue supportive mgmt, CT brain negative, tx underlying metabolic process (2) Acute kidney injury superimposed on CKD Code(s): N17.9 - ACUTE KIDNEY FAILURE, UNSPECIFIED; N18.9 - CHRONIC KIDNEY DISEASE, UNSPECIFIED Status: Acute Plan: Improved, continue IVF's (3) Transaminitis Code(s): R74.0 - NONSPEC ELEV OF LEVELS OF TRANSAMNS & LACTIC ACID DEHYDRGNSE Status: Acute Plan: ? liver shock, ABD sono unrevealing, avoid hepatotoxic meds, serial LFT monitoring (4) Metabolic acidosis Code(s): E87.2 - ACIDOSIS Status: Acute Plan: Improved with sodium bicarbonate infusion (5) Hyperkalemia Code(s): E87.5 - HYPERKALEMIA Status: Acute (6) RLL pneumonia Code(s): J18.9 - PNEUMONIA, UNSPECIFIED ORGANISM Status: Acute (7) Sepsis Code(s): A41.9 - SEPSIS, UNSPECIFIED ORGANISM Status: Acute (8) Anemia, normocytic normochromic Code(s): D64.9 - ANEMIA, UNSPECIFIED Status: Chronic - Plan continue antibiotics, PT/OT, social service assistant, speech therapy, DVT proph w/SCDs Stable currently Continue Cefepime, d/c Vancomycin Continue D5W with sodium bicarbonate IVF's weaning today Nephrology consult appreciated COVID-19 ruled out D/C precautions Hold all psychotropics/sedating meds AM lab: CMP, CBC, Mg++, PO3
[2019-11-15] MEDS ORDERED: Potassium Chloride 40 MEQ in Sodium Chloride 0.9% 250 ML 250 ML IVPB SCH (20:00)
[2019-11-15] MEDS: Sodium Bicarbonate Tab 325 MG TAB PO SCH (20:57)
[2019-11-15] MEDS: traZODone HCl 50 MG TAB PO SCH (20:57)
[2019-11-15] MEDS ORDERED: Acetaminophen 650 MG Suppository PR PRN (21:02)
[2019-11-16 05:25] LABS: Lactic Acid 1.5 mmol/L (0.5-2.2)
[2019-11-16 05:26] LABS: ALT (SGPT) 1603 U/L (8-55); AST (SGOT) 321 U/L (5-34); Albumin 2.7 g/dL (3.4-4.8); Alkaline Phosphatase 121 U/L (40-110); Anion Gap 15 mmol/L (10-20); BUN (Urea Nitrogen) 27 mg/dL (8.4-25.7); Bilirubin, Total 1.1 mg/dL (0.2-1.2); Calc. Creatinine Clearance 51 mL/min (70-130); Calcium 7.7 mg/dL (7.8-10.44); Carbon Dioxide 19 mmol/L (23-31); Chloride 113 mmol/L (98-107); Estimated GFR-MDRD 48; Globulin 2.9 g/dL (2.4-3.5); Glucose 108 mg/dL (83-110); Potassium 4.2 mmol/L (3.5-5.1); Protein, Total 5.6 g/dL (5.8-8.1); Sodium 143 mmol/L (136-145)
[2019-11-16 05:38] LABS: Hemoglobin 8.5 g/dL (14.0-18.0); Mean Corpuscular HGB CONC 35.1 g/dL (32.0-36.0); Mean Corpuscular Hemoglobin 34.4 pg (27.0-31.0); Mean Corpuscular Volume 98.1 fL (78.0-98.0); Mean Platelet Volume 12.7 fL (7.4-10.4); Platelet Count 24 thou/uL (130-400); RBC Distribution Width 17.8 % (11.5-14.5); Red Blood Cell (RBC) Count 2.47 mill/uL (4.70-6.10); White Blood Cell (WBC) Count 4.3 thou/uL (4.8-10.8)
[2019-11-16 06:07] LABS: Anisocytosis MODERATE=16-30 cells (100X) (0-5/hpf); Band 3 % (5-11); Eosinophils 2 % (0-10); Lymphocytes 21 % (21-51); MDiff Complete? YES; Monocytes 2 % (0-10); Neutrophil 72 % (42-75); Platelet Morphology Comment Appears Decreased
[2019-11-16 06:10] LABS: Phosphorus 1.7 mg/dL (2.3-4.7)
[2019-11-16] MEDS ORDERED: Potassium Phosphate 15 MMOL in Sodium Chloride 0.9% 250 ML 250 ML IVPB SCH (07:00)
--- NOTE | 2019-11-16 07:56 | PDOC.HOSPP ---
- Subjective Encounter Date: 11/16/19 Encounter Time: 07:45 Subjective: f/u for EUGENE/AMS and suspected sepsis due to PNA. Receiving IVF's/Cefepime but has had slow improvement in mental status. - Objective Vital Signs & Weight: Vital Signs (12 hours) Temp Pulse Resp BP Pulse Ox 11/16/19 04:38 98.5 F 77 20 151/73 H 100 11/15/19 23:47 98.9 F 76 18 141/78 H 99 11/15/19 20:40 100 11/15/19 20:21 98.7 F 62 18 148/73 H 100 Weight Admit Weight 177 lb Weight 177 lb 3.2 oz I&O: 11/15/19 11/16/19 11/17/19 06:59 06:59 06:59 Intake Total 2110 1370 Balance 2110 1370 Result Diagrams: 11/16/19 04:37 11/16/19 04:37 Additional Labs: Accuchecks 11/16/19 11/15/19 11/15/19 04:40 20:38 16:59 POC Glucose 110 137 H 123 H 11/15/19 10:19 POC Glucose 160 H Microbiology 08/22/19 12:05 Urine voided Urine Culture - Final NO GROWTH AT 36 HOURS 11/11/19 00:24 Urine voided Urine Culture - Preliminary 11/10/19 19:00 Venous blood - Left Arm Blood Culture - Preliminary Specimen has been received and culture in progress. No Growth to date. 11/10/19 18:55 Venous blood - Left Hand Blood Culture - Preliminary Specimen has been received and culture in progress. No Growth to date. 08/21/19 13:35 Venous blood - Right Hand Blood Culture - Preliminary NO GROWTH AT 48 HOURS 08/21/19 13:30 Venous blood - Right Arm Blood Culture - Preliminary NO GROWTH AT 48 HOURS Laboratory Tests 08/22/19 08/22/19 08/23/19 05:33 05:33 06:04 WBC 8.5 Hgb Plt Count Neutrophils % Band Neuts % (Manual) Retic Count Potassium Carbon Dioxide 18 L 18 L BUN Creatinine 1.83 H 1.57 H Lactic Acid Phosphorus Magnesium Iron Ferritin AST ALT Alkaline Phosphatase Ammonia Lipase COVID-19 PCR Hepatitis A IgM Ab Hep Bs Antigen Hep B Core IgM Ab Hepatitis C Antibody 08/23/19 08/24/19 08/24/19 06:04 05:41 05:41 WBC 9.5 12.1 H Hgb Plt Count Neutrophils % Band Neuts % (Manual) Retic Count Potassium Carbon Dioxide 13 L BUN Creatinine 1.31 H Lactic Acid Phosphorus Magnesium Iron Ferritin AST ALT Alkaline Phosphatase Ammonia Lipase COVID- PCR Hepatitis A IgM Ab Hep Bs Antigen Hep B Core IgM Ab Hepatitis C Antibody 10/26/19 11/02/19 11/10/19 03:10 04:00 19:00 WBC Hgb 8.1 L 8.6 L 7.3 L Plt Count Neutrophils % Band Neuts % (Manual) Retic Count Potassium Carbon Dioxide BUN Creatinine Lactic Acid Phosphorus Magnesium Iron Ferritin AST ALT Alkaline Phosphatase Ammonia Lipase ID- PCR Hepatitis A IgM Ab Hep Bs Antigen Hep B Core IgM Ab Hepatitis C Antibody 11/10/19 11/11/19 11/11/19 19:00 04:30 05:14 WBC Hgb Plt Count Neutrophils % Band Neuts % (Manual) Retic Count Potassium 4.8 Carbon Dioxide 15 L BUN Creatinine 1.48 H 1.31 H Lactic Acid Phosphorus Magnesium 1.3 L Iron Ferritin AST 11 ALT 16 Alkaline Phosphatase 76 Ammonia Lipase COVID- PCR Not Detected Hepatitis A IgM Ab Hep Bs Antigen Hep B Core IgM Ab Hepatitis C Antibody 11/11/19 11/12/19 11/12/19 05:14 04:44 04:44 WBC Hgb 6.7 L Plt Count Neutrophils % 70.4 74.8 Band Neuts % (Manual) Retic Count Potassium Carbon Dioxide BUN Creatinine Lactic Acid Phosphorus Magnesium 1.4 L Iron 26 L Ferritin AST ALT Alkaline Phosphatase Ammonia Lipase COVID- PCR Hepatitis A IgM Ab Hep Bs Antigen Hep B Core IgM Ab Hepatitis C Antibody 11/12/19 11/12/19 11/13/19 04:44 04:44 09:51 WBC Hgb 8.2 L Plt Count Neutrophils % Band Neuts % (Manual) Retic Count 2.7 H Potassium Carbon Dioxide BUN Creatinine Lactic Acid Phosphorus Magnesium Iron Ferritin 7872.36 H AST ALT Alkaline Phosphatase Ammonia Lipase COVID- PCR Hepatitis A IgM Ab Hep Bs Antigen Hep B Core IgM Ab Hepatitis C Antibody 11/13/19 11/14/19 11/14/19 18:24 05:01 06:36 WBC Hgb Plt Count 156 Neutrophils % Band Neuts % (Manual) 16 H Retic Count Potassium 5.5 H Carbon Dioxide 10 L BUN 44 H Creatinine 2.23 H Lactic Acid Phosphorus Magnesium 1.8 Iron Ferritin AST ALT Alkaline Phosphatase Ammonia Lipase COVID- PCR Hepatitis A IgM Ab Hep Bs Antigen Hep B Core IgM Ab Hepatitis C Antibody 11/14/19 11/15/19 11/15/19 06:36 07:29 10:46 WBC Hgb Plt Count 90 L Neutrophils % Band Neuts % (Manual) 3 L Retic Count Potassium Carbon Dioxide BUN Creatinine Lactic Acid Phosphorus 4.0 Magnesium Iron Ferritin AST 640 H ALT 2101 H Alkaline Phosphatase 118 H Ammonia Lipase COVID- PCR Hepatitis A IgM Ab Hep Bs Antigen Hep B Core IgM Ab Hepatitis C Antibody 11/15/19 11/15/19 11/16/19 10:46 10:46 04:37 WBC Hgb Plt Count Neutrophils % Band Neuts % (Manual) Retic Count Potassium Carbon Dioxide BUN Creatinine Lactic Acid 1.5 Phosphorus Magnesium Iron Ferritin AST ALT Alkaline Phosphatase Ammonia Lipase 46 COVID- PCR Hepatitis A IgM Ab Non-Reactive Hep Bs Antigen Non-Reactive Hep B Core IgM Ab Non-Reactive Hepatitis C Antibody Non-Reactive 11/16/19 11/16/19 11/16/19 04:37 04:37 04:37 WBC Hgb Plt Count Neutrophils % Band Neuts % (Manual) 3 L Retic Count Potassium Carbon Dioxide BUN Creatinine Lactic Acid Phosphorus Magnesium Iron Ferritin AST 321 H ALT 1603 H Alkaline Phosphatase 121 H Ammonia 57 Lipase COVID- PCR Hepatitis A IgM Ab Hep Bs Antigen Hep B Core IgM Ab Hepatitis C Antibody 11/16/19 04:37 WBC Hgb Plt Count Neutrophils % Band Neuts % (Manual) Retic Count Potassium Carbon Dioxide BUN Creatinine Lactic Acid Phosphorus 1.7 L Magnesium Iron Ferritin AST ALT Alkaline Phosphatase Ammonia Lipase COVID- PCR Hepatitis A IgM Ab Hep Bs Antigen Hep B Core IgM Ab Hepatitis C Antibody Radiology Reviewed by me: Yes (ABD sono - hepatomegaly, small amount of free fluid, patent portal vein) EKG Reviewed by me: Yes (Tele - SR) Hospitalist ROS - Medication Medications: Active Medications Generic Name Dose Route Start Last Admin Trade Name Freq PRN Reason Stop Dose Admin Aspirin 81 mg 11/11/19 09:00 11/15/19 08:01 Ecotrin PO Not Given DAILY KARLI Carvedilol 6.25 mg 11/11/19 08:00 11/15/19 16:14 Coreg PO Not Given BID-WM KARLI Dronedarone 400 mg 11/11/19 08:00 11/15/19 16:14 Multaq PO Not Given BID-WM [facility] Famotidine 20 mg 11/14/19 09:00 11/15/19 08:01 Pepcid PO Not Given DAILY [facility] Gabapentin 300 mg 11/11/19 09:00 11/15/19 20:57 Neurontin PO Not Given TID [facility] Cefepime HCl 1 gm/ Sodium 100 mls @ 200 mls/hr 11/14/19 10:00 11/15/19 11:39 Chloride IVPB 100 mls 1000 KARLI Administration Isosorbide Mononitrate 30 mg 11/11/19 09:00 11/15/19 08:03 Imdur Er PO Not Given DAILY [facility] Polyethylene Glycol 17 gm 11/11/19 09:00 11/15/19 08:03 Miralax PO Not Given DAILY [facility] Sodium Bicarbonate 650 mg 11/15/19 21:00 11/15/19 20:57 Bicarbonate, Sodium PO Not Given BID [facility] Sodium Chloride 10 ml 11/13/19 21:00 11/15/19 20:57 Flush - Normal Saline IVF Not Given Q12HR [facility] Trazodone HCl 50 mg 11/11/19 21:00 11/15/19 20:57 Desyrel PO Not Given QPM KARLI - Exam General Appearance: awake alert General - other findings: mumbles, tracks with eyes briefly Eye: PERRL, anicteric sclera ENT: normocephalic atraumatic, no oropharyngeal lesions Neck: supple, symmetric, no JVD, no thyromegaly, no lymphadenopathy Heart: RRR, no gallops, no rubs, normal peripheral pulses Heart - other findings: S1, S2 Respiratory: no wheezes, no tachypnea Respiratory - other findings: few coarse sounds bilat Gastrointestinal: soft, non-tender, non-distended, normal bowel sounds, no palpable masses Extremities: no cyanosis, no clubbing Extremities - other findings: R BKA with intact stump Skin: normal turgor Neurological: cranial nerve grossly intact Musculoskeletal: generalized weakness Psychiatric: oriented to person, flat affect, somnolent Hosp A/P (1) Acute metabolic encephalopathy Code(s): G93.41 - METABOLIC ENCEPHALOPATHY Status: Acute Plan: Persistent, mild improvement, supportive mgmt (2) Acute kidney injury superimposed on CKD Code(s): N17.9 - ACUTE KIDNEY FAILURE, UNSPECIFIED; N18.9 - CHRONIC KIDNEY DISEASE, UNSPECIFIED Status: Acute Plan: Improved, avoid nephrotoxic meds and limit contrast exposure (3) Transaminitis Code(s): R74.0 - NONSPEC ELEV OF LEVELS OF TRANSAMNS & LACTIC ACID DEHYDRGNSE Status: Acute Plan: Hepatic shock improving, supportive mgmt (4) Metabolic acidosis Code(s): E87.2 - ACIDOSIS Status: Acute Plan: Improved, continue sodium bicarbonate (5) Hyperkalemia Code(s): E87.5 - HYPERKALEMIA Status: Acute Plan: Resolved (6) Thrombocytopenia Code(s): D69.6 - THROMBOCYTOPENIA, UNSPECIFIED Status: Acute Plan: Likely iatrogenic, d/c Lovenox/ASA, serial monitoring (7) RLL pneumonia Code(s): J18.9 - PNEUMONIA, UNSPECIFIED ORGANISM Status: Acute Plan: Suspected, continue Cefepime (8) Sepsis Code(s): A41.9 - SEPSIS, UNSPECIFIED ORGANISM Status: Acute (9) Anemia, normocytic normochromic Code(s): D64.9 - ANEMIA, UNSPECIFIED Status: Chronic - Plan continue antibiotics, 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
[2019-11-16] MEDS: Carvedilol 6.25 MG TAB PO SCH ×2 (09:21→15:16)
[2019-11-16] MEDS: Dronedarone HCl 400 MG TAB PO SCH ×2 (09:22→15:16)
[2019-11-16] MEDS: Famotidine 20 MG TAB PO SCH (09:22)
[2019-11-16] MEDS: Gabapentin 300 MG CAP PO SCH ×3 (09:23→21:00)
[2019-11-16] MEDS: Polyethylene Glycol 3350 17 GM Packet PO SCH (09:23)
[2019-11-16] MEDS: Sodium Bicarbonate Tab 325 MG TAB PO SCH ×2 (09:24→21:00)
[2019-11-16] MEDS: Cefepime 1 GM in Sodium Chloride 0.9% 100 ML IVPB SCH (10:44)
[2019-11-16] MEDS: Scopolamine 1.5 mg/72 hour Patch TD SCH (10:45)
[2019-11-16] MEDS: Dextrose 5 % And 0.9 % NaCl 1,000 ML IV SCH (10:45)
--- NOTE | 2019-11-16 12:11 | CON ---
DATE OF CONSULTATION: REASON FOR CONSULTATION: Thrombocytopenia. HISTORY OF PRESENT ILLNESS: Mr. Apple is a gentleman with a past medical history of chronic kidney disease, peripheral arterial disease, and anemia of chronic disease, who presented to the emergency room for fever, abdominal pain, and weakness. Chest x-ray showed right lower lobe infiltrate, so he was admitted for pneumonia. He had a negative COVID-19 test. On admission, his white count was 10.7, hemoglobin was 7.3, and platelet count was normal at 312. Over the course of the next five days, his platelet count has slowly trended downward. On November 13 , it was 156,000. On the , it was 90,000, and today, it was 24,000. The patient had a recent hospitalization in October for C difficile colitis. In September, he had cellulitis of his right foot and had a below-knee amputation. He did receive heparin subcu injections in September during that visit, but on review of records, it appears he has had none since that time. The patient's LFTs are acutely elevated on November 14. He did have an abdominal ultrasound, which showed an enlarged liver measuring 19.3 cm. His spleen was not visualized due to bowel gas. The patient's mental status has, according to the records, slightly improved. However, he does not follow commands nor look at me with his name. He responds to noxious stimuli only. PAST MEDICAL HISTORY: 1. Coronary artery disease. 2. [place]. 3. Type 2 diabetes. 4. GERD. 5. Chronic kidney disease 3. 6. Peripheral arterial disease. 7. Renal cyst. 8. Hyperlipidemia. 9. Arthritis. PAST SURGICAL HISTORY: 1. AVR replacement. 2. CABG x4. 3. Right BKA. ALLERGIES: TO IODINE, LATEX, AND SHELLFISH. FAMILY HISTORY: Noncontributory. SOCIAL HISTORY: The patient is a longterm patient, living in [place]. CURRENT MEDICATIONS: 1. Ecotrin. 2. Coreg. 3. Cefepime. 4. Catapres. 5. Multaq. 6. Pepcid. 7. Neurontin. 8. Imdur. 9. Potassium. 10. Scopolamine. 11. Trazodone. 12. Lovenox. REVIEW OF SYSTEMS: Unable to obtain secondary to altered mental status. PHYSICAL EXAMINATION: VITAL SIGNS: Temperature is 99.2, pulse is 71, respiratory rate 20, and blood pressure is 151/78. He is 100% on room air. GENERAL: This is a chronically ill-appearing male, in no acute distress. HEENT: Normocephalic, atraumatic. Pupils are equal and reactive to light. CV: Regular rate and rhythm. LUNGS: Clear anterior. ABDOMEN: Mildly tender to palpation on the right upper quadrant. EXTREMITIES: He has no new clubbing or cyanosis in his left lower extremity. He has an Memo wrap to his right BKA. SKIN: No rash. HEMATOLOGICAL: No petechiae or purpura. NEUROLOGICAL: The patient does not follow commands. PERTINENT LABS AND X-RAYS: Current WBCs are 4.3, hemoglobin 8.5, hematocrit 24.2, platelet count is 24,000, 72% neutrophils, 3% bands, 21% lymphocytes. Sodium is 143, potassium 4.2, chloride 113, CO2 is 19, BUN is 27, creatinine 1.43, lactic acid 1.5, calcium 7.7, phosphorus 1.7, ferritin is 7872, serum iron is 26, bilirubin is 1.1, AST is 321, ALT is 1603, alkaline phosphatase is 121. Serum total protein is 5.6, albumin 2.9, globulin 2.9. COVID-19 is not detected. Hepatitis panel is negative. Radiology; brain CT showed no acute process. Abdominal ultrasound showed hepatomegaly. ASSESSMENT: 1. Acute thrombocytopenia. 2. Toxic-metabolic encephalopathy. 3. Clostridium difficile infection. 4. Acute transaminitis with hepatomegaly. DISCUSSION: Case has been discussed with Dr. Atkinson. The patient's HIT Expert Probability score is 4, which is intermediate. We will check HIT antibody testing and also a DIC panel. He does have acute hepatitis with hepatomegaly. Unfortunately, the spleen was unable to be visualized, but it may be slightly elevated as well, which could be contributing to his low platelet count. He does have sepsis with C difficile infection and pneumonia, may also be responsible for platelet drop. He has no active bleeding. No evidence of thrombus. We would recommend following his CBC and treat his underlining infections. We will follow along with his hospital course. Thank you for the consult. Job ID: [id number] MTDD
--- NOTE | 2019-11-16 12:54 | PRG ---
DATE OF SERVICE: 11/16/2019 SUBJECTIVE: The patient is confused. OBJECTIVE: GENERAL: This is a well-built male, in no apparent distress. VITAL SIGNS: Temperature 98.4. Heart rate 82. Respiratory rate 18. Blood pressure 159/92. HEENT: Atraumatic, normocephalic. Oral mucosa is moist. NECK: Supple. CARDIOVASCULAR: S1, S2 heard. Rate and rhythm regular. RESPIRATORY: Clear to auscultation. GASTROINTESTINAL: Abdomen is soft. MUSCULOSKELETAL: No tenderness. No edema. DERMATOLOGIC: No skin rash. NEUROLOGIC: confused. LABORATORY DATA: Potassium is 4.2, BUN is 27, creatinine is 1.4. ASSESSMENT AND PLAN: 1. Acute kidney injury on chronic kidney disease, stage 3, stable. 2. Edema. 3. History of hypertension. 4. Acidosis. 5. Altered mentation. Labs are stable. Avoid nephrotoxins. We will follow. Continue hydration if tolerated. Job ID: [id number] MTDD
[2019-11-16 14:16] LABS: Platelet Count 51 thou/uL (130-400)
[2019-11-16 14:21] LABS: #Eosinphils 0.2 thou/uL (0.0-0.7); #Lymphocytes 1.1 thou/uL (1.20-3.40); #Monocytes 0.8 thou/uL (0.11-0.59); #Neutrophils 4.6 thou/uL (1.40-6.50); %Basophils 0.4 % (0.0-1.0); %Eosinophils 3.1 % (0.0-10.0); %Lymphocytes 16.8 % (21.0-51.0); %Monocytes 11.5 % (0.0-10.0); %Neutrophils 68.1 % (42.0-75.0); Hemoglobin 8.6 g/dL (14.0-18.0); Mean Corpuscular HGB CONC 32.4 g/dL (32.0-36.0); Mean Corpuscular Hemoglobin 30.6 pg (27.0-31.0); Mean Corpuscular Volume 94.4 fL (78.0-98.0); Mean Platelet Volume 12.1 fL (7.4-10.4); Platelet Count 51 thou/uL (130-400); RBC Distribution Width 17.9 % (11.5-14.5); Red Blood Cell (RBC) Count 2.82 mill/uL (4.70-6.10); White Blood Cell (WBC) Count 6.7 thou/uL (4.8-10.8)
[2019-11-16 14:24] LABS: Fibrinogen 345 mg/dL (253-463)
[2019-11-16 14:25] LABS: INR-International Normal Ratio 1.7; PTT 33.3 sec (22.9-36.1); Prothrombin Time 19.6 sec (12.0-14.7)
[2019-11-16 14:42] LABS: D-Dimer Test Greater than 20.00 *mcg/mL (0.27-0.43)
[2019-11-16 15:00] LABS: FSP-Qualitative ABNORMAL (Normal); FSP-Semiquantitative >=80 & <160 mcg/mL (Less than 5)
[2019-11-16] MEDS: metroNIDAZOLE 250 MG IVPB SCH (20:02)
[2019-11-16] MEDS: traZODone HCl 50 MG TAB PO SCH (21:02)
[2019-11-16] MEDS ORDERED: Ketorolac Tromethamine 30 MG/ML VIAL IVP SCH (22:15)
[2019-11-16] MEDS ORDERED: Magnesium 2 GM/50 ML 2 GM in Premix Bag 1 BAG IVPB SCH (23:00)
[2019-11-17] MEDS: Dextrose 5 % And 0.9 % NaCl 1,000 ML IV SCH (04:19)
[2019-11-17] MEDS: metroNIDAZOLE 250 MG IVPB SCH ×3 (04:46→21:42)
[2019-11-17 05:13] LABS: Band 6 % (5-11); Hemoglobin 9.6 g/dL (14.0-18.0); Hypochromia SLIGHT = 6-15 cells (100X) (0-5/hpf); Lymphocytes 2 % (21-51); MDiff Complete? YES; Mean Corpuscular HGB CONC 30.3 g/dL (32.0-36.0); Mean Corpuscular Hemoglobin 29.4 pg (27.0-31.0); Mean Corpuscular Volume 96.8 fL (78.0-98.0); Mean Platelet Volume 10.8 fL (7.4-10.4); Monocytes 5 % (0-10); Neutrophil 87 % (42-75); Platelet Count 59 thou/uL (130-400); Platelet Morphology Comment Appears Decreased; RBC Distribution Width 18.9 % (11.5-14.5); Red Blood Cell (RBC) Count 3.26 mill/uL (4.70-6.10); White Blood Cell (WBC) Count 10.6 thou/uL (4.8-10.8)
[2019-11-17 05:33] LABS: ALT (SGPT) 1548 U/L (8-55); AST (SGOT) 474 U/L (5-34); Albumin 3.4 g/dL (3.4-4.8); Alkaline Phosphatase 128 U/L (40-110); Anion Gap 27 mmol/L (10-20); BUN (Urea Nitrogen) 31 mg/dL (8.4-25.7); Calc. Creatinine Clearance 41 mL/min (70-130); Calcium 8.3 mg/dL (7.8-10.44); Carbon Dioxide 13 mmol/L (23-31); Chloride 110 mmol/L (98-107); Estimated GFR-MDRD 37; Globulin 2.8 g/dL (2.4-3.5); Glucose 115 mg/dL (83-110); Phosphorus 3.9 mg/dL (2.3-4.7); Potassium 5.2 mmol/L (3.5-5.1); Protein, Total 6.2 g/dL (5.8-8.1); Sodium 145 mmol/L (136-145)
[2019-11-17] MEDS: Carvedilol 6.25 MG TAB PO SCH ×2 (08:55→16:50)
[2019-11-17] MEDS: Famotidine 20 MG TAB PO SCH (08:55)
[2019-11-17] MEDS: Dronedarone HCl 400 MG TAB PO SCH ×2 (08:55→16:51)
[2019-11-17] MEDS: Sodium Bicarbonate Tab 325 MG TAB PO SCH ×2 (08:56→21:43)
[2019-11-17] MEDS: Polyethylene Glycol 3350 17 GM Packet PO SCH (08:56)
[2019-11-17] MEDS: Gabapentin 300 MG CAP PO SCH ×3 (08:56→21:43)
[2019-11-17] MEDS: Cefepime 1 GM in Sodium Chloride 0.9% 100 ML IVPB SCH (08:56)
[2019-11-17] MEDS ORDERED: Enoxaparin Sodium 30 MG/0.3 ML SYRINGE SC SCH (09:00)
[2019-11-17] MEDS: Sodium Bicarbonate 150 MEQ in Dextrose 5% in Water 1,000 ML IV SCH (11:31)
--- NOTE | 2019-11-17 12:09 | PDOC.HOSPP ---
- Subjective Encounter Date: 11/17/19 Encounter Time: 12:00 Subjective: f/u for AMS/EUGENE and new dx of C. difficile initiated on IV Flagyl. Remains confused but alert per nursing. - Objective Vital Signs & Weight: Vital Signs (12 hours) Temp Pulse Resp BP BP Pulse Ox 11/17/19 11:52 98.4 F 84 20 144/80 H 11/17/19 11:43 99 11/17/19 07:34 97.4 F L 88 17 147/88 H 99 11/17/19 05:57 90 11/17/19 03:58 97.7 F 126 H 22 H 155/97 H 100 Weight Admit Weight 177 lb 3.2 oz Weight 177 lb 3.2 oz I&O: 11/16/19 11/17/19 11/18/19 06:59 06:59 06:59 Intake Total 1370 1050 Balance 1370 1050 Result Diagrams: 11/17/19 04:49 11/17/19 04:49 Additional Labs: Accuchecks 11/17/19 11/17/19 11/16/19 10:46 05:19 20:45 POC Glucose 131 H 107 138 H 11/16/19 16:55 POC Glucose 131 H Microbiology 11/16/19 05:12 Stool C. difficile GDH Antigen & Toxins - Final 08/22/19 12:05 Urine voided Urine Culture - Final NO GROWTH AT 36 HOURS 11/11/19 00:24 Urine voided Urine Culture - Preliminary 11/10/19 19:00 Venous blood - Left Arm Blood Culture - Preliminary Specimen has been received and culture in progress. No Growth to date. 11/10/19 18:55 Venous blood - Left Hand Blood Culture - Preliminary Specimen has been received and culture in progress. No Growth to date. 08/21/19 13:35 Venous blood - Right Hand Blood Culture - Preliminary NO GROWTH AT 48 HOURS 08/21/19 13:30 Venous blood - Right Arm Blood Culture - Preliminary NO GROWTH AT 48 HOURS Laboratory Tests 08/22/19 08/22/19 08/23/19 05:33 05:33 06:04 WBC 8.5 Hgb Plt Count Neutrophils % Band Neuts % (Manual) Retic Count D-Dimer Potassium Carbon Dioxide 18 L 18 L BUN Creatinine 1.83 H 1.57 H Lactic Acid Phosphorus Magnesium Iron Ferritin Total Bilirubin AST ALT Alkaline Phosphatase Ammonia Lipase COVID-19 PCR Hepatitis A IgM Ab Hep Bs Antigen Hep B Core IgM Ab Hepatitis C Antibody 08/23/19 08/24/19 08/24/19 06:04 05:41 05:41 WBC 9.5 12.1 H Hgb Plt Count Neutrophils % Band Neuts % (Manual) Retic Count D-Dimer Potassium Carbon Dioxide 13 L BUN Creatinine 1.31 H Lactic Acid Phosphorus Magnesium Iron Ferritin Total Bilirubin AST ALT Alkaline Phosphatase Ammonia Lipase PCR Hepatitis A IgM Ab Hep Bs Antigen Hep B Core IgM Ab Hepatitis C Antibody 10/26/19 11/02/19 11/10/19 03:10 04:00 19:00 WBC Hgb 8.1 L 8.6 L 7.3 L Plt Count Neutrophils % Band Neuts % (Manual) Retic Count D-Dimer Potassium Carbon Dioxide BUN Creatinine Lactic Acid Phosphorus Magnesium Iron Ferritin Total Bilirubin AST ALT Alkaline Phosphatase Ammonia Lipase PCR Hepatitis A IgM Ab Hep Bs Antigen Hep B Core IgM Ab Hepatitis C Antibody 11/10/19 11/11/19 11/11/19 19:00 04:30 05:14 WBC Hgb Plt Count Neutrophils % Band Neuts % (Manual) Retic Count D-Dimer Potassium 4.8 Carbon Dioxide 15 L BUN Creatinine 1.48 H 1.31 H Lactic Acid Phosphorus Magnesium 1.3 L Iron Ferritin Total Bilirubin AST 11 ALT 16 Alkaline Phosphatase 76 Ammonia Lipase PCR Not Detected Hepatitis A IgM Ab Hep Bs Antigen Hep B Core IgM Ab Hepatitis C Antibody 11/11/19 11/12/19 11/12/19 05:14 04:44 04:44 WBC Hgb 6.7 L Plt Count Neutrophils % 70.4 74.8 Band Neuts % (Manual) Retic Count D-Dimer Potassium Carbon Dioxide BUN Creatinine Lactic Acid Phosphorus Magnesium 1.4 L Iron 26 L Ferritin Total Bilirubin AST ALT Alkaline Phosphatase Ammonia Lipase ID- PCR Hepatitis A IgM Ab Hep Bs Antigen Hep B Core IgM Ab Hepatitis C Antibody 11/12/19 11/12/19 11/13/19 04:44 04:44 09:51 WBC Hgb 8.2 L Plt Count Neutrophils % Band Neuts % (Manual) Retic Count 2.7 H D-Dimer Potassium Carbon Dioxide BUN Creatinine Lactic Acid Phosphorus Magnesium Iron Ferritin 7872.36 H Total Bilirubin AST ALT Alkaline Phosphatase Ammonia Lipase ID- PCR Hepatitis A IgM Ab Hep Bs Antigen Hep B Core IgM Ab Hepatitis C Antibody 11/13/19 11/14/19 11/14/19 18:24 05:01 06:36 WBC Hgb Plt Count 156 Neutrophils % Band Neuts % (Manual) 16 H Retic Count D-Dimer Potassium 5.5 H Carbon Dioxide 10 L BUN 44 H Creatinine 2.23 H Lactic Acid Phosphorus Magnesium 1.8 Iron Ferritin Total Bilirubin AST ALT Alkaline Phosphatase Ammonia Lipase COVID PCR Hepatitis A IgM Ab Hep Bs Antigen Hep B Core IgM Ab Hepatitis C Antibody 11/14/19 11/15/19 11/15/19 06:36 07:29 10:46 WBC Hgb Plt Count 90 L Neutrophils % Band Neuts % (Manual) 3 L Retic Count D-Dimer Potassium Carbon Dioxide BUN Creatinine Lactic Acid Phosphorus 4.0 Magnesium Iron Ferritin Total Bilirubin AST 640 H ALT 2101 H Alkaline Phosphatase 118 H Ammonia Lipase ID PCR Hepatitis A IgM Ab Hep Bs Antigen Hep B Core IgM Ab Hepatitis C Antibody 11/15/19 11/15/19 11/16/19 10:46 10:46 04:37 WBC Hgb Plt Count Neutrophils % Band Neuts % (Manual) Retic Count D-Dimer Potassium Carbon Dioxide BUN Creatinine Lactic Acid 1.5 Phosphorus Magnesium Iron Ferritin Total Bilirubin AST ALT Alkaline Phosphatase Ammonia Lipase 46 ID- PCR Hepatitis A IgM Ab Non-Reactive Hep Bs Antigen Non-Reactive Hep B Core IgM Ab Non-Reactive Hepatitis C Antibody Non-Reactive 11/16/19 11/16/19 11/16/19 04:37 04:37 04:37 WBC Hgb Plt Count 24 L* Neutrophils % Band Neuts % (Manual) 3 L Retic Count D-Dimer Potassium 4.2 Carbon Dioxide BUN Creatinine Lactic Acid Phosphorus Magnesium Iron Ferritin Total Bilirubin 1.1 AST 321 H ALT 1603 H Alkaline Phosphatase 121 H Ammonia 57 Lipase COVID- PCR Hepatitis A IgM Ab Hep Bs Antigen Hep B Core IgM Ab Hepatitis C Antibody 11/16/19 11/16/19 11/16/19 04:37 14:03 14:03 WBC Hgb Plt Count 51 L 51 L Neutrophils % Band Neuts % (Manual) Retic Count D-Dimer Greater than 20.00 H Potassium Carbon Dioxide BUN Creatinine Lactic Acid Phosphorus 1.7 L Magnesium Iron Ferritin Total Bilirubin AST ALT Alkaline Phosphatase Ammonia Lipase COVID- PCR Hepatitis A IgM Ab Hep Bs Antigen Hep B Core IgM Ab Hepatitis C Antibody 11/17/19 04:49 WBC Hgb Plt Count Neutrophils % Band Neuts % (Manual) Retic Count D-Dimer Potassium Carbon Dioxide BUN Creatinine Lactic Acid Phosphorus Magnesium Iron Ferritin Total Bilirubin 2.0 H AST 474 H ALT 1548 H Alkaline Phosphatase Ammonia Lipase COVID-19 PCR Hepatitis A IgM Ab Hep Bs Antigen Hep B Core IgM Ab Hepatitis C Antibody EKG Reviewed by me: Yes (Tele - SR) Hospitalist ROS - Medication Medications: Active Medications Generic Name Dose Route Start Last Admin Trade Name Freq PRN Reason Stop Dose Admin Acetaminophen 650 mg 11/11/19 02:49 11/16/19 09:00 Tylenol PO 650 mg Q4H PRN Administration Headache/Fever/Mild Pain (1-3) Aspirin 81 mg 11/11/19 09:00 11/15/19 08:01 Ecotrin PO Not Given DAILY [facility] Carvedilol 6.25 mg 11/11/19 08:00 11/17/19 08:55 Coreg PO Not Given BID-WM [facility] Dronedarone 400 mg 11/11/19 08:00 11/17/19 08:55 Multaq PO Not Given BID-WM [facility] Famotidine 20 mg 11/14/19 09:00 11/17/19 08:55 Pepcid PO Not Given DAILY [facility] Gabapentin 300 mg 11/11/19 09:00 11/17/19 08:56 Neurontin PO Not Given TID [facility] Cefepime HCl 1 gm/ Sodium 100 mls @ 200 mls/hr 11/14/19 10:00 11/17/19 08:56 Chloride IVPB 100 mls 1000 [facility] Administration Metronidazole 250 mg/ 50 mls @ 50 mls/hr 11/16/19 20:00 11/17/19 04:46 Miscellaneous Medication IVPB 50 mls 0400,1200,2000 [facility] Administration Sodium Bicarbonate 150 meq/ 1,150 mls @ 100 mls/hr 11/17/19 10:30 11/17/19 11 :31 Dextrose/Water IV 11/17/19 23:00 1,150 mls ONE [facility] Administration Isosorbide Mononitrate 30 mg 11/11/19 09:00 11/17/19 08:56 Imdur Er PO Not Given DAILY [facility] Polyethylene Glycol 17 gm 11/11/19 09:00 11/17/19 08:56 Miralax PO Not Given DAILY [facility] Scopolamine 1.5 mg 11/16/19 09:00 11/16/19 10:45 Transderm Scop TD 1.5 mg Q3D [facility] Administration Sodium Bicarbonate 650 mg 11/15/19 21:00 11/17/19 08:56 Bicarbonate, Sodium PO Not Given BID [facility] Sodium Chloride 10 ml 11/13/19 21:00 11/17/19 08:56 Flush - Normal Saline IVF Not Given Q12HR [facility] Trazodone HCl 50 mg 11/11/19 21:00 11/16/19 21:02 Desyrel PO Not Given QPM [facility] - Exam General Appearance: awake alert, ill appearing General - other findings: non-verbal, grunts, tracks with eyes to name/voice Eye: PERRL, anicteric sclera ENT: normocephalic atraumatic, no oropharyngeal lesions Neck: supple, symmetric, no JVD, no thyromegaly Heart: RRR, no murmur, no gallops, no rubs Heart - other findings: S1, S2 Respiratory - other findings: few scattered rhonchi, diminished in bases Gastrointestinal: soft, non-tender, non-distended, normal bowel sounds, no palpable masses Extremities: no cyanosis, no clubbing, no edema 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 diff and multiple co-morbid conditions (2) Acute kidney injury superimposed on CKD Code(s): N17.9 - ACUTE KIDNEY FAILURE, UNSPECIFIED; N18.9 - CHRONIC KIDNEY DISEASE, UNSPECIFIED Status: Acute Plan: slow improvement, continue IVF's, avoid nephrotoxic meds and limit contrast (3) Transaminitis Code(s): R74.0 - NONSPEC ELEV OF LEVELS OF TRANSAMNS & LACTIC ACID DEHYDRGNSE Status: Acute Plan: Persistent, likely due to sepsis in context of C. diff colitis (4) Metabolic acidosis Code(s): E87.2 - ACIDOSIS Status: Acute (5) Hyperkalemia Code(s): E87.5 - HYPERKALEMIA Status: Acute (6) Thrombocytopenia Code(s): D69.6 - THROMBOCYTOPENIA, UNSPECIFIED Status: Acute Plan: Improving, likely due to sepsis picture, serial monitoring, avoid heparin/ LMWH (7) RLL pneumonia Code(s): J18.9 - PNEUMONIA, UNSPECIFIED ORGANISM Status: Acute (8) Sepsis Code(s): A41.9 - SEPSIS, UNSPECIFIED ORGANISM Status: Acute Plan: Secondary C. diff colitis, started Flagyl 500mg IV q8h (9) Anemia, normocytic normochromic Code(s): D64.9 - ANEMIA, UNSPECIFIED Status: Chronic (10) Clostridioides difficile infection Code(s): A49.8 - OTHER BACTERIAL INFECTIONS OF UNSPECIFIED SITE Status: Acute (11) C. 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 Diff AM lab: CMP, CBC, PO3
--- NOTE | 2019-11-17 12:21 | PRG ---
DATE OF SERVICE: 11/17/2019 SUBJECTIVE: The patient is seen and examined at the bedside. Remains confused. OBJECTIVE: GENERAL: A well-built male, looks confused. VITAL SIGNS: Temperature 97.5, pulse 80, respiratory rate 20, blood pressure 147/88. HEENT: Atraumatic and normocephalic. CV: S1 and S2 heard. RESPIRATORY: Clear. MUSCULOSKELETAL: 1+ edema. NEUROLOGIC: Confused. LABORATORY DATA: Potassium is 5.2, BUN is 31, creatinine is 1.7. ASSESSMENT AND PLAN: 1. Acute kidney injury on chronic kidney disease, stage 3, stable. 2. Hyperkalemia secondary to acidosis. 3. Acidosis, getting worse. The patient one bowel movement yesterday. We will start back on sodium bicarb. 4. Altered mentation. Plan to start back on bicarb drip. Lactate level was normal. Check urine studies to rule out ketosis. We will follow. Job ID: [id number]
--- NOTE | 2019-11-17 15:14 | PDOC.MOPN ---
Interval History: no apparent change in mental status - Vital Signs Vital Signs: Vital Signs (12 hours) Temp Pulse Resp BP BP Pulse Ox 11/17/19 14:56 97.7 F 76 18 159/85 H 11/17/19 11:52 98.4 F 84 20 144/80 H 11/17/19 11:43 99 11/17/19 07:34 97.4 F L 88 17 147/88 H 99 11/17/19 05:57 90 11/17/19 03:58 97.7 F 126 H 22 H 155/97 H 100 Weight Admit Weight 177 lb 3.2 oz Weight 177 lb 3.2 oz - Physical Exam General: No acute distress Cardiovascular: Regular rate Neurological: Other (AMS) - Labs Result Diagrams: 11/17/19 04:49 11/17/19 04:49 Lab results: Laboratory Results - last 24 hr 11/17/19 13:15: Urine Ketones 15 A 11/17/19 10:46: POC Glucose 131 H 11/17/19 05:19: POC Glucose 107 11/17/19 04:49: WBC 10.6, RBC 3.26 L, Hgb 9.6 L, Hct 31.5 L, MCV 96.8, MCH 29.4 , MCHC 30.3 L, RDW 18.9 H, Plt Count 59 L, MPV 10.8 H, Neutrophils % (Manual) 87 H, Band Neuts % (Manual) 6, Lymphocytes % (Manual) 2 L, Monocytes % (Manual) 5, Hypochromia SLIGHT = 6-15 cells, Plt Morphology Comment Appears Decreased L 11/17/19 04:49: Sodium 145, Potassium 5.2 H, Chloride 110 H, Carbon Dioxide 13 L , Anion Gap 27 H, BUN 31 H, Creatinine 1.79 H, Estimated GFR (MDRD) 37, Glucose 115 H, Calcium 8.3, Phosphorus 3.9, Magnesium 2.0, Total Bilirubin 2.0 H, AST 474 H, ALT 1548 H, Alkaline Phosphatase 128 H, Serum Total Protein 6.2, Albumin 3.4, Globulin 2.8, Albumin/Globulin Ratio 1.2 11/16/19 20:45: POC Glucose 138 H 11/16/19 16:55: POC Glucose 131 H Status: lab reviewed by me A/P - Problem (1) Clostridioides difficile infection Current Visit: Yes Code(s): A49.8 - OTHER BACTERIAL INFECTIONS OF UNSPECIFIED SITE Status: Acute (2) RLL pneumonia Current Visit: Yes Code(s): J18.9 - PNEUMONIA, UNSPECIFIED ORGANISM Status: Acute (3) Thrombocytopenia Current Visit: Yes Code(s): D69.6 - THROMBOCYTOPENIA, UNSPECIFIED Status: Acute - Plan Plan: 1. No evidence of HIT 2. Patient has mild DIC likely from infection 3. platelets improving, continue to monitor
[2019-11-17] MEDS ORDERED: Sodium Chloride 0.9% (PF) 10 ML VIAL FS PRN (15:20)
[2019-11-17 15:36] LABS: #Lymphocytes 1.6 thou/uL (1.20-3.40); #Monocytes 1.4 thou/uL (0.11-0.59); #Neutrophils 8.6 thou/uL (1.40-6.50); %Basophils 0.1 % (0.0-1.0); %Eosinophils 0.2 % (0.0-10.0); %Lymphocytes 13.7 % (21.0-51.0); %Monocytes 12.4 % (0.0-10.0); %Neutrophils 73.7 % (42.0-75.0); Hemoglobin 9.6 g/dL (14.0-18.0); Mean Corpuscular HGB CONC 31.1 g/dL (32.0-36.0); Mean Corpuscular Hemoglobin 30.6 pg (27.0-31.0); Mean Corpuscular Volume 98.2 fL (78.0-98.0); Mean Platelet Volume 11.2 fL (7.4-10.4); Platelet Count 51 thou/uL (130-400); RBC Distribution Width 19.3 % (11.5-14.5); Red Blood Cell (RBC) Count 3.13 mill/uL (4.70-6.10); White Blood Cell (WBC) Count 11.7 thou/uL (4.8-10.8)
[2019-11-17] MEDS: Pantoprazole 40 MG VIAL IVP SCH (15:36)
--- NOTE | 2019-11-17 16:29 | RAD ---
CHEST ONE VIEW: 11/17/19 at 12:37 p.m. HISTORY: Cough, aspiration. COMPARISON: 11/10/19. FINDINGS/IMPRESSION: Changes of median sternotomy again seen. The heart size is normal. There is a patchy opacity in the r ight medial lung base highly suspicious for aspiration pneumonia. No pneumothoraces or pleural effus ions are seen. There are degenerative changes in the shoulder joint. POS: MZA
--- NOTE | 2019-11-17 17:19 | RAD ---
Radiograph abdomen one view: 11/17/2019 HISTORY: 74-year-old male with hematemesis FINDINGS: Gaseous distention of the stomach. Lack of bowel in small intestine makes it difficult to evaluate th e small intestine. Vertically oriented large region of lucency stretching from upper to lower portions of the image could represent artifact or an unusual air-filled loop of bowel. Artifact is fa vored. IMPRESSION: 1. Gaseous gastric distention. 2) cannot evaluate small intestine due to lack of gas in the small intestine
[2019-11-17] MEDS: traZODone HCl 50 MG TAB PO SCH (21:43)
[2019-11-18] MEDS: metroNIDAZOLE 250 MG IVPB SCH ×3 (04:53→20:57)
[2019-11-18] MEDS: Pantoprazole 40 MG VIAL IVP SCH ×2 (04:53→12:34)
[2019-11-18] MEDS: Sodium Bicarbonate 150 MEQ in Dextrose 5% in Water 1,000 ML IV SCH (04:54)
[2019-11-18 05:59] LABS: Band 5 % (5-11); Crenated RBC SLIGHT = 1-5 cells (100X) (None Seen); Elliptocytes SLIGHT = 2-5 cells (100X) (0-1/hpf); Eosinophils 1 % (0-10); Hemoglobin 9.3 g/dL (14.0-18.0); Lymphocytes 10 % (21-51); MDiff Complete? YES; Mean Corpuscular Hemoglobin 29.1 pg (27.0-31.0); Mean Corpuscular Volume 97.1 fL (78.0-98.0); Mean Platelet Volume 11.9 fL (7.4-10.4); Monocytes 6 % (0-10); Neutrophil 78 % (42-75); Nucleated RBC 1 % (0); Platelet Count 55 thou/uL (130-400); Platelet Morphology Comment Appears Decreased; RBC Distribution Width 20.2 % (11.5-14.5); White Blood Cell (WBC) Count 11.9 thou/uL (4.8-10.8)
[2019-11-18 06:04] LABS: ALT (SGPT) 1791 U/L (8-55); AST (SGOT) 1175 U/L (5-34); Albumin 3.3 g/dL (3.4-4.8); Alkaline Phosphatase 124 U/L (40-110); Anion Gap 28 mmol/L (10-20); BUN (Urea Nitrogen) 50 mg/dL (8.4-25.7); Bilirubin, Total 2.1 mg/dL (0.2-1.2); Calc. Creatinine Clearance 31 mL/min (70-130); Calcium 7.9 mg/dL (7.8-10.44); Carbon Dioxide 15 mmol/L (23-31); Chloride 110 mmol/L (98-107); Estimated GFR-MDRD 27; Globulin 2.8 g/dL (2.4-3.5); Glucose 211 mg/dL (83-110); Potassium 4.8 mmol/L (3.5-5.1); Protein, Total 6.1 g/dL (5.8-8.1); Sodium 148 mmol/L (136-145)
[2019-11-18] MEDS: Morphine 2 MG/ML SYRINGE SLOW IVP PRN ×2 (06:42→21:07)
[2019-11-18] MEDS: Carvedilol 6.25 MG TAB PO SCH ×2 (08:04→12:34)
[2019-11-18] MEDS: Dronedarone HCl 400 MG TAB PO SCH ×2 (08:05→12:35)
[2019-11-18] MEDS: Sodium Bicarbonate Tab 325 MG TAB PO SCH ×2 (08:05→20:58)
[2019-11-18] MEDS: Polyethylene Glycol 3350 17 GM Packet PO SCH (08:05)
[2019-11-18] MEDS: Gabapentin 300 MG CAP PO SCH ×3 (08:05→20:58)
[2019-11-18] MEDS: Famotidine 20 MG TAB PO SCH (08:05)
[2019-11-18] MEDS: Cefepime 1 GM in Sodium Chloride 0.9% 100 ML IVPB SCH (09:33)
[2019-11-18] MEDS: HumaLOG 300 UNITS/3 ML VIAL SC PRN ×2 (11:06→17:02)
[2019-11-18 14:42] LABS: Bacteria/HPF None Seen HPF (None Seen); Squamous Epithelial 0-3 HPF (0-3); Transitional Epithelial 0-3 HPF (None Seen)
[2019-11-18 14:47] LABS: Potassium, Urine 79.3 mmol/L
--- NOTE | 2019-11-18 15:30 | PRG ---
DATE OF SERVICE: 11/18/2019 SUBJECTIVE: The patient was examined at the bedside. He remains confused. OBJECTIVE: GENERAL: This is an elderly male, confused. VITAL SIGNS: Temperature 97.7. Pulse 72. Respiratory rate 18. Blood pressure 138/76. HEENT: Atraumatic and normocephalic. CVS: S1 and S2 heard. RESPIRATORY: Clear. MUSCULOSKELETAL: No edema. DERMATOLOGIC: No skin rash. NEUROLOGIC: Confused. LABORATORY DATA: Sodium 148, bicarb is 15, BUN 50, and creatinine is 2.3. ASSESSMENT AND PLAN: 1. Acute kidney injury on chronic kidney disease, stage 3. Continue hydration. 2. Hyperkalemia. 3. Acidosis. 4. Hypernatremia. 5. Altered mentation. Continue hydration. We will follow. Job ID: [id number]
--- NOTE | 2019-11-18 17:41 | PDOC.HOSPP ---
- Subjective Encounter Date: 11/18/19 Subjective: The patient has been refusing oral intake. - Objective Vital Signs & Weight: Vital Signs (12 hours) Temp Pulse Resp BP Pulse Ox 11/18/19 15:49 97.8 F 125 H 18 128/91 H 100 11/18/19 12:01 97.4 F L 68 14 128/71 100 11/18/19 07:45 97.7 F 72 138/76 100 Weight Admit Weight 177 lb 3.2 oz Weight 177 lb 3.2 oz I&O: 11/17/19 11/18/19 11/19/19 06:59 06:59 06:59 Intake Total 1050 1615 Output Total 1180 Balance 1050 435 Result Diagrams: 11/18/19 05:35 11/18/19 05:35 Additional Labs: Accuchecks 11/18/19 11/18/19 11/18/19 15:57 10:49 06:45 POC Glucose 235 H 243 H 215 H 11/17/19 20:41 POC Glucose 179 H Hospitalist ROS - Medication Medications: Active Medications Generic Name Dose Route Start Last Admin Trade Name Freq PRN Reason Stop Dose Admin Acetaminophen 650 mg 11/11/19 02:49 11/16/19 09:00 Tylenol PO 650 mg Q4H PRN Administration Headache/Fever/Mild Pain (1-3) Aspirin 81 mg 11/11/19 09:00 11/15/19 08:01 Ecotrin PO Not Given DAILY [facility] Carvedilol 6.25 mg 11/11/19 08:00 11/18/19 12:34 Coreg PO Not Given BID-WM [facility] Dronedarone 400 mg 11/11/19 08:00 11/18/19 12:35 Multaq PO Not Given BID-WM [facility] Gabapentin 300 mg 11/11/19 09:00 11/18/19 12:34 Neurontin PO Not Given TID [facility] Cefepime HCl 1 gm/ Sodium 100 mls @ 200 mls/hr 11/14/19 10:00 11/18/19 09:33 Chloride IVPB 100 mls 1000 [facility] Administration Metronidazole 250 mg/ 50 mls @ 50 mls/hr 11/16/19 20:00 11/18/19 12:04 Miscellaneous Medication IVPB 50 mls 0400,1200,2000 [facility] Administration Sodium Bicarbonate 150 meq/ 1,150 mls @ 100 mls/hr 11/17/19 10:30 11/18/19 04 :54 Dextrose/Water IV 11/18/19 21:59 1,150 mls ONE [facility] Administration Insulin Human Lispro 0 units 11/11/19 02:52 11/18/19 17:02 Humalog SC 3 unit .MILD SLIDING SCALE PRN Administration Mild Correctional Scale Isosorbide Mononitrate 30 mg 11/11/19 09:00 11/18/19 08:05 Imdur Er PO Not Given DAILY [facility] Labetalol HCl 20 mg 11/11/19 02:49 11/17/19 16:05 Normodyne SLOW IVP 20 mg Q4H PRN Administration SBP > 160, use third Morphine Sulfate 2 mg 11/11/19 02:49 11/18/19 06:42 Morphine SLOW IVP 2 mg Q4H PRN Administration Moderate to Severe Pain (4-10) Ondansetron HCl 4 mg 11/11/19 02:49 11/17/19 14:39 Zofran IVP 4 mg Q6H PRN Administration Nausea/Vomiting, use 1st Pantoprazole Sodium 40 mg 11/17/19 16:00 11/18/19 04:53 Protonix IVP 40 mg 0400,1600 KARLI Administration Polyethylene Glycol 17 gm 11/11/19 09:00 11/18/19 08:05 Miralax PO Not Given DAILY [facility] Scopolamine 1.5 mg 11/16/19 09:00 11/16/19 10:45 Transderm Scop TD 1.5 mg Q3D [facility] Administration Sodium Bicarbonate 650 mg 11/15/19 21:00 11/18/19 08:05 Bicarbonate, Sodium PO Not Given BID [facility] Sodium Chloride 10 ml 11/13/19 21:00 11/18/19 08:05 Flush - Normal Saline IVF Not Given Q12HR [facility] Trazodone HCl 50 mg 11/11/19 21:00 11/17/19 21:43 Desyrel PO Not Given QPM [facility] - Exam General Appearance: awake alert ENT: normocephalic atraumatic Neck: supple Heart: RRR Respiratory: normal chest expansion, no tachypnea Gastrointestinal: soft, non-tender, non-distended Hosp A/P - Plan Hosp A/P (1) Acute metabolic encephalopathy Code(s): G93.41 - METABOLIC ENCEPHALOPATHY Status: Acute Plan: multifactorial process including persistent acidosis, infection with C. diff and multiple co-morbid conditions (2) Acute kidney injury superimposed on CKD Code(s): N17.9 - ACUTE KIDNEY FAILURE, UNSPECIFIED; N18.9 - CHRONIC KIDNEY DISEASE, UNSPECIFIED Status: Acute Plan: slow improvement, continue IVF's, avoid nephrotoxic meds and limit contrast (3) Transaminitis Code(s): R74.0 - NONSPEC ELEV OF LEVELS OF TRANSAMNS & LACTIC ACID DEHYDRGNSE Status: Acute Plan: Persistent, likely due to sepsis in context of C. diff colitis (4) Metabolic acidosis Code(s): E87.2 - ACIDOSIS Status: Acute (5) Hyperkalemia Code(s): E87.5 - HYPERKALEMIA Status: Acute (6) Thrombocytopenia Code(s): D69.6 - THROMBOCYTOPENIA, UNSPECIFIED Status: Acute Plan: Improving, likely due to sepsis picture, serial monitoring, avoid heparin/ LMWH (7) RLL pneumonia Code(s): J18.9 - PNEUMONIA, UNSPECIFIED ORGANISM Status: Acute (8) Sepsis Code(s): A41.9 - SEPSIS, UNSPECIFIED ORGANISM Status: Acute Plan: Secondary C. diff colitis, started Flagyl 500mg IV q8h (9) Anemia, normocytic normochromic Code(s): D64.9 - ANEMIA, UNSPECIFIED Status: Chronic (10) Clostridioides difficile infection Code(s): A49.8 - OTHER BACTERIAL INFECTIONS OF UNSPECIFIED SITE Status: Acute (11) C. 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 Diff AM lab: CMP, CBC, PO3 11/17: The patient has been refusing oral intake. He did not cooperate with speech therapy. PPN might be considered but this is not a long-term solution. His diarrhea is now resolved. Thrombocytopenia is improving. LFTs are trending down. His sepsis is improving. Creatinine level is trending up. Nephrology on board. Patient is on IV fluids.
[2019-11-18] MEDS: Dextrose 5 %-0.45 % NaCl 1,000 ML IV SCH (20:57)
[2019-11-18] MEDS: traZODone HCl 50 MG TAB PO SCH (20:59)
[2019-11-19 05:15] LABS: Band 1 % (5-11); Eosinophils 4 % (0-10); Hemoglobin 9.8 g/dL (14.0-18.0); Hypochromia SLIGHT = 6-15 cells (100X) (0-5/hpf); Lymphocytes 19 % (21-51); MDiff Complete? YES; Mean Corpuscular Hemoglobin 29.4 pg (27.0-31.0); Mean Corpuscular Volume 98.1 fL (78.0-98.0); Mean Platelet Volume 11.4 fL (7.4-10.4); Monocytes 2 % (0-10); Neutrophil 74 % (42-75); Nucleated RBC 1 % (0); Platelet Count 55 thou/uL (130-400); Platelet Morphology Comment Appears Decreased; Poikilocytosis SLIGHT = 6-15 cells (100X) (0-5/hpf); RBC Distribution Width 20.6 % (11.5-14.5); Red Blood Cell (RBC) Count 3.33 mill/uL (4.70-6.10); White Blood Cell (WBC) Count 9.6 thou/uL (4.8-10.8)
[2019-11-19 05:19] LABS: Anion Gap 19 mmol/L (10-20); BUN (Urea Nitrogen) 58 mg/dL (8.4-25.7); Calc. Creatinine Clearance 30 mL/min (70-130); Calcium 7.5 mg/dL (7.8-10.44); Carbon Dioxide 23 mmol/L (23-31); Chloride 109 mmol/L (98-107); Estimated GFR-MDRD 27; Glucose 225 mg/dL (83-110); Potassium 3.9 mmol/L (3.5-5.1); Sodium 147 mmol/L (136-145)
[2019-11-19] MEDS: Pantoprazole 40 MG VIAL IVP SCH ×2 (05:28→16:13)
[2019-11-19] MEDS: metroNIDAZOLE 250 MG IVPB SCH ×3 (05:28→22:33)
[2019-11-19] MEDS: Morphine 2 MG/ML SYRINGE SLOW IVP PRN ×4 (05:37→22:35)
[2019-11-19] MEDS: HumaLOG 300 UNITS/3 ML VIAL SC PRN ×3 (06:30→18:01)
[2019-11-19] MEDS: Dronedarone HCl 400 MG TAB PO SCH ×3 (07:52→16:15)
[2019-11-19] MEDS: Carvedilol 6.25 MG TAB PO SCH ×3 (07:52→16:14)
[2019-11-19] MEDS: Gabapentin 300 MG CAP PO SCH ×4 (07:53→22:33)
[2019-11-19] MEDS: Aspirin 81 mg Enteric Coated Tablet PO SCH (07:53)
[2019-11-19] MEDS: Polyethylene Glycol 3350 17 GM Packet PO SCH (07:53)
[2019-11-19] MEDS: Sodium Bicarbonate Tab 325 MG TAB PO SCH ×2 (07:54→22:33)
[2019-11-19] MEDS: Dextrose 5 %-0.45 % NaCl 1,000 ML IV SCH ×2 (08:16→22:38)
[2019-11-19] MEDS: Scopolamine 1.5 mg/72 hour Patch TD SCH (08:16)
[2019-11-19] MEDS: Cefepime 1 GM in Sodium Chloride 0.9% 100 ML IVPB SCH (08:20)
--- NOTE | 2019-11-19 12:22 | PDOC.HOSPP ---
- Subjective Encounter Date: 11/19/19 Subjective: He was able to participate with Speech therapy today. High risk for aspiration. - Objective Vital Signs & Weight: Vital Signs (12 hours) Temp Pulse Resp BP Pulse Ox 11/19/19 07:39 97.7 F 123 H 20 129/90 96 11/19/19 03:11 97.7 F 72 24 H 139/89 100 Weight Admit Weight 177 lb 3.2 oz Weight 177 lb 3.2 oz I&O: 11/18/19 11/19/19 11/20/19 06:59 06:59 06:59 Intake Total 1615 700 Output Total 1180 550 Balance 435 150 Result Diagrams: 11/19/19 04:00 11/19/19 04:00 Additional Labs: Accuchecks 11/19/19 11/19/19 11/18/19 10:48 05:49 20:52 POC Glucose 204 H 248 H 214 H 11/18/19 15:57 POC Glucose 235 H Hospitalist ROS - Medication Medications: Active Medications Generic Name Dose Route Start Last Admin Trade Name Freq PRN Reason Stop Dose Admin Acetaminophen 650 mg 11/11/19 02:49 11/16/19 09:00 Tylenol PO 650 mg Q4H PRN Administration Headache/Fever/Mild Pain (1-3) Aspirin 81 mg 11/11/19 09:00 11/19/19 07:53 Ecotrin PO Not Given DAILY [facility] Carvedilol 6.25 mg 11/11/19 08:00 11/19/19 07:52 Coreg PO Not Given BID-WM [facility] Dronedarone 400 mg 11/11/19 08:00 11/19/19 07:52 Multaq PO Not Given BID-WM [facility] Gabapentin 300 mg 11/11/19 09:00 11/19/19 07:53 Neurontin PO Not Given TID [facility] Cefepime HCl 1 gm/ Sodium 100 mls @ 200 mls/hr 11/14/19 10:00 11/19/19 08:20 Chloride IVPB 100 mls 1000 KARLI Administration Metronidazole 250 mg/ 50 mls @ 50 mls/hr 11/16/19 20:00 11/19/19 11:21 Miscellaneous Medication IVPB 50 mls 0400,1200,2000 KARLI Administration Dextrose/Sodium Chloride 1,000 mls @ 75 mls/hr 11/18/19 19:15 11/19/19 08:16 D5 1/2 Ns IV 1,000 mls .[id number] KARLI Administration Insulin Human Lispro 0 units 11/11/19 02:52 11/19/19 11:25 Humalog SC 3 unit .MILD SLIDING SCALE PRN Administration Mild Correctional Scale Isosorbide Mononitrate 30 mg 11/11/19 09:00 11/19/19 07:53 Imdur Er PO Not Given DAILY [facility] Labetalol HCl 20 mg 11/11/19 02:49 11/17/19 16:05 Normodyne SLOW IVP 20 mg Q4H PRN Administration SBP > 160, use third Morphine Sulfate 2 mg 11/11/19 02:49 11/19/19 09:49 Morphine SLOW IVP 2 mg Q4H PRN Administration Moderate to Severe Pain (4-10) Ondansetron HCl 4 mg 11/11/19 02:49 11/17/19 14:39 Zofran IVP 4 mg Q6H PRN Administration Nausea/Vomiting, use 1st Pantoprazole Sodium 40 mg 11/17/19 16:00 11/19/19 05:28 Protonix IVP 40 mg 0400,1600 KARLI Administration Polyethylene Glycol 17 gm 11/11/19 09:00 11/19/19 07:53 Miralax PO Not Given DAILY [facility] Scopolamine 1.5 mg 11/16/19 09:00 11/19/19 08:16 Transderm Scop TD 1.5 mg Q3D K[facility]LI Administration Sodium Bicarbonate 650 mg 11/15/19 21:00 11/19/19 07:54 Bicarbonate, Sodium PO Not Given BID [facility] Sodium Chloride 10 ml 11/13/19 21:00 11/19/19 07:54 Flush - Normal Saline IVF Not Given Q12HR [facility] Sodium Chloride 10 ml 11/13/19 11:03 11/19/19 05:29 Flush - Normal Saline IVF 10 ml PRN PRN Administration Saline Flush Trazodone HCl 50 mg 11/11/19 21:00 11/18/19 20:59 Desyrel PO Not Given QPM [facility] - Exam General Appearance: awake alert ENT: normocephalic atraumatic Neck: supple Heart: RRR Respiratory: normal chest expansion, no tachypnea Gastrointestinal: soft Extremities: no cyanosis Hosp A/P - Plan Hosp A/P (1) Acute metabolic encephalopathy Code(s): G93.41 - METABOLIC ENCEPHALOPATHY Status: Acute Plan: multifactorial process including persistent acidosis, infection with C. diff and multiple co-morbid conditions (2) Acute kidney injury superimposed on CKD Code(s): N17.9 - ACUTE KIDNEY FAILURE, UNSPECIFIED; N18.9 - CHRONIC KIDNEY DISEASE, UNSPECIFIED Status: Acute Plan: slow improvement, continue IVF's, avoid nephrotoxic meds and limit contrast (3) Transaminitis Code(s): R74.0 - NONSPEC ELEV OF LEVELS OF TRANSAMNS & LACTIC ACID DEHYDRGNSE Status: Acute Plan: Persistent, likely due to sepsis in context of C. diff colitis (4) Metabolic acidosis Code(s): E87.2 - ACIDOSIS Status: Acute (5) Hyperkalemia Code(s): E87.5 - HYPERKALEMIA Status: Acute (6) Thrombocytopenia Code(s): D69.6 - THROMBOCYTOPENIA, UNSPECIFIED Status: Acute Plan: Improving, likely due to sepsis picture, serial monitoring, avoid heparin/ LMWH (7) RLL pneumonia Code(s): J18.9 - PNEUMONIA, UNSPECIFIED ORGANISM Status: Acute (8) Sepsis Code(s): A41.9 - SEPSIS, UNSPECIFIED ORGANISM Status: Acute Plan: Secondary C. diff colitis, started Flagyl 500mg IV q8h (9) Anemia, normocytic normochromic Code(s): D64.9 - ANEMIA, UNSPECIFIED Status: Chronic (10) Clostridioides difficile infection Code(s): A49.8 - OTHER BACTERIAL INFECTIONS OF UNSPECIFIED SITE Status: Acute (11) C. difficile diarrhea Code(s): A04.72 - ENTEROCOLITIS D/T CLOSTRIDIUM DIFFICILE, NOT SPCF RECUR Status: Acute Plan: Continue Flagyl IV, may consider Vancomycin po once tolerating oral intake - Plan 11/16: continue antibiotics, PT/OT, social work professor, speech therapy, DVT proph w/SCDs Consults: Palliative Care Stable currently Continue Cefepime, d/c Vancomycin Flagyl 500mg IV q8h Add D5NS with sodium bicarbonate@ 100ml/h Nephrology consult appreciated COVID-19 ruled out Hold all psychotropics/sedating meds Palliative care consult for goals of care/intermediate project manager trajectory D/C Lovenox/ASA due to thrombocytopenia Start Scopolamine patch Check PCXR today Contact precautions due to C. Diff AM lab: CMP, CBC, PO3 11/17: The patient has been refusing oral intake. He did not cooperate with speech therapy. PPN might be considered but this is not a long-term solution. His diarrhea is now resolved. Thrombocytopenia is improving. LFTs are trending down. His sepsis is improving. Creatinine level is trending up. Nephrology on board. Patient is on IV fluids. 11/18: The patient did participate with speech therapy today. Apparently he is at risk of aspiration. I have discussed this with his son Loyd who agreed to proceed with diet with risk. I also relayed the patient's poor long-term prognosis and requested a family meeting to discuss possible hospice placement. His family refused to presented to the hospital but his son is open to discussion over the phone. I will reach out to him again tomorrow to discuss further options. The patient's anemia thrombocytopenia are stable.
--- NOTE | 2019-11-19 15:26 | PRG ---
DATE OF SERVICE: 11/19/2019 SUBJECTIVE: The patient was seen and examined at bedside. Remains confused. OBJECTIVE: GENERAL: An elderly male, who is confused. VITAL SIGNS: Temperature , pulse 71, respiratory rate 21, blood pressure 116/71. HEENT: Atraumatic, normocephalic. CV: S1 and S2 heard. RESPIRATORY: Clear. GI: Abdomen is soft. MUSCULOSKELETAL: No edema. DERMATOLOGIC: No skin rash. NEUROLOGIC: Confused. LABORATORY DATA: Sodium 147, bicarb 23, BUN 58, creatinine is 2.4. ASSESSMENT AND PLAN: 1. Acute kidney injury, stable. 2. Hypernatremia. 3. Acidosis, better. 4. Hyperkalemia. 5. Altered mentation. 6. Renal function seems to be stable. Continue hydration. Long-term prognosis poor and primary team is having discussion with the family for clarification of goals of care. We will follow. Job ID: [id number]
--- NOTE | 2019-11-19 20:48 | PDOC.EVN ---
Event Note - Event Note Event Note: nurse reports Non sustained Vtach, 28 beats, RR 12 with periods of apnea, BP 118 /83, T 97.9F, HR 110s. Will get 12 lead EKG, BMP, Mag, TSH
[2019-11-19 21:32] LABS: Phosphorus 2.7 mg/dL (2.3-4.7)
[2019-11-19 21:34] LABS: Anion Gap 14 mmol/L (10-20); BUN (Urea Nitrogen) 56 mg/dL (8.4-25.7); Calc. Creatinine Clearance 32 mL/min (70-130); Calcium 7.5 mg/dL (7.8-10.44); Carbon Dioxide 26 mmol/L (23-31); Chloride 111 mmol/L (98-107); Estimated GFR-MDRD 29; Glucose 164 mg/dL (83-110); Magnesium 2.1 mg/dL (1.6-2.6); Potassium 3.7 mmol/L (3.5-5.1); Sodium 147 mmol/L (136-145)
[2019-11-19] MEDS: traZODone HCl 50 MG TAB PO SCH (22:34)
[2019-11-20] MEDS: metroNIDAZOLE 250 MG IVPB SCH ×3 (05:11→21:03)
[2019-11-20] MEDS: Pantoprazole 40 MG VIAL IVP SCH ×2 (05:11→16:51)
[2019-11-20 05:15] LABS: Mean Corpuscular HGB CONC 29.9 g/dL (32.0-36.0); Mean Platelet Volume 16.8 fL (7.4-10.4); Platelet Count 15 thou/uL (130-400); RBC Distribution Width 20.3 % (11.5-14.5); Red Blood Cell (RBC) Count 3.66 mill/uL (4.70-6.10); White Blood Cell (WBC) Count 7.8 thou/uL (4.8-10.8)
[2019-11-20 05:19] LABS: AST (SGOT) 465 U/L (5-34); Albumin 2.7 g/dL (3.4-4.8); Alkaline Phosphatase 109 U/L (40-110); Anion Gap 15 mmol/L (10-20); BUN (Urea Nitrogen) 53 mg/dL (8.4-25.7); Bilirubin, Total 2.2 mg/dL (0.2-1.2); Calc. Creatinine Clearance 33 mL/min (70-130); Calcium 7.4 mg/dL (7.8-10.44); Carbon Dioxide 21 mmol/L (23-31); Chloride 114 mmol/L (98-107); Estimated GFR-MDRD 30; Globulin 3.2 g/dL (2.4-3.5); Glucose 139 mg/dL (83-110); Potassium 4.3 mmol/L (3.5-5.1); Protein, Total 5.9 g/dL (5.8-8.1); Sodium 146 mmol/L (136-145)
[2019-11-20 05:20] LABS: Band 2 % (5-11); Eosinophils 5 % (0-10); Lymphocytes 15 % (21-51); MDiff Complete? YES; Macrocytosis SLIGHT = 6-15 cells (100X) (0-5/hpf); Monocytes 4 % (0-10); Neutrophil 74 % (42-75); Platelet Morphology Comment Appears Decreased; Polychromasia SLIGHT = 2-3 cells (100X) (0-2/hpf)
[2019-11-20 05:46] LABS: ALT (SGPT) 1069 U/L (8-55)
[2019-11-20] MEDS: Cefepime 1 GM in Sodium Chloride 0.9% 100 ML IVPB SCH (08:32)
[2019-11-20] MEDS: Sodium Bicarbonate Tab 325 MG TAB PO SCH ×3 (08:37→23:18)
[2019-11-20] MEDS: Carvedilol 6.25 MG TAB PO SCH ×3 (08:37→18:00)
[2019-11-20] MEDS: Dronedarone HCl 400 MG TAB PO SCH ×3 (08:37→18:00)
[2019-11-20] MEDS: Gabapentin 300 MG CAP PO SCH ×4 (08:37→23:18)
[2019-11-20] MEDS: Polyethylene Glycol 3350 17 GM Packet PO SCH ×2 (08:40→09:02)
[2019-11-20] MEDS: Aspirin 81 mg Enteric Coated Tablet PO SCH (09:03)
--- NOTE | 2019-11-20 11:08 | PRG ---
DATE OF SERVICE: 11/20/2019 SUBJECTIVE: A 74-year-old gentleman, being seen for acute kidney injury. The patient is nonverbal. OBJECTIVE: General: The patient is resting. Vital Signs: Afebrile, pulse 131, blood pressure 122/83. HEENT: Head normocephalic and atraumatic. Eyes intact, no ulcers. Nose intact, no ulcers. Ears intact, no ulcers. Neck: Supple. No JVD. Chest: Symmetrical and clear. Cardiovascular: Shows S1 and S2, no rub, no murmur. Gastrointestinal: Abdomen is soft, bowel sounds positive. Extremities: Show no edema or ulcers. Skin: Shows no rash or petechiae. Musculoskeletal: Shows no joint swelling or stiffness. Genitourinary: Shows no Martin or CVA tenderness. Neurologic: The patient is resting. LABORATORY DATA: Sodium 146, creatinine 2.1. ASSESSMENT AND PLAN: 1. Acute kidney injury with chronic kidney disease stage 3, improved. 2. Hypertension, stable. 3. Anemia, stable. 4. Hypernatremia, we would recommend changing IV fluids to D5 water. 5. Tachycardia. Management per Primary Team. Overall prognosis is poor. Job ID: [id number]
[2019-11-20] MEDS: Dextrose 5% in Water 1,000 ML IV SCH ×2 (12:14→23:20)
[2019-11-20] MEDS: HumaLOG 300 UNITS/3 ML VIAL SC PRN (12:14)
[2019-11-20] MEDS ORDERED: Nitroglycerin 0.4 MG TAB (25 Tab Bottle) SL PRN (14:23)
[2019-11-20] MEDS ORDERED: Cyclobenzaprine 10 MG TAB PO PRN (14:23)
--- NOTE | 2019-11-20 14:35 | PDOC.HOSPP ---
- Subjective Encounter Date: 11/20/19 Subjective: This is a 74-year-old male with history of coronary artery disease, chronic kidney disease, peripheral arterial disease with recent right BKA who was admitted to the hospital with sepsis secondary to right lower lobe pneumonia. His hospitalization was complicated by acute kidney injury, DIC, encephalopathy , and liver injury. Today, the patient remains confused. He is tolerating modified diet but his appetite is poor. An episode of nonsustained V. tach was noted last night. - Objective Vital Signs & Weight: Vital Signs (12 hours) Temp Pulse Resp BP BP Pulse Ox 11/20/19 11:55 98.2 F 84 18 139/80 100 11/20/19 08:41 97.8 F 130 H 19 122/83 100 11/20/19 07:51 97.8 F 131 H 20 128/98 H 97 11/20/19 05:20 97.8 F 123 H 15 133/87 96 Weight Admit Weight 177 lb 3.2 oz Weight 177 lb 3.2 oz I&O: 11/19/19 11/20/19 11/21/19 06:59 06:59 06:59 Intake Total 700 918 Output Total 550 350 450 Balance 150 -350 468 Result Diagrams: 11/20/19 04:30 11/20/19 04:30 Additional Labs: Accuchecks 11/20/19 11/20/19 11/19/19 10:11 05:32 22:48 POC Glucose 150 H 150 H 149 H 11/19/19 17:47 POC Glucose 192 H Hospitalist ROS - Medication Medications: Active Medications Generic Name Dose Route Start Last Admin Trade Name Freq PRN Reason Stop Dose Admin Acetaminophen 650 mg 11/11/19 02:49 11/16/19 09:00 Tylenol PO 650 mg Q4H PRN Administration Headache/Fever/Mild Pain (1-3) Aspirin 81 mg 11/11/19 09:00 11/20/19 09:03 Ecotrin PO Not Given DAILY [facility] Carvedilol 6.25 mg 11/11/19 08:00 11/20/19 09:12 Coreg PO Not Given BID-WM [facility] Dronedarone 400 mg 11/11/19 08:00 11/20/19 09:12 Multaq PO Not Given BID-WM [facility] Gabapentin 300 mg 11/11/19 09:00 11/20/19 09:12 Neurontin PO Not Given TID [facility] Metronidazole 250 mg/ 50 mls @ 50 mls/hr 11/16/19 20:00 11/20/19 13:47 Miscellaneous Medication IVPB 50 mls 0400,1200,2000 [facility] Administration Dextrose/Water 1,000 mls @ 75 mls/hr 11/20/19 10:00 11/20/19 12:14 D5w IV 1,000 mls .[id number] [facility] Administration Insulin Human Lispro 0 units 11/11/19 02:52 11/20/19 12:14 Humalog SC 2 unit .MILD SLIDING SCALE PRN Administration Mild Correctional Scale Isosorbide Mononitrate 30 mg 11/11/19 09:00 11/20/19 09:03 Imdur Er PO Not Given DAILY [facility] Labetalol HCl 20 mg 11/11/19 02:49 11/17/19 16:05 Normodyne SLOW IVP 20 mg Q4H PRN Administration SBP > 160, use third Morphine Sulfate 2 mg 11/11/19 02:49 11/19/19 22:35 Morphine SLOW IVP 2 mg Q4H PRN Administration Moderate to Severe Pain (4-10) Ondansetron HCl 4 mg 11/11/19 02:49 11/17/19 14:39 Zofran IVP 4 mg Q6H PRN Administration Nausea/Vomiting, use 1st Pantoprazole Sodium 40 mg 11/17/19 16:00 11/20/19 05:11 Protonix IVP 40 mg 0400,1600 KARLI Administration Polyethylene Glycol 17 gm 11/11/19 09:00 11/20/19 09:02 Miralax PO Not Given DAILY [facility] Scopolamine 1.5 mg 11/16/19 09:00 11/19/19 08:16 Transderm Scop TD 1.5 mg Q3D [facility] Administration Sodium Bicarbonate 650 mg 11/15/19 21:00 11/20/19 09:12 Bicarbonate, Sodium PO Not Given BID [facility] Sodium Chloride 10 ml 11/13/19 21:00 11/20/19 08:40 Flush - Normal Saline IVF Not Given Q12HR [facility] Sodium Chloride 10 ml 11/13/19 11:03 11/20/19 05:11 Flush - Normal Saline IVF 10 ml PRN PRN Administration Saline Flush Trazodone HCl 50 mg 11/11/19 21:00 11/19/19 22:34 Desyrel PO Not Given QPM [facility] - Exam General Appearance: awake alert, ill appearing ENT: normocephalic atraumatic Neck: supple Heart: RRR, no murmur, no gallops, normal peripheral pulses Respiratory: normal chest expansion, no tachypnea Respiratory - other findings: Decreased breath sounds and crackles were noted on the right side. Gastrointestinal: soft, non-tender, non-distended, normal bowel sounds Neurological: cranial nerve grossly intact Neurological - other findings: Generalized weakness Hosp A/P - Plan Hosp A/P (1) Acute metabolic encephalopathy Code(s): G93.41 - METABOLIC ENCEPHALOPATHY Status: Acute Plan: multifactorial process including persistent acidosis, infection with C. diff and multiple co-morbid conditions (2) Acute kidney injury superimposed on CKD Code(s): N17.9 - ACUTE KIDNEY FAILURE, UNSPECIFIED; N18.9 - CHRONIC KIDNEY DISEASE, UNSPECIFIED Status: Acute Plan: slow improvement, continue IVF's, avoid nephrotoxic meds and limit contrast (3) Transaminitis Code(s): R74.0 - NONSPEC ELEV OF LEVELS OF TRANSAMNS & LACTIC ACID DEHYDRGNSE Status: Acute Plan: Persistent, likely due to sepsis in context of C. diff colitis (4) Metabolic acidosis Code(s): E87.2 - ACIDOSIS Status: Acute (5) Hyperkalemia Code(s): E87.5 - HYPERKALEMIA Status: Acute (6) Thrombocytopenia Code(s): D69.6 - THROMBOCYTOPENIA, UNSPECIFIED Status: Acute Plan: Improving, likely due to sepsis picture, serial monitoring, avoid heparin/ LMWH (7) RLL pneumonia Code(s): J18.9 - PNEUMONIA, UNSPECIFIED ORGANISM Status: Acute (8) Sepsis Code(s): A41.9 - SEPSIS, UNSPECIFIED ORGANISM Status: Acute Plan: Secondary C. diff colitis, started Flagyl 500mg IV q8h (9) Anemia, normocytic normochromic Code(s): D64.9 - ANEMIA, UNSPECIFIED Status: Chronic (10) Clostridioides difficile infection Code(s): A49.8 - OTHER BACTERIAL INFECTIONS OF UNSPECIFIED SITE Status: Acute Plan: Continue Flagyl IV, may consider Vancomycin po once tolerating oral intake - Plan No fever or leukocytosis. Saturating well on room air. Vancomycin and cefepime has been discontinued. He is on IV Flagyl for C. difficile colitis. He does not take enough orally to use oral vancomycin. No diarrhea was reported over the past 48 hours. Creatinine level stable. LFTs trending down. Thrombocytopenia is worsening. HIT panel is negative. Pancytopenia likely related to DIC. No evidence of active bleeding at this time. No indications for platelet transfusion. Continue to monitor. I had a long discussion with the patient's son Loyd yesterday and today about his overall condition and poor prognosis. He mentioned that his father was on hospice before and that he did not want to be on mechanical ventilation, dialysis, or feeding tubes. He requested that we feed his father even if there is risk for aspiration. He also stated that family members will not be able to come to the hospital due to their busy schedule but he is agreeable to transfer the patient to a nursing facility on hospice. Case management consulted to arrange for placement.
--- NOTE | 2019-11-20 16:58 | EKG ---
Test Reason : STAT Blood Pressure : / mmHG Vent. Rate : 127 BPM Atrial Rate : 127 BPM P-R Int : 000 ms QRS Dur : 138 ms QT Int : 354 ms P-R-T Axes : 000 -73 048 degrees QTc Int : 514 ms Unusual P axis, possible ectopic atrial tachycardia Left axis deviation Non-specific intra-ventricular conduction block Possible Lateral infarct , age undetermined Abnormal ECG Confirmed by ANAND DAN ([id number]) on 11/20/2019 4:58:16 PM Referred By: Confirmed By:ANAND DAN
--- NOTE | 2019-11-20 17:08 | EKG ---
Test Reason : Blood Pressure : / mmHG Vent. Rate : 121 BPM Atrial Rate : 121 BPM P-R Int : 000 ms QRS Dur : 140 ms QT Int : 370 ms P-R-T Axes : 000 -61 081 degrees QTc Int : 525 ms Unusual P axis, possible ectopic atrial tachycardia Left axis deviation Septal infarct , age undetermined cannot be excluded Non-specific intra-ventricular conduction block Abnormal ECG Confirmed by ANAND DAN ([id number]) on 11/20/2019 5:07:50 PM Referred By: POLINA Confirmed By:ANAND DAN
[2019-11-20] MEDS: Morphine 2 MG/ML SYRINGE SLOW IVP PRN (23:16)
[2019-11-20] MEDS: traZODone HCl 50 MG TAB PO SCH (23:18)
[2019-11-21 05:03] LABS: Band 2 % (5-11); Hemoglobin 9.8 g/dL (14.0-18.0); Hypochromia SLIGHT = 6-15 cells (100X) (0-5/hpf); Lymphocytes 14 % (21-51); MDiff Complete? YES; Mean Corpuscular HGB CONC 29.9 g/dL (32.0-36.0); Mean Corpuscular Hemoglobin 29.4 pg (27.0-31.0); Mean Corpuscular Volume 98.2 fL (78.0-98.0); Mean Platelet Volume 11.1 fL (7.4-10.4); Monocytes 5 % (0-10); Neutrophil 79 % (42-75); Platelet Count 44 thou/uL (130-400); Platelet Morphology Comment Appears Decreased; RBC Distribution Width 20.2 % (11.5-14.5); Red Blood Cell (RBC) Count 3.35 mill/uL (4.70-6.10)
[2019-11-21 05:12] LABS: ALT (SGPT) 735 U/L (8-55); AST (SGOT) 231 U/L (5-34); Albumin 2.4 g/dL (3.4-4.8); Alkaline Phosphatase 91 U/L (40-110); Anion Gap 13 mmol/L (10-20); BUN (Urea Nitrogen) 50 mg/dL (8.4-25.7); Bilirubin, Total 2.1 mg/dL (0.2-1.2); Calc. Creatinine Clearance 34 mL/min (70-130); Calcium 7.1 mg/dL (7.8-10.44); Carbon Dioxide 24 mmol/L (23-31); Chloride 113 mmol/L (98-107); Estimated GFR-MDRD 30; Globulin 3.2 g/dL (2.4-3.5); Glucose 175 mg/dL (83-110); Potassium 4.5 mmol/L (3.5-5.1); Protein, Total 5.6 g/dL (5.8-8.1); Sodium 145 mmol/L (136-145)
[2019-11-21] MEDS: metroNIDAZOLE 250 MG IVPB SCH ×3 (05:22→21:45)
[2019-11-21] MEDS: Pantoprazole 40 MG VIAL IVP SCH ×2 (05:22→16:37)
[2019-11-21] MEDS: Dextrose 5% in Water 1,000 ML IV SCH ×2 (06:40→23:53)
[2019-11-21] MEDS: Dronedarone HCl 400 MG TAB PO SCH ×2 (10:59→16:38)
[2019-11-21] MEDS: Sodium Bicarbonate Tab 325 MG TAB PO SCH ×2 (11:00→21:54)
[2019-11-21] MEDS: Tamsulosin HCl 0.4 MG CAP PO SCH (11:01)
[2019-11-21] MEDS: Aspirin 81 mg Enteric Coated Tablet PO SCH (11:01)
[2019-11-21] MEDS: Gabapentin 300 MG CAP PO SCH ×3 (11:01→21:51)
[2019-11-21] MEDS: Carvedilol 6.25 MG TAB PO SCH ×2 (11:02→16:37)
[2019-11-21] MEDS: Polyethylene Glycol 3350 17 GM Packet PO SCH (11:03)
--- NOTE | 2019-11-21 13:01 | PRG ---
DATE OF SERVICE: 11/21/2019 SUBJECTIVE: A 74-year-old gentleman, being seen for acute kidney injury. The patient denies any nausea, vomiting, or chest pain. OBJECTIVE: GENERAL: The patient is awake and alert. VITAL SIGNS: Afebrile, pulse 68, breathing at 16, blood pressure 112/78. HEENT: Head normocephalic and atraumatic. Eyes intact, no ulcers. Nose intact, no ulcers. Ears intact, no ulcers. NECK: Supple. No JVD. CHEST: Symmetrical and clear. CARDIOVASCULAR: Shows S1 and S2, no rub, no murmur. GASTROINTESTINAL: Abdomen is soft, bowel sounds positive. EXTREMITIES: Show no edema or ulcers. SKIN: Shows no rash or petechiae. MUSCULOSKELETAL: Shows no joint swelling or stiffness. GENITOURINARY: Shows no Martin or CVA tenderness. NEUROLOGIC: Motor intact. Cranial nerves intact. LABORATORY DATA: Show hemoglobin 9.8. Creatinine 2.1. ASSESSMENT AND RECOMMENDATIONS: 1. Chronic kidney disease, stage 3, stable. 2. Hypertension, stable. 3. Acute kidney injury, stable. 4. Medication based on GFR, appropriate. Continue free water. Job ID: [id number]
[2019-11-21] MEDS: HumaLOG 300 UNITS/3 ML VIAL SC PRN (16:45)
--- NOTE | 2019-11-21 19:30 | PDOC.HOSPP ---
- Subjective Encounter Date: 11/21/19 Subjective: Confused - Objective Vital Signs & Weight: Vital Signs (12 hours) Temp Pulse Resp BP BP Pulse Ox 11/21/19 16:37 111/66 11/21/19 16:06 98.2 F 69 20 111/66 95 11/21/19 11:02 112/78 Weight Admit Weight 177 lb 3.2 oz Weight 177 lb 3.2 oz I&O: 11/20/19 11/21/19 11/22/19 06:59 06:59 06:59 Intake Total 956 1010 Output Total 350 1200 325 Balance -350 -244 685 Result Diagrams: 11/21/19 04:27 11/21/19 04:27 Additional Labs: Accuchecks 11/21/19 11/21/19 11/21/19 16:47 10:48 06:17 POC Glucose 150 H 175 H 151 H 11/20/19 22:50 POC Glucose 162 H Hospitalist ROS - Medication Medications: Active Medications Generic Name Dose Route Start Last Admin Trade Name Freq PRN Reason Stop Dose Admin Acetaminophen 650 mg 11/11/19 02:49 11/16/19 09:00 Tylenol PO 650 mg Q4H PRN Administration Headache/Fever/Mild Pain (1-3) Aspirin 81 mg 11/11/19 09:00 11/21/19 11:01 Ecotrin PO 81 mg DAILY [facility] Administration Carvedilol 6.25 mg 11/11/19 08:00 11/21/19 16:37 Coreg PO 6.25 mg BID-WM [facility] Administration Dronedarone 400 mg 11/11/19 08:00 11/21/19 16:38 Multaq PO 400 mg BID-WM [facility] Administration Gabapentin 300 mg 11/11/19 09:00 11/21/19 16:37 Neurontin PO 300 mg TID [facility] Administration Metronidazole 250 mg/ 50 mls @ 50 mls/hr 11/16/19 20:00 11/21/19 13:00 Miscellaneous Medication IVPB 50 mls 0400,1200,2000 [facility] Administration Dextrose/Water 1,000 mls @ 75 mls/hr 11/20/19 10:00 11/21/19 06:40 D5w IV 1,000 mls .[id number] [facility] Administration Insulin Human Lispro 0 units 11/11/19 02:52 11/21/19 16:45 Humalog SC 2 unit .MILD SLIDING SCALE PRN Administration Mild Correctional Scale Isosorbide Mononitrate 30 mg 11/11/19 09:00 11/21/19 11:03 Imdur Er PO 30 mg DAILY [facility] Administration Labetalol HCl 20 mg 11/11/19 02:49 11/17/19 16:05 Normodyne SLOW IVP 20 mg Q4H PRN Administration SBP > 160, use third Ondansetron HCl 4 mg 11/11/19 02:49 11/17/19 14:39 Zofran IVP 4 mg Q6H PRN Administration Nausea/Vomiting, use 1st Pantoprazole Sodium 40 mg 11/17/19 16:00 11/21/19 16:37 Protonix IVP 40 mg 0400,1600 K[facility] Administration Polyethylene Glycol 17 gm 11/11/19 09:00 11/21/19 11:03 Miralax PO Not Given DAILY [facility] Scopolamine 1.5 mg 11/16/19 09:00 11/19/19 08:16 Transderm Scop TD 1.5 mg Q3D [facility] Administration Sodium Bicarbonate 650 mg 11/15/19 21:00 11/21/19 11:00 Bicarbonate, Sodium PO 650 mg BID [facility] Administration Sodium Chloride 10 ml 11/13/19 21:00 11/21/19 11:01 Flush - Normal Saline IVF Not Given Q12HR [facility] Sodium Chloride 10 ml 11/13/19 11:03 11/21/19 16:39 Flush - Normal Saline IVF 10 ml PRN PRN Administration Saline Flush Tamsulosin HCl 0.4 mg 11/21/19 09:00 11/21/19 11:01 Flomax PO 0.4 mg DAILY [facility] Administration Trazodone HCl 50 mg 11/11/19 21:00 11/20/19 23:18 Desyrel PO Not Given QPM [facility] - Exam General Appearance: awake alert ENT: normocephalic atraumatic Neck: supple Heart: RRR Respiratory: normal chest expansion, no tachypnea Neurological: cranial nerve grossly intact Hosp A/P - Plan Hosp A/P (1) Acute metabolic encephalopathy Code(s): G93.41 - METABOLIC ENCEPHALOPATHY Status: Acute Plan: multifactorial process including persistent acidosis, infection with C. diff and multiple co-morbid conditions (2) Acute kidney injury superimposed on CKD Code(s): N17.9 - ACUTE KIDNEY FAILURE, UNSPECIFIED; N18.9 - CHRONIC KIDNEY DISEASE, UNSPECIFIED Status: Acute Plan: slow improvement, continue IVF's, avoid nephrotoxic meds and limit contrast (3) Transaminitis Code(s): R74.0 - NONSPEC ELEV OF LEVELS OF TRANSAMNS & LACTIC ACID DEHYDRGNSE Status: Acute Plan: Persistent, likely due to sepsis in context of C. diff colitis (4) Metabolic acidosis Code(s): E87.2 - ACIDOSIS Status: Acute (5) Hyperkalemia Code(s): E87.5 - HYPERKALEMIA Status: Acute (6) Thrombocytopenia Code(s): D69.6 - THROMBOCYTOPENIA, UNSPECIFIED Status: Acute Plan: Improving, likely due to sepsis picture, serial monitoring, avoid heparin/ LMWH (7) RLL pneumonia Code(s): J18.9 - PNEUMONIA, UNSPECIFIED ORGANISM Status: Acute (8) Sepsis Code(s): A41.9 - SEPSIS, UNSPECIFIED ORGANISM Status: Acute Plan: Secondary C. diff colitis, started Flagyl 500mg IV q8h (9) Anemia, normocytic normochromic Code(s): D64.9 - ANEMIA, UNSPECIFIED Status: Chronic (10) Clostridioides difficile infection Code(s): A49.8 - OTHER BACTERIAL INFECTIONS OF UNSPECIFIED SITE Status: Acute Plan: Continue Flagyl IV, may consider Vancomycin po once tolerating oral intake - Plan No fever or leukocytosis. Saturating well on room air. Vancomycin and cefepime has been discontinued. He is on IV Flagyl for C. difficile colitis. Switch to PO vancomycin before discharge. No diarrhea was reported. Creatinine level stable. LFTs trending down. Thrombocytopenia is Stable. HIT panel is negative. Pancytopenia likely related to DIC. No evidence of active bleeding at this time. No indications for platelet transfusion. Continue to monitor. I had a long discussion with the patient's son Loyd on 11.19 about his overall condition and poor prognosis. He mentioned that his father was on hospice before and that he did not want to be on mechanical ventilation, dialysis, or feeding tubes. He requested that we feed his father even if there is risk for aspiration. He also stated that family members will not be able to come to the hospital due to their busy schedule but he is agreeable to transfer the patient to a nursing facility on hospice. Case management consulted to arrange for placement.
[2019-11-21] MEDS: traZODone HCl 50 MG TAB PO SCH (21:53)
[2019-11-22 05:07] LABS: Band 11 % (5-11); Eosinophils 6 % (0-10); Hemoglobin 9.8 g/dL (14.0-18.0); Lymphocytes 20 % (21-51); MDiff Complete? YES; Mean Corpuscular HGB CONC 30.6 g/dL (32.0-36.0); Mean Platelet Volume 12.4 fL (7.4-10.4); Monocytes 6 % (0-10); Neutrophil 57 % (42-75); Nucleated RBC 3 % (0); Platelet Count 53 thou/uL (130-400); Platelet Morphology Comment Appears Decreased; RBC Distribution Width 20.7 % (11.5-14.5); Red Blood Cell (RBC) Count 3.17 mill/uL (4.70-6.10); White Blood Cell (WBC) Count 6.6 thou/uL (4.8-10.8)
[2019-11-22 05:15] LABS: ALT (SGPT) 535 U/L (8-55); AST (SGOT) 86 U/L (5-34); Albumin 2.3 g/dL (3.4-4.8); Alkaline Phosphatase 85 U/L (40-110); Anion Gap 13 mmol/L (10-20); BUN (Urea Nitrogen) 47 mg/dL (8.4-25.7); Bilirubin, Total 1.9 mg/dL (0.2-1.2); Calc. Creatinine Clearance 34 mL/min (70-130); Calcium 7.2 mg/dL (7.8-10.44); Carbon Dioxide 22 mmol/L (23-31); Chloride 111 mmol/L (98-107); Estimated GFR-MDRD 31; Globulin 2.7 g/dL (2.4-3.5); Glucose 156 mg/dL (83-110); Potassium 3.5 mmol/L (3.5-5.1); Sodium 142 mmol/L (136-145)
[2019-11-22] MEDS: Pantoprazole 40 MG VIAL IVP SCH ×2 (05:23→16:16)
[2019-11-22] MEDS: metroNIDAZOLE 250 MG IVPB SCH ×3 (05:24→22:01)
[2019-11-22] MEDS: HumaLOG 300 UNITS/3 ML VIAL SC PRN ×2 (05:45→16:45)
[2019-11-22] MEDS: Aspirin 81 mg Enteric Coated Tablet PO SCH (11:34)
[2019-11-22] MEDS: Tamsulosin HCl 0.4 MG CAP PO SCH (11:34)
[2019-11-22] MEDS: Sodium Bicarbonate Tab 325 MG TAB PO SCH ×2 (11:34→22:09)
[2019-11-22] MEDS: Dronedarone HCl 400 MG TAB PO SCH ×2 (11:34→16:16)
[2019-11-22] MEDS: Polyethylene Glycol 3350 17 GM Packet PO SCH (11:35)
[2019-11-22] MEDS: Scopolamine 1.5 mg/72 hour Patch TD SCH (11:35)
[2019-11-22] MEDS: Gabapentin 300 MG CAP PO SCH ×3 (11:36→22:09)
[2019-11-22] MEDS: Carvedilol 6.25 MG TAB PO SCH ×2 (11:37→16:31)
[2019-11-22] MEDS: Dextrose 5% in Water 1,000 ML IV SCH (16:17)
--- NOTE | 2019-11-22 16:48 | PDOC.FMACP ---
Advance Care Planning - Problem (1) Acute kidney injury superimposed on CKD Status: Acute Code(s): N17.9 - ACUTE KIDNEY FAILURE, UNSPECIFIED; N18.9 - CHRONIC KIDNEY DISEASE, UNSPECIFIED (2) Acute metabolic encephalopathy Status: Acute Code(s): G93.41 - METABOLIC ENCEPHALOPATHY (3) PAD (peripheral artery disease) Status: Acute Code(s): I73.9 - PERIPHERAL VASCULAR DISEASE, UNSPECIFIED (4) Palliative care encounter Status: Acute Code(s): Z51.5 - ENCOUNTER FOR PALLIATIVE CARE (5) Physical deconditioning Status: Acute Code(s): R53.81 - OTHER MALAISE (6) Diabetes mellitus, type II, insulin dependent Status: Chronic Code(s): E11.9 - TYPE 2 DIABETES MELLITUS WITHOUT COMPLICATIONS; Z79.4 - ASSISTED (CURRENT) USE OF INSULIN - Note Participants: family, surrogate decision-maker, palliative care Summary: Palliative Care revisited Advanced Care Planning with patient family, secondary to patient altered mental state. They were allowed an opportunity to decline. was discussed. The diagnosis, prognosis and goals of care were discussed. Family is electing to seek comfort with hospice, no aggressive measures. Hopeful for facility placement. Appropriate forms and documentation to accomplish the goals of care were discussed. All questions were answered. The Palliative Care Team will continue to assist with completion of any outstanding forms that are needed. Please refer to Faith Lopez RNaccount services associate notes in note section. Time Spent (mins): 30
--- NOTE | 2019-11-22 17:47 | PRG ---
DATE OF SERVICE: 11/22/2019 SUBJECTIVE: A 74-year-old gentleman, being seen for acute kidney injury. The patient denies any nausea, vomiting, or chest pain. OBJECTIVE: General: The patient is resting. Vital Signs: Afebrile. Pulse 66, breathing 16, blood pressure 96/58. HEENT: Head normocephalic and atraumatic. Eyes intact, no ulcers. Nose intact, no ulcers. Ears intact, no ulcers. Neck: Supple. No JVD. Chest: Symmetrical and clear. Cardiovascular: Shows S1 and S2, no rub, no murmur. Gastrointestinal: Abdomen is soft, bowel sounds positive. Extremities: Show no edema or ulcers. Skin: Shows no rash or petechiae. Musculoskeletal: Shows no joint swelling or stiffness. Genitourinary: Shows no Martin or CVA tenderness. Neurologic: The patient is resting and confused. LABORATORY DATA: Creatinine 2.1. ASSESSMENT: Chronic kidney disease stage 3, stable. Acute kidney injury, resolved. Medication based on GFR appropriate. Altered mental status and dementia. Management per Primary Team. Overall prognosis is poor. I will sign off. Please reconsult as needed. Job ID: [id number]
--- NOTE | 2019-11-22 20:15 | PDOC.HOSPP ---
- Subjective Encounter Date: 11/22/19 - Objective Vital Signs & Weight: Vital Signs (12 hours) Temp Pulse Resp BP BP BP Pulse Ox 11/22/19 19:22 97.9 F 107 H 16 99 11/22/19 16:31 95/55 L 11/22/19 14:51 97.9 F 66 16 96/58 L 99 11/22/19 11:37 94/64 11/22/19 11:32 97.7 F 114 H 18 94/64 99 Weight Admit Weight 177 lb 3.2 oz Weight 177 lb 3.2 oz I&O: 11/21/19 11/22/19 11/23/19 06:59 06:59 06:59 Intake Total 956 2100 Output Total 1200 575 275 Balance -244 1525 -275 Result Diagrams: 11/22/19 04:32 11/22/19 04:32 Additional Labs: Accuchecks 11/22/19 11/22/19 11/22/19 16:43 10:00 05:29 POC Glucose 182 H 127 H 157 H 11/21/19 20:43 POC Glucose 141 H Hospitalist ROS - Medication Medications: Active Medications Generic Name Dose Route Start Last Admin Trade Name Freq PRN Reason Stop Dose Admin Acetaminophen 650 mg 11/11/19 02:49 11/16/19 09:00 Tylenol PO 650 mg Q4H PRN Administration Headache/Fever/Mild Pain (1-3) Aspirin 81 mg 11/11/19 09:00 11/22/19 11:34 Ecotrin PO 81 mg DAILY KARLI Administration Carvedilol 6.25 mg 11/11/19 08:00 11/22/19 16:31 Coreg PO Not Given BID-WM KARLI Dronedarone 400 mg 11/11/19 08:00 11/22/19 16:16 Multaq PO 400 mg BID-WM AKRLI Administration Gabapentin 300 mg 11/11/19 09:00 11/22/19 16:17 Neurontin PO 300 mg TID KARLI Administration Metronidazole 250 mg/ 50 mls @ 50 mls/hr 11/16/19 20:00 11/22/19 11:39 Miscellaneous Medication IVPB 50 mls 0400,1200,2000 KARLI Administration Dextrose/Water 1,000 mls @ 75 mls/hr 11/20/19 10:00 06/17/20 16:17 D5w IV 1,000 mls .[id number] KARLI Administration Insulin Human Lispro 0 units 11/11/19 02:52 11/22/19 16:45 Humalog SC 2 unit .MILD SLIDING SCALE PRN Administration Mild Correctional Scale Isosorbide Mononitrate 30 mg 11/11/19 09:00 11/22/19 11:34 Imdur Er PO 30 mg DAILY KARLI Administration Labetalol HCl 20 mg 11/11/19 02:49 11/17/19 16:05 Normodyne SLOW IVP 20 mg Q4H PRN Administration SBP > 160, use third Ondansetron HCl 4 mg 11/11/19 02:49 11/17/19 14:39 Zofran IVP 4 mg Q6H PRN Administration Nausea/Vomiting, use 1st Pantoprazole Sodium 40 mg 11/17/19 16:00 11/22/19 16:16 Protonix IVP 40 mg 0400,1600 KARLI Administration Polyethylene Glycol 17 gm 11/11/19 09:00 11/22/19 11:35 Miralax PO Not Given DAILY KARLI Scopolamine 1.5 mg 11/16/19 09:00 11/22/19 11:35 Transderm Scop TD 1.5 mg Q3D KARLI Administration Sodium Bicarbonate 650 mg 11/15/19 21:00 11/22/19 11:34 Bicarbonate, Sodium PO 650 mg BID KARLI Administration Sodium Chloride 10 ml 11/13/19 21:00 11/22/19 11:36 Flush - Normal Saline IVF 10 ml Q12HR KARLI Administration Sodium Chloride 10 ml 11/13/19 11:03 11/21/19 16:39 Flush - Normal Saline IVF 10 ml PRN PRN Administration Saline Flush Tamsulosin HCl 0.4 mg 11/21/19 09:00 11/22/19 11:34 Flomax PO 0.4 mg DAILY KARLI Administration Trazodone HCl 50 mg 11/11/19 21:00 11/21/19 21:53 Desyrel PO Not Given QPM KARLI - Exam General Appearance: awake alert, ill appearing Neck: supple Heart - other findings: Tachycardia Respiratory: normal chest expansion, no tachypnea Extremities: no cyanosis, no clubbing Neurological: cranial nerve grossly intact Hosp A/P - Plan Hosp A/P (1) Acute metabolic encephalopathy Code(s): G93.41 - METABOLIC ENCEPHALOPATHY Status: Acute Plan: multifactorial process including persistent acidosis, infection with C. diff and multiple co-morbid conditions (2) Acute kidney injury superimposed on CKD Code(s): N17.9 - ACUTE KIDNEY FAILURE, UNSPECIFIED; N18.9 - CHRONIC KIDNEY DISEASE, UNSPECIFIED Status: Acute Plan: slow improvement, continue IVF's, avoid nephrotoxic meds and limit contrast (3) Transaminitis Code(s): R74.0 - NONSPEC ELEV OF LEVELS OF TRANSAMNS & LACTIC ACID DEHYDRGNSE Status: Acute Plan: Persistent, likely due to sepsis in context of C. diff colitis (4) Metabolic acidosis Code(s): E87.2 - ACIDOSIS Status: Acute (5) Hyperkalemia Code(s): E87.5 - HYPERKALEMIA Status: Acute (6) Thrombocytopenia Code(s): D69.6 - THROMBOCYTOPENIA, UNSPECIFIED Status: Acute Plan: Improving, likely due to sepsis picture, serial monitoring, avoid heparin/ LMWH (7) RLL pneumonia Code(s): J18.9 - PNEUMONIA, UNSPECIFIED ORGANISM Status: Acute (8) Sepsis Code(s): A41.9 - SEPSIS, UNSPECIFIED ORGANISM Status: Acute Plan: Secondary C. diff colitis, started Flagyl 500mg IV q8h (9) Anemia, normocytic normochromic Code(s): D64.9 - ANEMIA, UNSPECIFIED Status: Chronic (10) Clostridioides difficile infection Code(s): A49.8 - OTHER BACTERIAL INFECTIONS OF UNSPECIFIED SITE Status: Acute Plan: Continue Flagyl IV, may consider Vancomycin po once tolerating oral intake - Plan No fever or leukocytosis. Saturating well on room air. Vancomycin and cefepime has been discontinued. He is on IV Flagyl for C. difficile colitis. Switch to PO vancomycin before discharge. No diarrhea was reported. Creatinine level stable. LFTs trending down. Thrombocytopenia is Stable. HIT panel is negative. Pancytopenia likely related to DIC. No evidence of active bleeding at this time. No indications for platelet transfusion. Continue to monitor. I had a long discussion with the patient's son Loyd on 11.19 about his overall condition and poor prognosis. He mentioned that his father was on hospice before and that he did not want to be on mechanical ventilation, dialysis, or feeding tubes. He requested that we feed his father even if there is risk for aspiration. He also stated that family members will not be able to come to the hospital due to their busy schedule but he is agreeable to transfer the patient to a nursing facility on hospice. Case management consulted to arrange for placement. 11/21: Pending hospice placement.
[2019-11-22] MEDS: traZODone HCl 50 MG TAB PO SCH (22:10)
[2019-11-23] MEDS: Pantoprazole 40 MG VIAL IVP SCH ×2 (04:53→16:00)
[2019-11-23] MEDS: Dextrose 5% in Water 1,000 ML IV SCH ×2 (04:53→08:23)
[2019-11-23] MEDS: metroNIDAZOLE 250 MG IVPB SCH ×2 (04:53→12:48)
[2019-11-23 05:30] LABS: Band 5 % (5-11); Eosinophils 1 % (0-10); Hemoglobin 9.6 g/dL (14.0-18.0); Hypochromia SLIGHT = 6-15 cells (100X) (0-5/hpf); Lymphocytes 7 % (21-51); MDiff Complete? YES; Mean Corpuscular HGB CONC 29.4 g/dL (32.0-36.0); Mean Corpuscular Hemoglobin 29.3 pg (27.0-31.0); Mean Corpuscular Volume 99.5 fL (78.0-98.0); Mean Platelet Volume 11.4 fL (7.4-10.4); Monocytes 6 % (0-10); Neutrophil 81 % (42-75); Platelet Count 82 thou/uL (130-400); Platelet Morphology Comment Appears Decreased; RBC Distribution Width 20.1 % (11.5-14.5); Red Blood Cell (RBC) Count 3.27 mill/uL (4.70-6.10); White Blood Cell (WBC) Count 7.8 thou/uL (4.8-10.8)
[2019-11-23 05:31] LABS: ALT (SGPT) 472 U/L (8-55); AST (SGOT) 58 U/L (5-34); Albumin 2.6 g/dL (3.4-4.8); Alkaline Phosphatase 94 U/L (40-110); Anion Gap 14 mmol/L (10-20); BUN (Urea Nitrogen) 50 mg/dL (8.4-25.7); Calc. Creatinine Clearance 29 mL/min (70-130); Calcium 7.3 mg/dL (7.8-10.44); Carbon Dioxide 23 mmol/L (23-31); Chloride 106 mmol/L (98-107); Estimated GFR-MDRD 25; Globulin 2.9 g/dL (2.4-3.5); Glucose 158 mg/dL (83-110); Potassium 3.6 mmol/L (3.5-5.1); Protein, Total 5.5 g/dL (5.8-8.1); Sodium 139 mmol/L (136-145)
[2019-11-23] MEDS ORDERED: Sodium Chloride 0.9% 500 ML IV SCH ×3 (09:15→11:45)
[2019-11-23] MEDS: Sodium Bicarbonate Tab 325 MG TAB PO SCH (09:25)
[2019-11-23] MEDS: Polyethylene Glycol 3350 17 GM Packet PO SCH (09:25)
[2019-11-23] MEDS: Dronedarone HCl 400 MG TAB PO SCH (09:25)
[2019-11-23] MEDS: Aspirin 81 mg Enteric Coated Tablet PO SCH (09:25)
[2019-11-23] MEDS: Gabapentin 300 MG CAP PO SCH ×2 (09:26→16:00)
[2019-11-23] MEDS: Tamsulosin HCl 0.4 MG CAP PO SCH (09:26)
[2019-11-23] MEDS: Carvedilol 6.25 MG TAB PO SCH (11:22)
--- NOTE | 2019-11-23 12:44 | PRG ---
DATE OF SERVICE: 11/23/2019 SUBJECTIVE: A 74-year-old gentleman with chronic failure to thrive. The patient is resting. OBJECTIVE: GENERAL: Patient is resting. VITAL SIGNS: Afebrile, pulse 75, breathing at 16, blood pressure 85/64. HEENT: Head normocephalic and atraumatic. Eyes intact, no ulcers. Nose intact, no ulcers. Ears intact, no ulcers. NECK: Supple. No JVD. CHEST: Symmetrical and clear. CARDIOVASCULAR: Shows S1 and S2, no rub, no murmur. GASTROINTESTINAL: Abdomen is soft, bowel sounds positive. EXTREMITIES: Show no edema or ulcers. SKIN: Shows no rash or petechiae. MUSCULOSKELETAL: Shows no joint swelling or stiffness. GENITOURINARY: Shows no Martin or CVA tenderness. NEUROLOGIC: The patient is resting. LABORATORY DATA: Labs showed hemoglobin 9.6, creatinine 2.5. ASSESSMENT AND PLAN: 1. Chronic kidney disease stage 4 with acute kidney injury. 2. Progressive multiorgan failure. Overall prognosis is poor. I will sign off. Recommend Palliative Care consult. Job ID: [id number]
--- NOTE | 2019-11-23 14:24 | PDOC.BPN ---
- Brief Progress Note The patient failed a voiding trial due to combination of BPH and prior stroke. He will be discharged with noyola catheter.
[2019-11-23 15:39] VITALS: BP 90/62; TEMP 98.2
--- NOTE | 2019-11-23 22:22 | DIS ---
DATE OF ADMISSION: 11/11/2019 DATE OF DISCHARGE: 11/23/2019 [facility]POSITION[facility]. DISCHARGE DIAGNOSES: 1. Sepsis. 2. Right lower lobe pneumonia. 3. Acute metabolic encephalopathy. 4. Acute kidney injury superimposed on chronic kidney disease. 5. Transaminitis. 6. Thrombocytopenia. 7. Hyperkalemia. 8. Metabolic acidosis. 9. Anemia, normocytic normochromic. 10. Clostridium difficile colitis. DISCHARGE MEDICATIONS: 1. Carvedilol 3.125 mg orally twice daily. Hold if systolic blood pressure less than 90. 2. Aspirin 81 mg orally daily. 3. Flexeril 10 mg orally t.i.d. as needed for muscle spasms. 4. Multaq 400 mg orally twice daily with meals. 5. Gabapentin 300 mg orally t.i.d. 6. Nitroglycerin 0.4 mg sublingual as needed for chest pain. 7. Tamsulosin 0.4 mg orally daily. 8. Trazodone 50 mg orally nightly. 9. Tylenol 500 mg orally q.4 hours. 10. Calcium carbonate 500 mg orally q.6 hours as needed for indigestion. 11. Loperamide 2 mg as needed for diarrhea. 12. Simethicone 80 mg orally t.i.d. HISTORY OF PRESENT ILLNESS AND HOSPITAL COURSE: The patient is a 74-year-old male with past medical history of coronary artery disease, peripheral arterial disease, diabetes, and chronic kidney disease, who was transferred from his [place] [facility] residence with complaints of fever and generalized weakness. Chest x-ray obtained prior to transfer showed right lower lobe infiltrates. The patient was found to be septic and admitted to the hospital with broad-spectrum antibiotics. The patient's sepsis and respiratory status gradually improved during his hospital stay, but his stay was complicated with recurrent C difficile colitis and pancytopenia due to DIC. His creatinine level also worsened due to acute kidney injury. The patient's function test trended up during his hospital stay as well. This was still thought to be due to his underlying sepsis and DIC. The patient's overall condition was poor and his prognosis for survival was not good for the foreseeable future. He was not able to tolerate oral intake without risk of aspiration. We had a discussion with the patient's family about his prior wishes regarding feeding tube, dialysis, CPR, mechanical ventilation. The family stated that the patient did not want any aggressive measures. Due to his overall condition, the decision was made to transition him to hospice care. Job ID: [id number]
--- NOTE | 2019-11-24 14:47 | EKG ---
Test Reason : STAT Blood Pressure : / mmHG Vent. Rate : 122 BPM Atrial Rate : 125 BPM P-R Int : 000 ms QRS Dur : 140 ms QT Int : 362 ms P-R-T Axes : 000 -63 081 degrees QTc Int : 515 ms Undetermined rhythm poss a fib with almost regular R to R Left axis deviation Non-specific intra-ventricular conduction block Cannot rule out Septal infarct , age undetermined Possible Lateral infarct , age undetermined Abnormal ECG When compared with ECG of 18-NOV-2019 18:57, (Unconfirmed) Current undetermined rhythm precludes rhythm comparison, needs review Confirmed by DR. Kishor BURGESS (3) on 11/20/2019 2:18:35 PM Referred By: Zoila Confirmed By:DR. Kishor BURGESS
== END 2019-11-23 16:33 | DRG 871 ==
LOC: ERS 01:09 → 2SW 02:14 → 2SE 03:12
PROVIDERS: ADMIT Internal Medicine; ATTEND Internal Medicine
PROC: 8E0ZXY6 Isolation (ICD-10-PCS; principal; 2019-11-11)
DX: A41.9 Sepsis, unspecified organism (principal); J18.9 Pneumonia, unspecified organism; G93.41 Metabolic encephalopathy; D65 Disseminated intravascular coagulation [defibrination syndrome]; N17.9 Acute kidney failure, unspecified; E87.2 Acidosis; A04.72 Enterocolitis due to Clostridium difficile, not specified as recurrent; D61.818 Other pancytopenia; E87.3 Alkalosis; J90 Pleural effusion, not elsewhere classified; E87.0 Hyperosmolality and hypernatremia; I47.2 Ventricular tachycardia; Z51.5 Encounter for palliative care; Z20.828 Contact with and (suspected) exposure to other viral communicable diseases; E87.5 Hyperkalemia; I25.10 Atherosclerotic heart disease of native coronary artery without angina pectoris; I73.9 Peripheral vascular disease, unspecified; E11.22 Type 2 diabetes mellitus with diabetic chronic kidney disease; N18.3 Chronic kidney disease, stage 3 (moderate); K21.9 Gastro-esophageal reflux disease without esophagitis; E78.5 Hyperlipidemia, unspecified; R74.0 Nonspecific elevation of levels of transaminase and lactic acid dehydrogenase [LDH]; M19.90 Unspecified osteoarthritis, unspecified site; F03.90 Unspecified dementia, unspecified severity, without behavioral disturbance, psychotic disturbance, mood disturbance, and anxiety; N40.0 Benign prostatic hyperplasia without lower urinary tract symptoms; I25.2 Old myocardial infarction; Z79.82 Long term (current) use of aspirin; Z95.1 Presence of aortocoronary bypass graft; Z95.2 Presence of prosthetic heart valve; Z89.511 Acquired absence of right leg below knee; Z91.041 Radiographic dye allergy status; Z91.040 Latex allergy status; Z91.013 Allergy to seafood; Z86.73 Personal history of transient ischemic attack (TIA), and cerebral infarction without residual deficits
CPT/HCPCS: 36415; 36416; 70450; 71045; 74018; 76770; 80048; 80053; 80074; 80202; 81003; 81015; 82140; 82436; 82728; 82805; 83540; 83605; 83690; 83735; 84100; 84133; 84300; 84443; 85007; 85025; 85027; 85046; 85049; 85300; 85362; 85379; 85384; 85610; 85730; 87324; 87449; 87635; 93005; 93010; 93975; 99285; C9113; J0692; J1650; J1940; J2270; J2405; J2916; J3370; J3475; J3480; J3490; J7050; J7070; U0003